=== PATIENT | male | born 1940 | race Caucasian/White ===

== ENCOUNTER 2016-10-14 11:18 | Inpatient (IN) | payer MEDICARE, OTHER ==
[~2016-10-14] VITALS: Ht 162.6 cm; Wt 68.4 kg
[~2016-10-14 11:18] MED LIST: AMLO5TAB4 PO; GLIP5TAB13 PO; HYDR-3671 PO; ISOS60TA PO; SEVE800T10 PO; SIMV40TA2 PO
[2016-10-14 12:10] LABS: BASOPHILS % 0.5 % (0.0-2.0); EOSINOPHILS # 0.5 10^3/ul (0.0-0.5); EOSINOPHILS % 8.1 % (0.0-7.0); HEMATOCRIT 37.2 % (42.0-52.0); LYMPHOCYTES # 0.3 10^3/ul (0.8-2.9); LYMPHOCYTES % 4.8 % (15.0-51.0); MEAN CORPUSCULAR HEMOGLOBIN 26.5 pg (29.0-33.0); MEAN CORPUSCULAR HGB CONC 32.2 g/dl (32.0-37.0); MEAN CORPUSCULAR VOLUME 82.3 fl (82.0-101.0); MEAN PLATELET VOLUME 9.9 fl (7.4-10.4); MONOCYTE # 0.6 10^3/ul (0.3-0.9); MONOCYTES % 10.1 % (0.0-11.0); NEUTROPHIL # 4.8 10^3/ul (1.6-7.5); NEUTROPHILS % 76.5 % (39.0-77.0); PLATELET COUNT 119 10^3/UL (140-440); RED BLOOD COUNT 4.53 10^6/ul (4.70-6.10); RED CELL DISTRIBUTION WIDTH 19.9 % (11.5-14.5); UNCORRECTED WBC 6.3 10^3/ul (4.8-10.8); WHITE BLOOD COUNT 6.3 10^3/ul (4.8-10.8)
[2016-10-14 12:16] LABS: CONDITION 1; LH ANALYZER COMMENTS 1
[2016-10-14 12:22] LABS: POTASSIUM 4.5 mmol/L (3.5-5.1)
[2016-10-14 12:23] LABS: INR 1.45; PARTIAL THROMBOPLASTIN TIME 36.7 Sec (25.0-35.0); PROTIME 17.7 Sec (12.2-14.2); PT RATIO 1.4
[2016-10-14 12:25] LABS: CREATININE 3.68 mg/dl (0.61-1.24)
[2016-10-14 12:26] LABS: CALCIUM 9.1 mg/dl (8.4-10.2)
--- NOTE | 2016-10-14 12:26 | RADRPT ---
PROCEDURE: Chest x-ray CLINICAL INDICATION: Chest pain TECHNIQUE: Chest single view COMPARISON: 05/28/2016 FINDINGS: As before there is right chest single lead pacemaker. Stable mild cardiomegaly and an sclerotic aor tic calcification seen. Pulmonary vessels normal in caliber. Lungs clear. Costophrenic angles sha rp. IMPRESSION: No acute cardiopulmonary disease. Stable cardiomegaly and an sclerotic aortic calcification Pacemaker RPTAT: HH .Ru Vila MD, MD Date Time Electronically viewed and signed by .Ru Vila MD, MD on 10/14/2016 12:25 .W/
[2016-10-14 12:36] LABS: TROPONIN-I 0.049 ng/ml (0.00-0.12)
--- NOTE | 2016-10-14 13:45 | ERA ---
ER Documentation Chief Complaint Date/Time DATE: 10/14/16 TIME: 13:43 Chief Complaint CHEST PAIN , NAUSEA , COUGH SINCE YESTERDAY HPI This is a 76-year-old male who presents to the emergency room with a chief complaint of chest pain. The patient localizes the chest pain in the center of his chest, describes as achy pain, states he has no radiation of the pain and came to the ER for evaluation. He states his chest pain is worse with deep inspiration and, is not improved with any positioning. The patient came to the ER for evaluation. He is a end-stage renal patient is on dialysis Thursday, Thursday, Thursday. This patient did complete dialysis yesterday ROS All systems reviewed and are negative except as per history of present illness. Medications Home Meds Reported Medications Sevelamer Hcl* (Renagel*) 800 Mg Tablet, 2400 MG PO WITH MEALS, TAB 05/26/16 Isosorbide Mononitrate* (Isosorbide Mononitrate*) 60 Mg Tab.er.24h, 60 MG PO DAILY, TAB 05/26/16 Glipizide* (Glipizide*) 5 Mg Tablet, 5 MG PO AC BREAKFAST, TAB 05/26/16 Simvastatin* (Zocor*) 40 Mg Tablet, 40 MG PO QHS, #30 TAB 05/26/16 Amlodipine Besylate* (Norvasc*) 5 Mg Tablet, 5 MG PO DAILY, TAB 05/26/16 Hydralazine Hcl* (Hydralazine Hcl*) 25 Mg Tab, 25 MG PO Q8, #90 TAB 05/26/16 Allergies Allergies: Coded Allergies: No Known Drug Allergy (Verified Allergy, Mild, 10/14/16) PMhx/Soc History of Surgery: Yes (2 Left foot toe amputations, AV fistula placement) Anesthesia Reaction: No Hx Neurological Disorder: No Hx Respiratory Disorders: No Hx Cardiac Disorders: Yes (Hypertension) Hx Psychiatric Problems: No Hx Miscellaneous Medical Probl: No Hx Alcohol Use: No Hx Substance Use: No Hx Tobacco Use: No Smoking Status: Never smoker Physical Exam Vitals Vital Signs Date Time Temp Pulse Resp B/P Pulse Ox O2 Delivery O2 Flow Rate FiO2 10/14/16 11:57 Nasal Cannula 2 10/14/16 11:22 97.9 88 18 217/96 98 Physical Exam INITIAL VITAL SIGNS: Reviewed by me GENERAL: The patient is well developed and appropriate for usual state of health in no apparent distress HEENT: Pupils equal, round, and reactive to light. EOMI. There is no scleral icterus. NECK: C-spine is soft and supple, there is no meningismus. There is no cervical lymphadenopathy. LUNGS: Clear to auscultation bilaterally. There are no rales, wheezes or rhonchi. HEART: Regular rate and rhythm, no murmurs, clicks, rubs or gallops. ABDOMEN: Soft, non-tender, non-distended. There are bowel sounds in all four quadrants. No rebound or guarding. EXTREMITIES: Left upper extremity AV shunt with palpable thrill, there is no peripheral cyanosis or edema. No focal swelling or erythema. NEUROLOGICAL: The patient moves all four extremities with 5/5 strength. Cranial nerves II - XII are intact. Normal gait. Alert and oriented SKIN: There is no apparent rash or petechiae. HEME/LYMPHATIC: There is no evidence of excessive bruising or lymphedema. PSYCHIATRIC: The patient does not appear anxious or depressed. Result Diagram: 10/14/16 1200 10/14/16 1200 Results 24 hrs Laboratory Tests Test 10/14/16 12:00 Activated Partial Thromboplast Time 36.7Sec Anion Gap 19 Basophils # 0.010^3/ul Basophils % 0.5% Blood Morphology Comment Blood Urea Nitrogen 23mg/dl Calcium Level 9.1mg/dl Carbon Dioxide Level 34mmol/L Chloride Level 93mmol/L Creatinine 3.68mg/dl Eosinophils # 0.510^3/ul Eosinophils % 8.1% Glucose Level 93mg/dl Hematocrit 37.2% Hemoglobin 12.0g/dl INR International Normalized Ratio 1.45 Lymphocytes # 0.310^3/ul Lymphocytes % 4.8% Mean Corpuscular Hemoglobin 26.5pg Mean Corpuscular Hemoglobin Concent 32.2g/dl Mean Corpuscular Volume 82.3fl Mean Platelet Volume 9.9fl Monocytes # 0.610^3/ul Monocytes % 10.1% Neutrophils # 4.810^3/ul Neutrophils % 76.5% Nucleated Red Blood Cells # 0.010^3/ul Nucleated Red Blood Cells % 0.0/100WBC Platelet Count 12681^3/UL Potassium Level 4.5mmol/L Prothrombin Time 17.7Sec Prothrombin Time Ratio 1.4 Red Blood Count 4.5310^6/ul Red Cell Distribution Width 19.9% Sodium Level 141mmol/L Troponin I 0.049ng/ml White Blood Count 6.310^3/ul Procedures/MDM Chest X-ray 1V Interpreted by me: Soft Tissue: No acute abnormalities Bones: No acute abnormalities Mediastinum/Cardiac Silhouette/Lungs: [No acute abnormalities] EKG: Rate/Rhythm: [Normal Sinus Rhythm] QRS, ST, T-waves: [No changes consistent w/ acute ischemia] Impression: [No evidence of ischemia or arrhythmia] This 76-year-old male presents to the ER for evaluation of chest pain. This patient does have multiple risk factors including hypertension, diabetes, and age. Given his risk factors this patient will be placed in for admission at this time on a telemetry floor with a cardiac consult. The patient will be admitted under the care of Dr. Harriet See. He is hemodynamically stable for the telemetry floor at this time. Departure Diagnosis: Primary Impression: Chest pain Additional Impressions: ESRD (end stage renal disease) Normocytic anemia Condition: MALCOLM Flaherty DO Oct 14, 2016 13:45
[2016-10-14] MEDS ORDERED: ONDANSETRON 4 MG INJ IV PRN ×2 (14:00→16:30)
[2016-10-14] MEDS ORDERED: ACETAMINOPHEN 325 MG TAB PO PRN ×2 (14:00→16:30)
[2016-10-14] MEDS ORDERED: ASPIRIN 325 MG TAB PO ONE (14:00)
[2016-10-14] MEDS ORDERED: NITROGLYCERIN (SL) 0.4 MG TAB SL ONE (14:00)
[2016-10-14] MEDS ORDERED: hydrALAzine 20 MG INJ IV ONE (16:00)
[2016-10-14] MEDS ORDERED: GUAIFENESIN/DM 5ML CUP PO PRN (16:30)
[2016-10-14] MEDS ORDERED: morphine 2 MG INJ IV PRN (16:30)
[2016-10-14] MEDS ORDERED: DOCUSATE SODIUM 100 MG CAP PO PRN (16:30)
[2016-10-14] MEDS ORDERED: NACL 0.9% 3 ML SYG IV SCH (16:30)
[2016-10-14] MEDS ORDERED: AZITHROMYCIN 500MG/NS (PMX) 250 ML IVPB ONE (16:30)
[2016-10-14] MEDS ORDERED: NITROGLYCERIN (SL) 0.4 MG TAB SL PRN (16:30)
[2016-10-14] MEDS: CEFTRIAXONE 1 GM/50 ML (PMX) 50 ML IVPB SCH (16:43)
--- NOTE | 2016-10-14 17:17 | HP ---
DATE OF ADMISSION: 10/14/2016 CHIEF COMPLAINT: Productive cough started yesterday and chest pain. HISTORY OF PRESENT ILLNESS: The patient is a 76-year-old gentleman who had developed a pro ductive cough yesterday. Patient also stated that he had chest pain with no radiation. The chest p ain gets worse with inspiration. Patient also has end-stage renal disease on hemodialysis on Thursday , Thursday and Thursday. I used a drywall installer to talk to the patient. 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 Patient denies any feve r or chills. The patient complained of nausea; however, he associated it with productive cough. In the emergency room, patient underwent a chest x-ray which showed no acute cardiopulmonary disease, stable cardiomegaly and a sclerotic aortic calcification and pacemaker. Patient rapid influenza A a nd B was found to be negative. Patient did not have any leukocytosis. The patient's blood pressure was 117/96. The patient was getting hydralazine, Zofran, Tylenol, nitroglycerin and aspirin. The patient will be admitted for further evaluation and management to telemetry floor. PAST MEDICAL HISTORY: Positive for end-stage renal disease, hypertension. Patient is legally blind and has history of diabetes mellitus type 2. PAST SURGICAL HISTORY: Status post left AV fistula creation, status post pacemaker insertion. Stat us post 2 left fourth toe amputations. FAMILY HISTORY: Noncontributory. SOCIAL HISTORY: Patient lives at home with his family. The patient denies any tobacco use, denies any alcohol use and denies any illicit drug use. ALLERGIES: NO KNOWN ALLERGIES. MEDICATIONS ON ADMISSION: 1. Renagel. 2. Imdur. 3. Glipizide. 4. Simvastatin. 5. Norvasc. 6. Hydralazine. REVIEW OF SYSTEMS: A 12-point review of systems is negative unless what mentioned in the HPI. PHYSICAL GENERAL: Well developed, well-nourished gentleman in no acute distress, awake, alert. VITAL SIGNS: Temperature 97.9, pulse is 78, blood pressure 102/93, respiratory rate 18, oxygen satu ration 98% on room air. HEENT: Head is atraumatic, normocephalic. Patient is legally blind. Oral mucosa is pink and moist . NECK: Supple, no cervical lymphadenopathy, no thyromegaly. CHEST: Lung sounds with some congestion, scattered rhonchi bilaterally. CARDIOVASCULAR: Normal S1, S2. No murmurs, gallops, clicks, rubs noted. ABDOMEN: Round, soft, nondistended, nontender. Bowel sounds present. There is no guarding, no ten derness. EXTREMITIES: No edema, clubbing, cyanosis. Pulses equal bilaterally 2+. SKIN: There is no rash, petechiae noted. NEUROLOGIC: Patient is awake, alert and oriented x3. No focal deficits noted. Motor strength 5/5 in all extremities. LABORATORY DATA: On admission, CBC: White blood cells 6.3, hemoglobin 12.0, hematocrit 37.2, plate lets 119. Chemistry: Sodium is 141, potassium 4.5, chloride 93, carbon dioxide 34, anion gap 19, B UN is 23. Creatinine 3.68, glucose 93, calcium is 9.1. Troponin 0.049. ASSESSMENT AND PLAN: 1. Possible bronchitis. We will start patient on Rocephin and Zithromax and breathing treatment p. r.n. for shortness of breath. Chest pain, rule out acute coronary syndrome. Dr. Esparza is asked to see patient in cardiology consultation. We will obtain cardiac enzymes x3 q. 8 hours and continue aspirin, nitroglycerin and morphine for pain. 2. Hypertensive urgency. Will resume patient's home antihypertensive medications. Continue hydral azine p.r.n. for systolic blood pressure above 170. 3. End-stage renal disease. Dr. Nettles will be following the patient from nephrology standpoint. 4. Diabetes mellitus type 2. Will continue to monitor patient's blood sugar. Continue NovoLog per mild algorithm sliding scale. Continue home diabetes medication. 5. Permanent pacemaker. 6. Left upper extremity AV fistula with audible bruit and palpable thrill. ASSESSMENT AND PLAN: We will continue heparin for deep venous thrombosis prophylaxis and Pepcid for peptic ulcer disease prophylaxis. Further recommendations based on clinical course. Plan of care was discussed with Dr. Nettles who is covering for Dr. Kirby. Dictated By: CONTRERAS HUERTA CLASP MACHINE OPERATOR for YUNIER KIRBY MD SR/NTS Conf#: [id number] DID#: [id number]
[2016-10-14] MEDS ORDERED: GLUCAGON 1 MG INJ IM PRN (17:30)
[2016-10-14] MEDS ORDERED: DEXTROSE 50% 50 ML SYRINGE IV PRN (17:30)
[2016-10-14] MEDS ORDERED: GLUCOSE GEL 15 GRAM TUBE PO PRN ×2 (17:30)
[2016-10-14 17:46] LABS: CK-MB 0.82 ng/ml (0.0-2.4)
[2016-10-14 17:48] LABS: TROPONIN-I 0.058 ng/ml (0.00-0.12)
[2016-10-14] MEDS: SEVELAMER 800 MG TAB PO SCH (18:00)
[2016-10-14] MEDS: INSULIN ASPART [NOVOLOG] 3 ML PEN SC SCH ×2 (18:00→21:00)
[2016-10-14 18:50] VITALS: TEMP 99.4
[2016-10-14 20:30] VITALS: BP 190/85; PULSE 102; RESP 20
[2016-10-14 20:32] VITALS: PULSE 103
[2016-10-14 20:54] VITALS: Ht 162.6 cm; Wt 68.4 kg
[2016-10-14] MEDS: METHYLPREDNISOLONE 40 MG INJ IV SCH (21:46)
[2016-10-14] MEDS: ATORVASTATIN 20 MG TAB PO SCH (21:46)
[2016-10-14 22:00] VITALS: BP 179/77; PULSE 71
[2016-10-14] MEDS: ISOSORBIDE DINITRATE 10 MG TAB PO SCH (22:04)
[2016-10-14] MEDS: HEPARIN 5,000 UNIT/0.5 ML SYG SC SCH (22:06)
[2016-10-14] MEDS: ALBUTEROL/IPRATROPIUM (NEB) 3 ML AMP HHN PRN (23:01)
[2016-10-14 23:25] LABS: TROPONIN-I 0.095 ng/ml (0.00-0.12)
[2016-10-14 23:37] LABS: CK-MB 0.64 ng/ml (0.0-2.4)
[2016-10-15] VITALS (21 sets, daily range): BP systolic 121–210; BP diastolic 58–110; PULSE 49–97; RESP 16–20
[2016-10-15] MEDS ORDERED: glipiZIDE 5 MG TAB PO SCH (07:00)
[2016-10-15 07:38] LABS: HEMATOCRIT 35.1 % (42.0-52.0); HEMOGLOBIN 11.4 g/dl (14.0-18.0); LYMPHOCYTES # 0.1 10^3/ul (0.8-2.9); LYMPHOCYTES % 1.4 % (15.0-51.0); MEAN CORPUSCULAR HEMOGLOBIN 27.1 pg (29.0-33.0); MEAN CORPUSCULAR HGB CONC 32.5 g/dl (32.0-37.0); MEAN CORPUSCULAR VOLUME 83.4 fl (82.0-101.0); MEAN PLATELET VOLUME 10.7 fl (7.4-10.4); MONOCYTE # 0.2 10^3/ul (0.3-0.9); MONOCYTES % 2.3 % (0.0-11.0); NEUTROPHIL # 9.5 10^3/ul (1.6-7.5); NEUTROPHILS % 96.3 % (39.0-77.0); PLATELET COUNT 97 10^3/UL (140-440); RED BLOOD COUNT 4.21 10^6/ul (4.70-6.10); RED CELL DISTRIBUTION WIDTH 20.5 % (11.5-14.5); UNCORRECTED WBC 9.9 10^3/ul (4.8-10.8); WHITE BLOOD COUNT 9.9 10^3/ul (4.8-10.8)
[2016-10-15 07:47] LABS: CONDITION 1; LH ANALYZER COMMENTS 1
[2016-10-15 07:49] LABS: POTASSIUM 4.8 mmol/L (3.5-5.1)
[2016-10-15 07:52] LABS: CREATININE 5.2 mg/dl (0.61-1.24)
[2016-10-15 07:53] LABS: CALCIUM 8.8 mg/dl (8.4-10.2); MAGNESIUM 2.2 mg/dl (1.7-2.5)
[2016-10-15] MEDS: INSULIN ASPART [NOVOLOG] 3 ML PEN SC SCH ×4 (07:53→21:37)
[2016-10-15] MEDS: SEVELAMER 800 MG TAB PO SCH ×3 (07:58→17:14)
[2016-10-15] MEDS: HEPARIN 5,000 UNIT/0.5 ML SYG SC SCH ×2 (08:09→21:37)
[2016-10-15] MEDS: AZITHROMYCIN 250 MG TAB PO SCH (08:10)
[2016-10-15] MEDS: ISOSORBIDE DINITRATE 10 MG TAB PO SCH ×2 (08:10→12:19)
[2016-10-15] MEDS: FAMOTIDINE 20 MG TAB PO SCH (08:10)
[2016-10-15] MEDS: ASPIRIN 81 MG TAB PO SCH (08:10)
[2016-10-15] MEDS: METHYLPREDNISOLONE 40 MG INJ IV SCH ×2 (08:10→21:32)
[2016-10-15] MEDS ORDERED: AMLODIPINE 5 MG TAB PO SCH (09:00)
[2016-10-15 09:24] LABS: ANISOCYTOSIS 2+; HYPOCHROMASIA 1+; PLATELET ESTIMATE PLT APPEAR DECREASED
--- NOTE | 2016-10-15 16:33 | CONS ---
DATE OF ADMISSION: 10/14/2016 DATE OF CONSULTATION: 10/15/2016 TYPE OF CONSULTATION: Cardiology REASON FOR CONSULTATION: Chest pain, assess for acute coronary syndrome. REQUESTING PHYSICIAN: Yunier Kirby MD and Dr. Nettles. HISTORY OF PRESENT ILLNESS: Mr. Doss is a 76-year-old male with a history of hypertension, symptomatic bradycardia status post permanent pacemaker implant May 2016, end-stage renal dise ase on hemodialysis, legally blind, diabetes mellitus, dyslipidemia who initially presented with com plaints of substernal chest pain. Upon arrival in the emergency department, temperature 97.9, blood pressure markedly elevated to 217/96, pulse 88, respiratory rate 18, saturating 98%. The patient's labs revealed white count 6.3, hemoglobin 12, platelet count 119. Sodium 141, potassium 4.5, creat inine 3.6, troponin negative. INR 1.45. The patient underwent a chest x-ray revealing stable cardi omegaly and atherosclerotic aortic arch calcification, permanent pacemaker in place, no acute cardio pulmonary disease. The patient's electrocardiogram revealed sinus rhythm, first-degree AV block, ri ght bundle branch block pattern secondary to repolarization abnormalities. Patient subsequently adm itted to the floor and since admit to the floor, he has had additional negative troponins. PAST MEDICAL HISTORY: As above in HPI. CURRENT MEDICATIONS CURRENTLY IN HOSPITAL: 1. Azithromycin. 2. Pepcid 20 mg daily. 3. Aspirin 81 mg daily. 4. Norvasc 5 mg daily. 5. Clonidine p.r.n. 6. Heparin 5000 subq b.i.d. 7. Aricept 10 mg p.o. t.i.d. 8. Solu-Medrol 40 mg IV q.12h. 9. Lipitor 20 mg at bedtime. 10. Renagel. 11. Ceftriaxone IV. 12. DuoNeb. 13. Sublingual nitroglycerin p.r.n. 14. Morphine p.r.n. 15. Colace p.r.n. 16. Robitussin. ALLERGIES: NO KNOWN DRUG ALLERGIES. SOCIAL HISTORY: No tobacco, ETOH or illicit drug use. FAMILY HISTORY: No history of sudden cardiac or early CAD. REVIEW OF SYSTEMS: As above in HPI. CONSTITUTIONAL: No fevers, chills. PULMONARY: No current signs of respiratory compromise. GASTROINTESTINAL: No vomiting. GENITOURINARY: No hematuria. MUSCULOSKELETAL: Degenerative joint disease. PSYCHIATRIC: No documented psychiatric history. NEUROLOGIC: No documented history of CVA. CARDIOVASCULAR: Chest pain. PHYSICAL EXAMINATION: VITAL SIGNS: Temperature 99.4, blood pressure most recently 193/87, pulse 80, respirations 16, satu rating 96%. GENERAL: The patient is sleeping but arousable. NECK: JVP approximately 9 cm water. CHEST: Bibasilar crackles. HEART: Regular rate and rhythm. Normal S1, S2. A 1/6 systolic murmur, nondisplaced PMI. ABDOMEN: Positive bowel sounds, soft. EXTREMITIES: No pitting edema, 1+ pulses bilaterally posterior tibial. LABORATORIES: As above in HPI with most recently from today, sodium 143, potassium 4.8, creatinine of 5.2, BUN of 39. Troponin negative x3. White blood cell count 9.9, hemoglobin 11.4, platelet cou nt 97. INR 1.45. IMAGING STUDIES: As above in HPI. No further imaging studies for my review at this time. ECG: As above in HPI. No further electrocardiograms for my review at this time. IMPRESSION: 1. Chest pain, assess for acute coronary syndrome with negative troponins x3 at this time. 2. Abnormal electrocardiogram, assess for acute coronary syndrome. 3. Right bundle branch block by EKG. 4. History of permanent pacemaker implant. 5. History of symptomatic bradycardia. 6. Diabetes mellitus. 7. Hypertensive emergency. 8. End-stage renal disease on hemodialysis. 9. Possible bronchitis. RECOMMENDATIONS: 1. At this time, would maintain patient on telemetry monitoring to follow rhythm and rate control c losely. 2. Continue the patient's aspirin for prophylaxis against cardiovascular events. 3. Continue the patient's Norvasc with increase to improve overall systolic blood pressure control and will additionally continue the patient's Isordil. We will give consideration to initiation of b eta mary lou given his chest pain. 4. Continue the patient's current steroids and bronchodilators following respiratory status closely . 5. Continue the patient's broad-spectrum antibiotics and follow up all culture data. 6. Will consider stress testing this patient to further assess the possibility of significant obstr uctive coronary artery disease or ischemia lending to her symptoms of chest pain. I will check a fa sting lipid panel for general risk stratification and initiate lipid-lowering medication as necessar y. Thank you for allowing me to take part in the care of this patient. I will continue to follow along very closely with you with further recommendations to be made as to the risk stratification and adj ust the patient's statin therapy as necessary. Thank you for allowing me to take part in the care of this patient. I will continue follow along ve ry closely with you with further recommendations to be made as the patient progresses through his in patient hospital clinical course. Dictated By: WILLA CORBETT/JERAMY Conf#: [id number] DID#: [id number] CC: YUNIER KIRBY MD; MARIANNA NETTLES MD;*EndCC*
[2016-10-15] MEDS: CEFTRIAXONE 1 GM/50 ML (PMX) 50 ML IVPB SCH (16:56)
--- NOTE | 2016-10-15 18:54 | PN ---
Date/Time of Note Date/Time of Note DATE: 10/15/16 TIME: 18:47 Assessment/Plan VTE Prophylaxis VTE Prophylaxis Intervention: SCD's Lines/Catheters IV [facility]ter [facility]from [facility] Saline Lock Urinary Cath still in place: No Assessment/Plan Chief Complaint/Hosp Course ASSESSMENT AND PLAN: 1. Possible bronchitis. Continue Rocephin and Zithromax and breathing treatment p.r.n. for shortness of breath. 2. Chest pain, rule out acute coronary syndrome. Dr. Esparza is following cardiology consultation. Cardiac enzymes are negative. Stress test tomorrow. 2. Hypertensive urgency. Continue Norvasc, Imdur and Catapres continue hydralazine p.r.n. for systolic blood pressure above 170. 3. End-stage renal disease. Dr. Nettles is following the patient from nephrology standpoint. 4. Diabetes mellitus type 2. Will continue to monitor patient's blood sugar. Continue NovoLog per mild algorithm sliding scale. Continue home diabetes medication. 5. Permanent pacemaker. Continue heparin for deep venous thrombosis prophylaxis and Pepcid for peptic ulcer disease prophylaxis. Further recommendations based on clinical course. Plan of care was discussed with Dr. Nettles who is covering for Dr. Rangel. Problems: Subjective 24 Hr Interval Summary Free Text/Dictation Patient continues to have no nonproductive cough, no fever nausea vomiting per RN, patient stated that he feels better, poor appetite. Paced rhythm on telemetry. Exam/Review of Systems Vital Signs Vitals Vital Signs Date Time Temp Pulse Resp B/P Pulse Ox O2 Delivery O2 Flow Rate FiO2 10/15/16 16:30 60 20 10/15/16 15:38 97.9 189/90 96 10/15/16 08:00 Nasal Cannula 3.0 10/14/16 23:06 21 Intake and Output 10/14/16 10/14/16 10/15/16 15:00 23:00 07:00 Intake Total 480 ml Balance 480 ml Exam GENERAL: Well developed, well-nourished gentleman in no acute distress, awake, alert. HEENT: Head is atraumatic, normocephalic. Patient is legally blind. NECK: Supple, no cervical lymphadenopathy, no thyromegaly. CHEST: Lung sounds with some congestion, scattered rhonchi bilaterally. CARDIOVASCULAR: Normal S1, S2. No murmurs, gallops, clicks, rubs noted. ABDOMEN: Round, soft, nondistended, nontender. Bowel sounds present. EXTREMITIES: No edema, clubbing, cyanosis. Left upper extremity AV fistula with audible bruit and palpable thrill. SKIN: There is no rash, petechiae noted. NEUROLOGIC: Patient is awake, alert and oriented x3. Results Result Diagram: 10/15/16 0641 10/15/16 0641 Results 24 hrs Laboratory Tests Test 10/14/16 18:59 10/14/16 21:42 10/14/16 22:05 10/15/16 06:41 Bedside Glucose 79 78 Creatine Kinase 88 Creatine Kinase Index 0.7 Creatinine Kinase MB (Mass) 0.64 Troponin I 0.095 Anion Gap 24 H Anisocytosis 2+ Basophils # 0.0 Basophils % 0.0 Blood Morphology Comment Blood Urea Nitrogen 39 #H Calcium Level 8.8 Carbon Dioxide Level 30 Chloride Level 94 L Creatinine 5.20 H Differential Comment AUTO w/SCAN Eosinophils # 0.0 Eosinophils % 0.0 Glucose Level 106 Hematocrit 35.1 L Hemoglobin 11.4 L Hypochromasia 1+ Large Platelets 1+ Lymphocytes # 0.1 L Lymphocytes % 1.4 L Magnesium Level 2.2 Mean Corpuscular Hemoglobin 27.1 L Mean Corpuscular Hemoglobin Concent 32.5 Mean Corpuscular Volume 83.4 Mean Platelet Volume 10.7 H Monocytes # 0.2 L Monocytes % 2.3 Neutrophils # 9.5 H Neutrophils % 96.3 H Nucleated Red Blood Cells # 0.0 Nucleated Red Blood Cells % 0.0 Platelet Count 97 L Platelet Estimate PLT APPEAR DECREASED Potassium Level 4.8 Red Blood Count 4.21 L Red Cell Distribution Width 20.5 H Sodium Level 143 White Blood Count 9.9 # Test 10/15/16 07:47 10/15/16 11:17 10/15/16 17:10 Bedside Glucose 101 120 146 Medications Medications Current Medications Ceftriaxone Sodium (Rocephin) 50 ml @ 100 mls/hr Q24H IVPB Last administered on 10/15/16 16:56; Admin Dose 100 MLS/HR; Start 10/14/16 at 16:30 Azithromycin (Zithromax) 250 mg DAILY PO Last administered on 10/15/16 08:10; Admin Dose 250 MG; Start 10/15/16 at 09:00 Heparin Sodium (Porcine) (Heparin (5000 Units/0.5 ml)) 5,000 unit BID SC Last administered on 10/15/16 08:09; Admin Dose 5,000 UNIT; Start 10/14/16 at 21:00 Famotidine (Pepcid) 20 mg DAILY PO Last administered on 10/15/16 08:10; Admin Dose 20 MG; Start 10/15/16 at 09:00 Ondansetron HCl (Zofran Inj) 4 mg Q6H PRN IV NAUSEA AND/OR VOMITING; Start at 16:30 Aspirin (Aspirin) 81 mg DAILY PO Last administered on 10/15/16 08:10; Admin Dose 81 MG; Start 10/15/16 at 09:00 Nitroglycerin (Nitroglycerin (Sl Tab) 0.4 Mg) 1 tab Q5M PRN SL CHEST PAIN; Start 10/14/16 at 16:30 Acetaminophen (Tylenol Tab) 650 mg Q6H PRN PO PAIN LEVEL 1-3 OR FEVER; Start at 16:30 Morphine Sulfate (morphine) 2 mg Q4H PRN IV PAIN LEVEL 7-10; Start 10/14/16 at 16:30 Docusate Sodium (Colace) 100 mg Q12H PRN PO CONSTIPATION; Start 10/14/16 at 16: 30 Methylprednisolone Sodium Succinate (Solu-Medrol) 40 mg Q12 IV Last administered on 10/15/16 08:10; Admin Dose 40 MG; Start 10/14/16 at 21:00 Guaifenesin/ Dextromethorphan (Robitussin Dm Liquid Cup) 10 ml Q4H PRN PO COUGH Last administered on 10/14/16 21:56; Admin Dose 10 ML; Start 10/14/16 at 16:30 Atorvastatin Calcium (Lipitor) 20 mg DAILY@21 PO Last administered on 21:46; Admin Dose 20 MG; Start 10/14/16 at 21:00 Miscellaneous Information 1 ea NOTE XX ; Start 10/14/16 at 17:30 Glucose (Glutose) 15 gm Q15M PRN PO DECREASED GLUCOSE; Start 10/14/16 at 17:30 Glucose (Glutose) 22.5 gm Q15M PRN PO DECREASED GLUCOSE; Start 10/14/16 at 17: 30 Dextrose (D50w Syringe) 25 ml Q15M PRN IV DECREASED GLUCOSE; Start 10/14/16 at 17:30 Dextrose (D50w Syringe) 50 ml Q15M PRN IV DECREASED GLUCOSE; Start 10/14/16 at 17:30 Glucagon (Glucagen) 1 mg Q15M PRN IM DECREASED GLUCOSE; Start 10/14/16 at 17:30 Glucose (Glutose) 15 gm Q15M PRN BUCCAL DECREASED GLUCOSE; Start 10/14/16 at 17 :30 Amlodipine Besylate (Norvasc) 5 mg BID PO ; Start 10/15/16 at 21:00 Clonidine (Catapres) 0.1 mg Q4 PRN PO ELEVATED SYSTOLIC BP; Start 10/15/16 at 17:00 Isosorbide Dinitrate (Isordil) 20 mg TID PO ; Start 10/15/16 at 21:00 CONTRERAS HUERTA Oct 15, 2016 18:54
[2016-10-15] MEDS: ISOSORBIDE DINITRATE 20 MG TAB PO SCH (21:32)
[2016-10-15] MEDS: AMLODIPINE 5 MG TAB PO SCH (21:33)
[2016-10-15] MEDS: ATORVASTATIN 20 MG TAB PO SCH (21:37)
[2016-10-16] VITALS (10 sets, daily range): BP systolic 120–188; BP diastolic 60–82; PULSE 68–73; RESP 16–20
[2016-10-16] MEDS: SEVELAMER 800 MG TAB PO SCH ×3 (07:40→17:23)
[2016-10-16] MEDS: INSULIN ASPART [NOVOLOG] 3 ML PEN SC SCH ×4 (07:41→20:54)
[2016-10-16 07:49] LABS: HEMOGLOBIN 11.9 g/dl (14.0-18.0); LYMPHOCYTES # 0.1 10^3/ul (0.8-2.9); LYMPHOCYTES % 1.7 % (15.0-51.0); MEAN CORPUSCULAR HEMOGLOBIN 26.7 pg (29.0-33.0); MEAN CORPUSCULAR VOLUME 83.4 fl (82.0-101.0); MEAN PLATELET VOLUME 11.1 fl (7.4-10.4); MONOCYTE # 0.3 10^3/ul (0.3-0.9); MONOCYTES % 3.3 % (0.0-11.0); PLATELET COUNT 116 10^3/UL (140-440); RED BLOOD COUNT 4.44 10^6/ul (4.70-6.10); UNCORRECTED WBC 8.4 10^3/ul (4.8-10.8); WHITE BLOOD COUNT 8.4 10^3/ul (4.8-10.8)
[2016-10-16 07:55] LABS: CONDITION 1; LH ANALYZER COMMENTS 1; SUSPECT 1
[2016-10-16 07:56] LABS: POTASSIUM 4.7 mmol/L (3.5-5.1)
[2016-10-16 07:58] LABS: CREATININE 4.84 mg/dl (0.61-1.24)
[2016-10-16 07:59] LABS: CALCIUM 9.1 mg/dl (8.4-10.2)
[2016-10-16 08:01] LABS: CHOL/HDL RATIO 1.8 RATIO
[2016-10-16 08:06] LABS: CK-MB 2.02 ng/ml (0.0-2.4)
[2016-10-16 08:09] LABS: TROPONIN-I 0.164 ng/ml (0.00-0.12)
[2016-10-16] MEDS: HEPARIN 5,000 UNIT/0.5 ML SYG SC SCH ×2 (08:19→20:54)
[2016-10-16] MEDS: ASPIRIN 81 MG TAB PO SCH (08:21)
[2016-10-16] MEDS: AZITHROMYCIN 250 MG TAB PO SCH (08:21)
[2016-10-16] MEDS: FAMOTIDINE 20 MG TAB PO SCH (08:21)
[2016-10-16] MEDS: METHYLPREDNISOLONE 40 MG INJ IV SCH ×2 (08:22→20:51)
[2016-10-16] MEDS: ISOSORBIDE DINITRATE 20 MG TAB PO SCH ×3 (08:22→20:52)
[2016-10-16] MEDS: AMLODIPINE 5 MG TAB PO SCH ×2 (08:22→20:52)
[2016-10-16] MEDS ORDERED: REGADENOSON 0.4 MG/5 ML SYG ONE (10:57)
--- NOTE | 2016-10-16 11:45 | CONS ---
Date/Time of Note Date/Time of Note DATE: 10/16/16 TIME: 11:39 Assessment/Plan Assessment/Plan Chief Complaint/Hosp Course IMPRESSION: 1. Chest pain, assess for acute coronary syndrome-with a 4th trop minimally positive in the setting of renal failure 2. Abnormal electrocardiogram, assess for acute coronary syndrome. 3. Right bundle branch block by EKG. 4. History of permanent pacemaker implant. 5. History of symptomatic bradycardia. 6. Diabetes mellitus. 7. Hypertensive emergency. 8. End-stage renal disease on hemodialysis. 9. Possible bronchitis. Recc: -Tele -serial ecg's -Continue norvasc/isordil -Continue abx's/bronchodilators -Lexiscan stress test today Problems: Consultation Date/Type/Reason Admit Date/Time Oct 14, 2016 at 13:43 Initial Consult Date 10/16/2016 Type of Consultation: Cardiology Reason for Consultation positive troponin/chest pain Referring Provider: YUNIER KIRBY MD Exam/Review of Systems Vital Signs Vitals Vital Signs Date Time Temp Pulse Resp B/P Pulse Ox O2 Delivery O2 Flow Rate FiO2 10/16/16 08:41 69 10/16/16 07:43 Nasal Cannula 3.0 10/16/16 07:12 97.0 19 120/60 97 10/14/16 23:06 21 Intake and Output 10/15/16 10/15/16 10/16/16 15:00 23:00 07:00 Intake Total 1030 ml 400 ml Output Total 3800 ml 50 ml Balance -2770 ml 350 ml Exam Review of Systems: CONSTITUTIONAL: No fevers, chills. PULMONARY: No sob CARDIOVASCULAR: Intermittent chest pain GASTROINTESTINAL: No nausea/vomiting. GENITOURINARY: No hematuria/dysuria. MUSCULOSKELETAL: No myagias/arthalgias. PSYCHIATRIC: The patient denies depression. NEUROLOGIC: No weakness Constitutional: alert Psych: no complaints Head: normocephalic ENMT: mucosa pink and moist Neck: jvd, supple Respiratory: diminished breath sounds (at bases/B) Cardiovascular: regular rate and rhythm Gastrointestinal: non-tender, soft Musculoskeletal: muscle tone (normal) Extremities: edema (none) Neurological: other (No focal deficits) Results Result Diagram: 10/16/16 0607 10/16/16 0607 Results 24 hrs Laboratory Tests Test 10/15/16 17:10 10/15/16 21:30 10/16/16 06:07 10/16/16 07:27 Bedside Glucose 146 196 142 Anion Gap 25 H Basophils # 0.0 Basophils % 0.0 Blood Morphology Comment Blood Urea Nitrogen 51 H Calcium Level 9.1 Carbon Dioxide Level 29 Chloride Level 92 L Cholesterol Level 89 L Cholesterol/HDL Ratio 1.8 Creatine Kinase 108 Creatine Kinase Index 1.9 Creatinine 4.84 H Creatinine Kinase MB (Mass) 2.02 Eosinophils # 0.0 Eosinophils % 0.0 Giant Platelets 1+ Glucose Level 145 HDL Cholesterol 47 Hematocrit 37.0 L Hemoglobin 11.9 L LDL Cholesterol, Calculated 30 Lymphocytes # 0.1 L Lymphocytes % 1.7 L Mean Corpuscular Hemoglobin 26.7 L Mean Corpuscular Hemoglobin Concent 32.0 Mean Corpuscular Volume 83.4 Mean Platelet Volume 11.1 H Monocytes # 0.3 Monocytes % 3.3 Neutrophils # 8.0 H Neutrophils % 95.0 H Nucleated Red Blood Cells # 0.0 Nucleated Red Blood Cells % 0.0 Platelet Count 116 L Potassium Level 4.7 Red Blood Count 4.44 L Red Cell Distribution Width 20.0 H Sodium Level 141 Triglycerides Level 60 Troponin I 0.164 *H White Blood Count 8.4 Medications Medications Current Medications Ceftriaxone Sodium (Rocephin) 50 ml @ 100 mls/hr Q24H IVPB Last administered on 10/15/16 16:56; Admin Dose 100 MLS/HR; Start 10/14/16 at 16:30 Azithromycin (Zithromax) 250 mg DAILY PO Last administered on 10/16/16 08:21; Admin Dose 250 MG; Start 10/15/16 at 09:00 Heparin Sodium (Porcine) (Heparin (5000 Units/0.5 ml)) 5,000 unit BID SC Last administered on 10/16/16 08:19; Admin Dose 5,000 UNIT; Start 10/14/16 at 21:00 Famotidine (Pepcid) 20 mg DAILY PO Last administered on 10/16/16 08:21; Admin Dose 20 MG; Start 10/15/16 at 09:00 Ondansetron HCl (Zofran Inj) 4 mg Q6H PRN IV NAUSEA AND/OR VOMITING; Start at 16:30 Aspirin (Aspirin) 81 mg DAILY PO Last administered on 10/16/16 08:21; Admin Dose 81 MG; Start 10/15/16 at 09:00 Nitroglycerin (Nitroglycerin (Sl Tab) 0.4 Mg) 1 tab Q5M PRN SL CHEST PAIN; Start 10/14/16 at 16:30 Acetaminophen (Tylenol Tab) 650 mg Q6H PRN PO PAIN LEVEL 1-3 OR FEVER; Start at 16:30 Morphine Sulfate (morphine) 2 mg Q4H PRN IV PAIN LEVEL 7-10; Start 10/14/16 at 16:30 Docusate Sodium (Colace) 100 mg Q12H PRN PO CONSTIPATION; Start 10/14/16 at 16: 30 Methylprednisolone Sodium Succinate (Solu-Medrol) 40 mg Q12 IV Last administered on 10/16/16 08:22; Admin Dose 40 MG; Start 10/14/16 at 21:00 Guaifenesin/ Dextromethorphan (Robitussin Dm Liquid Cup) 10 ml Q4H PRN PO COUGH Last administered on 10/14/16 21:56; Admin Dose 10 ML; Start 10/14/16 at 16:30 Atorvastatin Calcium (Lipitor) 20 mg DAILY@21 PO Last administered on 21:37; Admin Dose 20 MG; Start 10/14/16 at 21:00 Miscellaneous Information 1 ea NOTE XX ; Start 10/14/16 at 17:30 Glucose (Glutose) 15 gm Q15M PRN PO DECREASED GLUCOSE; Start 10/14/16 at 17:30 Glucose (Glutose) 22.5 gm Q15M PRN PO DECREASED GLUCOSE; Start 10/14/16 at 17: 30 Dextrose (D50w Syringe) 25 ml Q15M PRN IV DECREASED GLUCOSE; Start 10/14/16 at 17:30 Dextrose (D50w Syringe) 50 ml Q15M PRN IV DECREASED GLUCOSE; Start 10/14/16 at 17:30 Glucagon (Glucagen) 1 mg Q15M PRN IM DECREASED GLUCOSE; Start 10/14/16 at 17:30 Glucose (Glutose) 15 gm Q15M PRN BUCCAL DECREASED GLUCOSE; Start 10/14/16 at 17 :30 Amlodipine Besylate (Norvasc) 5 mg BID PO Last administered on 10/16/16 08:22 ; Admin Dose 5 MG; Start 10/15/16 at 21:00 Clonidine (Catapres) 0.1 mg Q4 PRN PO ELEVATED SYSTOLIC BP; Start 10/15/16 at 17:00 Isosorbide Dinitrate (Isordil) 20 mg TID PO Last administered on 10/16/16t 08: 22; Admin Dose 20 MG; Start 10/15/16 at 21:00 WILLA GARSIA Oct 16, 2016 11:45
--- NOTE | 2016-10-16 13:24 | RADRPT ---
PROCEDURE: Lexiscan myocardial perfusion study CLINICAL INDICATION: 76 -year-old patient complaining of chest pain. TECHNIQUE: Lexiscan 0.4 mg intravenously separate acquisition gated myocardial perfusion SPECT usi ng Tc 99m Myoview 30.0 mCi intravenously at stress and Tc-99m Myoview, 10.2 mCi intravenously at res t was performed using the rest/stress sequence. Poststress Myoview SPECT images were obtained in th e supine position. COMPARISON: No prior studies. FINDINGS: Perfusion images reveal no evidence of perfusion defects. Lexiscan post stress gated SPECT images demonstrate no wall motion abnormalities. IMPRESSION: 1. No evidence of perfusion defects. 2. No wall motion abnormalities. 3. The left ventricle ejection fraction at stress is 65%. A call report was made to Dr. Esparza at 01:20 p.m. on October 16, 2016. RPTAT: HH .Rebeka Tom MD, Date Time Electronically viewed and signed by .Rebeka Tom MD, MD on 10/16/2016 13:24 .L/
--- NOTE | 2016-10-16 14:00 | RADRPT ---
Vent Rate: 74 bpm RR Interval: 0 msec [place] Interval: 166 msec QRS Duration: 158 msec QT Interval: 472 msec QTC Interval: 523 msec P-R-T [place]: 63 - 86 - 10 degrees Normal sinus rhythm Right bundle branch block T wave abnormality, consider inferior ischemia Abnormal ECG Electronically Signed By: Obed Valdes [id number]
--- NOTE | 2016-10-16 14:38 | CONS ---
DATE OF ADMISSION: 10/14/2016 DATE OF CONSULTATION: 10/16/2016 LEXISCAN CARDIOLITE STRESS TEST, ELECTROCARDIOGRAM PORTION REASON FOR PROCEDURE Chest pain, assess for ischemia. Baseline vital signs and electrocardiogram pulse of 75, blood pressure 191/89. Electrocardiogram re veals normal sinus rhythm at a rate of 76 with right axis deviation, right bundle branch block, left posterior fascicular block, secondary repolarization abnormalities. PROCEDURE: The patient underwent standard Lexiscan infusion protocol over 10 seconds followed by ra diolabeled tracer. The patient's test was stopped due to completion of protocol. Maximal achieved blood pressure during the test 150/68. Maximum heart rate during the test 83. ECG FINDINGS: The patient did not develop any new Lexiscan-induced ST or T-wave changes from baseli ne abnormalities. No documented PVCs. SYMPTOMS: The patient had no complaints of chest pain or shortness of breath during stress testing. IMPRESSION: 1. No Lexiscan-induced ST or T-wave changes from baseline abnormalities diagnostic for cardiac isch emia. 2. No complaints of chest pain or shortness of breath during stress testing. 3. No documented premature ventricular contractions during stress test. 4. Report of nuclear images to follow in a separate dictation. Dictated By: WILLA CORBETT/JERAMY Conf#: [id number] DID#: [id number] CC: YUNIER KIRBY MD;*EndCC*
[2016-10-16] MEDS: CEFTRIAXONE 1 GM/50 ML (PMX) 50 ML IVPB SCH (17:23)
--- NOTE | 2016-10-16 19:00 | PN ---
Date/Time of Note Date/Time of Note DATE: 10/16/16 TIME: 19:00 Assessment/Plan Lines/Catheters IV [facility] Saline Lock Urinary Cath still in place: No Exam/Review of Systems Vital Signs Vitals Vital Signs Date Time Temp Pulse Resp B/P Pulse Ox O2 Delivery O2 Flow Rate FiO2 10/16/16 16:02 98.9 74 20 169/76 98 10/16/16 14:18 3.0 10/16/16 07:43 Nasal Cannula 10/14/16 23:06 21 Intake and Output 10/15/16 10/15/16 10/16/16 15:00 23:00 07:00 Intake Total 1030 ml 400 ml Output Total 3800 ml 50 ml Balance -2770 ml 350 ml Results Result Diagram: 10/16/16 0607 10/16/16 0607 Results 24 hrs Laboratory Tests Test 10/15/16 21:30 10/16/16 06:07 10/16/16 07:27 10/16/16 12:30 Bedside Glucose 196 142 144 Anion Gap 25 H Basophils # 0.0 Basophils % 0.0 Blood Morphology Comment Blood Urea Nitrogen 51 H Calcium Level 9.1 Carbon Dioxide Level 29 Chloride Level 92 L Cholesterol Level 89 L Cholesterol/HDL Ratio 1.8 Creatine Kinase 108 Creatine Kinase Index 1.9 Creatinine 4.84 H Creatinine Kinase MB (Mass) 2.02 Eosinophils # 0.0 Eosinophils % 0.0 Giant Platelets 1+ Glucose Level 145 HDL Cholesterol 47 Hematocrit 37.0 L Hemoglobin 11.9 L LDL Cholesterol, Calculated 30 Lymphocytes # 0.1 L Lymphocytes % 1.7 L Mean Corpuscular Hemoglobin 26.7 L Mean Corpuscular Hemoglobin Concent 32.0 Mean Corpuscular Volume 83.4 Mean Platelet Volume 11.1 H Monocytes # 0.3 Monocytes % 3.3 Neutrophils # 8.0 H Neutrophils % 95.0 H Nucleated Red Blood Cells # 0.0 Nucleated Red Blood Cells % 0.0 Platelet Count 116 L Potassium Level 4.7 Red Blood Count 4.44 L Red Cell Distribution Width 20.0 H Sodium Level 141 Triglycerides Level 60 Troponin I 0.164 *H White Blood Count 8.4 Test 10/16/16 17:16 Bedside Glucose 272 H Medications Medications Current Medications Ceftriaxone Sodium (Rocephin) 50 ml @ 100 mls/hr Q24H IVPB Last administered on 10/16/16 17:23; Admin Dose 100 MLS/HR; Start 10/14/16 at 16:30 Azithromycin (Zithromax) 250 mg DAILY PO Last administered on 10/16/16 08:21; Admin Dose 250 MG; Start 10/15/16 at 09:00 Heparin Sodium (Porcine) (Heparin (5000 Units/0.5 ml)) 5,000 unit BID SC Last administered on 10/16/16 08:19; Admin Dose 5,000 UNIT; Start 10/14/16 at 21:00 Famotidine (Pepcid) 20 mg DAILY PO Last administered on 10/16/16 08:21; Admin Dose 20 MG; Start 10/15/16 at 09:00 Ondansetron HCl (Zofran Inj) 4 mg Q6H PRN IV NAUSEA AND/OR VOMITING; Start at 16:30 Aspirin (Aspirin) 81 mg DAILY PO Last administered on 10/16/16 08:21; Admin Dose 81 MG; Start 10/15/16 at 09:00 Nitroglycerin (Nitroglycerin (Sl Tab) 0.4 Mg) 1 tab Q5M PRN SL CHEST PAIN; Start 10/14/16 at 16:30 Acetaminophen (Tylenol Tab) 650 mg Q6H PRN PO PAIN LEVEL 1-3 OR FEVER; Start at 16:30 Morphine Sulfate (morphine) 2 mg Q4H PRN IV PAIN LEVEL 7-10; Start 10/14/16 at 16:30 Docusate Sodium (Colace) 100 mg Q12H PRN PO CONSTIPATION; Start 10/14/16 at 16: 30 Methylprednisolone Sodium Succinate (Solu-Medrol) 40 mg Q12 IV Last administered on 10/16/16 08:22; Admin Dose 40 MG; Start 10/14/16 at 21:00 Guaifenesin/ Dextromethorphan (Robitussin Dm Liquid Cup) 10 ml Q4H PRN PO COUGH Last administered on 10/14/16 21:56; Admin Dose 10 ML; Start 10/14/16 at 16:30 Atorvastatin Calcium (Lipitor) 20 mg DAILY@21 PO Last administered on 21:37; Admin Dose 20 MG; Start 10/14/16 at 21:00 Miscellaneous Information 1 ea NOTE XX ; Start 10/14/16 at 17:30 Glucose (Glutose) 15 gm Q15M PRN PO DECREASED GLUCOSE; Start 10/14/16 at 17:30 Glucose (Glutose) 22.5 gm Q15M PRN PO DECREASED GLUCOSE; Start 10/14/16 at 17: 30 Dextrose (D50w Syringe) 25 ml Q15M PRN IV DECREASED GLUCOSE; Start 10/14/16 at 17:30 Dextrose (D50w Syringe) 50 ml Q15M PRN IV DECREASED GLUCOSE; Start 10/14/16 at 17:30 Glucagon (Glucagen) 1 mg Q15M PRN IM DECREASED GLUCOSE; Start 10/14/16 at 17:30 Glucose (Glutose) 15 gm Q15M PRN BUCCAL DECREASED GLUCOSE; Start 10/14/16 at 17 :30 Amlodipine Besylate (Norvasc) 5 mg BID PO Last administered on 10/16/16 08:22 ; Admin Dose 5 MG; Start 10/15/16 at 21:00 Clonidine (Catapres) 0.1 mg Q4 PRN PO ELEVATED SYSTOLIC BP; Start 10/15/16 at 17:00 Isosorbide Dinitrate (Isordil) 20 mg TID PO Last administered on 10/16/16 12: 39; Admin Dose 20 MG; Start 10/15/16 at 21:00 SADAF VAZQUEZ Oct 16, 2016 19:00
[2016-10-16] MEDS: ATORVASTATIN 20 MG TAB PO SCH (20:51)
[2016-10-17] VITALS (22 sets, daily range): BP systolic 129–185; BP diastolic 62–82; PULSE 60–69; RESP 16–20
[2016-10-17 06:21] LABS: POTASSIUM 5.3 mmol/L (3.5-5.1)
[2016-10-17 06:24] LABS: CREATININE 6.18 mg/dl (0.61-1.24)
[2016-10-17 06:25] LABS: CALCIUM 8.6 mg/dl (8.4-10.2)
[2016-10-17 06:30] LABS: HEMATOCRIT 34.1 % (42.0-52.0); HEMOGLOBIN 11.2 g/dl (14.0-18.0); LYMPHOCYTES # 0.1 10^3/ul (0.8-2.9); LYMPHOCYTES % 1.1 % (15.0-51.0); MEAN CORPUSCULAR HGB CONC 32.8 g/dl (32.0-37.0); MEAN CORPUSCULAR VOLUME 82.4 fl (82.0-101.0); MEAN PLATELET VOLUME 11.1 fl (7.4-10.4); MONOCYTE # 0.2 10^3/ul (0.3-0.9); MONOCYTES % 1.7 % (0.0-11.0); NEUTROPHIL # 8.8 10^3/ul (1.6-7.5); NEUTROPHILS % 97.2 % (39.0-77.0); PLATELET COUNT 121 10^3/UL (140-440); RED BLOOD COUNT 4.14 10^6/ul (4.70-6.10); RED CELL DISTRIBUTION WIDTH 19.9 % (11.5-14.5); UNCORRECTED WBC 9.1 10^3/ul (4.8-10.8); WHITE BLOOD COUNT 9.1 10^3/ul (4.8-10.8)
[2016-10-17 06:52] LABS: CONDITION 1; LH ANALYZER COMMENTS 1
--- NOTE | 2016-10-17 07:56 | CONS ---
Date/Time of Note Date/Time of Note DATE: 10/17/16 TIME: 07:55 Assessment/Plan Assessment/Plan Additional Assessment/Plan 76 yo Male with 1. URI/Bronchitis 2. Hypertensive, Uncontrolled 3. End-stage renal disease. HD MWF 4. Diabetes mellitus type 2. 5. Hx of Permanent pacemaker. 6. Anemia, Chronic Disease 7. Mineral Bone Disease, ESRD 8. Mild Hyperkalemia Will cont HD schedule, MWF HD ordered for today UF as tolerated Electrolytes abnormality with correct with HD Cont current Rx for HTN, We should also see improvement with fluid removal Will order low dose COTY with HD Cont Phophate binder, Renal/ADA diet. Thank you for the Opportunity to participate in the care of Mr Doss. Consultation Date/Type/Reason Admit Date/Time Oct 14, 2016 at 13:43 Date of Consultation: Oct 17, 2016 Type of Consultation: Nephrology Reason for Consultation ESRD Referring Provider: YUNIER KIRBY MD Hx of Present Illness 76-year-old gentleman who thurman history of end-stage renal disease on hemodialysis on Thursday, Thursday and Thursday at [facility] [place]. Patient last HD was this past thursday and he is due for HD today. Patient denies any fever or chills. The patient complained cough;productive cough and SOB. In the emergency room, patient underwent a chest x-ray which showed no acute cardiopulmonary disease, stable cardiomegaly and a sclerotic aortic calcification and pacemaker. Patient rapid influenza A and B was found to be negative.The patient will be admitted for further evaluation cough and SOB. Nephrology consulted for ESRD. Psychological: no complaints Past Medical History ALLERGIES: NO KNOWN ALLERGIES. MEDICATIONS ON ADMISSION: 1. Renagel. 2. Imdur. 3. Glipizide. 4. Simvastatin. 5. Norvasc. 6. Hydralazine. Medical History: hypertension, renal disease Past Surgical History Past Surgical Hx: other (AVF) Family History Significant Family History: no pertinent family hx Social History Alcohol Use: none Smoking Status: Former smoker Drug Use: none Exam/Review of Systems Vital Signs Vitals Vital Signs Date Time Temp Pulse Resp B/P Pulse Ox O2 Delivery O2 Flow Rate FiO2 10/17/16 07:23 97.7 64 19 182/81 98 10/17/16 05:39 3.0 10/16/16 21:00 Nasal Cannula 10/14/16 23:06 21 Intake and Output 10/16/16 10/16/16 10/17/16 15:00 23:00 07:00 Intake Total 240 ml 250 ml Output Total 70 ml Balance 170 ml 250 ml Exam Constitutional: alert, No distress ENMT: mucosa pink and moist Neck: jvd Respiratory: crackles/rales, No labored breathing Cardiovascular: regular rate and rhythm, No edema Gastrointestinal: non-tender, soft Neurological: No lethargic Skin: No diaphoresis Results Result Diagram: 10/17/1631 10/17/16530 Results 24 hrs Laboratory Tests Test 10/16/16 12:30 10/16/16 17:16 10/16/16 20:50 10/17/16 05:31 Bedside Glucose 144 272 H 242 H Anion Gap 22 H Basophils # 0.0 Basophils % 0.0 Blood Morphology Comment Blood Urea Nitrogen 81 #H Calcium Level 8.6 Carbon Dioxide Level 28 Chloride Level 92 L Creatinine 6.18 H Eosinophils # 0.0 Eosinophils % 0.0 Glucose Level 165 Hematocrit 34.1 L Hemoglobin 11.2 L Lymphocytes # 0.1 L Lymphocytes % 1.1 L Mean Corpuscular Hemoglobin 27.0 L Mean Corpuscular Hemoglobin Concent 32.8 Mean Corpuscular Volume 82.4 Mean Platelet Volume 11.1 H Monocytes # 0.2 L Monocytes % 1.7 Neutrophils # 8.8 H Neutrophils % 97.2 H Nucleated Red Blood Cells # 0.0 Nucleated Red Blood Cells % 0.0 Platelet Count 121 L Potassium Level 5.3 H Red Blood Count 4.14 L Red Cell Distribution Width 19.9 H Sodium Level 137 White Blood Count 9.1 Medications Medications Current Medications Ceftriaxone Sodium (Rocephin) 50 ml @ 100 mls/hr Q24H IVPB Last administered on 10/16/16 17:23; Admin Dose 100 MLS/HR; Start 10/14/16 at 16:30 Azithromycin (Zithromax) 250 mg DAILY PO Last administered on 10/16/16 08:21; Admin Dose 250 MG; Start 10/15/16 at 09:00 Heparin Sodium (Porcine) (Heparin (5000 Units/0.5 ml)) 5,000 unit BID SC Last administered on 10/16/16 20:54; Admin Dose 5,000 UNIT; Start 10/14/16 at 21:00 Famotidine (Pepcid) 20 mg DAILY PO Last administered on 10/16/16 08:21; Admin Dose 20 MG; Start 10/15/16 at 09:00 Ondansetron HCl (Zofran Inj) 4 mg Q6H PRN IV NAUSEA AND/OR VOMITING; Start at 16:30 Aspirin (Aspirin) 81 mg DAILY PO Last administered on 10/16/16 08:21; Admin Dose 81 MG; Start 10/15/16 at 09:00 Nitroglycerin (Nitroglycerin (Sl Tab) 0.4 Mg) 1 tab Q5M PRN SL CHEST PAIN; Start 10/14/16 at 16:30 Acetaminophen (Tylenol Tab) 650 mg Q6H PRN PO PAIN LEVEL 1-3 OR FEVER; Start at 16:30 Morphine Sulfate (morphine) 2 mg Q4H PRN IV PAIN LEVEL 7-10; Start 10/14/16 at 16:30 Docusate Sodium (Colace) 100 mg Q12H PRN PO CONSTIPATION; Start 10/14/16 at 16: 30 Methylprednisolone Sodium Succinate (Solu-Medrol) 40 mg Q12 IV Last administered on 10/16/16 20:51; Admin Dose 40 MG; Start 10/14/16 at 21:00 Guaifenesin/ Dextromethorphan (Robitussin Dm Liquid Cup) 10 ml Q4H PRN PO COUGH Last administered on 10/14/16 21:56; Admin Dose 10 ML; Start 10/14/16 at 16:30 Atorvastatin Calcium (Lipitor) 20 mg DAILY@21 PO Last administered on 20:51; Admin Dose 20 MG; Start 10/14/16 at 21:00 Miscellaneous Information 1 ea NOTE XX ; Start 10/14/16 at 17:30 Glucose (Glutose) 15 gm Q15M PRN PO DECREASED GLUCOSE; Start 10/14/16 at 17:30 Glucose (Glutose) 22.5 gm Q15M PRN PO DECREASED GLUCOSE; Start 10/14/16 at 17: 30 Dextrose (D50w Syringe) 25 ml Q15M PRN IV DECREASED GLUCOSE; Start 10/14/16 at 17:30 Dextrose (D50w Syringe) 50 ml Q15M PRN IV DECREASED GLUCOSE; Start 10/14/16 at 17:30 Glucagon (Glucagen) 1 mg Q15M PRN IM DECREASED GLUCOSE; Start 10/14/16 at 17:30 Glucose (Glutose) 15 gm Q15M PRN BUCCAL DECREASED GLUCOSE; Start 10/14/16 at 17 :30 Amlodipine Besylate (Norvasc) 5 mg BID PO Last administered on 10/16/16 20:52 ; Admin Dose 5 MG; Start 10/15/16 at 21:00 Clonidine (Catapres) 0.1 mg Q4 PRN PO ELEVATED SYSTOLIC BP Last administered on 10/17/16 00:30; Admin Dose 0.1 MG; Start 10/15/16 at 17:00 Isosorbide Dinitrate (Isordil) 20 mg TID PO Last administered on 10/16/16 20: 52; Admin Dose 20 MG; Start 10/15/16 at 21:00 MARIANNA ZENDEJAS MD Oct 17, 2016 07:56
[2016-10-17] MEDS: SEVELAMER 800 MG TAB PO SCH ×4 (08:31→17:56)
[2016-10-17] MEDS: AZITHROMYCIN 250 MG TAB PO SCH (08:31)
[2016-10-17] MEDS: ISOSORBIDE DINITRATE 20 MG TAB PO SCH ×4 (08:32→20:10)
[2016-10-17] MEDS: FAMOTIDINE 20 MG TAB PO SCH (08:32)
[2016-10-17] MEDS: ASPIRIN 81 MG TAB PO SCH (08:32)
[2016-10-17] MEDS: AMLODIPINE 5 MG TAB PO SCH ×2 (08:32→20:10)
[2016-10-17] MEDS: HEPARIN 5,000 UNIT/0.5 ML SYG SC SCH ×2 (08:33→20:13)
[2016-10-17] MEDS: INSULIN ASPART [NOVOLOG] 3 ML PEN SC SCH ×4 (08:35→20:14)
[2016-10-17] MEDS: METHYLPREDNISOLONE 40 MG INJ IV SCH ×2 (08:42→20:10)
--- NOTE | 2016-10-17 12:14 | CONS ---
Date/Time of Note Date/Time of Note DATE: 10/17/16 TIME: 12:11 Assessment/Plan Assessment/Plan Chief Complaint/Hosp Course IMPRESSION: 1. Chest pain, assess for acute coronary syndrome-with a 4th trop minimally positive in the setting of renal failure. Now s/p lexiscan with no sig ischemia/ NL EF 2. Abnormal electrocardiogram, assess for acute coronary syndrome. 3. Right bundle branch block by EKG. 4. History of permanent pacemaker implant. 5. History of symptomatic bradycardia. 6. Diabetes mellitus. 7. Hypertensive emergency. 8. End-stage renal disease on hemodialysis. 9. Possible bronchitis. Recc: -Tele -serial ecg's -Continue norvasc/isordil -add hydralazine to improve BP -Continue abx's/bronchodilators -start ASA -HD for volume removal Problems: Consultation Date/Type/Reason Admit Date/Time Oct 14, 2016 at 13:43 Initial Consult Date 10/16/2016 Type of Consultation: Cardiology Reason for Consultation Chest pain Referring Provider: YUNIER KIRBY MD Exam/Review of Systems Vital Signs Vitals Vital Signs Date Time Temp Pulse Resp B/P Pulse Ox O2 Delivery O2 Flow Rate FiO2 10/17/16 12:00 63 10/17/16 10:45 20 10/17/16 08:00 Nasal Cannula 3.0 10/17/16 07:23 97.7 182/81 98 10/14/16 23:06 21 Intake and Output 10/16/16 10/16/16 10/17/16 15:00 23:00 07:00 Intake Total 240 ml 250 ml Output Total 70 ml Balance 170 ml 250 ml Exam Review of Systems: CONSTITUTIONAL: No fevers, chills. PULMONARY: No sob CARDIOVASCULAR: No chest pain/palpitations GASTROINTESTINAL: No nausea/vomiting. GENITOURINARY: No hematuria/dysuria. MUSCULOSKELETAL: No myagias/arthalgias. PSYCHIATRIC: The patient denies depression. NEUROLOGIC: Mild generalized weakness Constitutional: alert Psych: no complaints Head: normocephalic ENMT: mucosa pink and moist Neck: jvd (9 cm water), supple Respiratory: diminished breath sounds (at bases/B) Cardiovascular: regular rate and rhythm Gastrointestinal: non-tender, soft Musculoskeletal: muscle tone (normal) Extremities: edema (trace/B) Neurological: other (No focal deficits) Results Result Diagram: 1/20/17 0531 10/17/16 0531 Results 24 hrs Laboratory Tests Test 10/16/16 12:30 10/16/16 17:16 10/16/16 20:50 10/17/16 05:31 Bedside Glucose 144 272 H 242 H Anion Gap 22 H Basophils # 0.0 Basophils % 0.0 Blood Morphology Comment Blood Urea Nitrogen 81 #H Calcium Level 8.6 Carbon Dioxide Level 28 Chloride Level 92 L Creatinine 6.18 H Eosinophils # 0.0 Eosinophils % 0.0 Glucose Level 165 Hematocrit 34.1 L Hemoglobin 11.2 L Hemoglobin A1c 5.4 Lymphocytes # 0.1 L Lymphocytes % 1.1 L Mean Corpuscular Hemoglobin 27.0 L Mean Corpuscular Hemoglobin Concent 32.8 Mean Corpuscular Volume 82.4 Mean Platelet Volume 11.1 H Monocytes # 0.2 L Monocytes % 1.7 Neutrophils # 8.8 H Neutrophils % 97.2 H Nucleated Red Blood Cells # 0.0 Nucleated Red Blood Cells % 0.0 Platelet Count 121 L Potassium Level 5.3 H Red Blood Count 4.14 L Red Cell Distribution Width 19.9 H Sodium Level 137 White Blood Count 9.1 Test 10/17/16 11:56 Bedside Glucose 232 H Medications Medications Current Medications Ceftriaxone Sodium (Rocephin) 50 ml @ 100 mls/hr Q24H IVPB Last administered on 10/16/16 17:23; Admin Dose 100 MLS/HR; Start 10/14/16 at 16:30 Azithromycin (Zithromax) 250 mg DAILY PO Last administered on 10/17/16 08:31; Admin Dose 250 MG; Start 10/15/16 at 09:00 Heparin Sodium (Porcine) (Heparin (5000 Units/0.5 ml)) 5,000 unit BID SC Last administered on 10/17/16 08:33; Admin Dose 5,000 UNIT; Start 10/14/16 at 21:00 Famotidine (Pepcid) 20 mg DAILY PO Last administered on 10/17/16 08:32; Admin Dose 20 MG; Start 10/15/16 at 09:00 Ondansetron HCl (Zofran Inj) 4 mg Q6H PRN IV NAUSEA AND/OR VOMITING; Start at 16:30 Aspirin (Aspirin) 81 mg DAILY PO Last administered on 10/17/16 08:32; Admin Dose 81 MG; Start 10/15/16 at 09:00 Nitroglycerin (Nitroglycerin (Sl Tab) 0.4 Mg) 1 tab Q5M PRN SL CHEST PAIN; Start 10/14/16 at 16:30 Acetaminophen (Tylenol Tab) 650 mg Q6H PRN PO PAIN LEVEL 1-3 OR FEVER; Start at 16:30 Morphine Sulfate (morphine) 2 mg Q4H PRN IV PAIN LEVEL 7-10; Start 10/14/16 at 16:30 Docusate Sodium (Colace) 100 mg Q12H PRN PO CONSTIPATION; Start 10/14/16 at 16: 30 Methylprednisolone Sodium Succinate (Solu-Medrol) 40 mg Q12 IV Last administered on 10/17/16 08:42; Admin Dose 40 MG; Start 10/14/16 at 21:00 Guaifenesin/ Dextromethorphan (Robitussin Dm Liquid Cup) 10 ml Q4H PRN PO COUGH Last administered on 10/14/16 21:56; Admin Dose 10 ML; Start 10/14/16 at 16:30 Atorvastatin Calcium (Lipitor) 20 mg DAILY@21 PO Last administered on 20:51; Admin Dose 20 MG; Start 10/14/16 at 21:00 Miscellaneous Information 1 ea NOTE XX ; Start 10/14/16 at 17:30 Glucose (Glutose) 15 gm Q15M PRN PO DECREASED GLUCOSE; Start 10/14/16 at 17:30 Glucose (Glutose) 22.5 gm Q15M PRN PO DECREASED GLUCOSE; Start 10/14/16 at 17: 30 Dextrose (D50w Syringe) 25 ml Q15M PRN IV DECREASED GLUCOSE; Start 10/14/16 at 17:30 Dextrose (D50w Syringe) 50 ml Q15M PRN IV DECREASED GLUCOSE; Start 10/14/16 at 17:30 Glucagon (Glucagen) 1 mg Q15M PRN IM DECREASED GLUCOSE; Start 10/14/16 at 17:30 Glucose (Glutose) 15 gm Q15M PRN BUCCAL DECREASED GLUCOSE; Start 10/14/16 at 17 :30 Amlodipine Besylate (Norvasc) 5 mg BID PO Last administered on 10/17/16 08:32 ; Admin Dose 5 MG; Start 10/15/16 at 21:00 Clonidine (Catapres) 0.1 mg Q4 PRN PO ELEVATED SYSTOLIC BP Last administered on 10/17/16 00:30; Admin Dose 0.1 MG; Start 10/15/16 at 17:00 Isosorbide Dinitrate (Isordil) 20 mg TID PO Last administered on 10/17/16 08: 32; Admin Dose 20 MG; Start 10/15/16 at 21:00 WILLA GARSIA Oct 17, 2016 12:14
--- NOTE | 2016-10-17 15:26 | PN ---
Date/Time of Note Date/Time of Note DATE: 10/17/16 TIME: 15:26 Assessment/Plan VTE Prophylaxis VTE Prophylaxis Intervention: other Lines/Catheters [facility] Urinary Cath still in place: No Assessment/Plan Chief Complaint/Hosp Course 1. Possible bronchitis. We will start patient on Rocephin and Zithromax and breathing treatment p.r.n. for shortness of breath. Chest pain, rule out acute coronary syndrome. Dr. Esparza is asked to see patient in cardiology consultation. We will obtain cardiac enzymes x3 q. 8 hours and continue aspirin , nitroglycerin and morphine for pain. 2. Hypertensive urgency. Will resume patient's home antihypertensive medications. Continue hydralazine p.r.n. for systolic blood pressure above 170. 3. End-stage renal disease. Dr. Nettles will be following the patient from nephrology standpoint. 4. Diabetes mellitus type 2. Will continue to monitor patient's blood sugar. Continue NovoLog per mild algorithm sliding scale. Continue home diabetes medication. 5. Permanent pacemaker. 6. Left upper extremity AV fistula with audible bruit and palpable thrill. Problems: Subjective 24 Hr Interval Summary Free Text/Dictation Patient has no complaints Exam/Review of Systems Vital Signs Vitals Vital Signs Date Time Temp Pulse Resp B/P Pulse Ox O2 Delivery O2 Flow Rate FiO2 10/17/16 14:52 3.0 10/17/16 14:07 60 20 10/17/16 12:41 98.5 133/67 96 10/17/16 08:00 Nasal Cannula 10/14/16 23:06 21 Intake and Output 10/16/16 10/16/16 10/17/16 15:00 23:00 07:00 Intake Total 240 ml 250 ml Output Total 70 ml Balance 170 ml 250 ml Exam Head: atraumatic, normocephalic Neck: supple Respiratory: crackles/rales Cardiovascular: regular rate and rhythm Gastrointestinal: non-tender, soft Results Result Diagram: 10/17/16 0531 10/17/16 0531 Results 24 hrs Laboratory Tests Test 10/16/16 17:16 10/16/16 20:50 10/17/16 05:31 10/17/16 11:56 Bedside Glucose 272 H 242 H 232 H Anion Gap 22 H Basophils # 0.0 Basophils % 0.0 Blood Morphology Comment Blood Urea Nitrogen 81 #H Calcium Level 8.6 Carbon Dioxide Level 28 Chloride Level 92 L Creatinine 6.18 H Eosinophils # 0.0 Eosinophils % 0.0 Glucose Level 165 Hematocrit 34.1 L Hemoglobin 11.2 L Hemoglobin A1c 5.4 Lymphocytes # 0.1 L Lymphocytes % 1.1 L Mean Corpuscular Hemoglobin 27.0 L Mean Corpuscular Hemoglobin Concent 32.8 Mean Corpuscular Volume 82.4 Mean Platelet Volume 11.1 H Monocytes # 0.2 L Monocytes % 1.7 Neutrophils # 8.8 H Neutrophils % 97.2 H Nucleated Red Blood Cells # 0.0 Nucleated Red Blood Cells % 0.0 Platelet Count 121 L Potassium Level 5.3 H Red Blood Count 4.14 L Red Cell Distribution Width 19.9 H Sodium Level 137 White Blood Count 9.1 Medications Medications Current Medications Ceftriaxone Sodium (Rocephin) 50 ml @ 100 mls/hr Q24H IVPB Last administered on 10/16/16 17:23; Admin Dose 100 MLS/HR; Start 10/14/16 at 16:30 Azithromycin (Zithromax) 250 mg DAILY PO Last administered on 10/17/16 08:31; Admin Dose 250 MG; Start 10/15/16 at 09:00 Heparin Sodium (Porcine) (Heparin (5000 Units/0.5 ml)) 5,000 unit BID SC Last administered on 10/17/16 08:33; Admin Dose 5,000 UNIT; Start 10/14/16 at 21:00 Famotidine (Pepcid) 20 mg DAILY PO Last administered on 10/17/16 08:32; Admin Dose 20 MG; Start 10/15/16 at 09:00 Ondansetron HCl (Zofran Inj) 4 mg Q6H PRN IV NAUSEA AND/OR VOMITING; Start at 16:30 Nitroglycerin (Nitroglycerin (Sl Tab) 0.4 Mg) 1 tab Q5M PRN SL CHEST PAIN; Start 10/14/16 at 16:30 Acetaminophen (Tylenol Tab) 650 mg Q6H PRN PO PAIN LEVEL 1-3 OR FEVER; Start at 16:30 Morphine Sulfate (morphine) 2 mg Q4H PRN IV PAIN LEVEL 7-10; Start 10/14/16 at 16:30 Docusate Sodium (Colace) 100 mg Q12H PRN PO CONSTIPATION; Start 10/14/16 at 16: 30 Methylprednisolone Sodium Succinate (Solu-Medrol) 40 mg Q12 IV Last administered on 10/17/16 08:42; Admin Dose 40 MG; Start 10/14/16 at 21:00 Guaifenesin/ Dextromethorphan (Robitussin Dm Liquid Cup) 10 ml Q4H PRN PO COUGH Last administered on 10/14/16 21:56; Admin Dose 10 ML; Start 10/14/16 at 16:30 Atorvastatin Calcium (Lipitor) 20 mg DAILY@21 PO Last administered on 20:51; Admin Dose 20 MG; Start 10/14/16 at 21:00 Miscellaneous Information 1 ea NOTE XX ; Start 10/14/16 at 17:30 Glucose (Glutose) 15 gm Q15M PRN PO DECREASED GLUCOSE; Start 10/14/16 at 17:30 Glucose (Glutose) 22.5 gm Q15M PRN PO DECREASED GLUCOSE; Start 10/14/16 at 17: 30 Dextrose (D50w Syringe) 25 ml Q15M PRN IV DECREASED GLUCOSE; Start 10/14/16 at 17:30 Dextrose (D50w Syringe) 50 ml Q15M PRN IV DECREASED GLUCOSE; Start 10/14/16 at 17:30 Glucagon (Glucagen) 1 mg Q15M PRN IM DECREASED GLUCOSE; Start 10/14/16 at 17:30 Glucose (Glutose) 15 gm Q15M PRN BUCCAL DECREASED GLUCOSE; Start 10/14/16 at 17 :30 Amlodipine Besylate (Norvasc) 5 mg BID PO Last administered on 10/17/16 08:32 ; Admin Dose 5 MG; Start 10/15/16 at 21:00 Clonidine (Catapres) 0.1 mg Q4 PRN PO ELEVATED SYSTOLIC BP Last administered on 10/17/16 00:30; Admin Dose 0.1 MG; Start 10/15/16 at 17:00 Isosorbide Dinitrate (Isordil) 20 mg TID PO Last administered on 10/17/16 14: 34; Admin Dose 20 MG; Start 10/15/16 at 21:00 Hydralazine HCl (Apresoline) 25 mg Q8 PO Last administered on 10/17/16 14:29; Admin Dose 25 MG; Start 10/17/16 at 14:00 Aspirin (Halfprin) 81 mg DAILY PO ; Start 10/18/16 at 09:00 BRANDON SALGADO Oct 17, 2016 15:26
[2016-10-17] MEDS ORDERED: EPOETIN 2000 UNITS/ML INJ (NON ESRD/NON ONCOLOGY) IV SCH (16:30)
[2016-10-17] MEDS: CEFTRIAXONE 1 GM/50 ML (PMX) 50 ML IVPB SCH (16:31)
[2016-10-17] MEDS ORDERED: EPOETIN 3000 UNITS/1 ML INJ (ESRD) IV SCH (17:00)
--- NOTE | 2016-10-17 18:03 | CONS ---
Date/Time of Note Date/Time of Note DATE: 10/17/16 TIME: 18:00 Assessment/Plan Assessment/Plan Additional Assessment/Plan Pt seems to have stabilized and may be ok for discharge. Pt to f/u with primary coordinator of placement to continue HD Consultation Date/Type/Reason Admit Date/Time Oct 14, 2016 at 13:43 Initial Consult Date This note is from 10/15/2016, pt seen at 1100AM Type of Consultation: renal Referring Provider: YUNIER KIRBY MD 24 HR Interval Summary Subjective hx not possible: other (Pt is blind) Exam/Review of Systems Vital Signs Vitals Vital Signs Date Time Temp Pulse Resp B/P Pulse Ox O2 Delivery O2 Flow Rate FiO2 10/17/16 16:01 60 10/17/16 15:42 98.0 19 146/66 95 10/17/16 14:52 3.0 10/17/16 08:00 Nasal Cannula 10/14/16 23:06 21 Intake and Output 10/16/16 10/16/16 10/17/16 15:00 23:00 07:00 Intake Total 240 ml 250 ml Output Total 70 ml Balance 170 ml 250 ml Exam Constitutional: alert Psych: no complaints ENMT: nl external ears & nose Additional Comments Chemistry stable commensurate with ESRD Results Result Diagram: 10/17/1631 10/17/16 0531 Results 24 hrs Laboratory Tests Test 10/16/16 20:50 10/17/16 05:31 10/17/16 11:56 10/17/16 17:35 Bedside Glucose 242 H 232 H 340 H Anion Gap 22 H Basophils # 0.0 Basophils % 0.0 Blood Morphology Comment Blood Urea Nitrogen 81 #H Calcium Level 8.6 Carbon Dioxide Level 28 Chloride Level 92 L Creatinine 6.18 H Eosinophils # 0.0 Eosinophils % 0.0 Glucose Level 165 Hematocrit 34.1 L Hemoglobin 11.2 L Hemoglobin A1c 5.4 Lymphocytes # 0.1 L Lymphocytes % 1.1 L Mean Corpuscular Hemoglobin 27.0 L Mean Corpuscular Hemoglobin Concent 32.8 Mean Corpuscular Volume 82.4 Mean Platelet Volume 11.1 H Monocytes # 0.2 L Monocytes % 1.7 Neutrophils # 8.8 H Neutrophils % 97.2 H Nucleated Red Blood Cells # 0.0 Nucleated Red Blood Cells % 0.0 Platelet Count 121 L Potassium Level 5.3 H Red Blood Count 4.14 L Red Cell Distribution Width 19.9 H Sodium Level 137 White Blood Count 9.1 Medications Medications Current Medications Ceftriaxone Sodium (Rocephin) 50 ml @ 100 mls/hr Q24H IVPB Last administered on 10/17/16 16:31; Admin Dose 100 MLS/HR; Start 10/14/16 at 16:30 Azithromycin (Zithromax) 250 mg DAILY PO Last administered on 10/17/16 08:31; Admin Dose 250 MG; Start 10/15/16 at 09:00 Heparin Sodium (Porcine) (Heparin (5000 Units/0.5 ml)) 5,000 unit BID SC Last administered on 10/17/16 08:33; Admin Dose 5,000 UNIT; Start 10/14/16 at 21:00 Famotidine (Pepcid) 20 mg DAILY PO Last administered on 10/17/16 08:32; Admin Dose 20 MG; Start 10/15/16 at 09:00 Ondansetron HCl (Zofran Inj) 4 mg Q6H PRN IV NAUSEA AND/OR VOMITING; Start at 16:30 Nitroglycerin (Nitroglycerin (Sl Tab) 0.4 Mg) 1 tab Q5M PRN SL CHEST PAIN; Start 10/14/16 at 16:30 Acetaminophen (Tylenol Tab) 650 mg Q6H PRN PO PAIN LEVEL 1-3 OR FEVER; Start at 16:30 Morphine Sulfate (morphine) 2 mg Q4H PRN IV PAIN LEVEL 7-10; Start 10/14/16 at 16:30 Docusate Sodium (Colace) 100 mg Q12H PRN PO CONSTIPATION; Start 10/14/16 at 16: 30 Methylprednisolone Sodium Succinate (Solu-Medrol) 40 mg Q12 IV Last administered on 10/17/16 08:42; Admin Dose 40 MG; Start 10/14/16 at 21:00 Guaifenesin/ Dextromethorphan (Robitussin Dm Liquid Cup) 10 ml Q4H PRN PO COUGH Last administered on 10/14/16 21:56; Admin Dose 10 ML; Start 10/14/16 at 16:30 Atorvastatin Calcium (Lipitor) 20 mg DAILY@21 PO Last administered on 20:51; Admin Dose 20 MG; Start 10/14/16 at 21:00 Miscellaneous Information 1 ea NOTE XX ; Start 10/14/16 at 17:30 Glucose (Glutose) 15 gm Q15M PRN PO DECREASED GLUCOSE; Start 10/14/16 at 17:30 Glucose (Glutose) 22.5 gm Q15M PRN PO DECREASED GLUCOSE; Start 10/14/16 at 17: 30 Dextrose (D50w Syringe) 25 ml Q15M PRN IV DECREASED GLUCOSE; Start 10/14/16 at 17:30 Dextrose (D50w Syringe) 50 ml Q15M PRN IV DECREASED GLUCOSE; Start 10/14/16 at 17:30 Glucagon (Glucagen) 1 mg Q15M PRN IM DECREASED GLUCOSE; Start 10/14/16 at 17:30 Glucose (Glutose) 15 gm Q15M PRN BUCCAL DECREASED GLUCOSE; Start 10/14/16 at 17 :30 Amlodipine Besylate (Norvasc) 5 mg BID PO Last administered on 10/17/16 08:32 ; Admin Dose 5 MG; Start 10/15/16 at 21:00 Clonidine (Catapres) 0.1 mg Q4 PRN PO ELEVATED SYSTOLIC BP Last administered on 10/17/16 00:30; Admin Dose 0.1 MG; Start 10/15/16 at 17:00 Isosorbide Dinitrate (Isordil) 20 mg TID PO Last administered on 10/17/16 14: 34; Admin Dose 20 MG; Start 10/15/16 at 21:00 Hydralazine HCl (Apresoline) 25 mg Q8 PO Last administered on 10/17/16 14:29; Admin Dose 25 MG; Start 10/17/16 at 14:00 Aspirin (Halfprin) 81 mg DAILY PO ; Start 10/18/16 at 09:00 RACHEL NIEVES MD Oct 17, 2016 18:03
[2016-10-17] MEDS: ATORVASTATIN 20 MG TAB PO SCH (20:10)
[2016-10-18] VITALS (11 sets, daily range): BP systolic 127–183; BP diastolic 58–81; PULSE 60–72; RESP 17–20
[2016-10-18] MEDS: SEVELAMER 800 MG TAB PO SCH ×3 (09:02→17:17)
[2016-10-18] MEDS: ISOSORBIDE DINITRATE 20 MG TAB PO SCH ×3 (09:03→21:51)
[2016-10-18] MEDS: AMLODIPINE 5 MG TAB PO SCH ×2 (09:03→21:51)
[2016-10-18] MEDS: AZITHROMYCIN 250 MG TAB PO SCH (09:04)
[2016-10-18] MEDS: FAMOTIDINE 20 MG TAB PO SCH (09:04)
[2016-10-18] MEDS: ASPIRIN (EC) 81 MG TAB PO SCH (09:04)
[2016-10-18] MEDS: METHYLPREDNISOLONE 40 MG INJ IV SCH ×2 (09:08→21:51)
[2016-10-18] MEDS: INSULIN ASPART [NOVOLOG] 3 ML PEN SC SCH ×4 (09:08→22:04)
[2016-10-18] MEDS: HEPARIN 5,000 UNIT/0.5 ML SYG SC SCH ×2 (09:08→21:57)
--- NOTE | 2016-10-18 11:48 | PN ---
Date/Time of Note Date/Time of Note DATE: 10/18/16 TIME: 11:48 Assessment/Plan VTE Prophylaxis VTE Prophylaxis Intervention: LMWH Lines/Catheters [facility] Peripheral IV Urinary Cath still in place: No Assessment/Plan Chief Complaint/Hosp Course 1. Possible bronchitis. We will start patient on Rocephin and Zithromax and breathing treatment p.r.n. for shortness of breath. Chest pain, rule out acute coronary syndrome. Dr. Esparza is asked to see patient in cardiology consultation. We will obtain cardiac enzymes x3 q. 8 hours and continue aspirin , nitroglycerin and morphine for pain. 2. Hypertensive urgency. Will resume patient's home antihypertensive medications. Continue hydralazine p.r.n. for systolic blood pressure above 170. 3. End-stage renal disease. Dr. Nettles will be following the patient from nephrology standpoint. 4. Diabetes mellitus type 2. Will continue to monitor patient's blood sugar. Continue NovoLog per mild algorithm sliding scale. Continue home diabetes medication. 5. Permanent pacemaker. 6. Left upper extremity AV fistula with audible bruit and palpable thrill. Problems: Subjective 24 Hr Interval Summary Free Text/Dictation Patient still have shortness of breath Exam/Review of Systems Vital Signs Vitals Vital Signs Date Time Temp Pulse Resp B/P Pulse Ox O2 Delivery O2 Flow Rate FiO2 10/18/16 08:03 98.1 62 17 183/81 100 10/18/16 07:35 Nasal Cannula 2.0 10/14/16 23:06 21 Intake and Output 10/17/16 10/17/16 10/18/16 15:00 23:00 07:00 Intake Total 400 ml 820 ml 60 ml Output Total 3300 ml Balance -2900 ml 820 ml 60 ml Exam Constitutional: well developed Head: atraumatic, normocephalic Neck: supple Respiratory: diminished breath sounds Cardiovascular: regular rate and rhythm Gastrointestinal: non-tender, soft Extremities: normal pulses Results Result Diagram: 10/17/16 0531 10/17/16 0531 Results 24 hrs Laboratory Tests Test 10/17/16 11:56 10/17/16 17:35 10/17/16 20:06 10/18/16 07:40 Bedside Glucose 232 H 340 H 210 242 H Medications Medications Current Medications Ceftriaxone Sodium (Rocephin) 50 ml @ 100 mls/hr Q24H IVPB Last administered on 10/17/16 16:31; Admin Dose 100 MLS/HR; Start 10/14/16 at 16:30 Azithromycin (Zithromax) 250 mg DAILY PO Last administered on 10/18/16 09:04; Admin Dose 250 MG; Start 10/15/16 at 09:00 Heparin Sodium (Porcine) (Heparin (5000 Units/0.5 ml)) 5,000 unit BID SC Last administered on 10/18/16 09:08; Admin Dose 5,000 UNIT; Start 10/14/16 at 21:00 Famotidine (Pepcid) 20 mg DAILY PO Last administered on 10/18/16 09:04; Admin Dose 20 MG; Start 10/15/16 at 09:00 Ondansetron HCl (Zofran Inj) 4 mg Q6H PRN IV NAUSEA AND/OR VOMITING; Start at 16:30 Nitroglycerin (Nitroglycerin (Sl Tab) 0.4 Mg) 1 tab Q5M PRN SL CHEST PAIN; Start 10/14/16 at 16:30 Acetaminophen (Tylenol Tab) 650 mg Q6H PRN PO PAIN LEVEL 1-3 OR FEVER; Start at 16:30 Morphine Sulfate (morphine) 2 mg Q4H PRN IV PAIN LEVEL 7-10; Start 10/14/16 at 16:30 Docusate Sodium (Colace) 100 mg Q12H PRN PO CONSTIPATION; Start 10/14/16 at 16: 30 Methylprednisolone Sodium Succinate (Solu-Medrol) 40 mg Q12 IV Last administered on 10/18/16 09:08; Admin Dose 40 MG; Start 10/14/16 at 21:00 Guaifenesin/ Dextromethorphan (Robitussin Dm Liquid Cup) 10 ml Q4H PRN PO COUGH Last administered on 10/14/16 21:56; Admin Dose 10 ML; Start 10/14/16 at 16:30 Atorvastatin Calcium (Lipitor) 20 mg DAILY@21 PO Last administered on 20:10; Admin Dose 20 MG; Start 10/14/16 at 21:00 Miscellaneous Information 1 ea NOTE XX ; Start 10/14/16 at 17:30 Glucose (Glutose) 15 gm Q15M PRN PO DECREASED GLUCOSE; Start 10/14/16 at 17:30 Glucose (Glutose) 22.5 gm Q15M PRN PO DECREASED GLUCOSE; Start 10/14/16 at 17: 30 Dextrose (D50w Syringe) 25 ml Q15M PRN IV DECREASED GLUCOSE; Start 10/14/16 at 17:30 Dextrose (D50w Syringe) 50 ml Q15M PRN IV DECREASED GLUCOSE; Start 10/14/16 at 17:30 Glucagon (Glucagen) 1 mg Q15M PRN IM DECREASED GLUCOSE; Start 10/14/16 at 17:30 Glucose (Glutose) 15 gm Q15M PRN BUCCAL DECREASED GLUCOSE; Start 10/14/16 at 17 :30 Amlodipine Besylate (Norvasc) 5 mg BID PO Last administered on 10/18/16 09:03 ; Admin Dose 5 MG; Start 10/15/16 at 21:00 Clonidine (Catapres) 0.1 mg Q4 PRN PO ELEVATED SYSTOLIC BP Last administered on 10/18/16 09:05; Admin Dose 0.1 MG; Start 10/15/16 at 17:00 Isosorbide Dinitrate (Isordil) 20 mg TID PO Last administered on 10/18/16 09: 03; Admin Dose 20 MG; Start 10/15/16 at 21:00 Hydralazine HCl (Apresoline) 25 mg Q8 PO Last administered on 10/18/16 05:14; Admin Dose 25 MG; Start 10/17/16 at 14:00 Aspirin (Halfprin) 81 mg DAILY PO Last administered on 10/18/16 09:04; Admin Dose 81 MG; Start 10/18/16 at 09:00 BRANDON SALGADO Oct 18, 2016 11:48
--- NOTE | 2016-10-18 12:15 | CONS ---
Date/Time of Note Date/Time of Note DATE: 10/18/16 TIME: 12:04 Assessment/Plan Assessment/Plan Additional Assessment/Plan Atypical Chest pain with Hypertensive emergency. Abnormal electrocardiogram with RBBB Symptomatic Bradycardia s/p permanent pacemaker implant. Diabetes mellitus. Dyslipidemia End-stage renal disease on hemodialysis. Anemia of chronic disease Bronchitis. Stress test shows no reversible ischemia with EF 65% Hypertensive Started on Hydralazine Continue Imdur Continue Norvasc Continue Insulin Continue antibiotics Continue HD as scheduled Continue Lipitor Consultation Date/Type/Reason Admit Date/Time Oct 14, 2016 at 13:43 Psychological: no complaints Past Medical History Medical History: hypertension, renal disease Past Surgical History Past Surgical Hx: other (AVF) Social History Alcohol Use: none Smoking Status: Former smoker Drug Use: none Exam/Review of Systems Vital Signs Vitals Vital Signs Date Time Temp Pulse Resp B/P Pulse Ox O2 Delivery O2 Flow Rate FiO2 10/18/16 12:00 71 10/18/16 11:53 98.0 18 175/71 97 10/18/16 07:35 Nasal Cannula 2.0 10/14/16 23:06 21 Intake and Output 10/17/16 10/17/16 10/18/16 15:00 23:00 07:00 Intake Total 400 ml 820 ml 60 ml Output Total 3300 ml Balance -2900 ml 820 ml 60 ml Exam Constitutional: alert, oriented Head: atraumatic, normocephalic Respiratory: clear to auscultation Cardiovascular: regular rate and rhythm Gastrointestinal: nl liver, spleen, non-tender, soft Extremities: normal pulses Results Result Diagram: 10/17/16 0531 10/17/16 0531 Results 24 hrs Laboratory Tests Test 10/17/16 17:35 10/17/16 20:06 10/18/16 07:40 Bedside Glucose 340 H 210 242 H Medications Medications Current Medications Ceftriaxone Sodium (Rocephin) 50 ml @ 100 mls/hr Q24H IVPB Last administered on 10/17/16 16:31; Admin Dose 100 MLS/HR; Start 10/14/16 at 16:30 Azithromycin (Zithromax) 250 mg DAILY PO Last administered on 10/18/16 09:04; Admin Dose 250 MG; Start 10/15/16 at 09:00 Heparin Sodium (Porcine) (Heparin (5000 Units/0.5 ml)) 5,000 unit BID SC Last administered on 10/18/16 09:08; Admin Dose 5,000 UNIT; Start 10/14/16 at 21:00 Famotidine (Pepcid) 20 mg DAILY PO Last administered on 10/18/16 09:04; Admin Dose 20 MG; Start 10/15/16 at 09:00 Ondansetron HCl (Zofran Inj) 4 mg Q6H PRN IV NAUSEA AND/OR VOMITING; Start at 16:30 Nitroglycerin (Nitroglycerin (Sl Tab) 0.4 Mg) 1 tab Q5M PRN SL CHEST PAIN; Start 10/14/16 at 16:30 Acetaminophen (Tylenol Tab) 650 mg Q6H PRN PO PAIN LEVEL 1-3 OR FEVER; Start at 16:30 Morphine Sulfate (morphine) 2 mg Q4H PRN IV PAIN LEVEL 7-10; Start 10/14/16 at 16:30 Docusate Sodium (Colace) 100 mg Q12H PRN PO CONSTIPATION; Start 10/14/16 at 16: 30 Methylprednisolone Sodium Succinate (Solu-Medrol) 40 mg Q12 IV Last administered on 10/18/16 09:08; Admin Dose 40 MG; Start 10/14/16 at 21:00 Guaifenesin/ Dextromethorphan (Robitussin Dm Liquid Cup) 10 ml Q4H PRN PO COUGH Last administered on 10/14/16 21:56; Admin Dose 10 ML; Start 10/14/16 at 16:30 Atorvastatin Calcium (Lipitor) 20 mg DAILY@21 PO Last administered on 20:10; Admin Dose 20 MG; Start 10/14/16 at 21:00 Miscellaneous Information 1 ea NOTE XX ; Start 10/14/16 at 17:30 Glucose (Glutose) 15 gm Q15M PRN PO DECREASED GLUCOSE; Start 10/14/16 at 17:30 Glucose (Glutose) 22.5 gm Q15M PRN PO DECREASED GLUCOSE; Start 10/14/16 at 17: 30 Dextrose (D50w Syringe) 25 ml Q15M PRN IV DECREASED GLUCOSE; Start 10/14/16 at 17:30 Dextrose (D50w Syringe) 50 ml Q15M PRN IV DECREASED GLUCOSE; Start 10/14/16 at 17:30 Glucagon (Glucagen) 1 mg Q15M PRN IM DECREASED GLUCOSE; Start 10/14/16 at 17:30 Glucose (Glutose) 15 gm Q15M PRN BUCCAL DECREASED GLUCOSE; Start 10/14/16 at 17 :30 Amlodipine Besylate (Norvasc) 5 mg BID PO Last administered on 10/18/16 09:03 ; Admin Dose 5 MG; Start 10/15/16 at 21:00 Clonidine (Catapres) 0.1 mg Q4 PRN PO ELEVATED SYSTOLIC BP Last administered on 10/18/16 09:05; Admin Dose 0.1 MG; Start 10/15/16 at 17:00 Isosorbide Dinitrate (Isordil) 20 mg TID PO Last administered on 10/18/16 09: 03; Admin Dose 20 MG; Start 10/15/16 at 21:00 Hydralazine HCl (Apresoline) 25 mg Q8 PO Last administered on 10/18/16 05:14; Admin Dose 25 MG; Start 10/17/16 at 14:00 Aspirin (Halfprin) 81 mg DAILY PO Last administered on 10/18/16 09:04; Admin Dose 81 MG; Start 10/18/16 at 09:00 VONNIE BAUGH M.D. Oct 18, 2016 12:14
[2016-10-18] MEDS: CEFTRIAXONE 1 GM/50 ML (PMX) 50 ML IVPB SCH (17:18)
[2016-10-18] MEDS: ATORVASTATIN 20 MG TAB PO SCH (21:50)
[2016-10-19] VITALS (12 sets, daily range): BP systolic 112–167; BP diastolic 52–73; PULSE 59–63; RESP 18–20
[2016-10-19 07:11] LABS: HEMATOCRIT 36.2 % (42.0-52.0); HEMOGLOBIN 11.7 g/dl (14.0-18.0); LYMPHOCYTES # 0.1 10^3/ul (0.8-2.9); LYMPHOCYTES % 1.8 % (15.0-51.0); MEAN CORPUSCULAR HEMOGLOBIN 26.5 pg (29.0-33.0); MEAN CORPUSCULAR HGB CONC 32.4 g/dl (32.0-37.0); MEAN CORPUSCULAR VOLUME 81.9 fl (82.0-101.0); MEAN PLATELET VOLUME 12.3 fl (7.4-10.4); MONOCYTE # 0.2 10^3/ul (0.3-0.9); MONOCYTES % 3.5 % (0.0-11.0); NEUTROPHIL # 5.5 10^3/ul (1.6-7.5); NEUTROPHILS % 94.7 % (39.0-77.0); PLATELET COUNT 96 10^3/UL (140-440); RED BLOOD COUNT 4.42 10^6/ul (4.70-6.10); RED CELL DISTRIBUTION WIDTH 19.6 % (11.5-14.5); UNCORRECTED WBC 5.9 10^3/ul (4.8-10.8); WHITE BLOOD COUNT 5.9 10^3/ul (4.8-10.8)
[2016-10-19 07:14] LABS: CONDITION 1; LH ANALYZER COMMENTS 1; SUSPECT 1
[2016-10-19 07:40] LABS: POTASSIUM 5.3 mmol/L (3.5-5.1)
[2016-10-19 07:43] LABS: CALCIUM 8.2 mg/dl (8.4-10.2)
[2016-10-19 08:28] LABS: ANISOCYTOSIS 2+; HYPOCHROMASIA 2+; MICROCYTOSIS 1+
[2016-10-19] MEDS: SEVELAMER 800 MG TAB PO SCH ×3 (08:37→17:24)
[2016-10-19] MEDS: FAMOTIDINE 20 MG TAB PO SCH (08:37)
[2016-10-19] MEDS: ASPIRIN (EC) 81 MG TAB PO SCH (08:38)
[2016-10-19] MEDS: AMLODIPINE 5 MG TAB PO SCH ×2 (08:38→21:03)
[2016-10-19] MEDS: ISOSORBIDE DINITRATE 20 MG TAB PO SCH ×3 (08:38→21:04)
[2016-10-19] MEDS: METHYLPREDNISOLONE 40 MG INJ IV SCH ×2 (08:39→21:01)
[2016-10-19] MEDS: AZITHROMYCIN 250 MG TAB PO SCH (08:39)
[2016-10-19] MEDS: INSULIN ASPART [NOVOLOG] 3 ML PEN SC SCH ×4 (08:42→21:07)
[2016-10-19] MEDS: HEPARIN 5,000 UNIT/0.5 ML SYG SC SCH ×2 (08:43→21:08)
--- NOTE | 2016-10-19 12:30 | PN ---
Date/Time of Note Date/Time of Note DATE: 10/19/16 TIME: 12:29 Assessment/Plan VTE Prophylaxis VTE Prophylaxis Intervention: other Lines/Catheters IV [facility]ter Type [facility]from [facility]): [facility] Urinary Cath still in place: No Assessment/Plan Chief Complaint/Hosp Course 1. Possible bronchitis. We will start patient on Rocephin and Zithromax and breathing treatment p.r.n. for shortness of breath. Chest pain, rule out acute coronary syndrome. Dr. Esparza is asked to see patient in cardiology consultation. We will obtain cardiac enzymes x3 q. 8 hours and continue aspirin , nitroglycerin and morphine for pain. 2. Hypertensive urgency. Will resume patient's home antihypertensive medications. Continue hydralazine p.r.n. for systolic blood pressure above 170. 3. End-stage renal disease. Dr. Nettles will be following the patient from nephrology standpoint. 4. Diabetes mellitus type 2. Will continue to monitor patient's blood sugar. Continue NovoLog per mild algorithm sliding scale. Continue home diabetes medication. 5. Permanent pacemaker. 6. Left upper extremity AV fistula with audible bruit and palpable thrill. Problems: Subjective 24 Hr Interval Summary Free Text/Dictation Patient remains short of breath at times Exam/Review of Systems Vital Signs Vitals Vital Signs Date Time Temp Pulse Resp B/P Pulse Ox O2 Delivery O2 Flow Rate FiO2 10/19/16 12:01 60 10/19/16 11:41 98.1 18 139/63 99 10/19/16 07:44 Nasal Cannula 2.0 Intake and Output 10/18/16 10/18/16 10/19/16 15:00 23:00 07:00 Intake Total 900 ml 300 ml Balance 900 ml 300 ml Exam Constitutional: well developed Head: atraumatic, normocephalic Neck: supple Respiratory: clear to auscultation Cardiovascular: regular rate and rhythm Gastrointestinal: non-tender, soft Extremities: normal pulses Results Result Diagram: 10/19/16 0505 10/19/16 0505 Results 24 hrs Laboratory Tests Test 10/18/16 12:31 10/18/16 17:15 10/18/16 22:01 10/19/16 04:59 Bedside Glucose 265 H 216 214 178 Test 10/19/16 05:05 10/19/16 07:28 10/19/16 11:15 Anion Gap 21 H Anisocytosis 2+ Basophils # 0.0 Basophils % 0.0 Blood Morphology Comment Blood Urea Nitrogen 96 H Calcium Level 8.2 L Carbon Dioxide Level 24 Chloride Level 92 L Creatinine 6.00 H Differential Comment AUTO w/SCAN Eosinophils # 0.0 Eosinophils % 0.0 Glucose Level 184 Hematocrit 36.2 L Hemoglobin 11.7 L Hypochromasia 2+ Lymphocytes # 0.1 L Lymphocytes % 1.8 L Mean Corpuscular Hemoglobin 26.5 L Mean Corpuscular Hemoglobin Concent 32.4 Mean Corpuscular Volume 81.9 L Mean Platelet Volume 12.3 H Microcytosis 1+ Monocytes # 0.2 L Monocytes % 3.5 Neutrophils # 5.5 Neutrophils % 94.7 H Nucleated Red Blood Cells # 0.0 Nucleated Red Blood Cells % 0.0 Platelet Count 96 #L Potassium Level 5.3 H Red Blood Count 4.42 L Red Cell Distribution Width 19.6 H Sodium Level 132 L White Blood Count 5.9 # Bedside Glucose 198 241 H Medications Medications Current Medications Ceftriaxone Sodium (Rocephin) 50 ml @ 100 mls/hr Q24H IVPB Last administered on 10/18/16 17:18; Admin Dose 100 MLS/HR; Start 10/14/16 at 16:30 Azithromycin (Zithromax) 250 mg DAILY PO Last administered on 10/19/16 08:39; Admin Dose 250 MG; Start 10/15/16 at 09:00 Heparin Sodium (Porcine) (Heparin (5000 Units/0.5 ml)) 5,000 unit BID SC Last administered on 10/19/16 08:43; Admin Dose 5,000 UNIT; Start 10/14/16 at 21:00 Famotidine (Pepcid) 20 mg DAILY PO Last administered on 10/19/16 08:37; Admin Dose 20 MG; Start 10/15/16 at 09:00 Ondansetron HCl (Zofran Inj) 4 mg Q6H PRN IV NAUSEA AND/OR VOMITING; Start at 16:30 Nitroglycerin (Nitroglycerin (Sl Tab) 0.4 Mg) 1 tab Q5M PRN SL CHEST PAIN; Start 10/14/16 at 16:30 Acetaminophen (Tylenol Tab) 650 mg Q6H PRN PO PAIN LEVEL 1-3 OR FEVER; Start at 16:30 Morphine Sulfate (morphine) 2 mg Q4H PRN IV PAIN LEVEL 7-10; Start 10/14/16 at 16:30 Docusate Sodium (Colace) 100 mg Q12H PRN PO CONSTIPATION; Start 10/14/16 at 16: 30 Methylprednisolone Sodium Succinate (Solu-Medrol) 40 mg Q12 IV Last administered on 10/19/16 08:39; Admin Dose 40 MG; Start 10/14/16 at 21:00 Guaifenesin/ Dextromethorphan (Robitussin Dm Liquid Cup) 10 ml Q4H PRN PO COUGH Last administered on 10/14/16 21:56; Admin Dose 10 ML; Start 10/14/16 at 16:30 Atorvastatin Calcium (Lipitor) 20 mg DAILY@21 PO Last administered on 21:50; Admin Dose 20 MG; Start 10/14/16 at 21:00 Miscellaneous Information 1 ea NOTE XX ; Start 10/14/16 at 17:30 Glucose (Glutose) 15 gm Q15M PRN PO DECREASED GLUCOSE; Start 10/14/16 at 17:30 Glucose (Glutose) 22.5 gm Q15M PRN PO DECREASED GLUCOSE; Start 10/14/16 at 17: 30 Dextrose (D50w Syringe) 25 ml Q15M PRN IV DECREASED GLUCOSE; Start 10/14/16 at 17:30 Dextrose (D50w Syringe) 50 ml Q15M PRN IV DECREASED GLUCOSE; Start 10/14/16 at 17:30 Glucagon (Glucagen) 1 mg Q15M PRN IM DECREASED GLUCOSE; Start 10/14/16 at 17:30 Glucose (Glutose) 15 gm Q15M PRN BUCCAL DECREASED GLUCOSE; Start 10/14/16 at 17 :30 Amlodipine Besylate (Norvasc) 5 mg BID PO Last administered on 10/19/16 08:38 ; Admin Dose 5 MG; Start 10/15/16 at 21:00 Clonidine (Catapres) 0.1 mg Q4 PRN PO ELEVATED SYSTOLIC BP Last administered on 10/18/16 09:05; Admin Dose 0.1 MG; Start 10/15/16 at 17:00 Isosorbide Dinitrate (Isordil) 20 mg TID PO Last administered on 10/19/16 08: 38; Admin Dose 20 MG; Start 10/15/16 at 21:00 Hydralazine HCl (Apresoline) 25 mg Q8 PO Last administered on 10/19/16 06:16; Admin Dose 25 MG; Start 10/17/16 at 14:00 Aspirin (Halfprin) 81 mg DAILY PO Last administered on 10/19/16 08:38; Admin Dose 81 MG; Start 10/18/16 at 09:00 Hydralazine HCl (Apresoline) 75 mg Q8H PO Last administered on 10/19/16 04:58 ; Admin Dose 75 MG; Start 10/18/16 at 12:30 BRANDON SALGADO Oct 19, 2016 12:30
--- NOTE | 2016-10-19 13:43 | CONS ---
Date/Time of Note Date/Time of Note DATE: 10/19/16 TIME: 13:41 Assessment/Plan Assessment/Plan Additional Assessment/Plan Atypical Chest pain with Hypertensive emergency. Abnormal electrocardiogram with RBBB Symptomatic Bradycardia s/p permanent pacemaker implant. Diabetes mellitus. Dyslipidemia End-stage renal disease on hemodialysis. Anemia of chronic disease Bronchitis. Stress test shows no reversible ischemia with EF 65% Hemodynamically stable Continue Hydralazine Continue Imdur Continue Norvasc Continue Insulin Continue antibiotics Continue HD as scheduled Continue Lipitor Consultation Date/Type/Reason Admit Date/Time Oct 14, 2016 at 13:43 Initial Consult Date 10/17/16 Type of Consultation: renal Referring Provider: YUNIER KIRBY MD Exam/Review of Systems Vital Signs Vitals Vital Signs Date Time Temp Pulse Resp B/P Pulse Ox O2 Delivery O2 Flow Rate FiO2 10/19/16 12:01 60 10/19/16 11:41 98.1 18 139/63 99 10/19/16 07:44 Nasal Cannula 2.0 Intake and Output 10/18/16 10/18/16 10/19/16 15:00 23:00 07:00 Intake Total 900 ml 300 ml Balance 900 ml 300 ml Exam Constitutional: alert, oriented Head: atraumatic, normocephalic Respiratory: clear to auscultation Cardiovascular: regular rate and rhythm Gastrointestinal: nl liver, spleen, non-tender, soft Extremities: normal pulses Results Result Diagram: 10/19/16 0505 10/19/16 0505 Results 24 hrs Laboratory Tests Test 10/18/16 17:15 10/18/16 22:01 10/19/16 04:59 10/19/16 05:05 Bedside Glucose 216 214 178 Anion Gap 21 H Anisocytosis 2+ Basophils # 0.0 Basophils % 0.0 Blood Morphology Comment Blood Urea Nitrogen 96 H Calcium Level 8.2 L Carbon Dioxide Level 24 Chloride Level 92 L Creatinine 6.00 H Differential Comment AUTO w/SCAN Eosinophils # 0.0 Eosinophils % 0.0 Glucose Level 184 Hematocrit 36.2 L Hemoglobin 11.7 L Hypochromasia 2+ Lymphocytes # 0.1 L Lymphocytes % 1.8 L Mean Corpuscular Hemoglobin 26.5 L Mean Corpuscular Hemoglobin Concent 32.4 Mean Corpuscular Volume 81.9 L Mean Platelet Volume 12.3 H Microcytosis 1+ Monocytes # 0.2 L Monocytes % 3.5 Neutrophils # 5.5 Neutrophils % 94.7 H Nucleated Red Blood Cells # 0.0 Nucleated Red Blood Cells % 0.0 Platelet Count 96 #L Potassium Level 5.3 H Red Blood Count 4.42 L Red Cell Distribution Width 19.6 H Sodium Level 132 L White Blood Count 5.9 # Test 10/19/16 07:28 10/19/16 11:15 Bedside Glucose 198 241 H Medications Medications Current Medications Ceftriaxone Sodium (Rocephin) 50 ml @ 100 mls/hr Q24H IVPB Last administered on 10/18/16 17:18; Admin Dose 100 MLS/HR; Start 10/14/16 at 16:30 Azithromycin (Zithromax) 250 mg DAILY PO Last administered on 10/19/16 08:39; Admin Dose 250 MG; Start 10/15/16 at 09:00 Heparin Sodium (Porcine) (Heparin (5000 Units/0.5 ml)) 5,000 unit BID SC Last administered on 10/19/16 08:43; Admin Dose 5,000 UNIT; Start 10/14/16 at 21:00 Famotidine (Pepcid) 20 mg DAILY PO Last administered on 10/19/16 08:37; Admin Dose 20 MG; Start 10/15/16 at 09:00 Ondansetron HCl (Zofran Inj) 4 mg Q6H PRN IV NAUSEA AND/OR VOMITING; Start at 16:30 Nitroglycerin (Nitroglycerin (Sl Tab) 0.4 Mg) 1 tab Q5M PRN SL CHEST PAIN; Start 10/14/16 at 16:30 Acetaminophen (Tylenol Tab) 650 mg Q6H PRN PO PAIN LEVEL 1-3 OR FEVER; Start at 16:30 Morphine Sulfate (morphine) 2 mg Q4H PRN IV PAIN LEVEL 7-10; Start 10/14/16 at 16:30 Docusate Sodium (Colace) 100 mg Q12H PRN PO CONSTIPATION; Start 10/14/16 at 16: 30 Methylprednisolone Sodium Succinate (Solu-Medrol) 40 mg Q12 IV Last administered on 10/19/16 08:39; Admin Dose 40 MG; Start 10/14/16 at 21:00 Guaifenesin/ Dextromethorphan (Robitussin Dm Liquid Cup) 10 ml Q4H PRN PO COUGH Last administered on 10/14/16 21:56; Admin Dose 10 ML; Start 10/14/16 at 16:30 Atorvastatin Calcium (Lipitor) 20 mg DAILY@21 PO Last administered on 21:50; Admin Dose 20 MG; Start 10/14/16 at 21:00 Miscellaneous Information 1 ea NOTE XX ; Start 10/14/16 at 17:30 Glucose (Glutose) 15 gm Q15M PRN PO DECREASED GLUCOSE; Start 10/14/16 at 17:30 Glucose (Glutose) 22.5 gm Q15M PRN PO DECREASED GLUCOSE; Start 10/14/16 at 17: 30 Dextrose (D50w Syringe) 25 ml Q15M PRN IV DECREASED GLUCOSE; Start 10/14/16 at 17:30 Dextrose (D50w Syringe) 50 ml Q15M PRN IV DECREASED GLUCOSE; Start 10/14/16 at 17:30 Glucagon (Glucagen) 1 mg Q15M PRN IM DECREASED GLUCOSE; Start 10/14/16 at 17:30 Glucose (Glutose) 15 gm Q15M PRN BUCCAL DECREASED GLUCOSE; Start 10/14/16 at 17 :30 Amlodipine Besylate (Norvasc) 5 mg BID PO Last administered on 10/19/16 08:38 ; Admin Dose 5 MG; Start 10/15/16 at 21:00 Clonidine (Catapres) 0.1 mg Q4 PRN PO ELEVATED SYSTOLIC BP Last administered on 10/18/16 09:05; Admin Dose 0.1 MG; Start 10/15/16 at 17:00 Isosorbide Dinitrate (Isordil) 20 mg TID PO Last administered on 10/19/16 12: 24; Admin Dose 20 MG; Start 10/15/16 at 21:00 Hydralazine HCl (Apresoline) 25 mg Q8 PO Last administered on 10/19/16 06:16; Admin Dose 25 MG; Start 10/17/16 at 14:00 Aspirin (Halfprin) 81 mg DAILY PO Last administered on 10/19/16 08:38; Admin Dose 81 MG; Start 10/18/16 at 09:00 Hydralazine HCl (Apresoline) 75 mg Q8H PO Last administered on 10/19/16 12:23 ; Admin Dose 75 MG; Start 10/18/16 at 12:30 VONNIE BAUGH M.D. Oct 19, 2016 13:43
[2016-10-19] MEDS: CEFTRIAXONE 1 GM/50 ML (PMX) 50 ML IVPB SCH (16:40)
[2016-10-19] MEDS: ATORVASTATIN 20 MG TAB PO SCH (21:01)
--- NOTE | 2016-10-19 22:26 | CONS ---
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 Constitutional: no complaints Exam/Review of Systems Vital Signs Vitals Vital Signs Date Time Temp Pulse Resp B/P Pulse Ox O2 Delivery O2 Flow Rate FiO2 10/19/16 20:07 59 10/19/16 20:01 Nasal Cannula 2.0 10/19/16 15:57 98.3 18 120/58 99 Intake and Output 10/18/16 10/18/16 10/19/16 15:00 23:00 07:00 Intake Total 900 ml 300 ml Balance 900 ml 300 ml Exam Constitutional: alert, oriented Head: normocephalic Eyes: PERRL, nl conjunctiva ENMT: nl external ears & nose Neck: supple Respiratory: clear to auscultation Cardiovascular: regular rate and rhythm Gastrointestinal: soft Musculoskeletal: nl extremities to inspection Neurological: [employer] II-XII intact Additional Comments STABLE CHEMISTRY FOR ESRD Results Result Diagram: 10/19/16 0505 10/19/16 0505 Results 24 hrs Laboratory Tests Test 10/19/16 04:59 10/19/16 05:05 10/19/16 07:28 10/19/16 11:15 Bedside Glucose 178 198 241 H Anion Gap 21 H Anisocytosis 2+ Basophils # 0.0 Basophils % 0.0 Blood Morphology Comment Blood Urea Nitrogen 96 H Calcium Level 8.2 L Carbon Dioxide Level 24 Chloride Level 92 L Creatinine 6.00 H Differential Comment AUTO w/SCAN Eosinophils # 0.0 Eosinophils % 0.0 Glucose Level 184 Hematocrit 36.2 L Hemoglobin 11.7 L Hypochromasia 2+ Lymphocytes # 0.1 L Lymphocytes % 1.8 L Mean Corpuscular Hemoglobin 26.5 L Mean Corpuscular Hemoglobin Concent 32.4 Mean Corpuscular Volume 81.9 L Mean Platelet Volume 12.3 H Microcytosis 1+ Monocytes # 0.2 L Monocytes % 3.5 Neutrophils # 5.5 Neutrophils % 94.7 H Nucleated Red Blood Cells # 0.0 Nucleated Red Blood Cells % 0.0 Platelet Count 96 #L Potassium Level 5.3 H Red Blood Count 4.42 L Red Cell Distribution Width 19.6 H Sodium Level 132 L White Blood Count 5.9 # Test 10/19/16 17:06 10/19/16 21:05 Bedside Glucose 292 H 285 H Medications Medications Current Medications Ceftriaxone Sodium (Rocephin) 50 ml @ 100 mls/hr Q24H IVPB Last administered on 10/19/16 16:40; Admin Dose 100 MLS/HR; Start 10/14/16 at 16:30 Azithromycin (Zithromax) 250 mg DAILY PO Last administered on 10/19/16 08:39; Admin Dose 250 MG; Start 10/15/16 at 09:00 Heparin Sodium (Porcine) (Heparin (5000 Units/0.5 ml)) 5,000 unit BID SC Last administered on 10/19/16 21:08; Admin Dose 5,000 UNIT; Start 10/14/16 at 21:00 Famotidine (Pepcid) 20 mg DAILY PO Last administered on 10/19/16 08:37; Admin Dose 20 MG; Start 10/15/16 at 09:00 Ondansetron HCl (Zofran Inj) 4 mg Q6H PRN IV NAUSEA AND/OR VOMITING; Start at 16:30 Nitroglycerin (Nitroglycerin (Sl Tab) 0.4 Mg) 1 tab Q5M PRN SL CHEST PAIN; Start 10/14/16 at 16:30 Acetaminophen (Tylenol Tab) 650 mg Q6H PRN PO PAIN LEVEL 1-3 OR FEVER; Start at 16:30 Morphine Sulfate (morphine) 2 mg Q4H PRN IV PAIN LEVEL 7-10; Start 10/14/16 at 16:30 Docusate Sodium (Colace) 100 mg Q12H PRN PO CONSTIPATION; Start 10/14/16 at 16: 30 Methylprednisolone Sodium Succinate (Solu-Medrol) 40 mg Q12 IV Last administered on 10/19/16 21:01; Admin Dose 40 MG; Start 10/14/16 at 21:00 Guaifenesin/ Dextromethorphan (Robitussin Dm Liquid Cup) 10 ml Q4H PRN PO COUGH Last administered on 10/14/16 21:56; Admin Dose 10 ML; Start 10/14/16 at 16:30 Atorvastatin Calcium (Lipitor) 20 mg DAILY@21 PO Last administered on 21:01; Admin Dose 20 MG; Start 10/14/16 at 21:00 Miscellaneous Information 1 ea NOTE XX ; Start 10/14/16 at 17:30 Glucose (Glutose) 15 gm Q15M PRN PO DECREASED GLUCOSE; Start 10/14/16 at 17:30 Glucose (Glutose) 22.5 gm Q15M PRN PO DECREASED GLUCOSE; Start 10/14/16 at 17: 30 Dextrose (D50w Syringe) 25 ml Q15M PRN IV DECREASED GLUCOSE; Start 10/14/16 at 17:30 Dextrose (D50w Syringe) 50 ml Q15M PRN IV DECREASED GLUCOSE; Start 10/14/16 at 17:30 Glucagon (Glucagen) 1 mg Q15M PRN IM DECREASED GLUCOSE; Start 10/14/16 at 17:30 Glucose (Glutose) 15 gm Q15M PRN BUCCAL DECREASED GLUCOSE; Start 10/14/16 at 17 :30 Amlodipine Besylate (Norvasc) 5 mg BID PO Last administered on 10/19/16 21:03 ; Admin Dose 5 MG; Start 10/15/16 at 21:00 Clonidine (Catapres) 0.1 mg Q4 PRN PO ELEVATED SYSTOLIC BP Last administered on 10/18/16 09:05; Admin Dose 0.1 MG; Start 10/15/16 at 17:00 Isosorbide Dinitrate (Isordil) 20 mg TID PO Last administered on 10/19/16 21: 04; Admin Dose 20 MG; Start 10/15/16 at 21:00 Aspirin (Halfprin) 81 mg DAILY PO Last administered on 10/19/16 08:38; Admin Dose 81 MG; Start 10/18/16 at 09:00 Hydralazine HCl (Apresoline) 75 mg Q8H PO Last administered on 10/19/16 21:03 ; Admin Dose 75 MG; Start 10/18/16 at 12:30 RACHEL NIEVES MD Oct 19, 2016 22:26
[2016-10-20] VITALS (21 sets, daily range): BP systolic 106–176; BP diastolic 49–71; PULSE 59–64; RESP 18–20
[2016-10-20] MEDS: METHYLPREDNISOLONE 40 MG INJ IV SCH (08:22)
[2016-10-20] MEDS: FAMOTIDINE 20 MG TAB PO SCH (08:22)
[2016-10-20] MEDS: SEVELAMER 800 MG TAB PO SCH ×3 (08:22→17:24)
[2016-10-20] MEDS: AZITHROMYCIN 250 MG TAB PO SCH (08:22)
[2016-10-20] MEDS: ASPIRIN (EC) 81 MG TAB PO SCH (08:23)
[2016-10-20] MEDS: HEPARIN 5,000 UNIT/0.5 ML SYG SC SCH ×2 (08:24→20:29)
[2016-10-20] MEDS: INSULIN ASPART [NOVOLOG] 3 ML PEN SC SCH ×4 (08:25→20:49)
--- NOTE | 2016-10-20 12:54 | CONS ---
Date/Time of Note Date/Time of Note DATE: 10/20/16 TIME: 12:52 Assessment/Plan Assessment/Plan Chief Complaint/Hosp Course IMPRESSION: 1. Chest pain, assess for acute coronary syndrome-with a 4th trop minimally positive in the setting of renal failure. Now s/p lexiscan with no sig ischemia/ NL EF 2. Abnormal electrocardiogram, assess for acute coronary syndrome. 3. Right bundle branch block by EKG. 4. History of permanent pacemaker implant. 5. History of symptomatic bradycardia. 6. Diabetes mellitus. 7. Hypertensive emergency-improved on oral anti-hypertensives 8. End-stage renal disease on hemodialysis. 9. Possible bronchitis. Recc: -Tele -serial ecg's -Continue norvasc/isordil/hydralazine at current doses and follow BP closely -Continue abx's/bronchodilators -start ASA -HD for volume removal Problems: Consultation Date/Type/Reason Admit Date/Time Oct 14, 2016 at 13:43 Initial Consult Date 10/16/2016 Type of Consultation: Cardiology Reason for Consultation chest pain Referring Provider: YUNIER KIRBY MD Exam/Review of Systems Vital Signs Vitals Vital Signs Date Time Temp Pulse Resp B/P Pulse Ox O2 Delivery O2 Flow Rate FiO2 10/20/16 12:30 61 10/20/16 11:31 97.6 20 134/60 100 10/20/16 07:04 Nasal Cannula 2.0 Intake and Output 10/19/16 10/19/16 10/20/16 15:00 23:00 07:00 Intake Total 900 ml 200 ml Output Total 30 ml Balance 870 ml 200 ml Exam Review of Systems: CONSTITUTIONAL: No fevers, chills. PULMONARY: No sob CARDIOVASCULAR: No chest pain/palpitations GASTROINTESTINAL: No nausea/vomiting. GENITOURINARY: No hematuria/dysuria. MUSCULOSKELETAL: No myagias/arthalgias. PSYCHIATRIC: The patient denies depression. NEUROLOGIC: lethargic Constitutional: alert Psych: no complaints Head: normocephalic ENMT: mucosa pink and moist Neck: jvd (9 cm water), supple Respiratory: diminished breath sounds (at bases/B) Cardiovascular: regular rate and rhythm Gastrointestinal: non-tender, soft Musculoskeletal: muscle tone (normal) Extremities: edema (none) Neurological: lethargic Results Result Diagram: 10/19/16 0505 10/19/16 0505 Results 24 hrs Laboratory Tests Test 10/19/16 17:06 10/19/16 21:05 10/20/16 04:00 10/20/16 07:50 Bedside Glucose 292 H 285 H 272 H 248 H Test 10/20/16 11:06 Bedside Glucose 210 Medications Medications Current Medications Ceftriaxone Sodium (Rocephin) 50 ml @ 100 mls/hr Q24H IVPB Last administered on 10/19/16 16:40; Admin Dose 100 MLS/HR; Start 10/14/16 at 16:30 Azithromycin (Zithromax) 250 mg DAILY PO Last administered on 10/20/16 08:22; Admin Dose 250 MG; Start 10/15/16 at 09:00 Heparin Sodium (Porcine) (Heparin (5000 Units/0.5 ml)) 5,000 unit BID SC Last administered on 10/20/16 08:24; Admin Dose 5,000 UNIT; Start 10/14/16 at 21:00 Famotidine (Pepcid) 20 mg DAILY PO Last administered on 10/20/16 08:22; Admin Dose 20 MG; Start 10/15/16 at 09:00 Ondansetron HCl (Zofran Inj) 4 mg Q6H PRN IV NAUSEA AND/OR VOMITING; Start at 16:30 Nitroglycerin (Nitroglycerin (Sl Tab) 0.4 Mg) 1 tab Q5M PRN SL CHEST PAIN; Start 10/14/16 at 16:30 Acetaminophen (Tylenol Tab) 650 mg Q6H PRN PO PAIN LEVEL 1-3 OR FEVER; Start at 16:30 Morphine Sulfate (morphine) 2 mg Q4H PRN IV PAIN LEVEL 7-10; Start 10/14/16 at 16:30 Docusate Sodium (Colace) 100 mg Q12H PRN PO CONSTIPATION; Start 10/14/16 at 16: 30 Methylprednisolone Sodium Succinate (Solu-Medrol) 40 mg Q12 IV Last administered on 10/20/16 08:22; Admin Dose 40 MG; Start 10/14/16 at 21:00 Guaifenesin/ Dextromethorphan (Robitussin Dm Liquid Cup) 10 ml Q4H PRN PO COUGH Last administered on 10/14/16 21:56; Admin Dose 10 ML; Start 10/14/16 at 16:30 Atorvastatin Calcium (Lipitor) 20 mg DAILY@21 PO Last administered on 21:01; Admin Dose 20 MG; Start 10/14/16 at 21:00 Miscellaneous Information 1 ea NOTE XX ; Start 10/14/16 at 17:30 Glucose (Glutose) 15 gm Q15M PRN PO DECREASED GLUCOSE; Start 10/14/16 at 17:30 Glucose (Glutose) 22.5 gm Q15M PRN PO DECREASED GLUCOSE; Start 10/14/16 at 17: 30 Dextrose (D50w Syringe) 25 ml Q15M PRN IV DECREASED GLUCOSE; Start 10/14/16 at 17:30 Dextrose (D50w Syringe) 50 ml Q15M PRN IV DECREASED GLUCOSE; Start 10/14/16 at 17:30 Glucagon (Glucagen) 1 mg Q15M PRN IM DECREASED GLUCOSE; Start 10/14/16 at 17:30 Glucose (Glutose) 15 gm Q15M PRN BUCCAL DECREASED GLUCOSE; Start 10/14/16 at 17 :30 Amlodipine Besylate (Norvasc) 5 mg BID PO Last administered on 10/19/16 21:03 ; Admin Dose 5 MG; Start 10/15/16 at 21:00 Clonidine (Catapres) 0.1 mg Q4 PRN PO ELEVATED SYSTOLIC BP Last administered on 10/18/16 09:05; Admin Dose 0.1 MG; Start 10/15/16 at 17:00 Isosorbide Dinitrate (Isordil) 20 mg TID PO Last administered on 10/19/16 21: 04; Admin Dose 20 MG; Start 10/15/16 at 21:00 Aspirin (Halfprin) 81 mg DAILY PO Last administered on 10/20/16 08:23; Admin Dose 81 MG; Start 10/18/16 at 09:00 Hydralazine HCl (Apresoline) 75 mg Q8H PO Last administered on 10/20/16 04:06 ; Admin Dose 75 MG; Start 10/18/16 at 12:30 WILLA GARSIA Oct 20, 2016 12:54
[2016-10-20] MEDS: ISOSORBIDE DINITRATE 20 MG TAB PO SCH ×3 (13:59→20:27)
[2016-10-20] MEDS: AMLODIPINE 5 MG TAB PO SCH ×2 (14:00→20:27)
--- NOTE | 2016-10-20 14:55 | CONS ---
Date/Time of Note Date/Time of Note DATE: 10/20/16 TIME: 14:54 Assessment/Plan Assessment/Plan Additional Assessment/Plan 76 yo Male with 1. URI/Bronchitis 2. Hypertensive, Uncontrolled 3. End-stage renal disease. HD MWF 4. Diabetes mellitus type 2. 5. Hx of Permanent pacemaker. 6. Anemia, Chronic Disease 7. Mineral Bone Disease, ESRD 8. Mild Hyperkalemia Will cont HD schedule, MWF S/p HD today. Electrolytes abnormality with correct with HD Cont current Rx for HTN, low dose COTY with HD Cont Phophate binder, Renal/ADA diet. Consultation Date/Type/Reason Admit Date/Time Oct 14, 2016 at 13:43 Initial Consult Date 10/17/16 Type of Consultation: Nephrology Referring Provider: YUNIER KIRBY MD 24 HR Interval Summary Free Text/Dictation S/p HD Exam/Review of Systems Vital Signs Vitals Vital Signs Date Time Temp Pulse Resp B/P Pulse Ox O2 Delivery O2 Flow Rate FiO2 10/20/16 12:57 62 17 10/20/16 11:31 97.6 134/60 100 10/20/16 07:04 Nasal Cannula 2.0 Intake and Output 10/19/16 10/19/16 10/20/16 15:00 23:00 07:00 Intake Total 900 ml 200 ml Output Total 30 ml Balance 870 ml 200 ml Exam Constitutional: No distress ENMT: mucosa pink and moist Respiratory: No labored breathing Cardiovascular: No edema Results Result Diagram: 10/19/16 0505 10/19/16 0505 Results 24 hrs Laboratory Tests Test 10/19/16 17:06 10/19/16 21:05 10/20/16 04:00 10/20/16 07:50 Bedside Glucose 292 H 285 H 272 H 248 H Test 10/20/16 11:06 Bedside Glucose 210 Medications Medications Current Medications Ceftriaxone Sodium (Rocephin) 50 ml @ 100 mls/hr Q24H IVPB Last administered on 10/19/16 16:40; Admin Dose 100 MLS/HR; Start 10/14/16 at 16:30 Azithromycin (Zithromax) 250 mg DAILY PO Last administered on 10/20/16 08:22; Admin Dose 250 MG; Start 10/15/16 at 09:00 Heparin Sodium (Porcine) (Heparin (5000 Units/0.5 ml)) 5,000 unit BID SC Last administered on 10/20/16 08:24; Admin Dose 5,000 UNIT; Start 10/14/16 at 21:00 Famotidine (Pepcid) 20 mg DAILY PO Last administered on 10/20/16 08:22; Admin Dose 20 MG; Start 10/15/16 at 09:00 Ondansetron HCl (Zofran Inj) 4 mg Q6H PRN IV NAUSEA AND/OR VOMITING; Start at 16:30 Nitroglycerin (Nitroglycerin (Sl Tab) 0.4 Mg) 1 tab Q5M PRN SL CHEST PAIN; Start 10/14/16 at 16:30 Acetaminophen (Tylenol Tab) 650 mg Q6H PRN PO PAIN LEVEL 1-3 OR FEVER; Start at 16:30 Morphine Sulfate (morphine) 2 mg Q4H PRN IV PAIN LEVEL 7-10; Start 10/14/16 at 16:30 Docusate Sodium (Colace) 100 mg Q12H PRN PO CONSTIPATION; Start 10/14/16 at 16: 30 Methylprednisolone Sodium Succinate (Solu-Medrol) 40 mg Q12 IV Last administered on 10/20/16 08:22; Admin Dose 40 MG; Start 10/14/16 at 21:00 Guaifenesin/ Dextromethorphan (Robitussin Dm Liquid Cup) 10 ml Q4H PRN PO COUGH Last administered on 10/14/16 21:56; Admin Dose 10 ML; Start 10/14/16 at 16:30 Atorvastatin Calcium (Lipitor) 20 mg DAILY@21 PO Last administered on 21:01; Admin Dose 20 MG; Start 10/14/16 at 21:00 Miscellaneous Information 1 ea NOTE XX ; Start 10/14/16 at 17:30 Glucose (Glutose) 15 gm Q15M PRN PO DECREASED GLUCOSE; Start 10/14/16 at 17:30 Glucose (Glutose) 22.5 gm Q15M PRN PO DECREASED GLUCOSE; Start 10/14/16 at 17: 30 Dextrose (D50w Syringe) 25 ml Q15M PRN IV DECREASED GLUCOSE; Start 10/14/16 at 17:30 Dextrose (D50w Syringe) 50 ml Q15M PRN IV DECREASED GLUCOSE; Start 10/14/16 at 17:30 Glucagon (Glucagen) 1 mg Q15M PRN IM DECREASED GLUCOSE; Start 10/14/16 at 17:30 Glucose (Glutose) 15 gm Q15M PRN BUCCAL DECREASED GLUCOSE; Start 10/14/16 at 17 :30 Amlodipine Besylate (Norvasc) 5 mg BID PO Last administered on 10/20/16 14:00 ; Admin Dose 5 MG; Start 10/15/16 at 21:00 Clonidine (Catapres) 0.1 mg Q4 PRN PO ELEVATED SYSTOLIC BP Last administered on 10/18/16 09:05; Admin Dose 0.1 MG; Start 10/15/16 at 17:00 Isosorbide Dinitrate (Isordil) 20 mg TID PO Last administered on 10/20/16 13: 59; Admin Dose 20 MG; Start 10/15/16 at 21:00 Aspirin (Halfprin) 81 mg DAILY PO Last administered on 10/20/16 08:23; Admin Dose 81 MG; Start 10/18/16 at 09:00 Hydralazine HCl (Apresoline) 75 mg Q8H PO Last administered on 10/20/16 04:06 ; Admin Dose 75 MG; Start 10/18/16 at 12:30 MARIANNA ZENDEJAS MD Oct 20, 2016 14:55
[2016-10-20] MEDS: CEFTRIAXONE 1 GM/50 ML (PMX) 50 ML IVPB SCH (16:23)
[2016-10-20] MEDS: ATORVASTATIN 20 MG TAB PO SCH (20:26)
--- NOTE | 2016-10-20 22:19 | PN ---
DATE: 10/20/2016 SUBJECTIVE: Follow up on positive troponin; hypertension; end-stage renal disease; diabetes; sympto matic bradycardia, status post permanent pacemaker placement; and bronchitis. The patient's cough h as improved. The patient does not have any wheezing. Denies any chest pain. No reported fever or chills. The patient did not have any fever or chills. No reported bleeding from any site. PHYSICAL EXAMINATION: GENERAL: The patient is conscious, awake, alert. VITAL SIGNS: Temperature 97.6, pulse 64, respirations 20, blood pressure 156/67, O2 saturation 98% on 2 L nasal cannula. HEENT: Atraumatic, normocephalic head. Right cornea is totally opaque. Left cornea also has opaci ty. The patient is legally blind. NECK: Supple. No mass, no thyromegaly. CHEST: Diminished air entry at bases. No use of accessory muscles. CARDIOVASCULAR: S1, S2 normal. Regular rate and rhythm. No murmur, gallop or rub. ABDOMEN: Soft, nondistended, nontender. No palpable mass. EXTREMITIES: No leg edema, clubbing or cyanosis. NEUROLOGIC: The patient is awake, alert, follows simple commands. LABORATORY DATA: WBC 5.9, hemoglobin 9.7, platelets 96. Chemistry: Sodium 132, potassium 5.3, BUN 96, creatinine 6, blood glucose 212. IMPRESSION: 1. Acute bronchitis. Pulmonary symptoms have improved. Will decrease Solu-Medrol to 40 once a day , which will also help improvement in his blood sugar. 2. Status post chest pain with negative nuclear stress test. Continue nitrates. 3. Hypertension and status post hypertensive emergency. Blood pressure better controlled. Continu e Norvasc, hydralazine, Isordil. 4. End-stage renal disease. Continue hemodialysis as per Dr. Nettles. The patient also remains on Renagel. 5. Meanwhile, the patient will be continued on IV Rocephin and Zithromax for acute bronchitis. Zari st x-ray did not reveal any infiltrate. 6. Thrombocytopenia. Will continue to monitor. Probably due to bronchitis, although patient did h ave history of mild thrombocytopenia on and off. 7. Symptomatic bradycardia, status post permanent pacemaker placement. The patient is being follow ed by Dr. Esparza from cardiac standpoint, Dr. Nettles from nephrology standpoint. Further recommendations will depend on patient's hospital course. Plan of care discussed with patie nt's family. Dictated By: YUNIER CHANG/JERAMY Conf#: [id number] DID#: [id number]
[2016-10-21] VITALS (12 sets, daily range): BP systolic 139–168; BP diastolic 69–83; PULSE 60–78; RESP 20
[2016-10-21 06:41] LABS: HEMATOCRIT 39.7 % (42.0-52.0); HEMOGLOBIN 12.9 g/dl (14.0-18.0); LYMPHOCYTES # 0.3 10^3/ul (0.8-2.9); LYMPHOCYTES % 4.1 % (15.0-51.0); MEAN CORPUSCULAR HEMOGLOBIN 26.7 pg (29.0-33.0); MEAN CORPUSCULAR HGB CONC 32.5 g/dl (32.0-37.0); MEAN CORPUSCULAR VOLUME 82.2 fl (82.0-101.0); MEAN PLATELET VOLUME 12.9 fl (7.4-10.4); MONOCYTE # 0.8 10^3/ul (0.3-0.9); MONOCYTES % 10.2 % (0.0-11.0); NEUTROPHIL # 7.1 10^3/ul (1.6-7.5); NEUTROPHILS % 85.7 % (39.0-77.0); PLATELET COUNT 100 10^3/UL (140-440); RED BLOOD COUNT 4.83 10^6/ul (4.70-6.10); RED CELL DISTRIBUTION WIDTH 19.5 % (11.5-14.5); UNCORRECTED WBC 8.3 10^3/ul (4.8-10.8); WHITE BLOOD COUNT 8.3 10^3/ul (4.8-10.8)
[2016-10-21 07:08] LABS: CONDITION 1; LH ANALYZER COMMENTS 1
[2016-10-21] MEDS: METHYLPREDNISOLONE 40 MG INJ IV SCH (08:29)
[2016-10-21] MEDS: SEVELAMER 800 MG TAB PO SCH ×3 (08:29→17:01)
[2016-10-21] MEDS: AMLODIPINE 5 MG TAB PO SCH ×2 (08:30→20:58)
[2016-10-21] MEDS: FAMOTIDINE 20 MG TAB PO SCH (08:30)
[2016-10-21] MEDS: ASPIRIN (EC) 81 MG TAB PO SCH (08:30)
[2016-10-21] MEDS: AZITHROMYCIN 250 MG TAB PO SCH (08:30)
[2016-10-21] MEDS: ISOSORBIDE DINITRATE 20 MG TAB PO SCH ×3 (08:30→20:58)
[2016-10-21] MEDS: HEPARIN 5,000 UNIT/0.5 ML SYG SC SCH ×2 (08:31→20:59)
[2016-10-21] MEDS: INSULIN ASPART [NOVOLOG] 3 ML PEN SC SCH ×4 (08:32→21:01)
--- NOTE | 2016-10-21 12:07 | CONS ---
Date/Time of Note Date/Time of Note DATE: 10/21/16 TIME: 12:06 Assessment/Plan Assessment/Plan Additional Assessment/Plan 76 yo Male with 1. URI/Bronchitis 2. Hypertensive, Uncontrolled 3. End-stage renal disease. HD MWF 4. Diabetes mellitus type 2. 5. Hx of Permanent pacemaker. 6. Anemia, Chronic Disease 7. Mineral Bone Disease, ESRD 8. Mild Hyperkalemia S/p HD yesterday Next HD MWF Electrolytes abnormality with correct with HD Cont current Rx for HTN, low dose COTY with HD Cont Phophate binder, Renal/ADA diet. Consultation Date/Type/Reason Admit Date/Time Oct 14, 2016 at 13:43 Initial Consult Date 10/17/16 Type of Consultation: Nephrology Referring Provider: YUNIER KIRBY MD Exam/Review of Systems Vital Signs Vitals Vital Signs Date Time Temp Pulse Resp B/P Pulse Ox O2 Delivery O2 Flow Rate FiO2 10/21/16 11:49 98.0 61 20 139/83 100 10/21/16 08:00 Nasal Cannula 2.0 Intake and Output 10/20/16 10/20/16 10/21/16 14:59 22:59 06:59 Intake Total 500 ml 950 ml 300 ml Output Total 2500 ml Balance -2000 ml 950 ml 300 ml Exam Constitutional: No distress ENMT: mucosa pink and moist Neck: No jvd Respiratory: No diminished breath sounds, No labored breathing Cardiovascular: regular rate and rhythm, No edema Gastrointestinal: non-tender, soft Results Result Diagram: 10/21/16 0525 10/19/16 0505 Results 24 hrs Laboratory Tests Test 10/20/16 17:15 10/20/16 20:45 10/21/16 05:25 10/21/16 07:56 Bedside Glucose 212 257 H 195 Basophils # 0.0 Basophils % 0.0 Blood Morphology Comment Eosinophils # 0.0 Eosinophils % 0.0 Hematocrit 39.7 L Hemoglobin 12.9 L Lymphocytes # 0.3 L Lymphocytes % 4.1 L Mean Corpuscular Hemoglobin 26.7 L Mean Corpuscular Hemoglobin Concent 32.5 Mean Corpuscular Volume 82.2 Mean Platelet Volume 12.9 H Monocytes # 0.8 Monocytes % 10.2 Neutrophils # 7.1 Neutrophils % 85.7 H Nucleated Red Blood Cells # 0.0 Nucleated Red Blood Cells % 0.0 Platelet Count 100 L Red Blood Count 4.83 Red Cell Distribution Width 19.5 H White Blood Count 8.3 # Test 10/21/16 11:16 Bedside Glucose 215 Medications Medications Current Medications Ceftriaxone Sodium (Rocephin) 50 ml @ 100 mls/hr Q24H IVPB Last administered on 10/20/16 16:23; Admin Dose 100 MLS/HR; Start 10/14/16 at 16:30 Azithromycin (Zithromax) 250 mg DAILY PO Last administered on 10/21/16 08:30; Admin Dose 250 MG; Start 10/15/16 at 09:00 Heparin Sodium (Porcine) (Heparin (5000 Units/0.5 ml)) 5,000 unit BID SC Last administered on 10/21/16 08:31; Admin Dose 5,000 UNIT; Start 10/14/16 at 21:00 Famotidine (Pepcid) 20 mg DAILY PO Last administered on 10/21/16 08:30; Admin Dose 20 MG; Start 10/15/16 at 09:00 Ondansetron HCl (Zofran Inj) 4 mg Q6H PRN IV NAUSEA AND/OR VOMITING; Start at 16:30 Nitroglycerin (Nitroglycerin (Sl Tab) 0.4 Mg) 1 tab Q5M PRN SL CHEST PAIN; Start 10/14/16 at 16:30 Acetaminophen (Tylenol Tab) 650 mg Q6H PRN PO PAIN LEVEL 1-3 OR FEVER; Start at 16:30 Morphine Sulfate (morphine) 2 mg Q4H PRN IV PAIN LEVEL 7-10; Start 10/14/16 at 16:30 Docusate Sodium (Colace) 100 mg Q12H PRN PO CONSTIPATION; Start 10/14/16 at 16: 30 Guaifenesin/ Dextromethorphan (Robitussin Dm Liquid Cup) 10 ml Q4H PRN PO COUGH Last administered on 10/14/16 21:56; Admin Dose 10 ML; Start 10/14/16 at 16:30 Atorvastatin Calcium (Lipitor) 20 mg DAILY@21 PO Last administered on 20:26; Admin Dose 20 MG; Start 10/14/16 at 21:00 Miscellaneous Information 1 ea NOTE XX ; Start 10/14/16 at 17:30 Glucose (Glutose) 15 gm Q15M PRN PO DECREASED GLUCOSE; Start 10/14/16 at 17:30 Glucose (Glutose) 22.5 gm Q15M PRN PO DECREASED GLUCOSE; Start 10/14/16 at 17: 30 Dextrose (D50w Syringe) 25 ml Q15M PRN IV DECREASED GLUCOSE; Start 10/14/16 at 17:30 Dextrose (D50w Syringe) 50 ml Q15M PRN IV DECREASED GLUCOSE; Start 10/14/16 at 17:30 Glucagon (Glucagen) 1 mg Q15M PRN IM DECREASED GLUCOSE; Start 10/14/16 at 17:30 Glucose (Glutose) 15 gm Q15M PRN BUCCAL DECREASED GLUCOSE; Start 10/14/16 at 17 :30 Amlodipine Besylate (Norvasc) 5 mg BID PO Last administered on 10/21/16 08:30 ; Admin Dose 5 MG; Start 10/15/16 at 21:00 Clonidine (Catapres) 0.1 mg Q4 PRN PO ELEVATED SYSTOLIC BP Last administered on 10/18/16 09:05; Admin Dose 0.1 MG; Start 10/15/16 at 17:00 Isosorbide Dinitrate (Isordil) 20 mg TID PO Last administered on 10/21/16 08: 30; Admin Dose 20 MG; Start 10/15/16 at 21:00 Aspirin (Halfprin) 81 mg DAILY PO Last administered on 10/21/16 08:30; Admin Dose 81 MG; Start 10/18/16 at 09:00 Hydralazine HCl (Apresoline) 75 mg Q8H PO Last administered on 10/21/16 04:30 ; Admin Dose 75 MG; Start 10/18/16 at 12:30 Methylprednisolone Sodium Succinate (Solu-Medrol) 40 mg QAM IV Last administered on 10/21/16 08:29; Admin Dose 40 MG; Start 10/21/16 at 09:00 MARIANNA ZENDEJAS MD Oct 21, 2016 12:07
--- NOTE | 2016-10-21 15:16 | PN ---
Date/Time of Note Date/Time of Note DATE: 10/21/16 TIME: 15:12 Assessment/Plan VTE Prophylaxis VTE Prophylaxis Intervention: SCD's Lines/Catheters IV [facility] Urinary Cath still in place: No Assessment/Plan Chief Complaint/Hosp Course Assessment and plan: 1. Acute bronchitis. Pulmonary symptoms have improved. Continue continue Rocephin and Solu-Medrol to 40 once a day. 2. Status post chest pain with negative nuclear stress test. Continue nitrates. 3. Hypertension and status post hypertensive emergency. Blood pressure better controlled. Continue Norvasc, hydralazine, Isordil. 4. End-stage renal disease. Continue hemodialysis as per Dr. Nettles. The patient also remains on Renagel. 5. Meanwhile, the patient will be continued on IV Rocephin and Zithromax for acute bronchitis. Chest x-ray did not reveal any infiltrate. 6. Thrombocytopenia. Will continue to monitor. Probably due to bronchitis, although patient did have history of mild thrombocytopenia on and off. 7. Symptomatic bradycardia, status post permanent pacemaker placement. The patient is being followed by Dr. Esparza from cardiac standpoint, Dr. Nettles from nephrology standpoint. Further recommendations will depend on patient's hospital course. Further recommendations based on clinical course. Plan of care was discussed with Dr. Nettles who is covering for Dr. Rangel. Problems: Subjective 24 Hr Interval Summary Free Text/Dictation Patient's still has occasional cough which is improved , better sugar control today. Sinus rhythm is 80-90 on telemetry. Exam/Review of Systems Vital Signs Vitals Vital Signs Date Time Temp Pulse Resp B/P Pulse Ox O2 Delivery O2 Flow Rate FiO2 10/21/16 12:28 63 10/21/16 11:49 98.0 20 139/83 100 10/21/16 08:00 Nasal Cannula 2.0 Intake and Output 10/20/16 10/20/16 10/21/16 15:00 23:00 07:00 Intake Total 500 ml 950 ml 300 ml Output Total 2500 ml Balance -2000 ml 950 ml 300 ml Exam GENERAL: Well developed, well-nourished gentleman in no acute distress, awake, alert. HEENT: Head is atraumatic, normocephalic. Patient is legally blind. NECK: Supple, no cervical lymphadenopathy, no thyromegaly. CHEST: Lung sounds clear. CARDIOVASCULAR: Normal S1, S2. No murmurs, gallops, clicks, rubs noted. ABDOMEN: Round, soft, nondistended, nontender. Bowel sounds present. EXTREMITIES: No edema, clubbing, cyanosis. Left upper extremity AV fistula with audible bruit and palpable thrill. SKIN: There is no rash, petechiae noted. NEUROLOGIC: Patient is awake, alert and oriented x3. Results Result Diagram: 10/21/16 0525 10/19/16 0505 Results 24 hrs Laboratory Tests Test 10/20/16 17:15 10/20/16 20:45 10/21/16 05:25 10/21/16 07:56 Bedside Glucose 212 257 H 195 Basophils # 0.0 Basophils % 0.0 Blood Morphology Comment Eosinophils # 0.0 Eosinophils % 0.0 Hematocrit 39.7 L Hemoglobin 12.9 L Lymphocytes # 0.3 L Lymphocytes % 4.1 L Mean Corpuscular Hemoglobin 26.7 L Mean Corpuscular Hemoglobin Concent 32.5 Mean Corpuscular Volume 82.2 Mean Platelet Volume 12.9 H Monocytes # 0.8 Monocytes % 10.2 Neutrophils # 7.1 Neutrophils % 85.7 H Nucleated Red Blood Cells # 0.0 Nucleated Red Blood Cells % 0.0 Platelet Count 100 L Red Blood Count 4.83 Red Cell Distribution Width 19.5 H White Blood Count 8.3 # Test 10/21/16 11:16 Bedside Glucose 215 Medications Medications Current Medications Ceftriaxone Sodium (Rocephin) 50 ml @ 100 mls/hr Q24H IVPB Last administered on 10/20/16 16:23; Admin Dose 100 MLS/HR; Start 10/14/16 at 16:30 Azithromycin (Zithromax) 250 mg DAILY PO Last administered on 10/21/16 08:30; Admin Dose 250 MG; Start 10/15/16 at 09:00 Heparin Sodium (Porcine) (Heparin (5000 Units/0.5 ml)) 5,000 unit BID SC Last administered on 10/21/16 08:31; Admin Dose 5,000 UNIT; Start 10/14/16 at 21:00 Famotidine (Pepcid) 20 mg DAILY PO Last administered on 10/21/16 08:30; Admin Dose 20 MG; Start 10/15/16 at 09:00 Ondansetron HCl (Zofran Inj) 4 mg Q6H PRN IV NAUSEA AND/OR VOMITING; Start at 16:30 Nitroglycerin (Nitroglycerin (Sl Tab) 0.4 Mg) 1 tab Q5M PRN SL CHEST PAIN; Start 10/14/16 at 16:30 Acetaminophen (Tylenol Tab) 650 mg Q6H PRN PO PAIN LEVEL 1-3 OR FEVER; Start at 16:30 Morphine Sulfate (morphine) 2 mg Q4H PRN IV PAIN LEVEL 7-10; Start 10/14/16 at 16:30 Docusate Sodium (Colace) 100 mg Q12H PRN PO CONSTIPATION; Start 10/14/16 at 16: 30 Guaifenesin/ Dextromethorphan (Robitussin Dm Liquid Cup) 10 ml Q4H PRN PO COUGH Last administered on 10/14/16 21:56; Admin Dose 10 ML; Start 10/14/16 at 16:30 Atorvastatin Calcium (Lipitor) 20 mg DAILY@21 PO Last administered on 20:26; Admin Dose 20 MG; Start 10/14/16 at 21:00 Miscellaneous Information 1 ea NOTE XX ; Start 10/14/16 at 17:30 Glucose (Glutose) 15 gm Q15M PRN PO DECREASED GLUCOSE; Start 10/14/16 at 17:30 Glucose (Glutose) 22.5 gm Q15M PRN PO DECREASED GLUCOSE; Start 10/14/16 at 17: 30 Dextrose (D50w Syringe) 25 ml Q15M PRN IV DECREASED GLUCOSE; Start 10/14/16 at 17:30 Dextrose (D50w Syringe) 50 ml Q15M PRN IV DECREASED GLUCOSE; Start 10/14/16 at 17:30 Glucagon (Glucagen) 1 mg Q15M PRN IM DECREASED GLUCOSE; Start 10/14/16 at 17:30 Glucose (Glutose) 15 gm Q15M PRN BUCCAL DECREASED GLUCOSE; Start 10/14/16 at 17 :30 Amlodipine Besylate (Norvasc) 5 mg BID PO Last administered on 10/21/16 08:30 ; Admin Dose 5 MG; Start 10/15/16 at 21:00 Clonidine (Catapres) 0.1 mg Q4 PRN PO ELEVATED SYSTOLIC BP Last administered on 10/18/16 09:05; Admin Dose 0.1 MG; Start 10/15/16 at 17:00 Isosorbide Dinitrate (Isordil) 20 mg TID PO Last administered on 10/21/16 12: 51; Admin Dose 20 MG; Start 10/15/16 at 21:00 Aspirin (Halfprin) 81 mg DAILY PO Last administered on 10/21/16 08:30; Admin Dose 81 MG; Start 10/18/16 at 09:00 Hydralazine HCl (Apresoline) 75 mg Q8H PO Last administered on 10/21/16 12:51 ; Admin Dose 75 MG; Start 10/18/16 at 12:30 Methylprednisolone Sodium Succinate (Solu-Medrol) 40 mg QAM IV Last administered on 10/21/16 08:29; Admin Dose 40 MG; Start 10/21/16 at 09:00 CONTRERAS HUERTA Oct 21, 2016 15:16
[2016-10-21] MEDS: CEFTRIAXONE 1 GM/50 ML (PMX) 50 ML IVPB SCH (16:46)
--- NOTE | 2016-10-21 18:31 | CONS ---
Date/Time of Note Date/Time of Note DATE: 10/21/16 TIME: 18:29 Assessment/Plan Assessment/Plan Chief Complaint/Hosp Course IMPRESSION: 1. Chest pain, assess for acute coronary syndrome-with a 4th trop minimally positive in the setting of renal failure. Now s/p lexiscan with no sig ischemia/ NL EF and no recurrent chest pain at thie time 2. Abnormal electrocardiogram, assess for acute coronary syndrome. 3. Right bundle branch block by EKG. 4. History of permanent pacemaker implant. 5. History of symptomatic bradycardia. 6. Diabetes mellitus. 7. Hypertensive emergency-improved on oral anti-hypertensives 8. End-stage renal disease on hemodialysis. 9. Possible bronchitis. Recc: -Tele -serial ecg's -Continue norvasc/isordil and will make slight increase to hydralazine and follow-up BP closely -Continue abx's/bronchodilators -Continue asa -HD for volume removal Problems: Consultation Date/Type/Reason Admit Date/Time Oct 14, 2016 at 13:43 Initial Consult Date 10/16/2016 Type of Consultation: cardiology Reason for Consultation Chest pain Referring Provider: YUNIER KIRBY MD Exam/Review of Systems Vital Signs Vitals Vital Signs Date Time Temp Pulse Resp B/P Pulse Ox O2 Delivery O2 Flow Rate FiO2 10/21/16 16:41 78 10/21/16 16:13 98.5 20 152/69 99 10/21/16 08:00 Nasal Cannula 2.0 Intake and Output 10/20/16 10/20/16 10/21/16 15:00 23:00 07:00 Intake Total 500 ml 950 ml 300 ml Output Total 2500 ml Balance -2000 ml 950 ml 300 ml Exam Review of Systems: CONSTITUTIONAL: No fevers, chills. PULMONARY: No sob CARDIOVASCULAR: No chest pain/palpitations GASTROINTESTINAL: No nausea/vomiting. GENITOURINARY: No hematuria/dysuria. MUSCULOSKELETAL: No myagias/arthalgias. PSYCHIATRIC: The patient denies depression. NEUROLOGIC: No weakness Constitutional: alert Psych: no complaints Head: normocephalic ENMT: mucosa pink and moist Neck: jvd (9 cm water), supple Respiratory: diminished breath sounds (at bases/B) Cardiovascular: regular rate and rhythm Gastrointestinal: non-tender, soft Musculoskeletal: muscle tone (normal) Extremities: edema (none) Neurological: other (No focal deficits) Results Result Diagram: 10/21/16 0525 10/19/16 0505 Results 24 hrs Laboratory Tests Test 10/20/16 20:45 10/21/16 05:25 10/21/16 07:56 10/21/16 11:16 Bedside Glucose 257 H 195 215 Basophils # 0.0 Basophils % 0.0 Blood Morphology Comment Eosinophils # 0.0 Eosinophils % 0.0 Hematocrit 39.7 L Hemoglobin 12.9 L Lymphocytes # 0.3 L Lymphocytes % 4.1 L Mean Corpuscular Hemoglobin 26.7 L Mean Corpuscular Hemoglobin Concent 32.5 Mean Corpuscular Volume 82.2 Mean Platelet Volume 12.9 H Monocytes # 0.8 Monocytes % 10.2 Neutrophils # 7.1 Neutrophils % 85.7 H Nucleated Red Blood Cells # 0.0 Nucleated Red Blood Cells % 0.0 Platelet Count 100 L Red Blood Count 4.83 Red Cell Distribution Width 19.5 H White Blood Count 8.3 # Test 10/21/16 16:56 Bedside Glucose 284 H Medications Medications Current Medications Ceftriaxone Sodium (Rocephin) 50 ml @ 100 mls/hr Q24H IVPB Last administered on 10/21/16 16:46; Admin Dose 100 MLS/HR; Start 10/14/16 at 16:30 Azithromycin (Zithromax) 250 mg DAILY PO Last administered on 10/21/16 08:30; Admin Dose 250 MG; Start 10/15/16 at 09:00 Heparin Sodium (Porcine) (Heparin (5000 Units/0.5 ml)) 5,000 unit BID SC Last administered on 10/21/16 08:31; Admin Dose 5,000 UNIT; Start 10/14/16 at 21:00 Famotidine (Pepcid) 20 mg DAILY PO Last administered on 10/21/16 08:30; Admin Dose 20 MG; Start 10/15/16 at 09:00 Ondansetron HCl (Zofran Inj) 4 mg Q6H PRN IV NAUSEA AND/OR VOMITING; Start at 16:30 Nitroglycerin (Nitroglycerin (Sl Tab) 0.4 Mg) 1 tab Q5M PRN SL CHEST PAIN; Start 10/14/16 at 16:30 Acetaminophen (Tylenol Tab) 650 mg Q6H PRN PO PAIN LEVEL 1-3 OR FEVER; Start at 16:30 Morphine Sulfate (morphine) 2 mg Q4H PRN IV PAIN LEVEL 7-10; Start 10/14/16 at 16:30 Docusate Sodium (Colace) 100 mg Q12H PRN PO CONSTIPATION; Start 10/14/16 at 16: 30 Guaifenesin/ Dextromethorphan (Robitussin Dm Liquid Cup) 10 ml Q4H PRN PO COUGH Last administered on 10/14/16 21:56; Admin Dose 10 ML; Start 10/14/16 at 16:30 Atorvastatin Calcium (Lipitor) 20 mg DAILY@21 PO Last administered on 20:26; Admin Dose 20 MG; Start 10/14/16 at 21:00 Miscellaneous Information 1 ea NOTE XX ; Start 10/14/16 at 17:30 Glucose (Glutose) 15 gm Q15M PRN PO DECREASED GLUCOSE; Start 10/14/16 at 17:30 Glucose (Glutose) 22.5 gm Q15M PRN PO DECREASED GLUCOSE; Start 10/14/16 at 17: 30 Dextrose (D50w Syringe) 25 ml Q15M PRN IV DECREASED GLUCOSE; Start 10/14/16 at 17:30 Dextrose (D50w Syringe) 50 ml Q15M PRN IV DECREASED GLUCOSE; Start 10/14/16 at 17:30 Glucagon (Glucagen) 1 mg Q15M PRN IM DECREASED GLUCOSE; Start 10/14/16 at 17:30 Glucose (Glutose) 15 gm Q15M PRN BUCCAL DECREASED GLUCOSE; Start 10/14/16 at 17 :30 Amlodipine Besylate (Norvasc) 5 mg BID PO Last administered on 10/21/16 08:30 ; Admin Dose 5 MG; Start 10/15/16 at 21:00 Clonidine (Catapres) 0.1 mg Q4 PRN PO ELEVATED SYSTOLIC BP Last administered on 10/18/16 09:05; Admin Dose 0.1 MG; Start 10/15/16 at 17:00 Isosorbide Dinitrate (Isordil) 20 mg TID PO Last administered on 10/21/16 12: 51; Admin Dose 20 MG; Start 10/15/16 at 21:00 Aspirin (Halfprin) 81 mg DAILY PO Last administered on 10/21/16 08:30; Admin Dose 81 MG; Start 10/18/16 at 09:00 Hydralazine HCl (Apresoline) 75 mg Q8H PO Last administered on 10/21/16 12:51 ; Admin Dose 75 MG; Start 10/18/16 at 12:30 Methylprednisolone Sodium Succinate (Solu-Medrol) 40 mg QAM IV Last administered on 10/21/16 08:29; Admin Dose 40 MG; Start 10/21/16 at 09:00 WILLA GARSIA Oct 21, 2016 18:31
[2016-10-21] MEDS: ATORVASTATIN 20 MG TAB PO SCH (20:58)
[2016-10-22] VITALS (23 sets, daily range): BP systolic 120–193; BP diastolic 68–86; PULSE 64–85; RESP 20
[2016-10-22 06:09] LABS: EOSINOPHILS % 0.1 % (0.0-7.0); HEMOGLOBIN 13.8 g/dl (14.0-18.0); LYMPHOCYTES # 0.4 10^3/ul (0.8-2.9); LYMPHOCYTES % 5.4 % (15.0-51.0); MEAN CORPUSCULAR HEMOGLOBIN 26.9 pg (29.0-33.0); MEAN CORPUSCULAR VOLUME 81.4 fl (82.0-101.0); MEAN PLATELET VOLUME 12.4 fl (7.4-10.4); MONOCYTE # 0.4 10^3/ul (0.3-0.9); MONOCYTES % 5.5 % (0.0-11.0); NEUTROPHIL # 6.7 10^3/ul (1.6-7.5); PLATELET COUNT 113 10^3/UL (140-440); RED BLOOD COUNT 5.15 10^6/ul (4.70-6.10); RED CELL DISTRIBUTION WIDTH 19.3 % (11.5-14.5); UNCORRECTED WBC 7.5 10^3/ul (4.8-10.8); WHITE BLOOD COUNT 7.5 10^3/ul (4.8-10.8)
[2016-10-22 06:24] LABS: CONDITION 1; LH ANALYZER COMMENTS 1
[2016-10-22 06:25] LABS: POTASSIUM 4.8 mmol/L (3.5-5.1)
[2016-10-22 06:27] LABS: CREATININE 6.4 mg/dl (0.61-1.24)
[2016-10-22 06:28] LABS: CALCIUM 8.2 mg/dl (8.4-10.2)
[2016-10-22] MEDS: INSULIN ASPART [NOVOLOG] 3 ML PEN SC SCH ×5 (08:32→21:46)
[2016-10-22] MEDS: METHYLPREDNISOLONE 40 MG INJ IV SCH (08:33)
[2016-10-22] MEDS: HEPARIN 5,000 UNIT/0.5 ML SYG SC SCH ×2 (08:33→21:45)
[2016-10-22] MEDS: FAMOTIDINE 20 MG TAB PO SCH (08:33)
[2016-10-22] MEDS: SEVELAMER 800 MG TAB PO SCH ×3 (08:34→17:17)
[2016-10-22] MEDS: ASPIRIN (EC) 81 MG TAB PO SCH (08:46)
[2016-10-22] MEDS: AMLODIPINE 5 MG TAB PO SCH ×3 (09:00→21:51)
[2016-10-22] MEDS: ISOSORBIDE DINITRATE 20 MG TAB PO SCH ×4 (09:00→21:44)
[2016-10-22] MEDS: AZITHROMYCIN 250 MG TAB PO SCH (09:45)
--- NOTE | 2016-10-22 13:57 | CONS ---
Date/Time of Note Date/Time of Note DATE: 10/22/16 TIME: 13:56 Assessment/Plan Assessment/Plan Additional Assessment/Plan 1. Chest pain, assess for acute coronary syndrome-with a 4th trop minimally positive in the setting of renal failure. Now s/p lexiscan with no sig ischemia/ NL EF and no recurrent chest pain at thie time 2. Abnormal electrocardiogram, assess for acute coronary syndrome- R/o AL - doubt ischemia. 3. Right bundle branch block by EKG. 4. History of permanent pacemaker implant- good function now. 5. History of symptomatic bradycardia. 6. Diabetes mellitus. 7. Hypertensive emergency-improved on oral anti-hypertensives- con'tt o follw - HD now. 8. End-stage renal disease on hemodialysis. 9. Possible bronchitis. Consultation Date/Type/Reason Admit Date/Time Oct 14, 2016 at 13:43 Initial Consult Date 10/17/16 Type of Consultation: cardiology Referring Provider: YUNIER KIRBY MD 24 HR Interval Summary Free Text/Dictation NO acute events - HD now. Medications reviewed. ROS: No fever, no chills, no nausea, no vomiting, no diarrhea/constipation No recent weight changes No chest pain, no PND, no orthopnea No dizziness, blurred vision No thirst, no heat or cold intolerance Exam/Review of Systems Vital Signs Vitals Vital Signs Date Time Temp Pulse Resp B/P Pulse Ox O2 Delivery O2 Flow Rate FiO2 10/22/16 13:25 73 10/22/16 11:56 97.5 20 185/83 96 10/22/16 08:15 Nasal Cannula 2.0 Intake and Output 10/21/16 10/21/16 10/22/16 15:00 23:00 07:00 Intake Total 800 ml 300 ml Balance 800 ml 300 ml Exam General: WN/WD/NAD, AOx 1-2 HEENT: Unicetric/atraumatic/EOMI (follow commands) NECK: JVD elevated, no thyromegaly Lymph: no lymphadenopathy HEART: regular with no S3, II/ systolic murmur at apex LUNGS: Coarse sounds ABD: soft, NT, ND, +BS : Intact Neuro: non focal SKIN: chronic changes EXT: trace edema Results Result Diagram: 10/22/16 0530 10/22/16 0530 Results 24 hrs Laboratory Tests Test 10/21/16 16:56 10/21/16 20:57 10/22/16 05:30 10/22/16 08:19 Bedside Glucose 284 H 305 H 211 Anion Gap 25 H Basophils # 0.0 Basophils % 0.0 Blood Morphology Comment Blood Urea Nitrogen 106 H Calcium Level 8.2 L Carbon Dioxide Level 21 Chloride Level 88 L Creatinine 6.40 H Eosinophils # 0.0 Eosinophils % 0.1 Glucose Level 209 Hematocrit 42.0 Hemoglobin 13.8 L Lymphocytes # 0.4 L Lymphocytes % 5.4 L Mean Corpuscular Hemoglobin 26.9 L Mean Corpuscular Hemoglobin Concent 33.0 Mean Corpuscular Volume 81.4 L Mean Platelet Volume 12.4 H Monocytes # 0.4 Monocytes % 5.5 Neutrophils # 6.7 Neutrophils % 89.0 H Nucleated Red Blood Cells # 0.0 Nucleated Red Blood Cells % 0.0 Platelet Count 113 L Potassium Level 4.8 Red Blood Count 5.15 Red Cell Distribution Width 19.3 H Sodium Level 129 L White Blood Count 7.5 Test 10/22/16 11:49 Bedside Glucose 234 H Medications Medications Current Medications Ceftriaxone Sodium (Rocephin) 50 ml @ 100 mls/hr Q24H IVPB Last administered on 10/21/16 16:46; Admin Dose 100 MLS/HR; Start 10/14/16 at 16:30 Azithromycin (Zithromax) 250 mg DAILY PO Last administered on 10/22/16 09:45; Admin Dose 250 MG; Start 10/15/16 at 09:00 Heparin Sodium (Porcine) (Heparin (5000 Units/0.5 ml)) 5,000 unit BID SC Last administered on 10/22/16 08:33; Admin Dose 5,000 UNIT; Start 10/14/16 at 21:00 Famotidine (Pepcid) 20 mg DAILY PO Last administered on 10/22/16 08:33; Admin Dose 20 MG; Start 10/15/16 at 09:00 Ondansetron HCl (Zofran Inj) 4 mg Q6H PRN IV NAUSEA AND/OR VOMITING; Start at 16:30 Nitroglycerin (Nitroglycerin (Sl Tab) 0.4 Mg) 1 tab Q5M PRN SL CHEST PAIN; Start 10/14/16 at 16:30 Acetaminophen (Tylenol Tab) 650 mg Q6H PRN PO PAIN LEVEL 1-3 OR FEVER; Start at 16:30 Morphine Sulfate (morphine) 2 mg Q4H PRN IV PAIN LEVEL 7-10; Start 10/14/16 at 16:30 Docusate Sodium (Colace) 100 mg Q12H PRN PO CONSTIPATION; Start 10/14/16 at 16: 30 Guaifenesin/ Dextromethorphan (Robitussin Dm Liquid Cup) 10 ml Q4H PRN PO COUGH Last administered on 10/14/16 21:56; Admin Dose 10 ML; Start 10/14/16 at 16:30 Atorvastatin Calcium (Lipitor) 20 mg DAILY@21 PO Last administered on 20:58; Admin Dose 20 MG; Start 10/14/16 at 21:00 Miscellaneous Information 1 ea NOTE XX ; Start 10/14/16 at 17:30 Glucose (Glutose) 15 gm Q15M PRN PO DECREASED GLUCOSE; Start 10/14/16 at 17:30 Glucose (Glutose) 22.5 gm Q15M PRN PO DECREASED GLUCOSE; Start 10/14/16 at 17: 30 Dextrose (D50w Syringe) 25 ml Q15M PRN IV DECREASED GLUCOSE; Start 10/14/16 at 17:30 Dextrose (D50w Syringe) 50 ml Q15M PRN IV DECREASED GLUCOSE; Start 10/14/16 at 17:30 Glucagon (Glucagen) 1 mg Q15M PRN IM DECREASED GLUCOSE; Start 10/14/16 at 17:30 Glucose (Glutose) 15 gm Q15M PRN BUCCAL DECREASED GLUCOSE; Start 10/14/16 at 17 :30 Amlodipine Besylate (Norvasc) 5 mg BID PO Last administered on 10/21/16 20:58 ; Admin Dose 5 MG; Start 10/15/16 at 21:00 Clonidine (Catapres) 0.1 mg Q4 PRN PO ELEVATED SYSTOLIC BP Last administered on 10/18/16 09:05; Admin Dose 0.1 MG; Start 10/15/16 at 17:00 Isosorbide Dinitrate (Isordil) 20 mg TID PO Last administered on 10/21/16 20: 58; Admin Dose 20 MG; Start 10/15/16 at 21:00 Aspirin (Halfprin) 81 mg DAILY PO Last administered on 10/22/16 08:46; Admin Dose 81 MG; Start 10/18/16 at 09:00 Methylprednisolone Sodium Succinate (Solu-Medrol) 40 mg QAM IV Last administered on 10/22/16 08:33; Admin Dose 40 MG; Start 10/21/16 at 09:00 Hydralazine HCl (Apresoline) 100 mg Q8H PO Last administered on 10/21/16 20:59 ; Admin Dose 100 MG; Start 10/21/16 at 20:30 PEE MONTEMAYOR MD Oct 22, 2016 13:57
[2016-10-22] MEDS: CEFTRIAXONE 1 GM/50 ML (PMX) 50 ML IVPB SCH (15:55)
--- NOTE | 2016-10-22 16:06 | PN ---
Date/Time of Note Date/Time of Note DATE: 10/22/16 TIME: 16:03 Assessment/Plan VTE Prophylaxis VTE Prophylaxis Intervention: SCD's Lines/Catheters IV [facility]from [facility] Urinary Cath still in place: No Assessment/Plan Chief Complaint/Hosp Course Assessment and plan: 1. Acute bronchitis. Pulmonary symptoms have improved. Continue continue Rocephin and Solu-Medrol. 2. Status post chest pain with negative nuclear stress test. Continue nitrates. 3. Hypertension and status post hypertensive emergency. Blood pressure better controlled. Continue Norvasc, hydralazine, Isordil. 4. End-stage renal disease. Continue hemodialysis as per Dr. Nettles. The patient also remains on Renagel. 5. Meanwhile, the patient will be continued on IV Rocephin and Zithromax for acute bronchitis. Chest x-ray did not reveal any infiltrate. 6. Thrombocytopenia. Will continue to monitor. Probably due to bronchitis, although patient did have history of mild thrombocytopenia on and off. 7. Symptomatic bradycardia, status post permanent pacemaker placement. The patient is being followed by Dr. Esparza from cardiac standpoint, Dr. Nettles from nephrology standpoint. 8. Hyperglycemia, Hgb A1C is 5.4. Further recommendations will depend on patient's hospital course. Further recommendations based on clinical course. Plan of care was discussed with Dr. Nettles who is covering for Dr. Rangel. Problems: Subjective 24 Hr Interval Summary Free Text/Dictation Patient is undergoing HD, elevated BP, denies chest pain, elevated blood sugar most likely due to steroid, will taper , Hgb A1C is 5.4. Exam/Review of Systems Vital Signs Vitals Vital Signs Date Time Temp Pulse Resp B/P Pulse Ox O2 Delivery O2 Flow Rate FiO2 10/22/16 13:25 73 10/22/16 11:56 97.5 20 185/83 96 10/22/16 08:15 Nasal Cannula 2.0 Intake and Output 10/21/16 10/21/16 10/22/16 14:59 22:59 06:59 Intake Total 800 ml 300 ml Balance 800 ml 300 ml Results Result Diagram: 10/22/16 0530 10/22/16 0530 Results 24 hrs Laboratory Tests Test 10/21/16 16:56 10/21/16 20:57 10/22/16 05:30 10/22/16 08:19 Bedside Glucose 284 H 305 H 211 Anion Gap 25 H Basophils # 0.0 Basophils % 0.0 Blood Morphology Comment Blood Urea Nitrogen 106 H Calcium Level 8.2 L Carbon Dioxide Level 21 Chloride Level 88 L Creatinine 6.40 H Eosinophils # 0.0 Eosinophils % 0.1 Glucose Level 209 Hematocrit 42.0 Hemoglobin 13.8 L Lymphocytes # 0.4 L Lymphocytes % 5.4 L Mean Corpuscular Hemoglobin 26.9 L Mean Corpuscular Hemoglobin Concent 33.0 Mean Corpuscular Volume 81.4 L Mean Platelet Volume 12.4 H Monocytes # 0.4 Monocytes % 5.5 Neutrophils # 6.7 Neutrophils % 89.0 H Nucleated Red Blood Cells # 0.0 Nucleated Red Blood Cells % 0.0 Platelet Count 113 L Potassium Level 4.8 Red Blood Count 5.15 Red Cell Distribution Width 19.3 H Sodium Level 129 L White Blood Count 7.5 Test 10/22/16 11:49 Bedside Glucose 234 H Medications Medications Current Medications Ceftriaxone Sodium (Rocephin) 50 ml @ 100 mls/hr Q24H IVPB Last administered on 10/22/16 15:55; Admin Dose 100 MLS/HR; Start 10/14/16 at 16:30 Azithromycin (Zithromax) 250 mg DAILY PO Last administered on 10/22/16 09:45; Admin Dose 250 MG; Start 10/15/16 at 09:00 Heparin Sodium (Porcine) (Heparin (5000 Units/0.5 ml)) 5,000 unit BID SC Last administered on 10/22/16 08:33; Admin Dose 5,000 UNIT; Start 10/14/16 at 21:00 Famotidine (Pepcid) 20 mg DAILY PO Last administered on 10/22/16 08:33; Admin Dose 20 MG; Start 10/15/16 at 09:00 Ondansetron HCl (Zofran Inj) 4 mg Q6H PRN IV NAUSEA AND/OR VOMITING; Start at 16:30 Nitroglycerin (Nitroglycerin (Sl Tab) 0.4 Mg) 1 tab Q5M PRN SL CHEST PAIN; Start 10/14/16 at 16:30 Acetaminophen (Tylenol Tab) 650 mg Q6H PRN PO PAIN LEVEL 1-3 OR FEVER; Start at 16:30 Morphine Sulfate (morphine) 2 mg Q4H PRN IV PAIN LEVEL 7-10; Start 10/14/16 at 16:30 Docusate Sodium (Colace) 100 mg Q12H PRN PO CONSTIPATION; Start 10/14/16 at 16: 30 Guaifenesin/ Dextromethorphan (Robitussin Dm Liquid Cup) 10 ml Q4H PRN PO COUGH Last administered on 10/14/16 21:56; Admin Dose 10 ML; Start 10/14/16 at 16:30 Atorvastatin Calcium (Lipitor) 20 mg DAILY@21 PO Last administered on 20:58; Admin Dose 20 MG; Start 10/14/16 at 21:00 Miscellaneous Information 1 ea NOTE XX ; Start 10/14/16 at 17:30 Glucose (Glutose) 15 gm Q15M PRN PO DECREASED GLUCOSE; Start 10/14/16 at 17:30 Glucose (Glutose) 22.5 gm Q15M PRN PO DECREASED GLUCOSE; Start 10/14/16 at 17: 30 Dextrose (D50w Syringe) 25 ml Q15M PRN IV DECREASED GLUCOSE; Start 10/14/16 at 17:30 Dextrose (D50w Syringe) 50 ml Q15M PRN IV DECREASED GLUCOSE; Start 10/14/16 at 17:30 Glucagon (Glucagen) 1 mg Q15M PRN IM DECREASED GLUCOSE; Start 10/14/16 at 17:30 Glucose (Glutose) 15 gm Q15M PRN BUCCAL DECREASED GLUCOSE; Start 10/14/16 at 17 :30 Amlodipine Besylate (Norvasc) 5 mg BID PO Last administered on 10/22/16 15:56 ; Admin Dose 5 MG; Start 10/15/16 at 21:00 Clonidine (Catapres) 0.1 mg Q4 PRN PO ELEVATED SYSTOLIC BP Last administered on 10/18/16 09:05; Admin Dose 0.1 MG; Start 10/15/16 at 17:00 Isosorbide Dinitrate (Isordil) 20 mg TID PO Last administered on 10/22/16 15: 56; Admin Dose 20 MG; Start 10/15/16 at 21:00 Aspirin (Halfprin) 81 mg DAILY PO Last administered on 10/22/16 08:46; Admin Dose 81 MG; Start 10/18/16 at 09:00 Methylprednisolone Sodium Succinate (Solu-Medrol) 40 mg QAM IV Last administered on 10/22/16 08:33; Admin Dose 40 MG; Start 10/21/16 at 09:00 Hydralazine HCl (Apresoline) 100 mg Q8H PO Last administered on 10/22/16 15:55 ; Admin Dose 100 MG; Start 10/21/16 at 20:30 CONTRERAS HUERTA Oct 22, 2016 16:06
[2016-10-22] MEDS ORDERED: NIFEdipine 10 MG CAP PO ONE (16:30)
--- NOTE | 2016-10-22 17:24 | CONS ---
Date/Time of Note Date/Time of Note DATE: 10/22/16 TIME: 17:15 Assessment/Plan Assessment/Plan Additional Assessment/Plan 76 yo Male with 1. URI/Bronchitis 2. Hypertensive, Uncontrolled 3. End-stage renal disease. HD MWF 4. Diabetes mellitus type 2. 5. Hx of Permanent pacemaker. 6. Anemia, Chronic Disease 7. Mineral Bone Disease, ESRD 8. Mild Hyperkalemia S/p HD today Cont HD MWF Electrolytes abnormality with correct with HD Cont current Rx for HTN, low dose COTY with HD Cont Phophate binder, Renal/ADA diet. Consultation Date/Type/Reason Admit Date/Time Oct 14, 2016 at 13:43 Initial Consult Date 10/17/16 Type of Consultation: Nephrology Reason for Consultation ESRD Referring Provider: YUNIER KIRBY MD 24 HR Interval Summary Free Text/Dictation S/p HD No complication. Exam/Review of Systems Vital Signs Vitals Vital Signs Date Time Temp Pulse Resp B/P Pulse Ox O2 Delivery O2 Flow Rate FiO2 10/22/16 17:14 2.0 10/22/16 16:57 82 20 161/84 95 Nasal Cannula 10/22/16 16:05 97.8 Intake and Output 10/21/16 10/21/16 10/22/16 15:00 23:00 07:00 Intake Total 800 ml 300 ml Balance 800 ml 300 ml Exam Constitutional: alert, No distress ENMT: mucosa pink and moist Respiratory: No labored breathing Cardiovascular: No edema Gastrointestinal: non-tender, soft Neurological: confused Results Result Diagram: 10/22/16 0530 10/22/16 0530 Results 24 hrs Laboratory Tests Test 10/21/16 20:57 10/22/16 05:30 10/22/16 08:19 10/22/16 11:49 Bedside Glucose 305 H 211 234 H Anion Gap 25 H Basophils # 0.0 Basophils % 0.0 Blood Morphology Comment Blood Urea Nitrogen 106 H Calcium Level 8.2 L Carbon Dioxide Level 21 Chloride Level 88 L Creatinine 6.40 H Eosinophils # 0.0 Eosinophils % 0.1 Glucose Level 209 Hematocrit 42.0 Hemoglobin 13.8 L Lymphocytes # 0.4 L Lymphocytes % 5.4 L Mean Corpuscular Hemoglobin 26.9 L Mean Corpuscular Hemoglobin Concent 33.0 Mean Corpuscular Volume 81.4 L Mean Platelet Volume 12.4 H Monocytes # 0.4 Monocytes % 5.5 Neutrophils # 6.7 Neutrophils % 89.0 H Nucleated Red Blood Cells # 0.0 Nucleated Red Blood Cells % 0.0 Platelet Count 113 L Potassium Level 4.8 Red Blood Count 5.15 Red Cell Distribution Width 19.3 H Sodium Level 129 L White Blood Count 7.5 Test 10/22/16 16:51 Bedside Glucose 284 H Medications Medications Current Medications Ceftriaxone Sodium (Rocephin) 50 ml @ 100 mls/hr Q24H IVPB Last administered on 10/22/16 15:55; Admin Dose 100 MLS/HR; Start 10/14/16 at 16:30 Azithromycin (Zithromax) 250 mg DAILY PO Last administered on 10/22/16 09:45; Admin Dose 250 MG; Start 10/15/16 at 09:00 Heparin Sodium (Porcine) (Heparin (5000 Units/0.5 ml)) 5,000 unit BID SC Last administered on 10/22/16 08:33; Admin Dose 5,000 UNIT; Start 10/14/16 at 21:00 Famotidine (Pepcid) 20 mg DAILY PO Last administered on 10/22/16 08:33; Admin Dose 20 MG; Start 10/15/16 at 09:00 Ondansetron HCl (Zofran Inj) 4 mg Q6H PRN IV NAUSEA AND/OR VOMITING; Start at 16:30 Nitroglycerin (Nitroglycerin (Sl Tab) 0.4 Mg) 1 tab Q5M PRN SL CHEST PAIN; Start 10/14/16 at 16:30 Acetaminophen (Tylenol Tab) 650 mg Q6H PRN PO PAIN LEVEL 1-3 OR FEVER; Start at 16:30 Morphine Sulfate (morphine) 2 mg Q4H PRN IV PAIN LEVEL 7-10; Start 10/14/16 at 16:30 Docusate Sodium (Colace) 100 mg Q12H PRN PO CONSTIPATION; Start 10/14/16 at 16: 30 Guaifenesin/ Dextromethorphan (Robitussin Dm Liquid Cup) 10 ml Q4H PRN PO COUGH Last administered on 10/14/16 21:56; Admin Dose 10 ML; Start 10/14/16 at 16:30 Atorvastatin Calcium (Lipitor) 20 mg DAILY@21 PO Last administered on 20:58; Admin Dose 20 MG; Start 10/14/16 at 21:00 Miscellaneous Information 1 ea NOTE XX ; Start 10/14/16 at 17:30 Glucose (Glutose) 15 gm Q15M PRN PO DECREASED GLUCOSE; Start 10/14/16 at 17:30 Glucose (Glutose) 22.5 gm Q15M PRN PO DECREASED GLUCOSE; Start 10/14/16 at 17: 30 Dextrose (D50w Syringe) 25 ml Q15M PRN IV DECREASED GLUCOSE; Start 10/14/16 at 17:30 Dextrose (D50w Syringe) 50 ml Q15M PRN IV DECREASED GLUCOSE; Start 10/14/16 at 17:30 Glucagon (Glucagen) 1 mg Q15M PRN IM DECREASED GLUCOSE; Start 10/14/16 at 17:30 Glucose (Glutose) 15 gm Q15M PRN BUCCAL DECREASED GLUCOSE; Start 10/14/16 at 17 :30 Amlodipine Besylate (Norvasc) 5 mg BID PO Last administered on 10/22/16 15:56 ; Admin Dose 5 MG; Start 10/15/16 at 21:00 Clonidine (Catapres) 0.1 mg Q4 PRN PO ELEVATED SYSTOLIC BP Last administered on 10/18/16 09:05; Admin Dose 0.1 MG; Start 10/15/16 at 17:00 Isosorbide Dinitrate (Isordil) 20 mg TID PO Last administered on 10/22/16 15: 56; Admin Dose 20 MG; Start 10/15/16 at 21:00 Aspirin (Halfprin) 81 mg DAILY PO Last administered on 10/22/16 08:46; Admin Dose 81 MG; Start 10/18/16 at 09:00 Methylprednisolone Sodium Succinate (Solu-Medrol) 40 mg QAM IV Last administered on 10/22/16 08:33; Admin Dose 40 MG; Start 10/21/16 at 09:00 Hydralazine HCl (Apresoline) 100 mg Q8H PO Last administered on 10/22/16 15:55 ; Admin Dose 100 MG; Start 10/21/16 at 20:30 MARIANNA ZENDEJAS MD Oct 22, 2016 17:24
[2016-10-22] MEDS ORDERED: INSULIN ASPART [NOVOLOG] 3 ML PEN SC SCH (18:05)
[2016-10-22] MEDS ORDERED: INSULIN GLARGINE [LANtus] 3 ML PEN SC SCH (21:00)
[2016-10-22] MEDS: ATORVASTATIN 20 MG TAB PO SCH (21:44)
[2016-10-23] VITALS (12 sets, daily range): BP systolic 153–183; BP diastolic 67–74; PULSE 79–90; RESP 18–20
[2016-10-23] MEDS: ACCUCHECK XX SCH (02:00)
--- NOTE | 2016-10-23 07:11 | RADRPT ---
PROCEDURE: XR Chest. CLINICAL INDICATION: Cough TECHNIQUE: A single AP view of the chest was obtained. COMPARISON: None. FINDINGS: There is a single lead right subclavian pacemaker. No focal airspace opacification, pleural effusion or pneumothorax is seen. The cardiomediastinal si lhouette is mildly enlarged. Calcifications are seen within the aortic arch. The osseous structure s demonstrate senescent changes. IMPRESSION: 1. No radiographic evidence of acute cardiopulmonary disease. No significant interval change. 2. Mild cardiomegaly and aortic atherosclerosis. 3. Single lead right subclavian pacemaker. RPTAT: HH .Paulina Carter MD, MD Date Time Electronically viewed and signed by .Paulina Carter MD, on 10/23/2016 07:10 .G/
[2016-10-23 07:22] LABS: HEMATOCRIT 40.2 % (42.0-52.0); HEMOGLOBIN 13.3 g/dl (14.0-18.0); LYMPHOCYTES # 0.2 10^3/ul (0.8-2.9); LYMPHOCYTES % 2.3 % (15.0-51.0); MEAN CORPUSCULAR HGB CONC 33.1 g/dl (32.0-37.0); MEAN CORPUSCULAR VOLUME 81.6 fl (82.0-101.0); MEAN PLATELET VOLUME 11.3 fl (7.4-10.4); MONOCYTE # 1.5 10^3/ul (0.3-0.9); MONOCYTES % 14.5 % (0.0-11.0); NEUTROPHIL # 8.8 10^3/ul (1.6-7.5); NEUTROPHILS % 83.2 % (39.0-77.0); PLATELET COUNT 128 10^3/UL (140-440); RED BLOOD COUNT 4.93 10^6/ul (4.70-6.10); RED CELL DISTRIBUTION WIDTH 19.3 % (11.5-14.5); UNCORRECTED WBC 10.6 10^3/ul (4.8-10.8); WHITE BLOOD COUNT 10.6 10^3/ul (4.8-10.8)
[2016-10-23 07:32] LABS: CONDITION 1; LH ANALYZER COMMENTS 1
[2016-10-23 07:55] LABS: ALBUMIN 3.8 g/dl (3.3-4.9)
[2016-10-23 07:56] LABS: POTASSIUM 4.9 mmol/L (3.5-5.1)
[2016-10-23 07:58] LABS: ALBUMIN/GLOBULIN RATIO 0.97; TOTAL PROTEIN 7.7 g/dl (6.1-8.1)
[2016-10-23 07:59] LABS: CALCIUM 8.5 mg/dl (8.4-10.2)
[2016-10-23] MEDS: INSULIN ASPART [NOVOLOG] 3 ML PEN SC SCH ×7 (08:00→20:13)
[2016-10-23] MEDS: SEVELAMER 800 MG TAB PO SCH ×3 (08:46→17:22)
[2016-10-23] MEDS: FAMOTIDINE 20 MG TAB PO SCH (08:46)
[2016-10-23] MEDS: ASPIRIN (EC) 81 MG TAB PO SCH (08:46)
--- NOTE | 2016-10-23 08:46 | CONS ---
Date/Time of Note Date/Time of Note DATE: 10/23/16 TIME: 08:45 Assessment/Plan Assessment/Plan Additional Assessment/Plan 76 yo Male with 1. URI/Bronchitis 2. Hypertensive, Uncontrolled 3. End-stage renal disease. HD MWF 4. Diabetes mellitus type 2. 5. Hx of Permanent pacemaker. 6. Anemia, Chronic Disease 7. Mineral Bone Disease, ESRD 8. Mild Hyperkalemia- Resolved Cont HD MWF Electrolytes abnormality with correct with HD Cont current Rx for HTN, low dose COTY with HD Cont Phophate binder, Renal/ADA diet. Consultation Date/Type/Reason Admit Date/Time Oct 14, 2016 at 13:43 Initial Consult Date 10/17/16 Type of Consultation: Nephrology Reason for Consultation ESRD Referring Provider: YUNIER KIRBY MD 24 HR Interval Summary Constitutional: requiring O2 Exam/Review of Systems Vital Signs Vitals Vital Signs Date Time Temp Pulse Resp B/P Pulse Ox O2 Delivery O2 Flow Rate FiO2 10/23/16 08:27 79 10/23/16 08:15 Nasal Cannula 2.0 10/23/16 04:02 97.6 20 153/72 95 Intake and Output 10/22/16 10/22/16 10/23/16 15:00 23:00 07:00 Intake Total 500 ml 950 ml 400 ml Output Total 3500 ml Balance -3000 ml 950 ml 400 ml Exam Constitutional: No distress Psych: confusion Eyes: EOMI Neck: No jvd Respiratory: No diminished breath sounds, No labored breathing Cardiovascular: regular rate and rhythm, No edema Gastrointestinal: non-tender, soft Neurological: confused Results Result Diagram: 10/23/16 0625 10/23/16 0625 Results 24 hrs Laboratory Tests Test 10/22/16 11:49 10/22/16 16:51 10/22/16 18:43 10/22/16 19:54 Bedside Glucose 234 H 284 H 239 H Ammonia < 9 L Test 10/23/16 06:25 10/23/16 07:50 Alanine Aminotransferase (ALT/SGPT) 23 Albumin 3.8 Albumin/Globulin Ratio 0.97 Alkaline Phosphatase 113 Anion Gap 23 H Aspartate Amino Transf (AST/SGOT) 20 Basophils # 0.0 Basophils % 0.0 Blood Morphology Comment Blood Urea Nitrogen 74 #H Calcium Level 8.5 Carbon Dioxide Level 24 Chloride Level 93 L Creatinine 5.00 H Direct Bilirubin 0.00 Eosinophils # 0.0 Eosinophils % 0.0 Globulin 3.90 H Glucose Level 90 # Hematocrit 40.2 L Hemoglobin 13.3 L Indirect Bilirubin 0.0 Lymphocytes # 0.2 L Lymphocytes % 2.3 L Mean Corpuscular Hemoglobin 27.0 L Mean Corpuscular Hemoglobin Concent 33.1 Mean Corpuscular Volume 81.6 L Mean Platelet Volume 11.3 H Monocytes # 1.5 H Monocytes % 14.5 H Neutrophils # 8.8 H Neutrophils % 83.2 H Nucleated Red Blood Cells # 0.0 Nucleated Red Blood Cells % 0.0 Platelet Count 128 L Potassium Level 4.9 Red Blood Count 4.93 Red Cell Distribution Width 19.3 H Sodium Level 135 Total Bilirubin 0.0 L Total Protein 7.7 White Blood Count 10.6 # Bedside Glucose 90 Medications Medications Current Medications Heparin Sodium (Porcine) (Heparin (5000 Units/0.5 ml)) 5,000 unit BID SC Last administered on 10/22/16 21:45; Admin Dose 5,000 UNIT; Start 10/14/16 at 21:00 Famotidine (Pepcid) 20 mg DAILY PO Last administered on 10/22/16 08:33; Admin Dose 20 MG; Start 10/15/16 at 09:00 Ondansetron HCl (Zofran Inj) 4 mg Q6H PRN IV NAUSEA AND/OR VOMITING; Start at 16:30 Nitroglycerin (Nitroglycerin (Sl Tab) 0.4 Mg) 1 tab Q5M PRN SL CHEST PAIN; Start 10/14/16 at 16:30 Acetaminophen (Tylenol Tab) 650 mg Q6H PRN PO PAIN LEVEL 1-3 OR FEVER; Start at 16:30 Morphine Sulfate (morphine) 2 mg Q4H PRN IV PAIN LEVEL 7-10; Start 10/14/16 at 16:30 Docusate Sodium (Colace) 100 mg Q12H PRN PO CONSTIPATION; Start 10/14/16 at 16: 30 Guaifenesin/ Dextromethorphan (Robitussin Dm Liquid Cup) 10 ml Q4H PRN PO COUGH Last administered on 10/14/16 21:56; Admin Dose 10 ML; Start 10/14/16 at 16:30 Atorvastatin Calcium (Lipitor) 20 mg DAILY@21 PO Last administered on 21:44; Admin Dose 20 MG; Start 10/14/16 at 21:00 Miscellaneous Information 1 ea NOTE XX ; Start 10/14/16 at 17:30 Glucose (Glutose) 15 gm Q15M PRN PO DECREASED GLUCOSE; Start 10/14/16 at 17:30 Glucose (Glutose) 22.5 gm Q15M PRN PO DECREASED GLUCOSE; Start 10/14/16 at 17: 30 Dextrose (D50w Syringe) 25 ml Q15M PRN IV DECREASED GLUCOSE; Start 10/14/16 at 17:30 Dextrose (D50w Syringe) 50 ml Q15M PRN IV DECREASED GLUCOSE; Start 10/14/16 at 17:30 Glucagon (Glucagen) 1 mg Q15M PRN IM DECREASED GLUCOSE; Start 10/14/16 at 17:30 Glucose (Glutose) 15 gm Q15M PRN BUCCAL DECREASED GLUCOSE; Start 10/14/16 at 17 :30 Amlodipine Besylate (Norvasc) 5 mg BID PO Last administered on 10/22/16 21:51 ; Admin Dose 5 MG; Start 10/15/16 at 21:00 Clonidine (Catapres) 0.1 mg Q4 PRN PO ELEVATED SYSTOLIC BP Last administered on 10/18/16 09:05; Admin Dose 0.1 MG; Start 10/15/16 at 17:00 Isosorbide Dinitrate (Isordil) 20 mg TID PO Last administered on 10/22/16 21: 44; Admin Dose 20 MG; Start 10/15/16 at 21:00 Aspirin (Halfprin) 81 mg DAILY PO Last administered on 10/22/16 08:46; Admin Dose 81 MG; Start 10/18/16 at 09:00 Hydralazine HCl (Apresoline) 100 mg Q8H PO Last administered on 10/22/16 21:44 ; Admin Dose 100 MG; Start 10/21/16 at 20:30 Insulin Glargine (Lantus) 10 unit HS SC Last administered on 10/22/16 21:45; Admin Dose 10 UNIT; Start 10/22/16 at 21:00 Diagnostic Test (Pha) (Accucheck) 1 ea 02 XX ; Start 10/23/16 at 02:00 Methylprednisolone Sodium Succinate (Solu-Medrol) 20 mg QAM IV ; Start 10/23/16 at 09:00 Lorazepam (Ativan) 0.5 mg Q6H PRN IV AGITATION/ANXIETY; Start 10/23/16 at 02:30 MARIANNA ZENDEJAS MD Oct 23, 2016 08:46
[2016-10-23] MEDS: AMLODIPINE 5 MG TAB PO SCH ×2 (08:47→20:00)
[2016-10-23] MEDS: ISOSORBIDE DINITRATE 20 MG TAB PO SCH ×3 (08:47→20:04)
[2016-10-23] MEDS: METHYLPREDNISOLONE 40 MG INJ IV SCH (08:48)
[2016-10-23] MEDS: HEPARIN 5,000 UNIT/0.5 ML SYG SC SCH ×2 (08:49→20:12)
--- NOTE | 2016-10-23 10:29 | CONS ---
Date/Time of Note Date/Time of Note DATE: 10/23/16 TIME: 10:27 Assessment/Plan Assessment/Plan Additional Assessment/Plan 1. Chest pain, assess for acute coronary syndrome-with a 4th trop minimally positive in the setting of renal failure. Now s/p lexiscan with no sig ischemia/ NL EF and no recurrent chest pain - BETTER now 2. Abnormal electrocardiogram, assess for acute coronary syndrome- R/o NE - doubt ischemia. 3. 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 History of permanent pacemaker implant- good function now. 5. History of symptomatic bradycardia. 6. Diabetes mellitus- con't to keep euglycemic 7. Hypertensive emergency-improved on oral anti-hypertensives- con't to fololw - HD now. 8. End-stage renal disease on hemodialysis- Rx as needed 9. Possible bronchitis. Consultation Date/Type/Reason Admit Date/Time Oct 14, 2016 at 13:43 Initial Consult Date 10/17/16 Type of Consultation: Nephrology Referring Provider: YUNIER KIRBY MD 24 HR Interval Summary Free Text/Dictation No acute change - BP stable - doubt ischemia. Medications reviewed. ROS: No fever, no chills, no nausea, no vomiting, no diarrhea/constipation No recent weight changes No chest pain, no PND, no orthopnea No dizziness, blurred vision No thirst, no heat or cold intolerance Exam/Review of Systems Vital Signs Vitals Vital Signs Date Time Temp Pulse Resp B/P Pulse Ox O2 Delivery O2 Flow Rate FiO2 10/23/16 08:27 79 10/23/16 08:15 Nasal Cannula 2.0 10/23/16 04:02 97.6 20 153/72 95 Intake and Output 10/22/16 10/22/16 10/23/16 14:59 22:59 06:59 Intake Total 500 ml 950 ml 400 ml Output Total 3500 ml Balance -3000 ml 950 ml 400 ml Exam General: WN/WD/NAD, AOx 1-2 HEENT: Unicetric/atraumatic/EOMI (follow commands) NECK: JVD elevated, no thyromegaly Lymph: no lymphadenopathy HEART: regular with no S3, II/ systolic murmur at apex LUNGS: Coarse sounds ABD: soft, NT, ND, +BS : Intact Neuro: non focal SKIN: chronic changes EXT: trace edema Results Result Diagram: 10/23/1625 10/23/1625 Results 24 hrs Laboratory Tests Test 10/22/16 11:49 10/22/16 16:51 10/22/16 18:43 10/22/16 19:54 Bedside Glucose 234 H 284 H 239 H Ammonia < 9 L Test 10/23/16 06:25 10/23/16 07:50 Alanine Aminotransferase (ALT/SGPT) 23 Albumin 3.8 Albumin/Globulin Ratio 0.97 Alkaline Phosphatase 113 Anion Gap 23 H Aspartate Amino Transf (AST/SGOT) 20 Basophils # 0.0 Basophils % 0.0 Blood Morphology Comment Blood Urea Nitrogen 74 #H Calcium Level 8.5 Carbon Dioxide Level 24 Chloride Level 93 L Creatinine 5.00 H Direct Bilirubin 0.00 Eosinophils # 0.0 Eosinophils % 0.0 Globulin 3.90 H Glucose Level 90 # Hematocrit 40.2 L Hemoglobin 13.3 L Indirect Bilirubin 0.0 Lymphocytes # 0.2 L Lymphocytes % 2.3 L Mean Corpuscular Hemoglobin 27.0 L Mean Corpuscular Hemoglobin Concent 33.1 Mean Corpuscular Volume 81.6 L Mean Platelet Volume 11.3 H Monocytes # 1.5 H Monocytes % 14.5 H Neutrophils # 8.8 H Neutrophils % 83.2 H Nucleated Red Blood Cells # 0.0 Nucleated Red Blood Cells % 0.0 Platelet Count 128 L Potassium Level 4.9 Red Blood Count 4.93 Red Cell Distribution Width 19.3 H Sodium Level 135 Total Bilirubin 0.0 L Total Protein 7.7 White Blood Count 10.6 # Bedside Glucose 90 Medications Medications Current Medications Heparin Sodium (Porcine) (Heparin (5000 Units/0.5 ml)) 5,000 unit BID SC Last administered on 10/23/16 08:49; Admin Dose 5,000 UNIT; Start 10/14/16 at 21:00 Famotidine (Pepcid) 20 mg DAILY PO Last administered on 10/23/16 08:46; Admin Dose 20 MG; Start 10/15/16 at 09:00 Ondansetron HCl (Zofran Inj) 4 mg Q6H PRN IV NAUSEA AND/OR VOMITING; Start at 16:30 Nitroglycerin (Nitroglycerin (Sl Tab) 0.4 Mg) 1 tab Q5M PRN SL CHEST PAIN; Start 10/14/16 at 16:30 Acetaminophen (Tylenol Tab) 650 mg Q6H PRN PO PAIN LEVEL 1-3 OR FEVER; Start at 16:30 Morphine Sulfate (morphine) 2 mg Q4H PRN IV PAIN LEVEL 7-10; Start 10/14/16 at 16:30 Docusate Sodium (Colace) 100 mg Q12H PRN PO CONSTIPATION; Start 10/14/16 at 16: 30 Guaifenesin/ Dextromethorphan (Robitussin Dm Liquid Cup) 10 ml Q4H PRN PO COUGH Last administered on 10/14/16 21:56; Admin Dose 10 ML; Start 10/14/16 at 16:30 Atorvastatin Calcium (Lipitor) 20 mg DAILY@21 PO Last administered on 21:44; Admin Dose 20 MG; Start 10/14/16 at 21:00 Miscellaneous Information 1 ea NOTE XX ; Start 10/14/16 at 17:30 Glucose (Glutose) 15 gm Q15M PRN PO DECREASED GLUCOSE; Start 10/14/16 at 17:30 Glucose (Glutose) 22.5 gm Q15M PRN PO DECREASED GLUCOSE; Start 10/14/16 at 17: 30 Dextrose (D50w Syringe) 25 ml Q15M PRN IV DECREASED GLUCOSE; Start 10/14/16 at 17:30 Dextrose (D50w Syringe) 50 ml Q15M PRN IV DECREASED GLUCOSE; Start 10/14/16 at 17:30 Glucagon (Glucagen) 1 mg Q15M PRN IM DECREASED GLUCOSE; Start 10/14/16 at 17:30 Glucose (Glutose) 15 gm Q15M PRN BUCCAL DECREASED GLUCOSE; Start 10/14/16 at 17 :30 Amlodipine Besylate (Norvasc) 5 mg BID PO Last administered on 10/23/16 08:47 ; Admin Dose 5 MG; Start 10/15/16 at 21:00 Clonidine (Catapres) 0.1 mg Q4 PRN PO ELEVATED SYSTOLIC BP Last administered on 10/18/16 09:05; Admin Dose 0.1 MG; Start 10/15/16 at 17:00 Isosorbide Dinitrate (Isordil) 20 mg TID PO Last administered on 10/23/16 08: 47; Admin Dose 20 MG; Start 10/15/16 at 21:00 Aspirin (Halfprin) 81 mg DAILY PO Last administered on 10/23/16 08:46; Admin Dose 81 MG; Start 10/18/16 at 09:00 Hydralazine HCl (Apresoline) 100 mg Q8H PO Last administered on 10/22/16 21:44 ; Admin Dose 100 MG; Start 10/21/16 at 20:30 Insulin Glargine (Lantus) 10 unit HS SC Last administered on 10/22/16 21:45; Admin Dose 10 UNIT; Start 10/22/16 at 21:00 Diagnostic Test (Pha) (Accucheck) 1 ea 02 XX ; Start 10/23/16 at 02:00 Methylprednisolone Sodium Succinate (Solu-Medrol) 20 mg QAM IV Last administered on 10/23/16 08:48; Admin Dose 20 MG; Start 10/23/16 at 09:00 Lorazepam (Ativan) 0.5 mg Q6H PRN IV AGITATION/ANXIETY; Start 10/23/16 at 02:30 PEE MONTEMAYOR MD Oct 23, 2016 10:29
[2016-10-23] MEDS: ATORVASTATIN 20 MG TAB PO SCH (20:01)
[2016-10-23] MEDS: INSULIN GLARGINE [LANtus] 3 ML PEN SC SCH (20:13)
--- NOTE | 2016-10-23 20:15 | PN ---
Date/Time of Note Date/Time of Note DATE: 10/23/16 TIME: 20:14 Assessment/Plan VTE Prophylaxis VTE Prophylaxis Intervention: SCD's Lines/Catheters IV Catheter Type (from Nrs): [place] Urinary Cath still in place: No Assessment/Plan Assessment/Plan 1. Right closed intratrochanteric femoral fracture, status post right hip cephalomedullary nailing. Continue physical therapy. Continue [place] p.r.[facility] for pain. 2. Seizure disorder. Continue Keppra. 3. Chronic hyponatremia. Continue to monitor electrolytes. 4. Rheumatoid arthritis. Continue Plaquenil. 5. Hypertension. Continue Norvasc and Zestril. 6. Status post-acute kidney injury, dehydration and mild rhabdomyolysis. 7. Chronic pain. Continue Protonix for peptic ulcer disease prophylaxis and sequential compression device for deep venous thrombosis prophylaxis. Further recommendations based on clinical course. Plan of care discussed with Dr. Rangel. Subjective 24 Hr Interval Summary Eyes: no complaints ENT: no complaints Musculoskeletal: bone/joint pain Exam/Review of Systems Vital Signs Vitals Vital Signs Date Time Temp Pulse Resp B/P Pulse Ox O2 Delivery O2 Flow Rate FiO2 10/23/16 20:06 79 10/23/16 17:40 2.0 10/23/16 16:00 97.9 20 154/67 94 10/23/16 08:15 Nasal Cannula Intake and Output 10/22/16 10/22/16 10/23/16 15:00 23:00 07:00 Intake Total 500 ml 950 ml 400 ml Output Total 3500 ml Balance -3000 ml 950 ml 400 ml Exam Constitutional: alert, well developed Psych: no complaints Head: normocephalic Eyes: PERRL, nl sclera ENMT: nl external ears & nose Neck: non-tender Respiratory: clear to auscultation Cardiovascular: nl pulses Gastrointestinal: non-tender, soft Musculoskeletal: other Extremities: normal pulses Neurological: nl speech Lymph: nontender Results Result Diagram: 10/23/16 0625 10/23/16 0625 Results 24 hrs Laboratory Tests Test 10/23/16 06:25 10/23/16 07:50 10/23/16 12:24 10/23/16 17:17 Alanine Aminotransferase (ALT/SGPT) 23 Albumin 3.8 Albumin/Globulin Ratio 0.97 Alkaline Phosphatase 113 Anion Gap 23 H Aspartate Amino Transf (AST/SGOT) 20 Basophils # 0.0 Basophils % 0.0 Blood Morphology Comment Blood Urea Nitrogen 74 #H Calcium Level 8.5 Carbon Dioxide Level 24 Chloride Level 93 L Creatinine 5.00 H Direct Bilirubin 0.00 Eosinophils # 0.0 Eosinophils % 0.0 Globulin 3.90 H Glucose Level 90 # Hematocrit 40.2 L Hemoglobin 13.3 L Indirect Bilirubin 0.0 Lymphocytes # 0.2 L Lymphocytes % 2.3 L Mean Corpuscular Hemoglobin 27.0 L Mean Corpuscular Hemoglobin Concent 33.1 Mean Corpuscular Volume 81.6 L Mean Platelet Volume 11.3 H Monocytes # 1.5 H Monocytes % 14.5 H Neutrophils # 8.8 H Neutrophils % 83.2 H Nucleated Red Blood Cells # 0.0 Nucleated Red Blood Cells % 0.0 Platelet Count 128 L Potassium Level 4.9 Red Blood Count 4.93 Red Cell Distribution Width 19.3 H Sodium Level 135 Total Bilirubin 0.0 L Total Protein 7.7 White Blood Count 10.6 # Bedside Glucose 90 125 252 H Test 10/23/16 19:59 Bedside Glucose 191 Medications Medications Current Medications Heparin Sodium (Porcine) (Heparin (5000 Units/0.5 ml)) 5,000 unit BID SC Last administered on 10/23/16 08:49; Admin Dose 5,000 UNIT; Start 10/14/16 at 21:00 Famotidine (Pepcid) 20 mg DAILY PO Last administered on 10/23/16 08:46; Admin Dose 20 MG; Start 10/15/16 at 09:00 Ondansetron HCl (Zofran Inj) 4 mg Q6H PRN IV NAUSEA AND/OR VOMITING; Start at 16:30 Nitroglycerin (Nitroglycerin (Sl Tab) 0.4 Mg) 1 tab Q5M PRN SL CHEST PAIN; Start 10/14/16 at 16:30 Acetaminophen (Tylenol Tab) 650 mg Q6H PRN PO PAIN LEVEL 1-3 OR FEVER Last administered on 10/23/16 20:01; Admin Dose 650 MG; Start 10/14/16 at 16:30 Morphine Sulfate (morphine) 2 mg Q4H PRN IV PAIN LEVEL 7-10; Start 10/14/16 at 16:30 Docusate Sodium (Colace) 100 mg Q12H PRN PO CONSTIPATION; Start 10/14/16 at 16: 30 Guaifenesin/ Dextromethorphan (Robitussin Dm Liquid Cup) 10 ml Q4H PRN PO COUGH Last administered on 10/14/16 21:56; Admin Dose 10 ML; Start 10/14/16 at 16:30 Atorvastatin Calcium (Lipitor) 20 mg DAILY@21 PO Last administered on 20:01; Admin Dose 20 MG; Start 10/14/16 at 21:00 Miscellaneous Information 1 ea NOTE XX ; Start 10/14/16 at 17:30 Glucose (Glutose) 15 gm Q15M PRN PO DECREASED GLUCOSE; Start 10/14/16 at 17:30 Glucose (Glutose) 22.5 gm Q15M PRN PO DECREASED GLUCOSE; Start 10/14/16 at 17: 30 Dextrose (D50w Syringe) 25 ml Q15M PRN IV DECREASED GLUCOSE; Start 10/14/16 at 17:30 Dextrose (D50w Syringe) 50 ml Q15M PRN IV DECREASED GLUCOSE; Start 10/14/16 at 17:30 Glucagon (Glucagen) 1 mg Q15M PRN IM DECREASED GLUCOSE; Start 10/14/16 at 17:30 Glucose (Glutose) 15 gm Q15M PRN BUCCAL DECREASED GLUCOSE; Start 10/14/16 at 17 :30 Amlodipine Besylate (Norvasc) 5 mg BID PO Last administered on 10/23/16 20:00 ; Admin Dose 5 MG; Start 10/15/16 at 21:00 Clonidine (Catapres) 0.1 mg Q4 PRN PO ELEVATED SYSTOLIC BP Last administered on 10/18/16 09:05; Admin Dose 0.1 MG; Start 10/15/16 at 17:00 Isosorbide Dinitrate (Isordil) 20 mg TID PO Last administered on 10/23/16 20: 04; Admin Dose 20 MG; Start 10/15/16 at 21:00 Aspirin (Halfprin) 81 mg DAILY PO Last administered on 10/23/16 08:46; Admin Dose 81 MG; Start 10/18/16 at 09:00 Hydralazine HCl (Apresoline) 100 mg Q8H PO Last administered on 10/23/16 20:01 ; Admin Dose 100 MG; Start 10/21/16 at 20:30 Diagnostic Test (Pha) (Accucheck) 1 ea 02 XX ; Start 10/23/16 at 02:00 Methylprednisolone Sodium Succinate (Solu-Medrol) 20 mg QAM IV Last administered on 10/23/16 08:48; Admin Dose 20 MG; Start 10/23/16 at 09:00 Lorazepam (Ativan) 0.5 mg Q6H PRN IV AGITATION/ANXIETY; Start 10/23/16 at 02:30 Insulin Glargine (Lantus) 20 unit HS SC Last administered on 10/23/16 20:13; Admin Dose 20 UNIT; Start 10/23/16 at 21:00 SADAF VAZQUEZ Oct 23, 2016 20:15
[2016-10-23] MEDS: LORAZEPAM 2 MG INJ IV PRN (20:55)
[2016-10-24] VITALS (19 sets, daily range): BP systolic 96–174; BP diastolic 48–79; PULSE 68–85; RESP 18–21
[2016-10-24] MEDS: LORAZEPAM 2 MG INJ IV PRN (02:12)
[2016-10-24] MEDS: ACCUCHECK XX SCH (02:17)
[2016-10-24 06:35] LABS: CREATININE 6.64 mg/dl (0.61-1.24)
[2016-10-24 06:36] LABS: CALCIUM 8.4 mg/dl (8.4-10.2)
[2016-10-24 06:39] LABS: POTASSIUM 5.6 mmol/L (3.5-5.1)
[2016-10-24 06:47] LABS: HEMATOCRIT 37.7 % (42.0-52.0); HEMOGLOBIN 12.5 g/dl (14.0-18.0); MEAN CORPUSCULAR HGB CONC 33.2 g/dl (32.0-37.0); MEAN CORPUSCULAR VOLUME 81.6 fl (82.0-101.0); MEAN PLATELET VOLUME 11.7 fl (7.4-10.4); PLATELET COUNT 120 10^3/UL (140-440); RED BLOOD COUNT 4.62 10^6/ul (4.70-6.10); UNCORRECTED WBC 5.7 10^3/ul (4.8-10.8); WHITE BLOOD COUNT 5.7 10^3/ul (4.8-10.8)
[2016-10-24 07:08] LABS: CONDITION 1; LH ANALYZER COMMENTS 1
[2016-10-24] MEDS: SEVELAMER 800 MG TAB PO SCH ×3 (08:00→17:25)
[2016-10-24] MEDS: INSULIN ASPART [NOVOLOG] 3 ML PEN SC SCH ×7 (08:00→20:39)
[2016-10-24] MEDS: GLUCOSE GEL 15 GRAM TUBE BUCCAL PRN (08:34)
[2016-10-24] MEDS: ISOSORBIDE DINITRATE 20 MG TAB PO SCH ×3 (09:00→20:38)
[2016-10-24] MEDS: FAMOTIDINE 20 MG TAB PO SCH (09:00)
[2016-10-24] MEDS: HEPARIN 5,000 UNIT/0.5 ML SYG SC SCH ×2 (09:00→20:35)
[2016-10-24] MEDS: ASPIRIN (EC) 81 MG TAB PO SCH (09:00)
[2016-10-24] MEDS: AMLODIPINE 5 MG TAB PO SCH ×2 (09:00→20:21)
[2016-10-24] MEDS: DEXTROSE 50% 50 ML SYRINGE IV PRN (09:37)
[2016-10-24] MEDS: METHYLPREDNISOLONE 40 MG INJ IV SCH (09:49)
--- NOTE | 2016-10-24 09:59 | CONS ---
Date/Time of Note Date/Time of Note DATE: 10/24/16 TIME: 09:56 Assessment/Plan Assessment/Plan Additional Assessment/Plan 1. Chest pain, assess for acute coronary syndrome-with a 4th trop minimally positive in the setting of renal failure. Now s/p lexiscan with no sig ischemia/ NL EF and no recurrent chest pain - BETTER now 2. Abnormal electrocardiogram, assess for acute coronary syndrome- R/o [place] - doubt ischemia. 3. 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 History of permanent pacemaker implant- good function now. 5. History of symptomatic bradycardia. 6. Diabetes mellitus- con't to keep euglycemic 7. Hypertensive emergency-improved on oral anti-hypertensives- con't to fololw - HD now. 8. End-stage renal disease on hemodialysis- Rx as needed 9. AMS - pt with increased lethargy now - very coarse on exanm ? aspiration - will discuss with primary team. HD today - will order CXR / ABG now. Consultation Date/Type/Reason Admit Date/Time Oct 14, 2016 at 13:43 Initial Consult Date 10/17/16 Type of Consultation: Nephrology Referring Provider: YUNIER KIRBY MD 24 HR Interval Summary Free Text/Dictation Now more lethargic - will adjust therapy as needed. CXR/ABG now. Medications reviewed. ROS: MOre alterd. No fever, no chills, no nausea, no vomiting, no diarrhea/ constipation No recent weight changes No chest pain, no PND, no orthopnea No dizziness, blurred vision No thirst, no heat or cold intolerance Exam/Review of Systems Vital Signs Vitals Vital Signs Date Time Temp Pulse Resp B/P Pulse Ox O2 Delivery O2 Flow Rate FiO2 10/24/16 08:06 98.2 69 19 137/63 97 10/23/16 21:27 2.0 10/23/16 08:15 Nasal Cannula Intake and Output 10/23/16 10/23/16 10/24/16 15:00 23:00 07:00 Intake Total 550 ml Balance 550 ml Exam General: WN/WD/NAD, AOx 0 - lethrgic HEENT: Unicetric/atraumatic/EOMI (does not follow commands) NECK: JVD elevated, no thyromegaly Lymph: no lymphadenopathy HEART: regular with no S3, II/ systolic murmur at apex LUNGS: Coarse sounds, increased ABD: soft, NT, ND, +BS : Intact Neuro: non focal SKIN: chronic changes EXT: trace edema Results Result Diagram: 10/24/16 0540 10/24/16 0540 Results 24 hrs Laboratory Tests Test 10/23/16 12:24 10/23/16 17:17 10/23/16 19:59 10/24/16 02:17 Bedside Glucose 125 252 H 191 127 Test 10/24/16 05:40 10/24/16 08:13 Anion Gap 24 H Blood Morphology Comment Blood Urea Nitrogen 106 #H Calcium Level 8.4 Carbon Dioxide Level 23 Chloride Level 94 L Creatinine 6.64 H Glucose Level 76 Hematocrit 37.7 L Hemoglobin 12.5 L Mean Corpuscular Hemoglobin 27.0 L Mean Corpuscular Hemoglobin Concent 33.2 Mean Corpuscular Volume 81.6 L Mean Platelet Volume 11.7 H Platelet Count 120 L Potassium Level 5.6 H Red Blood Count 4.62 L Red Cell Distribution Width 19.0 H Sodium Level 135 White Blood Count 5.7 # Bedside Glucose 65 L Medications Medications Current Medications Heparin Sodium (Porcine) (Heparin (5000 Units/0.5 ml)) 5,000 unit BID SC Last administered on 10/23/16 20:12; Admin Dose 5,000 UNIT; Start 10/14/16 at 21:00 Famotidine (Pepcid) 20 mg DAILY PO Last administered on 10/23/16 08:46; Admin Dose 20 MG; Start 10/15/16 at 09:00 Ondansetron HCl (Zofran Inj) 4 mg Q6H PRN IV NAUSEA AND/OR VOMITING; Start at 16:30 Nitroglycerin (Nitroglycerin (Sl Tab) 0.4 Mg) 1 tab Q5M PRN SL CHEST PAIN; Start 10/14/16 at 16:30 Acetaminophen (Tylenol Tab) 650 mg Q6H PRN PO PAIN LEVEL 1-3 OR FEVER Last administered on 10/23/16 20:01; Admin Dose 650 MG; Start 10/14/16 at 16:30 Morphine Sulfate (morphine) 2 mg Q4H PRN IV PAIN LEVEL 7-10; Start 10/14/16 at 16:30 Docusate Sodium (Colace) 100 mg Q12H PRN PO CONSTIPATION; Start 10/14/16 at 16: 30 Guaifenesin/ Dextromethorphan (Robitussin Dm Liquid Cup) 10 ml Q4H PRN PO COUGH Last administered on 10/14/16 21:56; Admin Dose 10 ML; Start 10/14/16 at 16:30 Atorvastatin Calcium (Lipitor) 20 mg DAILY@21 PO Last administered on 20:01; Admin Dose 20 MG; Start 10/14/16 at 21:00 Miscellaneous Information 1 ea NOTE XX ; Start 10/14/16 at 17:30 Glucose (Glutose) 15 gm Q15M PRN PO DECREASED GLUCOSE; Start 10/14/16 at 17:30 Glucose (Glutose) 22.5 gm Q15M PRN PO DECREASED GLUCOSE; Start 10/14/16 at 17: 30 Dextrose (D50w Syringe) 25 ml Q15M PRN IV DECREASED GLUCOSE Last administered on 10/24/16 09:37; Admin Dose 25 ML; Start 10/14/16 at 17:30 Dextrose (D50w Syringe) 50 ml Q15M PRN IV DECREASED GLUCOSE; Start 10/14/16 at 17:30 Glucagon (Glucagen) 1 mg Q15M PRN IM DECREASED GLUCOSE; Start 10/14/16 at 17:30 Glucose (Glutose) 15 gm Q15M PRN BUCCAL DECREASED GLUCOSE Last administered on 10/24/16 08:34; Admin Dose 15 GM; Start 10/14/16 at 17:30 Amlodipine Besylate (Norvasc) 5 mg BID PO Last administered on 10/23/16 20:00 ; Admin Dose 5 MG; Start 10/15/16 at 21:00 Clonidine (Catapres) 0.1 mg Q4 PRN PO ELEVATED SYSTOLIC BP Last administered on 10/18/16 09:05; Admin Dose 0.1 MG; Start 10/15/16 at 17:00 Isosorbide Dinitrate (Isordil) 20 mg TID PO Last administered on 10/23/16 20: 04; Admin Dose 20 MG; Start 10/15/16 at 21:00 Aspirin (Halfprin) 81 mg DAILY PO Last administered on 10/23/16 08:46; Admin Dose 81 MG; Start 10/18/16 at 09:00 Hydralazine HCl (Apresoline) 100 mg Q8H PO Last administered on 10/24/16 04:26 ; Admin Dose 100 MG; Start 10/21/16 at 20:30 Diagnostic Test (Pha) (Accucheck) 1 ea 02 XX Last administered on 10/24/16 02: 17; Admin Dose 1 EA; Start 10/23/16 at 02:00 Methylprednisolone Sodium Succinate (Solu-Medrol) 20 mg QAM IV Last administered on 10/24/16 09:49; Admin Dose 20 MG; Start 10/23/16 at 09:00 Lorazepam (Ativan) 0.5 mg Q6H PRN IV AGITATION/ANXIETY Last administered on 02:12; Admin Dose 0.5 MG; Start 10/23/16 at 02:30 Insulin Glargine (Lantus) 20 unit HS SC Last administered on 10/23/16 20:13; Admin Dose 20 UNIT; Start 10/23/16 at 21:00 PEE MONTEMAYOR MD Oct 24, 2016 09:59
[2016-10-24] MEDS: ALBUTEROL/IPRATROPIUM (NEB) 3 ML AMP HHN PRN (10:05)
--- NOTE | 2016-10-24 10:25 | RADRPT ---
PROCEDURE: XR Chest. CLINICAL INDICATION: Congestion TECHNIQUE: Single frontal chest x-ray. COMPARISON: 10/22/2016 FINDINGS: There is stable mild cardiomegaly and mild pulmonary vascular congestion. Aortic atherosclerotic ca lcification is noted. No acute infiltrate, pneumothorax or significant pleural effusion is identifi ed. Right-sided single lead pacemaker remains in place. The osseous structures are unremarkable. IMPRESSION: 1. Stable mild cardiomegaly and pulmonary vascular congestion. 2. No significant interval change. RPTAT: TT .Selwyn Burrell MD, MD Date Time Electronically viewed and signed by .Selwyn Burrell MD, MD on 10/24/2016 10:24 .R/
--- NOTE | 2016-10-24 11:32 | PN ---
Date/Time of Note Date/Time of Note DATE: 10/24/16 TIME: 11:26 Assessment/Plan VTE Prophylaxis VTE Prophylaxis Intervention: SCD's Lines/Catheters IV Catheter Type (from Nrs): Saline Lock Urinary Cath still in place: No Assessment/Plan Chief Complaint/Hosp Course Assessment and plan: - ALOC- stat CT head, ammonia level is wnl. - Pulm congestion, Rhonhi, requiring frequent suctioning. CXR no infiltrates, pending ABG, restart on broad spectrum abx for possible aspiration. WQill obtain swallow eval when pt is more awake, start IVF, NPO. pulm eval. - Acute bronchitis, s/p treatment -. Status post chest pain with negative nuclear stress test. Continue nitrates. -. Hypertension and status post hypertensive emergency. Blood pressure better controlled. Continue Norvasc, hydralazine, Isordil. -. End-stage renal disease. Continue hemodialysis as per Dr. Nettles. The patient also remains on Renagel. - Meanwhile, the patient will be continued on IV Rocephin and Zithromax for acute bronchitis. Chest x-ray did not reveal any infiltrate. -. Thrombocytopenia. Will continue to monitor. Probably due to bronchitis, although patient did have history of mild thrombocytopenia on and off. -. Symptomatic bradycardia, status post permanent pacemaker placement. The patient is being followed by Dr. Esparza from cardiac standpoint, Dr. Nettles from nephrology standpoint. -. Hyperglycemia, Hgb A1C is 5.4. Further recommendations will depend on patient's hospital course. Further recommendations based on clinical course. Plan of care was discussed with Dr. Nettles who is covering for Dr. Rangel. Problems: Subjective 24 Hr Interval Summary Free Text/Dictation Patient is very lethargic but arousable, undergoing HD, congested, no fever. Exam/Review of Systems Vital Signs Vitals Vital Signs Date Time Temp Pulse Resp B/P Pulse Ox O2 Delivery O2 Flow Rate FiO2 10/24/16 08:06 98.2 69 19 137/63 97 10/24/16 07:35 Nasal Cannula 2.0 Intake and Output 10/23/16 10/23/16 10/24/16 15:00 23:00 07:00 Intake Total 550 ml Balance 550 ml Exam GENERAL: Well developed, well-nourished , lethargic, confused. HEENT: Head is atraumatic, normocephalic. Patient is legally blind. NECK: Supple, no cervical lymphadenopathy, no thyromegaly. CHEST: Rhonchi bilaterally CARDIOVASCULAR: Normal S1, S2. No murmurs, gallops, clicks, rubs noted. ABDOMEN: Round, soft, nondistended, nontender. Bowel sounds present. EXTREMITIES: No edema, clubbing, cyanosis. Left upper extremity AV fistula with audible bruit and palpable thrill. SKIN: There is no rash, petechiae noted. NEUROLOGIC: lethargic Results Result Diagram: 10/24/16 0540 10/24/16 0540 Results 24 hrs Laboratory Tests Test 10/23/16 12:24 10/23/16 17:17 10/23/16 19:59 10/24/16 02:17 Bedside Glucose 125 252 H 191 127 Test 10/24/16 05:40 10/24/16 08:13 10/24/16 09:33 10/24/16 09:52 Anion Gap 24 H Blood Morphology Comment Blood Urea Nitrogen 106 #H Calcium Level 8.4 Carbon Dioxide Level 23 Chloride Level 94 L Creatinine 6.64 H Glucose Level 76 Hematocrit 37.7 L Hemoglobin 12.5 L Mean Corpuscular Hemoglobin 27.0 L Mean Corpuscular Hemoglobin Concent 33.2 Mean Corpuscular Volume 81.6 L Mean Platelet Volume 11.7 H Platelet Count 120 L Potassium Level 5.6 H Red Blood Count 4.62 L Red Cell Distribution Width 19.0 H Sodium Level 135 White Blood Count 5.7 # Bedside Glucose 65 L 60 L 313 H Test 10/24/16 10:16 Bedside Glucose 97 Medications Medications Current Medications Heparin Sodium (Porcine) (Heparin (5000 Units/0.5 ml)) 5,000 unit BID SC Last administered on 10/23/16 20:12; Admin Dose 5,000 UNIT; Start 10/14/16 at 21:00 Famotidine (Pepcid) 20 mg DAILY PO Last administered on 10/23/16 08:46; Admin Dose 20 MG; Start 10/15/16 at 09:00 Ondansetron HCl (Zofran Inj) 4 mg Q6H PRN IV NAUSEA AND/OR VOMITING; Start at 16:30 Nitroglycerin (Nitroglycerin (Sl Tab) 0.4 Mg) 1 tab Q5M PRN SL CHEST PAIN; Start 10/14/16 at 16:30 Acetaminophen (Tylenol Tab) 650 mg Q6H PRN PO PAIN LEVEL 1-3 OR FEVER Last administered on 10/23/16 20:01; Admin Dose 650 MG; Start 10/14/16 at 16:30 Morphine Sulfate (morphine) 2 mg Q4H PRN IV PAIN LEVEL 7-10; Start 10/14/16 at 16:30 Docusate Sodium (Colace) 100 mg Q12H PRN PO CONSTIPATION; Start 10/14/16 at 16: 30 Guaifenesin/ Dextromethorphan (Robitussin Dm Liquid Cup) 10 ml Q4H PRN PO COUGH Last administered on 10/14/16 21:56; Admin Dose 10 ML; Start 10/14/16 at 16:30 Atorvastatin Calcium (Lipitor) 20 mg DAILY@21 PO Last administered on 20:01; Admin Dose 20 MG; Start 10/14/16 at 21:00 Miscellaneous Information 1 ea NOTE XX ; Start 10/14/16 at 17:30 Glucose (Glutose) 15 gm Q15M PRN PO DECREASED GLUCOSE; Start 10/14/16 at 17:30 Glucose (Glutose) 22.5 gm Q15M PRN PO DECREASED GLUCOSE; Start 10/14/16 at 17: 30 Dextrose (D50w Syringe) 25 ml Q15M PRN IV DECREASED GLUCOSE Last administered on 10/24/16 09:37; Admin Dose 25 ML; Start 10/14/16 at 17:30 Dextrose (D50w Syringe) 50 ml Q15M PRN IV DECREASED GLUCOSE; Start 10/14/16 at 17:30 Glucagon (Glucagen) 1 mg Q15M PRN IM DECREASED GLUCOSE; Start 10/14/16 at 17:30 Glucose (Glutose) 15 gm Q15M PRN BUCCAL DECREASED GLUCOSE Last administered on 10/24/16 08:34; Admin Dose 15 GM; Start 10/14/16 at 17:30 Amlodipine Besylate (Norvasc) 5 mg BID PO Last administered on 10/23/16 20:00 ; Admin Dose 5 MG; Start 10/15/16 at 21:00 Clonidine (Catapres) 0.1 mg Q4 PRN PO ELEVATED SYSTOLIC BP Last administered on 10/18/16 09:05; Admin Dose 0.1 MG; Start 10/15/16 at 17:00 Isosorbide Dinitrate (Isordil) 20 mg TID PO Last administered on 10/23/16 20: 04; Admin Dose 20 MG; Start 10/15/16 at 21:00 Aspirin (Halfprin) 81 mg DAILY PO Last administered on 10/23/16 08:46; Admin Dose 81 MG; Start 10/18/16 at 09:00 Hydralazine HCl (Apresoline) 100 mg Q8H PO Last administered on 10/24/16 04:26 ; Admin Dose 100 MG; Start 10/21/16 at 20:30 Diagnostic Test (Pha) (Accucheck) 1 ea 02 XX Last administered on 10/24/16 02: 17; Admin Dose 1 EA; Start 10/23/16 at 02:00 Methylprednisolone Sodium Succinate (Solu-Medrol) 20 mg QAM IV Last administered on 10/24/16 09:49; Admin Dose 20 MG; Start 10/23/16 at 09:00 Lorazepam (Ativan) 0.5 mg Q6H PRN IV AGITATION/ANXIETY Last administered on 02:12; Admin Dose 0.5 MG; Start 10/23/16 at 02:30 Insulin Glargine (Lantus) 20 unit HS SC Last administered on 10/23/16 20:13; Admin Dose 20 UNIT; Start 10/23/16 at 21:00 CONTRERAS HUERTA Oct 24, 2016 11:32
[2016-10-24 11:47] LABS: LYMPHOCYTES # 0.2 10^3/ul (0.8-2.9); MONOCYTE # 0.6 10^3/ul (0.3-0.9); NEUTROPHIL # 4.8 10^3/ul (1.6-7.5)
[2016-10-24] MEDS ORDERED: VANCOMYCIN IV PER PHARMACY XX SCH (12:00)
[2016-10-24] MEDS: ALBUMIN HUMAN 25% 100 ML IV SCH ×2 (12:01→12:45)
--- NOTE | 2016-10-24 13:02 | CONS ---
Date/Time of Note Date/Time of Note DATE: 10/24/16 TIME: 13:01 Assessment/Plan Assessment/Plan Additional Assessment/Plan 76 yo Male with 1. URI/Bronchitis 2. Hypertensive, Uncontrolled 3. End-stage renal disease. HD MWF 4. Diabetes mellitus type 2. 5. Hx of Permanent pacemaker. 6. Anemia, Chronic Disease 7. Mineral Bone Disease, ESRD 8. Mild Hyperkalemia ON HD,Stable, Cont current treatment HD will order for tomorrow. Electrolytes abnormality with correct with HD Cont current Rx for HTN, low dose COTY with HD Cont Phophate binder, Renal/ADA diet. Consultation Date/Type/Reason Admit Date/Time Oct 14, 2016 at 13:43 Initial Consult Date 10/17/16 Type of Consultation: Nephrology Referring Provider: YUNIER KIRBY MD 24 HR Interval Summary Free Text/Dictation Seen and examined on HD, Stable. Constitutional: requiring O2 Exam/Review of Systems Vital Signs Vitals Vital Signs Date Time Temp Pulse Resp B/P Pulse Ox O2 Delivery O2 Flow Rate FiO2 10/24/16 12:30 76 10/24/16 12:00 97.9 19 109/51 97 10/24/16 07:35 Nasal Cannula 2.0 Intake and Output 10/23/16 10/23/16 10/24/16 15:00 23:00 07:00 Intake Total 550 ml Balance 550 ml Exam Constitutional: No distress ENMT: mucosa pink and moist Respiratory: No labored breathing Cardiovascular: regular rate and rhythm, No edema Gastrointestinal: non-tender, soft Neurological: No lethargic Skin: No diaphoresis Results Result Diagram: 10/24/16 0540 10/24/16 0540 Results 24 hrs Laboratory Tests Test 10/23/16 17:17 10/23/16 19:59 10/24/16 02:17 10/24/16 05:40 Bedside Glucose 252 H 191 127 Anion Gap 24 H Band Neutrophils % 1.0 Blood Morphology Comment Blood Urea Nitrogen 106 #H Calcium Level 8.4 Carbon Dioxide Level 23 Chloride Level 94 L Creatinine 6.64 H Glucose Level 76 Hematocrit 37.7 L Hemoglobin 12.5 L Lymphocytes # 0.2 L Lymphocytes % 4.0 L Mean Corpuscular Hemoglobin 27.0 L Mean Corpuscular Hemoglobin Concent 33.2 Mean Corpuscular Volume 81.6 L Mean Platelet Volume 11.7 H Monocytes # 0.6 Monocytes % 10.0 Neutrophils # 4.8 Neutrophils % 85.0 H Platelet Count 120 L Potassium Level 5.6 H Red Blood Count 4.62 L Red Cell Distribution Width 19.0 H Sodium Level 135 White Blood Count 5.7 # Test 10/24/16 08:13 10/24/16 09:33 10/24/16 09:52 10/24/16 10:16 Bedside Glucose 65 L 60 L 313 H 97 Test 10/24/16 12:09 10/24/16 12:12 10/24/16 12:16 Bedside Glucose 309 H 122 125 Medications Medications Current Medications Heparin Sodium (Porcine) (Heparin (5000 Units/0.5 ml)) 5,000 unit BID SC Last administered on 10/23/16 20:12; Admin Dose 5,000 UNIT; Start 10/14/16 at 21:00 Famotidine (Pepcid) 20 mg DAILY PO Last administered on 10/23/16 08:46; Admin Dose 20 MG; Start 10/15/16 at 09:00 Ondansetron HCl (Zofran Inj) 4 mg Q6H PRN IV NAUSEA AND/OR VOMITING; Start at 16:30 Nitroglycerin (Nitroglycerin (Sl Tab) 0.4 Mg) 1 tab Q5M PRN SL CHEST PAIN; Start 10/14/16 at 16:30 Acetaminophen (Tylenol Tab) 650 mg Q6H PRN PO PAIN LEVEL 1-3 OR FEVER Last administered on 10/23/16 20:01; Admin Dose 650 MG; Start 10/14/16 at 16:30 Morphine Sulfate (morphine) 2 mg Q4H PRN IV PAIN LEVEL 7-10; Start 10/14/16 at 16:30 Docusate Sodium (Colace) 100 mg Q12H PRN PO CONSTIPATION; Start 10/14/16 at 16: 30 Guaifenesin/ Dextromethorphan (Robitussin Dm Liquid Cup) 10 ml Q4H PRN PO COUGH Last administered on 10/14/16 21:56; Admin Dose 10 ML; Start 10/14/16 at 16:30 Atorvastatin Calcium (Lipitor) 20 mg DAILY@21 PO Last administered on 20:01; Admin Dose 20 MG; Start 10/14/16 at 21:00 Miscellaneous Information 1 ea NOTE XX ; Start 10/14/16 at 17:30 Glucose (Glutose) 15 gm Q15M PRN PO DECREASED GLUCOSE; Start 10/14/16 at 17:30 Glucose (Glutose) 22.5 gm Q15M PRN PO DECREASED GLUCOSE; Start 10/14/16 at 17: 30 Dextrose (D50w Syringe) 25 ml Q15M PRN IV DECREASED GLUCOSE Last administered on 10/24/16 09:37; Admin Dose 25 ML; Start 10/14/16 at 17:30 Dextrose (D50w Syringe) 50 ml Q15M PRN IV DECREASED GLUCOSE; Start 10/14/16 at 17:30 Glucagon (Glucagen) 1 mg Q15M PRN IM DECREASED GLUCOSE; Start 10/14/16 at 17:30 Glucose (Glutose) 15 gm Q15M PRN BUCCAL DECREASED GLUCOSE Last administered on 10/24/16 08:34; Admin Dose 15 GM; Start 10/14/16 at 17:30 Amlodipine Besylate (Norvasc) 5 mg BID PO Last administered on 10/23/16 20:00 ; Admin Dose 5 MG; Start 10/15/16 at 21:00 Clonidine (Catapres) 0.1 mg Q4 PRN PO ELEVATED SYSTOLIC BP Last administered on 10/18/16 09:05; Admin Dose 0.1 MG; Start 10/15/16 at 17:00 Isosorbide Dinitrate (Isordil) 20 mg TID PO Last administered on 10/23/16 20: 04; Admin Dose 20 MG; Start 10/15/16 at 21:00 Aspirin (Halfprin) 81 mg DAILY PO Last administered on 10/23/16 08:46; Admin Dose 81 MG; Start 10/18/16 at 09:00 Hydralazine HCl (Apresoline) 100 mg Q8H PO Last administered on 10/24/16 04:26 ; Admin Dose 100 MG; Start 10/21/16 at 20:30 Diagnostic Test (Pha) (Accucheck) 1 ea 02 XX Last administered on 10/24/16 02: 17; Admin Dose 1 EA; Start 10/23/16 at 02:00 Methylprednisolone Sodium Succinate (Solu-Medrol) 20 mg QAM IV Last administered on 10/24/16 09:49; Admin Dose 20 MG; Start 10/23/16 at 09:00 Lorazepam (Ativan) 0.5 mg Q6H PRN IV AGITATION/ANXIETY Last administered on 02:12; Admin Dose 0.5 MG; Start 10/23/16 at 02:30 Insulin Glargine 20 unit 20 unit HS SC Last administered on 10/23/16 20:13; Admin Dose 20 UNIT; Start 10/23/16 at 21:00 Piperacillin Sod/ Tazobactam Sod 50 ml @ 100 mls/hr Q8 IVPB ; Start 10/24/16 at 12:45 Dextrose/Sodium Chloride 1,000 ml @ 50 mls/hr Q20H IV ; Start 10/24/16 at 12:00 Albumin Human 100 ml @ 100 mls/hr Q1H IV Last administered on 10/24/16 12:45 ; Admin Dose 100 MLS/HR; Start 10/24/16 at 12:00; Stop 10/24/16 at 13:59 Vancomycin HCl/ Sodium Chloride (Vancocin/NS) 250 ml @ 83.333 mls/ hr NOW IVPB ; Start 10/24/16 at 13:30; Stop 10/24/16 at 16:29 MARIANNA ZENDEJAS MD Oct 24, 2016 13:02
[2016-10-24] MEDS ORDERED: VANCOMYCIN 1.5 GM in SOD CHLORIDE 0.9% 250 ML IVPB SCH (13:30)
[2016-10-24] MEDS: PIPER-TAZO 2.25 GM (PMX) 50 ML IVPB SCH ×2 (15:03→21:42)
[2016-10-24] MEDS: DEXTROSE 5%-0.9% NACL 1,000 ML IV SCH (15:04)
--- NOTE | 2016-10-24 18:37 | CONS ---
DATE OF ADMISSION: 10/14/2016 DATE OF CONSULTATION: PULMONARY CONSULTATION REASON FOR CONSULTATION: Shortness of breath. Thank you, Dr. Rangel, for this consultation. HISTORY OF PRESENT ILLNESS: This is a 76-year-old gentleman with multiple medical problems who came in originally on 10/14/2015 with increasing productive cough, chest discomfort, found to be negativ e for rapid influenza testing, treated for community-acquired pneumonia. PAST MEDICAL HISTORY: Includes end-stage renal failure on hemodialysis, hypertension, hyperlipidemi a, history of pacemaker. MEDICATIONS: Per chart. ALLERGIES: NONE. SOCIAL HISTORY: Nonsmoker, no alcohol, no history of drug use. FAMILY HISTORY: Noncontributory. SYSTEMS REVIEW: A 12-point review of systems was negative other than that mentioned above. PHYSICAL EXAMINATION: GENERAL: Elderly-appearing gentleman, comfortable at rest, no acute distress. VITAL SIGNS: Temperature 98, pulse is 86, blood pressure 150/68, O2 saturation 96% on room air. NECK: Supple. No JVD or lymphadenopathy. CARDIAC: S1, S2, no added sounds or murmurs. CHEST: Diminished air entry bilaterally. ABDOMEN: Soft, nontender. No guarding or rebound. EXTREMITIES: No cyanosis, clubbing, or edema. NEUROLOGIC: Grossly intact. LABORATORIES: White count 5.7, hemoglobin 12.5, platelets 112. Chemistry: BUN 106, creatinine 6.6 4. INR 1.45. DIAGNOSTIC DATA: Chest x-ray was reviewed and shows mild vascular congestion. IMPRESSION AND PLAN: 1. Congestive cardiac failure. 2. End-stage renal failure on hemodialysis. 3. History of pacemaker. 4. Negative cardiac stress test. The patient's dyspnea likely secondary to volume overload from en d-stage renal failure. He should have more fluid removed during dialysis. Other than that, discharge planning is appropriate. Dictated By: MOIRS DAVIS/JERAMY Conf#: [id number] DID#: [id number]
--- NOTE | 2016-10-24 18:50 | RADRPT ---
PROCEDURE: CT Brain without contrast. CLINICAL INDICATION: Altered level of consciousness. TECHNIQUE: A multiplanar CT of the brain was performed on a CT scanner utilizing axial imaging fro m the skull base through the vertex without IV contrast. The CTDIvol is 45.01 mGy and the DLP is 72 0.23 mGycm. One or more of the following dose reduction techniques were utilized: Automated exposu re control, adjustment of the mA and/or kV according to patient size, use of iterative reconstructio n technique. COMPARISON: 05/29/2016 CT brain. FINDINGS: No evidence of intracranial hemorrhage or abnormal extra-axial fluid collection. Minimal low attenuation in the periventricular white matter compatible with sequelae of chronic micr ovascular ischemic injury. The ventricles and subarachnoid spaces are age-appropriate in size. The brain parenchyma is otherwise unremarkable with preservation of rain white differentiation. 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 The posterior fossa contents, brainstem, craniocervical junction, orbits, pituitary axis, paranasal sinuses, mastoid air cells, and calvarium are unremarkable. IMPRESSION: 1. No intracranial hemorrhage or acute intracranial. 2. Mild senescent changes and age-related atrophy. RPTAT:AAJJ Physician Jose Luis Date Time Electronically viewed and signed by Physician Jose Luis on 10/24/2016 18:50 NEEL/
[2016-10-24] MEDS: ATORVASTATIN 20 MG TAB PO SCH (20:21)
[2016-10-24] MEDS: INSULIN GLARGINE [LANtus] 3 ML PEN SC SCH (20:35)
[2016-10-25] VITALS (18 sets, daily range): BP systolic 145–174; BP diastolic 64–76; PULSE 66–86; RESP 18–20
[2016-10-25] MEDS: ACCUCHECK XX SCH (02:15)
[2016-10-25] MEDS: DEXTROSE 50% 50 ML SYRINGE IV PRN (04:27)
[2016-10-25 06:34] LABS: HEMATOCRIT 36.8 % (42.0-52.0); HEMOGLOBIN 12.2 g/dl (14.0-18.0); MEAN CORPUSCULAR HEMOGLOBIN 26.8 pg (29.0-33.0); MEAN CORPUSCULAR HGB CONC 33.1 g/dl (32.0-37.0); MEAN CORPUSCULAR VOLUME 80.9 fl (82.0-101.0); MEAN PLATELET VOLUME 11.5 fl (7.4-10.4); PLATELET COUNT 96 10^3/UL (140-440); RED BLOOD COUNT 4.55 10^6/ul (4.70-6.10); RED CELL DISTRIBUTION WIDTH 19.7 % (11.5-14.5); UNCORRECTED WBC 8.3 10^3/ul (4.8-10.8); WHITE BLOOD COUNT 8.3 10^3/ul (4.8-10.8)
[2016-10-25] MEDS: PIPER-TAZO 2.25 GM (PMX) 50 ML IVPB SCH ×3 (06:43→21:01)
[2016-10-25 06:46] LABS: CONDITION 1; LH ANALYZER COMMENTS 1
[2016-10-25 06:59] LABS: POTASSIUM 4.3 mmol/L (3.5-5.1)
[2016-10-25 07:01] LABS: CREATININE 4.81 mg/dl (0.61-1.24)
[2016-10-25 07:02] LABS: CALCIUM 8.5 mg/dl (8.4-10.2)
[2016-10-25] MEDS: DEXTROSE 5%-0.9% NACL 1,000 ML IV SCH ×2 (08:00→14:08)
[2016-10-25] MEDS: INSULIN ASPART [NOVOLOG] 3 ML PEN SC SCH ×5 (08:00→20:52)
[2016-10-25] MEDS: ASPIRIN (EC) 81 MG TAB PO SCH (08:50)
[2016-10-25] MEDS: SEVELAMER 800 MG TAB PO SCH ×3 (08:50→17:13)
[2016-10-25] MEDS: FAMOTIDINE 20 MG TAB PO SCH (08:50)
[2016-10-25] MEDS: HEPARIN 5,000 UNIT/0.5 ML SYG SC SCH ×2 (08:52→20:42)
[2016-10-25] MEDS: METHYLPREDNISOLONE 40 MG INJ IV SCH (08:54)
[2016-10-25] MEDS: AMLODIPINE 5 MG TAB PO SCH ×2 (09:00→20:38)
[2016-10-25] MEDS: ISOSORBIDE DINITRATE 20 MG TAB PO SCH ×3 (09:00→20:37)
--- NOTE | 2016-10-25 10:42 | CONS ---
Date/Time of Note Date/Time of Note DATE: 10/25/16 TIME: 10:39 Assessment/Plan Assessment/Plan Additional Assessment/Plan 1. CAD s/p lexiscan with no sig ischemia/NL EF and no recurrent chest pain - BETTER now 2. Abnormal electrocardiogram, assess for acute coronary syndrome- R/o [place] - doubt ischemia. 3. 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 History of permanent pacemaker implant- good function now. 5. History of symptomatic bradycardia - now with pacer. 6. Diabetes mellitus- con't to keep euglycemic 7. Hypertensive emergency-improved on oral anti-hypertensives- con't to fololw - HD now. 8. End-stage renal disease on hemodialysis- Rx as needed 9. AMS -MUCH BETTER TODAy - HD now - primary team and pulmonary follows. Consultation Date/Type/Reason Admit Date/Time Oct 14, 2016 at 13:43 Initial Consult Date 10/17/16 Type of Consultation: Nephrology Referring Provider: YUNIER KIRBY MD 24 HR Interval Summary Free Text/Dictation No acute change - more alert today - no CP - doubt ischemia. ROS: No fever, no chills, no nausea, no vomiting, no diarrhea/constipation No recent weight changes No chest pain, no PND, no orthopnea - MUCH BETTER, HD now No dizziness, blurred vision No thirst, no heat or cold intolerance Exam/Review of Systems Vital Signs Vitals Vital Signs Date Time Temp Pulse Resp B/P Pulse Ox O2 Delivery O2 Flow Rate FiO2 10/25/16 10:15 74 10/25/16 08:08 97.9 18 174/72 95 10/25/16 01:10 2.0 10/24/16 07:35 Nasal Cannula Intake and Output 10/24/16 10/24/16 10/25/16 15:00 23:00 07:00 Intake Total 700 ml 250 ml 200 ml Output Total 4200 ml Balance -3500 ml 250 ml 200 ml Exam General: WN/WD/NAD, AO x 2-3 HEENT: Unicetric/atraumatic/EOMI (follow commands) NECK: JVD elevated, no thyromegaly Lymph: no lymphadenopathy HEART: regular with no S3, II/ systolic murmur at apex LUNGS: Coarse sounds ABD: soft, NT, ND, +BS : Intact Neuro: non focal SKIN: chronic changes EXT: trace edema Results Result Diagram: 10/25/16 0535 10/25/16 0535 Results 24 hrs Laboratory Tests Test 10/24/16 12:09 10/24/16 12:12 10/24/16 12:16 10/24/16 17:21 Bedside Glucose 309 H 122 125 138 Test 10/24/16 20:26 10/25/16 01:42 10/25/16 04:24 10/25/16 04:47 Bedside Glucose 130 64 L 56 L 155 Test 10/25/16 05:35 10/25/16 08:48 Anion Gap 20 H Blood Morphology Comment Blood Urea Nitrogen 60 #H Calcium Level 8.5 Carbon Dioxide Level 26 Chloride Level 101 Creatinine 4.81 #H Glucose Level 112 Hematocrit 36.8 L Hemoglobin 12.2 L Mean Corpuscular Hemoglobin 26.8 L Mean Corpuscular Hemoglobin Concent 33.1 Mean Corpuscular Volume 80.9 L Mean Platelet Volume 11.5 H Platelet Count 96 L Potassium Level 4.3 Red Blood Count 4.55 L Red Cell Distribution Width 19.7 H Sodium Level 143 White Blood Count 8.3 # Bedside Glucose 76 Medications Medications Current Medications Heparin Sodium (Porcine) (Heparin (5000 Units/0.5 ml)) 5,000 unit BID SC Last administered on 10/25/16 08:52; Admin Dose 5,000 UNIT; Start 10/14/16 at 21:00 Famotidine (Pepcid) 20 mg DAILY PO Last administered on 10/25/16 08:50; Admin Dose 20 MG; Start 10/15/16 at 09:00 Ondansetron HCl (Zofran Inj) 4 mg Q6H PRN IV NAUSEA AND/OR VOMITING; Start at 16:30 Nitroglycerin (Nitroglycerin (Sl Tab) 0.4 Mg) 1 tab Q5M PRN SL CHEST PAIN; Start 10/14/16 at 16:30 Acetaminophen (Tylenol Tab) 650 mg Q6H PRN PO PAIN LEVEL 1-3 OR FEVER Last administered on 10/23/16 20:01; Admin Dose 650 MG; Start 10/14/16 at 16:30 Morphine Sulfate (morphine) 2 mg Q4H PRN IV PAIN LEVEL 7-10 Last administered on 10/24/16 20:21; Admin Dose 2 MG; Start 10/14/16 at 16:30 Docusate Sodium (Colace) 100 mg Q12H PRN PO CONSTIPATION; Start 10/14/16 at 16: 30 Guaifenesin/ Dextromethorphan (Robitussin Dm Liquid Cup) 10 ml Q4H PRN PO COUGH Last administered on 10/14/16 21:56; Admin Dose 10 ML; Start 10/14/16 at 16:30 Atorvastatin Calcium (Lipitor) 20 mg DAILY@21 PO Last administered on 20:21; Admin Dose 20 MG; Start 10/14/16 at 21:00 Miscellaneous Information 1 ea NOTE XX ; Start 10/14/16 at 17:30 Glucose (Glutose) 15 gm Q15M PRN PO DECREASED GLUCOSE; Start 10/14/16 at 17:30 Glucose (Glutose) 22.5 gm Q15M PRN PO DECREASED GLUCOSE; Start 10/14/16 at 17: 30 Dextrose (D50w Syringe) 25 ml Q15M PRN IV DECREASED GLUCOSE Last administered on 10/25/16 04:27; Admin Dose 25 ML; Start 10/14/16 at 17:30 Dextrose (D50w Syringe) 50 ml Q15M PRN IV DECREASED GLUCOSE; Start 10/14/16 at 17:30 Glucagon (Glucagen) 1 mg Q15M PRN IM DECREASED GLUCOSE; Start 10/14/16 at 17:30 Glucose (Glutose) 15 gm Q15M PRN BUCCAL DECREASED GLUCOSE Last administered on 10/24/16 08:34; Admin Dose 15 GM; Start 10/14/16 at 17:30 Amlodipine Besylate (Norvasc) 5 mg BID PO Last administered on 10/24/16 20:21 ; Admin Dose 5 MG; Start 10/15/16 at 21:00 Clonidine (Catapres) 0.1 mg Q4 PRN PO ELEVATED SYSTOLIC BP Last administered on 10/24/16 23:47; Admin Dose 0.1 MG; Start 10/15/16 at 17:00 Isosorbide Dinitrate (Isordil) 20 mg TID PO Last administered on 10/24/16 20: 38; Admin Dose 20 MG; Start 10/15/16 at 21:00 Aspirin (Halfprin) 81 mg DAILY PO Last administered on 10/25/16 08:50; Admin Dose 81 MG; Start 10/18/16 at 09:00 Hydralazine HCl (Apresoline) 100 mg Q8H PO Last administered on 10/25/16 04:50 ; Admin Dose 100 MG; Start 10/21/16 at 20:30 Diagnostic Test (Pha) (Accucheck) 1 ea 02 XX Last administered on 10/25/16 02: 15; Admin Dose 1 EA; Start 10/23/16 at 02:00 Methylprednisolone Sodium Succinate (Solu-Medrol) 20 mg QAM IV Last administered on 10/25/16 08:54; Admin Dose 20 MG; Start 10/23/16 at 09:00 Lorazepam (Ativan) 0.5 mg Q6H PRN IV AGITATION/ANXIETY Last administered on 02:12; Admin Dose 0.5 MG; Start 10/23/16 at 02:30 Insulin Glargine 20 unit 20 unit HS SC Last administered on 10/24/16 20:35; Admin Dose 20 UNIT; Start 10/23/16 at 21:00 Piperacillin Sod/ Tazobactam Sod 50 ml @ 100 mls/hr Q8 IVPB Last administered on 10/25/16 06:43; Admin Dose 100 MLS/HR; Start 10/24/16 at 12:45 Dextrose/Sodium Chloride (D5-NS) 1,000 ml @ 50 mls/hr Q20H IV Last administered on 10/24/16 15:04; Admin Dose 50 MLS/HR; Start 10/24/16 at 12:00 Miscellaneous Information (*Rx Drug Level Order Reminder*) RANDOM VANCOMYCIN LEVEL 1... ONCE ONCE XX ; Start 10/26/16 at 05:00; Stop 10/26/16 at 05:01 PEE MONTEMAYOR MD Oct 25, 2016 10:42
--- NOTE | 2016-10-25 11:03 | PN ---
Date/Time of Note Date/Time of Note DATE: 10/25/16 TIME: 11:01 Assessment/Plan VTE Prophylaxis VTE Prophylaxis Intervention: SCD's Assessment/Plan Assessment/Plan 1. URI/Bronchitis 2. Hypertensive, Uncontrolled 3. End-stage renal disease. HD MWF 4. Diabetes mellitus type 2. 5. Hx of Permanent pacemaker. 6. Anemia, Chronic Disease 7. Mineral Bone Disease, ESRD 8. Mild Hyperkalemia [id number] on hd tolerating well Exam/Review of Systems Vital Signs Vitals Vital Signs Date Time Temp Pulse Resp B/P Pulse Ox O2 Delivery O2 Flow Rate FiO2 10/25/16 10:30 72 10/25/16 08:08 97.9 18 174/72 95 10/25/16 01:10 2.0 10/24/16 07:35 Nasal Cannula Intake and Output 10/24/16 10/24/16 10/25/16 15:00 23:00 07:00 Intake Total 700 ml 250 ml 200 ml Output Total 4200 ml Balance -3500 ml 250 ml 200 ml Exam Constitutional: alert, oriented, other Head: normocephalic Eyes: nl conjunctiva Neck: supple Respiratory: clear to auscultation Cardiovascular: regular rate and rhythm Gastrointestinal: soft Musculoskeletal: nl extremities to inspection Results Result Diagram: 10/25/16 0535 10/25/16 0535 Results 24 hrs Laboratory Tests Test 10/24/16 12:09 10/24/16 12:12 10/24/16 12:16 10/24/16 17:21 Bedside Glucose 309 H 122 125 138 Test 10/24/16 20:26 10/25/16 01:42 10/25/16 04:24 10/25/16 04:47 Bedside Glucose 130 64 L 56 L 155 Test 10/25/16 05:35 10/25/16 08:48 Anion Gap 20 H Blood Morphology Comment Blood Urea Nitrogen 60 #H Calcium Level 8.5 Carbon Dioxide Level 26 Chloride Level 101 Creatinine 4.81 #H Glucose Level 112 Hematocrit 36.8 L Hemoglobin 12.2 L Mean Corpuscular Hemoglobin 26.8 L Mean Corpuscular Hemoglobin Concent 33.1 Mean Corpuscular Volume 80.9 L Mean Platelet Volume 11.5 H Platelet Count 96 L Potassium Level 4.3 Red Blood Count 4.55 L Red Cell Distribution Width 19.7 H Sodium Level 143 White Blood Count 8.3 # Bedside Glucose 76 Medications Medications Current Medications Heparin Sodium (Porcine) (Heparin (5000 Units/0.5 ml)) 5,000 unit BID SC Last administered on 10/25/16 08:52; Admin Dose 5,000 UNIT; Start 10/14/16 at 21:00 Famotidine (Pepcid) 20 mg DAILY PO Last administered on 10/25/16 08:50; Admin Dose 20 MG; Start 10/15/16 at 09:00 Ondansetron HCl (Zofran Inj) 4 mg Q6H PRN IV NAUSEA AND/OR VOMITING; Start at 16:30 Nitroglycerin (Nitroglycerin (Sl Tab) 0.4 Mg) 1 tab Q5M PRN SL CHEST PAIN; Start 10/14/16 at 16:30 Acetaminophen (Tylenol Tab) 650 mg Q6H PRN PO PAIN LEVEL 1-3 OR FEVER Last administered on 10/23/16 20:01; Admin Dose 650 MG; Start 10/14/16 at 16:30 Morphine Sulfate (morphine) 2 mg Q4H PRN IV PAIN LEVEL 7-10 Last administered on 10/24/16 20:21; Admin Dose 2 MG; Start 10/14/16 at 16:30 Docusate Sodium (Colace) 100 mg Q12H PRN PO CONSTIPATION; Start 10/14/16 at 16: 30 Guaifenesin/ Dextromethorphan (Robitussin Dm Liquid Cup) 10 ml Q4H PRN PO COUGH Last administered on 10/14/16 21:56; Admin Dose 10 ML; Start 10/14/16 at 16:30 Atorvastatin Calcium (Lipitor) 20 mg DAILY@21 PO Last administered on 20:21; Admin Dose 20 MG; Start 10/14/16 at 21:00 Miscellaneous Information 1 ea NOTE XX ; Start 10/14/16 at 17:30 Glucose (Glutose) 15 gm Q15M PRN PO DECREASED GLUCOSE; Start 10/14/16 at 17:30 Glucose (Glutose) 22.5 gm Q15M PRN PO DECREASED GLUCOSE; Start 10/14/16 at 17: 30 Dextrose (D50w Syringe) 25 ml Q15M PRN IV DECREASED GLUCOSE Last administered on 10/25/16 04:27; Admin Dose 25 ML; Start 10/14/16 at 17:30 Dextrose (D50w Syringe) 50 ml Q15M PRN IV DECREASED GLUCOSE; Start 10/14/16 at 17:30 Glucagon (Glucagen) 1 mg Q15M PRN IM DECREASED GLUCOSE; Start 10/14/16 at 17:30 Glucose (Glutose) 15 gm Q15M PRN BUCCAL DECREASED GLUCOSE Last administered on 10/24/16 08:34; Admin Dose 15 GM; Start 10/14/16 at 17:30 Amlodipine Besylate (Norvasc) 5 mg BID PO Last administered on 10/24/16 20:21 ; Admin Dose 5 MG; Start 10/15/16 at 21:00 Clonidine (Catapres) 0.1 mg Q4 PRN PO ELEVATED SYSTOLIC BP Last administered on 10/24/16 23:47; Admin Dose 0.1 MG; Start 10/15/16 at 17:00 Isosorbide Dinitrate (Isordil) 20 mg TID PO Last administered on 10/24/16 20: 38; Admin Dose 20 MG; Start 10/15/16 at 21:00 Aspirin (Halfprin) 81 mg DAILY PO Last administered on 10/25/16 08:50; Admin Dose 81 MG; Start 10/18/16 at 09:00 Hydralazine HCl (Apresoline) 100 mg Q8H PO Last administered on 10/25/16 04:50 ; Admin Dose 100 MG; Start 10/21/16 at 20:30 Diagnostic Test (Pha) (Accucheck) 1 ea 02 XX Last administered on 10/25/16 02: 15; Admin Dose 1 EA; Start 10/23/16 at 02:00 Methylprednisolone Sodium Succinate (Solu-Medrol) 20 mg QAM IV Last administered on 10/25/16 08:54; Admin Dose 20 MG; Start 10/23/16 at 09:00 Lorazepam (Ativan) 0.5 mg Q6H PRN IV AGITATION/ANXIETY Last administered on 02:12; Admin Dose 0.5 MG; Start 10/23/16 at 02:30 Insulin Glargine 20 unit 20 unit HS SC Last administered on 10/24/16 20:35; Admin Dose 20 UNIT; Start 10/23/16 at 21:00 Piperacillin Sod/ Tazobactam Sod 50 ml @ 100 mls/hr Q8 IVPB Last administered on 10/25/16 06:43; Admin Dose 100 MLS/HR; Start 10/24/16 at 12:45 Dextrose/Sodium Chloride (D5-NS) 1,000 ml @ 50 mls/hr Q20H IV Last administered on 10/24/16 15:04; Admin Dose 50 MLS/HR; Start 10/24/16 at 12:00 Miscellaneous Information (*Rx Drug Level Order Reminder*) RANDOM VANCOMYCIN LEVEL 1... ONCE ONCE XX ; Start 10/26/16 at 05:00; Stop 10/26/16 at 05:01 ELSA AYALA MD Oct 25, 2016 11:02
[2016-10-25 11:06] LABS: ANISOCYTOSIS 2+; HYPOCHROMASIA 1+; LYMPHOCYTES # 0.1 10^3/ul (0.8-2.9); MONOCYTE # 0.4 10^3/ul (0.3-0.9); MYELOCYTES # 0.1; NEUTROPHIL # 7.7 10^3/ul (1.6-7.5)
[2016-10-25 11:07] LABS: MICROCYTOSIS 1+
[2016-10-25 11:08] LABS: OVALOCYTES FEW; PLATELET ESTIMATE PLT APPEAR DECREASED; POIKILOCYTOSIS 1+; TARGET CELLS OCCASIONAL
--- NOTE | 2016-10-25 16:53 | PN ---
Date/Time of Note Date/Time of Note DATE: 10/25/16 TIME: 16:51 Assessment/Plan VTE Prophylaxis VTE Prophylaxis Intervention: SCD's Assessment/Plan Assessment/Plan Right closed intratrochanteric femoral fracture, status post right hip cephalomedullary nailing. Continue physical therapy. Continue [place] [facility] for pain. 2. Seizure disorder. Continue Keppra. 3. Chronic hyponatremia. Continue to monitor electrolytes. 4. Rheumatoid arthritis. Continue Plaquenil. 5. Hypertension. Continue Norvasc and Zestril. 6. Status post-acute kidney injury, dehydration and mild rhabdomyolysis. 7. Chronic pain. Continue Protonix for peptic ulcer disease prophylaxis and sequential compression device for deep venous thrombosis prophylaxis. Further recommendations based on clinical course. Plan of care discussed with Dr. Rangel. Subjective 24 Hr Interval Summary Free Text/Dictation NAD, family at bed side- all Qs answered. no new issues reported. dw staff. Constitutional: no complaints Eyes: no complaints ENT: no complaints Respiratory: no complaints Cardiovascular: no complaints Gastrointestinal: no complaints Genitourinary: no complaints Musculoskeletal: no complaints Skin: no complaints Neurologic: no complaints Endocrine: no complaints Lymphatic: no complaints Psychological: no complaints Immunologic: no complaints Exam/Review of Systems Vital Signs Vitals Vital Signs Date Time Temp Pulse Resp B/P Pulse Ox O2 Delivery O2 Flow Rate FiO2 10/25/16 16:16 98.3 79 18 145/64 95 10/25/16 01:10 2.0 10/24/16 07:35 Nasal Cannula Intake and Output 10/24/16 10/24/16 10/25/16 15:00 23:00 07:00 Intake Total 700 ml 250 ml 200 ml Output Total 4200 ml Balance -3500 ml 250 ml 200 ml Exam Constitutional: alert, well developed Psych: nl mood/affect Eyes: EOMI, PERRL, nl sclera ENMT: nl external ears & nose Neck: non-tender Respiratory: diminished breath sounds Cardiovascular: nl pulses Gastrointestinal: non-tender, soft Musculoskeletal: nl extremities to inspection Extremities: normal pulses Neurological: nl speech, other Skin: other Lymph: nontender Results Result Diagram: 10/25/16 0535 10/25/16 0535 Results 24 hrs Laboratory Tests Test 10/24/16 17:21 10/24/16 20:26 10/25/16 01:42 10/25/16 04:24 Bedside Glucose 138 130 64 L 56 L Test 10/25/16 04:47 10/25/16 05:35 10/25/16 08:48 10/25/16 13:05 Bedside Glucose 155 76 134 Anion Gap 20 H Anisocytosis 2+ Blood Morphology Comment Blood Urea Nitrogen 60 #H Calcium Level 8.5 Carbon Dioxide Level 26 Chloride Level 101 Creatinine 4.81 #H Glucose Level 112 Hematocrit 36.8 L Hemoglobin 12.2 L Hypochromasia 1+ Large Platelets OCCASIONAL Lymphocytes # 0.1 L Lymphocytes % 1.0 L Mean Corpuscular Hemoglobin 26.8 L Mean Corpuscular Hemoglobin Concent 33.1 Mean Corpuscular Volume 80.9 L Mean Platelet Volume 11.5 H Microcytosis 1+ Monocytes # 0.4 Monocytes % 5.0 Myelocytes # 0.1 Myelocytes % 1.0 H Neutrophils # 7.7 H Neutrophils % 93.0 H Ovalocytes FEW Platelet Count 96 L Platelet Estimate PLT APPEAR DECREASED Potassium Level 4.3 Red Blood Count 4.55 L Red Cell Distribution Width 19.7 H Sodium Level 143 Target Cells OCCASIONAL White Blood Count 8.3 # Medications Medications Current Medications Heparin Sodium (Porcine) (Heparin (5000 Units/0.5 ml)) 5,000 unit BID SC Last administered on 10/25/16 08:52; Admin Dose 5,000 UNIT; Start 10/14/16 at 21:00 Famotidine (Pepcid) 20 mg DAILY PO Last administered on 10/25/16 08:50; Admin Dose 20 MG; Start 10/15/16 at 09:00 Ondansetron HCl (Zofran Inj) 4 mg Q6H PRN IV NAUSEA AND/OR VOMITING; Start at 16:30 Nitroglycerin (Nitroglycerin (Sl Tab) 0.4 Mg) 1 tab Q5M PRN SL CHEST PAIN; Start 10/14/16 at 16:30 Acetaminophen (Tylenol Tab) 650 mg Q6H PRN PO PAIN LEVEL 1-3 OR FEVER Last administered on 10/23/16 20:01; Admin Dose 650 MG; Start 10/14/16 at 16:30 Morphine Sulfate (morphine) 2 mg Q4H PRN IV PAIN LEVEL 7-10 Last administered on 10/24/16 20:21; Admin Dose 2 MG; Start 10/14/16 at 16:30 Docusate Sodium (Colace) 100 mg Q12H PRN PO CONSTIPATION; Start 10/14/16 at 16: 30 Guaifenesin/ Dextromethorphan (Robitussin Dm Liquid Cup) 10 ml Q4H PRN PO COUGH Last administered on 10/14/16 21:56; Admin Dose 10 ML; Start 10/14/16 at 16:30 Atorvastatin Calcium (Lipitor) 20 mg DAILY@21 PO Last administered on 20:21; Admin Dose 20 MG; Start 10/14/16 at 21:00 Miscellaneous Information 1 ea NOTE XX ; Start 10/14/16 at 17:30 Glucose (Glutose) 15 gm Q15M PRN PO DECREASED GLUCOSE; Start 10/14/16 at 17:30 Glucose (Glutose) 22.5 gm Q15M PRN PO DECREASED GLUCOSE; Start 10/14/16 at 17: 30 Dextrose (D50w Syringe) 25 ml Q15M PRN IV DECREASED GLUCOSE Last administered on 10/25/16 04:27; Admin Dose 25 ML; Start 10/14/16 at 17:30 Dextrose (D50w Syringe) 50 ml Q15M PRN IV DECREASED GLUCOSE; Start 10/14/16 at 17:30 Glucagon (Glucagen) 1 mg Q15M PRN IM DECREASED GLUCOSE; Start 10/14/16 at 17:30 Glucose (Glutose) 15 gm Q15M PRN BUCCAL DECREASED GLUCOSE Last administered on 10/24/16 08:34; Admin Dose 15 GM; Start 10/14/16 at 17:30 Amlodipine Besylate (Norvasc) 5 mg BID PO Last administered on 10/24/16 20:21 ; Admin Dose 5 MG; Start 10/15/16 at 21:00 Clonidine (Catapres) 0.1 mg Q4 PRN PO ELEVATED SYSTOLIC BP Last administered on 10/24/16 23:47; Admin Dose 0.1 MG; Start 10/15/16 at 17:00 Isosorbide Dinitrate (Isordil) 20 mg TID PO Last administered on 10/25/16 13: 29; Admin Dose 20 MG; Start 10/15/16 at 21:00 Aspirin (Halfprin) 81 mg DAILY PO Last administered on 10/25/16 08:50; Admin Dose 81 MG; Start 10/18/16 at 09:00 Hydralazine HCl (Apresoline) 100 mg Q8H PO Last administered on 10/25/16 13:30 ; Admin Dose 100 MG; Start 10/21/16 at 20:30 Diagnostic Test (Pha) (Accucheck) 1 ea 02 XX Last administered on 10/25/16 02: 15; Admin Dose 1 EA; Start 10/23/16 at 02:00 Methylprednisolone Sodium Succinate (Solu-Medrol) 20 mg QAM IV Last administered on 10/25/16 08:54; Admin Dose 20 MG; Start 10/23/16 at 09:00 Lorazepam (Ativan) 0.5 mg Q6H PRN IV AGITATION/ANXIETY Last administered on 02:12; Admin Dose 0.5 MG; Start 10/23/16 at 02:30 Insulin Glargine 20 unit 20 unit HS SC Last administered on 10/24/16 20:35; Admin Dose 20 UNIT; Start 10/23/16 at 21:00 Piperacillin Sod/ Tazobactam Sod 50 ml @ 100 mls/hr Q8 IVPB Last administered on 10/25/16 13:30; Admin Dose 100 MLS/HR; Start 10/24/16 at 12:45 Dextrose/Sodium Chloride (D5-NS) 1,000 ml @ 50 mls/hr Q20H IV Last administered on 10/25/16 14:08; Admin Dose 50 MLS/HR; Start 10/24/16 at 12:00 Miscellaneous Information (*Rx Drug Level Order Reminder*) RANDOM VANCOMYCIN LEVEL 1... ONCE ONCE XX ; Start 10/26/16 at 05:00; Stop 10/26/16 at 05:01 SADAF VAZQUEZ Oct 25, 2016 16:53
--- NOTE | 2016-10-25 17:08 | PN ---
DATE: 10/25/2016 ATTENDING PHYSICIAN: Norbert Rangel MD SUBJECTIVE: Chart reviewed. Events noted. Currently, the patient is on 2 liters O2 nasal cannula, saturating 97%. PHYSICAL EXAMINATION: VITAL SIGNS: Blood pressure 155/69, pulse 71, respirations 18, temperature afebrile. HEENT: Pupils are equal and reactive to light. NECK: Supple. No JVD noted. No cervical adenopathy. No carotid bruits heard. LUNGS: Fair breath sounds bilaterally. CARDIOVASCULAR: S1, S2 normal. ABDOMEN: Soft, nontender. No organomegaly or masses noted. EXTREMITIES: No clubbing or cyanosis noted. NEUROLOGICAL: Awake. LABORATORY DATA: Sodium 143, potassium 4.3, chloride 101, CO2 26, BUN 60, creatinine 4.8, glucose 1 12. WBC 8.3, hemoglobin 12.2, hematocrit 36.8, platelets 96,000. IMPRESSION: 1. Congestive heart failure. 2. End-stage renal disease on hemodialysis. 3. History of pacemaker. 4. Volume overload. RECOMMENDATIONS: 1. Continue hemodialysis and ultrafiltration per nephrology. 2. Followup chest x-ray. Dictated By: ZACK GUERRERO MD, MA/JERAMY Conf#: [id number] DID#: [id number]
[2016-10-25] MEDS: ATORVASTATIN 20 MG TAB PO SCH (20:37)
[2016-10-25] MEDS: INSULIN GLARGINE [LANtus] 3 ML PEN SC SCH (20:51)
[2016-10-26] VITALS (12 sets, daily range): BP systolic 142–163; BP diastolic 61–74; PULSE 66–76; RESP 17–20
[2016-10-26] MEDS: ACCUCHECK XX SCH (02:00)
[2016-10-26] MEDS: PIPER-TAZO 2.25 GM (PMX) 50 ML IVPB SCH ×3 (06:37→21:31)
[2016-10-26 07:45] LABS: POTASSIUM 4.4 mmol/L (3.5-5.1)
[2016-10-26 07:47] LABS: CREATININE 4.57 mg/dl (0.61-1.24)
[2016-10-26 07:48] LABS: CALCIUM 8.4 mg/dl (8.4-10.2)
[2016-10-26] MEDS: INSULIN ASPART [NOVOLOG] 3 ML PEN SC SCH ×4 (08:05→21:31)
[2016-10-26 08:35] LABS: HEMATOCRIT 35.6 % (42.0-52.0); HEMOGLOBIN 11.9 g/dl (14.0-18.0); LYMPHOCYTES # 0.5 10^3/ul (0.8-2.9); LYMPHOCYTES % 4.7 % (15.0-51.0); MEAN CORPUSCULAR HGB CONC 33.6 g/dl (32.0-37.0); MEAN CORPUSCULAR VOLUME 80.5 fl (82.0-101.0); MEAN PLATELET VOLUME 12.4 fl (7.4-10.4); MONOCYTE # 1.2 10^3/ul (0.3-0.9); MONOCYTES % 11.6 % (0.0-11.0); NEUTROPHIL # 8.7 10^3/ul (1.6-7.5); NEUTROPHILS % 83.7 % (39.0-77.0); RED BLOOD COUNT 4.42 10^6/ul (4.70-6.10); RED CELL DISTRIBUTION WIDTH 19.2 % (11.5-14.5); UNCORRECTED WBC 10.4 10^3/ul (4.8-10.8); WHITE BLOOD COUNT 10.4 10^3/ul (4.8-10.8)
[2016-10-26 08:39] LABS: CONDITION 1; LH ANALYZER COMMENTS 1; PLATELET COUNT 103 10^3/UL (140-440)
[2016-10-26] MEDS: FAMOTIDINE 20 MG TAB PO SCH (09:44)
[2016-10-26] MEDS: SEVELAMER 800 MG TAB PO SCH ×3 (09:44→17:16)
[2016-10-26] MEDS: METHYLPREDNISOLONE 40 MG INJ IV SCH (09:44)
[2016-10-26] MEDS: ISOSORBIDE DINITRATE 20 MG TAB PO SCH ×3 (09:44→21:26)
[2016-10-26] MEDS: AMLODIPINE 5 MG TAB PO SCH ×2 (09:44→21:26)
[2016-10-26] MEDS: ASPIRIN (EC) 81 MG TAB PO SCH (09:44)
[2016-10-26] MEDS: HEPARIN 5,000 UNIT/0.5 ML SYG SC SCH ×2 (09:45→21:29)
--- NOTE | 2016-10-26 11:39 | PN ---
Date/Time of Note Date/Time of Note DATE: 10/26/16 TIME: 11:38 Assessment/Plan VTE Prophylaxis VTE Prophylaxis Intervention: other Lines/Catheters Urinary Cath still in place: No Assessment/Plan Chief Complaint/Hosp Course 1. URI/Bronchitis 2. Hypertensive, Uncontrolled 3. End-stage renal disease. HD MWF 4. Diabetes mellitus type 2. 5. Hx of Permanent pacemaker. 6. Anemia, Chronic Disease 7. Mineral Bone Disease, ESRD 8. Mild Hyperkalemia [id number] on hd tolerating well [id number] cont plan Problems: Exam/Review of Systems Vital Signs Vitals Vital Signs Date Time Temp Pulse Resp B/P Pulse Ox O2 Delivery O2 Flow Rate FiO2 10/26/16 08:06 98.0 78 17 150/65 94 10/26/16 08:00 Nasal Cannula 2.0 10/25/16 21:31 21 Intake and Output 10/25/16 10/25/16 10/26/16 15:00 23:00 07:00 Intake Total 500 ml 750 ml Output Total 500 ml Balance 0 ml 750 ml Exam Constitutional: alert Psych: no complaints Head: normocephalic Eyes: nl conjunctiva ENMT: nl external ears & nose Neck: supple Respiratory: clear to auscultation Cardiovascular: regular rate and rhythm Gastrointestinal: soft Musculoskeletal: nl extremities to inspection Results Result Diagram: 10/26/16 0640 10/26/16 0640 Results 24 hrs Laboratory Tests Test 10/25/16 13:05 10/25/16 17:08 10/25/16 20:35 10/25/16 23:52 Bedside Glucose 134 328 H 268 H 224 H Test 10/26/16 06:40 10/26/16 06:50 10/26/16 08:00 Anion Gap 19 H Basophils # 0.0 Basophils % 0.0 Blood Morphology Comment Blood Urea Nitrogen 60 H Calcium Level 8.4 Carbon Dioxide Level 25 Chloride Level 99 Creatinine 4.57 H Eosinophils # 0.0 Eosinophils % 0.0 Glucose Level 142 Hematocrit 35.6 L Hemoglobin 11.9 L Lymphocytes # 0.5 L Lymphocytes % 4.7 L Mean Corpuscular Hemoglobin 27.0 L Mean Corpuscular Hemoglobin Concent 33.6 Mean Corpuscular Volume 80.5 L Mean Platelet Volume 12.4 H Monocytes # 1.2 H Monocytes % 11.6 H Neutrophils # 8.7 H Neutrophils % 83.7 H Nucleated Red Blood Cells # 0.0 Nucleated Red Blood Cells % 0.0 Platelet Count 103 L Potassium Level 4.4 Red Blood Count 4.42 L Red Cell Distribution Width 19.2 H Sodium Level 139 White Blood Count 10.4 # Random Vancomycin Level 12.6 Bedside Glucose 153 Medications Medications Current Medications Heparin Sodium (Porcine) (Heparin (5000 Units/0.5 ml)) 5,000 unit BID SC Last administered on 10/26/16 09:45; Admin Dose 5,000 UNIT; Start 10/14/16 at 21:00 Famotidine (Pepcid) 20 mg DAILY PO Last administered on 10/26/16 09:44; Admin Dose 20 MG; Start 10/15/16 at 09:00 Ondansetron HCl (Zofran Inj) 4 mg Q6H PRN IV NAUSEA AND/OR VOMITING; Start at 16:30 Nitroglycerin (Nitroglycerin (Sl Tab) 0.4 Mg) 1 tab Q5M PRN SL CHEST PAIN; Start 10/14/16 at 16:30 Acetaminophen (Tylenol Tab) 650 mg Q6H PRN PO PAIN LEVEL 1-3 OR FEVER Last administered on 10/23/16 20:01; Admin Dose 650 MG; Start 10/14/16 at 16:30 Morphine Sulfate (morphine) 2 mg Q4H PRN IV PAIN LEVEL 7-10 Last administered on 10/24/16 20:21; Admin Dose 2 MG; Start 10/14/16 at 16:30 Docusate Sodium (Colace) 100 mg Q12H PRN PO CONSTIPATION; Start 10/14/16 at 16: 30 Guaifenesin/ Dextromethorphan (Robitussin Dm Liquid Cup) 10 ml Q4H PRN PO COUGH Last administered on 10/14/16 21:56; Admin Dose 10 ML; Start 10/14/16 at 16:30 Atorvastatin Calcium (Lipitor) 20 mg DAILY@21 PO Last administered on 20:37; Admin Dose 20 MG; Start 10/14/16 at 21:00 Miscellaneous Information 1 ea NOTE XX ; Start 10/14/16 at 17:30 Glucose (Glutose) 15 gm Q15M PRN PO DECREASED GLUCOSE; Start 10/14/16 at 17:30 Glucose (Glutose) 22.5 gm Q15M PRN PO DECREASED GLUCOSE; Start 10/14/16 at 17: 30 Dextrose (D50w Syringe) 25 ml Q15M PRN IV DECREASED GLUCOSE Last administered on 10/25/16 04:27; Admin Dose 25 ML; Start 10/14/16 at 17:30 Dextrose (D50w Syringe) 50 ml Q15M PRN IV DECREASED GLUCOSE; Start 10/14/16 at 17:30 Glucagon (Glucagen) 1 mg Q15M PRN IM DECREASED GLUCOSE; Start 10/14/16 at 17:30 Glucose (Glutose) 15 gm Q15M PRN BUCCAL DECREASED GLUCOSE Last administered on 10/24/16 08:34; Admin Dose 15 GM; Start 10/14/16 at 17:30 Amlodipine Besylate (Norvasc) 5 mg BID PO Last administered on 10/26/16 09:44 ; Admin Dose 5 MG; Start 10/15/16 at 21:00 Clonidine (Catapres) 0.1 mg Q4 PRN PO ELEVATED SYSTOLIC BP Last administered on 10/24/16 23:47; Admin Dose 0.1 MG; Start 10/15/16 at 17:00 Isosorbide Dinitrate (Isordil) 20 mg TID PO Last administered on 10/26/16 09: 44; Admin Dose 20 MG; Start 10/15/16 at 21:00 Aspirin (Halfprin) 81 mg DAILY PO Last administered on 10/26/16 09:44; Admin Dose 81 MG; Start 10/18/16 at 09:00 Hydralazine HCl (Apresoline) 100 mg Q8H PO Last administered on 10/26/16 04:30 ; Admin Dose 100 MG; Start 10/21/16 at 20:30 Diagnostic Test (Pha) (Accucheck) 1 ea 02 XX Last administered on 10/25/16 02: 15; Admin Dose 1 EA; Start 10/23/16 at 02:00 Methylprednisolone Sodium Succinate (Solu-Medrol) 20 mg QAM IV Last administered on 10/26/16 09:44; Admin Dose 20 MG; Start 10/23/16 at 09:00 Lorazepam (Ativan) 0.5 mg Q6H PRN IV AGITATION/ANXIETY Last administered on 02:12; Admin Dose 0.5 MG; Start 10/23/16 at 02:30 Insulin Glargine 20 unit 20 unit HS SC Last administered on 10/25/16 20:51; Admin Dose 20 UNIT; Start 10/23/16 at 21:00 Piperacillin Sod/ Tazobactam Sod 50 ml @ 100 mls/hr Q8 IVPB Last administered on 10/26/16 06:37; Admin Dose 100 MLS/HR; Start 10/24/16 at 12:45 Vancomycin HCl (Vancocin) 250 ml @ 125 mls/hr 12 IVPB ; Start 10/26/16 at 12:00 ; Stop 10/26/16 at 23:00 ELSA AYALA MD Oct 26, 2016 11:39
[2016-10-26] MEDS ORDERED: VANCOMYCIN 1 GM in NS 250 ML IVPB SCH (12:00)
--- NOTE | 2016-10-26 12:39 | PN ---
Date/Time of Note Date/Time of Note DATE: 10/26/16 TIME: 12:39 Assessment/Plan VTE Prophylaxis VTE Prophylaxis Intervention: other Lines/Catheters Urinary Cath still in place: No Assessment/Plan Assessment/Plan 1. Right closed intratrochanteric femoral fracture, status post right hip cephalomedullary nailing. Continue physical therapy. Continue [facility] p.r.n. for pain. 2. Seizure disorder. Continue Keppra. 3. Chronic hyponatremia. Continue to monitor electrolytes. 4. Rheumatoid arthritis. Continue Plaquenil. 5. Hypertension. Continue Norvasc and Zestril. 6. Status post-acute kidney injury, dehydration and mild rhabdomyolysis. 7. Chronic pain. Continue Protonix for peptic ulcer disease prophylaxis and sequential compression device for deep venous thrombosis prophylaxis. Further recommendations based on clinical course. Plan of care discussed with Dr. Rangel. Exam/Review of Systems Vital Signs Vitals Vital Signs Date Time Temp Pulse Resp B/P Pulse Ox O2 Delivery O2 Flow Rate FiO2 10/26/16 12:27 67 10/26/16 11:51 98.3 18 142/65 94 10/26/16 08:00 Nasal Cannula 2.0 10/25/16 21:31 21 Intake and Output 10/25/16 10/25/16 10/26/16 15:00 23:00 07:00 Intake Total 500 ml 750 ml Output Total 500 ml Balance 0 ml 750 ml Exam Constitutional: alert, well developed Psych: nl mood/affect Head: normocephalic Eyes: EOMI, PERRL, nl sclera ENMT: nl external ears & nose Respiratory: clear to auscultation Cardiovascular: regular rate and rhythm Gastrointestinal: non-tender, soft Musculoskeletal: other Extremities: normal pulses Neurological: nl mental status, nl speech Skin: nl turgor Lymph: nontender Results Result Diagram: 10/26/16 0640 10/26/16 0640 Results 24 hrs Laboratory Tests Test 10/25/16 13:05 10/25/16 17:08 10/25/16 20:35 10/25/16 23:52 Bedside Glucose 134 328 H 268 H 224 H Test 10/26/16 06:40 10/26/16 06:50 10/26/16 08:00 10/26/16 11:49 Anion Gap 19 H Basophils # 0.0 Basophils % 0.0 Blood Morphology Comment Blood Urea Nitrogen 60 H Calcium Level 8.4 Carbon Dioxide Level 25 Chloride Level 99 Creatinine 4.57 H Eosinophils # 0.0 Eosinophils % 0.0 Glucose Level 142 Hematocrit 35.6 L Hemoglobin 11.9 L Lymphocytes # 0.5 L Lymphocytes % 4.7 L Mean Corpuscular Hemoglobin 27.0 L Mean Corpuscular Hemoglobin Concent 33.6 Mean Corpuscular Volume 80.5 L Mean Platelet Volume 12.4 H Monocytes # 1.2 H Monocytes % 11.6 H Neutrophils # 8.7 H Neutrophils % 83.7 H Nucleated Red Blood Cells # 0.0 Nucleated Red Blood Cells % 0.0 Platelet Count 103 L Potassium Level 4.4 Red Blood Count 4.42 L Red Cell Distribution Width 19.2 H Sodium Level 139 White Blood Count 10.4 # Random Vancomycin Level 12.6 Bedside Glucose 153 190 Medications Medications Current Medications Heparin Sodium (Porcine) (Heparin (5000 Units/0.5 ml)) 5,000 unit BID SC Last administered on 10/26/16 09:45; Admin Dose 5,000 UNIT; Start 10/14/16 at 21:00 Famotidine (Pepcid) 20 mg DAILY PO Last administered on 10/26/16 09:44; Admin Dose 20 MG; Start 10/15/16 at 09:00 Ondansetron HCl (Zofran Inj) 4 mg Q6H PRN IV NAUSEA AND/OR VOMITING; Start at 16:30 Nitroglycerin (Nitroglycerin (Sl Tab) 0.4 Mg) 1 tab Q5M PRN SL CHEST PAIN; Start 10/14/16 at 16:30 Acetaminophen (Tylenol Tab) 650 mg Q6H PRN PO PAIN LEVEL 1-3 OR FEVER Last administered on 10/23/16 20:01; Admin Dose 650 MG; Start 10/14/16 at 16:30 Morphine Sulfate (morphine) 2 mg Q4H PRN IV PAIN LEVEL 7-10 Last administered on 10/24/16 20:21; Admin Dose 2 MG; Start 10/14/16 at 16:30 Docusate Sodium (Colace) 100 mg Q12H PRN PO CONSTIPATION; Start 10/14/16 at 16: 30 Guaifenesin/ Dextromethorphan (Robitussin Dm Liquid Cup) 10 ml Q4H PRN PO COUGH Last administered on 10/14/16 21:56; Admin Dose 10 ML; Start 10/14/16 at 16:30 Atorvastatin Calcium (Lipitor) 20 mg DAILY@21 PO Last administered on 20:37; Admin Dose 20 MG; Start 10/14/16 at 21:00 Miscellaneous Information 1 ea NOTE XX ; Start 10/14/16 at 17:30 Glucose (Glutose) 15 gm Q15M PRN PO DECREASED GLUCOSE; Start 10/14/16 at 17:30 Glucose (Glutose) 22.5 gm Q15M PRN PO DECREASED GLUCOSE; Start 10/14/16 at 17: 30 Dextrose (D50w Syringe) 25 ml Q15M PRN IV DECREASED GLUCOSE Last administered on 10/25/16 04:27; Admin Dose 25 ML; Start 10/14/16 at 17:30 Dextrose (D50w Syringe) 50 ml Q15M PRN IV DECREASED GLUCOSE; Start 10/14/16 at 17:30 Glucagon (Glucagen) 1 mg Q15M PRN IM DECREASED GLUCOSE; Start 10/14/16 at 17:30 Glucose (Glutose) 15 gm Q15M PRN BUCCAL DECREASED GLUCOSE Last administered on 10/24/16 08:34; Admin Dose 15 GM; Start 10/14/16 at 17:30 Amlodipine Besylate (Norvasc) 5 mg BID PO Last administered on 10/26/16 09:44 ; Admin Dose 5 MG; Start 10/15/16 at 21:00 Clonidine (Catapres) 0.1 mg Q4 PRN PO ELEVATED SYSTOLIC BP Last administered on 10/24/16 23:47; Admin Dose 0.1 MG; Start 10/15/16 at 17:00 Isosorbide Dinitrate (Isordil) 20 mg TID PO Last administered on 10/26/16 12: 29; Admin Dose 20 MG; Start 10/15/16 at 21:00 Aspirin (Halfprin) 81 mg DAILY PO Last administered on 10/26/16 09:44; Admin Dose 81 MG; Start 10/18/16 at 09:00 Hydralazine HCl (Apresoline) 100 mg Q8H PO Last administered on 10/26/16 12:29 ; Admin Dose 100 MG; Start 10/21/16 at 20:30 Diagnostic Test (Pha) (Accucheck) 1 ea 02 XX Last administered on 10/25/16 02: 15; Admin Dose 1 EA; Start 10/23/16 at 02:00 Methylprednisolone Sodium Succinate (Solu-Medrol) 20 mg QAM IV Last administered on 10/26/16 09:44; Admin Dose 20 MG; Start 10/23/16 at 09:00 Lorazepam (Ativan) 0.5 mg Q6H PRN IV AGITATION/ANXIETY Last administered on 02:12; Admin Dose 0.5 MG; Start 10/23/16 at 02:30 Insulin Glargine 20 unit 20 unit HS SC Last administered on 10/25/16 20:51; Admin Dose 20 UNIT; Start 10/23/16 at 21:00 Piperacillin Sod/ Tazobactam Sod 50 ml @ 100 mls/hr Q8 IVPB Last administered on 10/26/16 06:37; Admin Dose 100 MLS/HR; Start 10/24/16 at 12:45 Vancomycin HCl (Vancocin) 250 ml @ 125 mls/hr 12 IVPB Last administered on 12:29; Admin Dose 125 MLS/HR; Start 10/26/16 at 12:00; Stop 10/26/16 at 23:00 SADAF VAZQUEZ Oct 26, 2016 12:39
--- NOTE | 2016-10-26 13:36 | CONS ---
Date/Time of Note Date/Time of Note DATE: 10/26/16 TIME: 13:31 Assessment/Plan Assessment/Plan Additional Assessment/Plan 1. CAD s/p lexiscan with no sig ischemia/NL EF and no recurrent chest pain - BETTER now 2. Abnormal electrocardiogram, assess for acute coronary syndrome- R/o DC - doubt ischemia. 3. Right bundle branch block by EKG- chronic - stable by tele 4. History of permanent pacemaker implant- good function now. 5. History of symptomatic bradycardia - now with pacer. 6. Diabetes mellitus- con't to keep euglycemic 7. Hypertensive emergency-improved on oral anti-hypertensives- con't to fololw - HD now. Much better now. 8. End-stage renal disease on hemodialysis- Rx as needed 9. AMS -MUCH BETTER TODAY - HD now - primary team and pulmonary follows - will monitor Consultation Date/Type/Reason Admit Date/Time Oct 14, 2016 at 13:43 Initial Consult Date 10/17/16 Type of Consultation: Nephrology Referring Provider: YUNIER KIRBY MD 24 HR Interval Summary Free Text/Dictation No acute change - much better fluid status - no SOB now ROS: No fever, no chills, no nausea, no vomiting, no diarrhea/constipation No recent weight changes No chest pain, no PND, no orthopnea No dizziness, blurred vision No thirst, no heat or cold intolerance Exam/Review of Systems Vital Signs Vitals Vital Signs Date Time Temp Pulse Resp B/P Pulse Ox O2 Delivery O2 Flow Rate FiO2 10/26/16 12:27 67 10/26/16 11:51 98.3 18 142/65 94 10/26/16 08:00 Nasal Cannula 2.0 10/25/16 21:31 21 Intake and Output 10/25/16 10/25/16 10/26/16 15:00 23:00 07:00 Intake Total 500 ml 750 ml Output Total 500 ml Balance 0 ml 750 ml Exam General: WN/WD/NAD, AOx 0-1 HEENT: Unicetric/atraumatic/EOMI (follow commands) NECK: JVD elevated, no thyromegaly Lymph: no lymphadenopathy HEART: regular with no S3, II/ systolic murmur at apex LUNGS: Coarse sounds ABD: soft, NT, ND, +BS : Intact Neuro: non focal SKIN: chronic changes EXT: trace edema Results Result Diagram: 10/26/16 0640 10/26/16 0640 Results 24 hrs Laboratory Tests Test 10/25/16 17:08 10/25/16 20:35 10/25/16 23:52 10/26/16 06:40 Bedside Glucose 328 H 268 H 224 H Anion Gap 19 H Basophils # 0.0 Basophils % 0.0 Blood Morphology Comment Blood Urea Nitrogen 60 H Calcium Level 8.4 Carbon Dioxide Level 25 Chloride Level 99 Creatinine 4.57 H Eosinophils # 0.0 Eosinophils % 0.0 Glucose Level 142 Hematocrit 35.6 L Hemoglobin 11.9 L Lymphocytes # 0.5 L Lymphocytes % 4.7 L Mean Corpuscular Hemoglobin 27.0 L Mean Corpuscular Hemoglobin Concent 33.6 Mean Corpuscular Volume 80.5 L Mean Platelet Volume 12.4 H Monocytes # 1.2 H Monocytes % 11.6 H Neutrophils # 8.7 H Neutrophils % 83.7 H Nucleated Red Blood Cells # 0.0 Nucleated Red Blood Cells % 0.0 Platelet Count 103 L Potassium Level 4.4 Red Blood Count 4.42 L Red Cell Distribution Width 19.2 H Sodium Level 139 White Blood Count 10.4 # Test 10/26/16 06:50 10/26/16 08:00 10/26/16 11:49 Random Vancomycin Level 12.6 Bedside Glucose 153 190 Medications Medications Current Medications Heparin Sodium (Porcine) (Heparin (5000 Units/0.5 ml)) 5,000 unit BID SC Last administered on 10/26/16 09:45; Admin Dose 5,000 UNIT; Start 10/14/16 at 21:00 Famotidine (Pepcid) 20 mg DAILY PO Last administered on 10/26/16 09:44; Admin Dose 20 MG; Start 10/15/16 at 09:00 Ondansetron HCl (Zofran Inj) 4 mg Q6H PRN IV NAUSEA AND/OR VOMITING; Start at 16:30 Nitroglycerin (Nitroglycerin (Sl Tab) 0.4 Mg) 1 tab Q5M PRN SL CHEST PAIN; Start 10/14/16 at 16:30 Acetaminophen (Tylenol Tab) 650 mg Q6H PRN PO PAIN LEVEL 1-3 OR FEVER Last administered on 10/23/16 20:01; Admin Dose 650 MG; Start 10/14/16 at 16:30 Morphine Sulfate (morphine) 2 mg Q4H PRN IV PAIN LEVEL 7-10 Last administered on 10/24/16 20:21; Admin Dose 2 MG; Start 10/14/16 at 16:30 Docusate Sodium (Colace) 100 mg Q12H PRN PO CONSTIPATION; Start 10/14/16 at 16: 30 Guaifenesin/ Dextromethorphan (Robitussin Dm Liquid Cup) 10 ml Q4H PRN PO COUGH Last administered on 10/14/16 21:56; Admin Dose 10 ML; Start 10/14/16 at 16:30 Atorvastatin Calcium (Lipitor) 20 mg DAILY@21 PO Last administered on 20:37; Admin Dose 20 MG; Start 10/14/16 at 21:00 Miscellaneous Information 1 ea NOTE XX ; Start 10/14/16 at 17:30 Glucose (Glutose) 15 gm Q15M PRN PO DECREASED GLUCOSE; Start 10/14/16 at 17:30 Glucose (Glutose) 22.5 gm Q15M PRN PO DECREASED GLUCOSE; Start 10/14/16 at 17: 30 Dextrose (D50w Syringe) 25 ml Q15M PRN IV DECREASED GLUCOSE Last administered on 10/25/16 04:27; Admin Dose 25 ML; Start 10/14/16 at 17:30 Dextrose (D50w Syringe) 50 ml Q15M PRN IV DECREASED GLUCOSE; Start 10/14/16 at 17:30 Glucagon (Glucagen) 1 mg Q15M PRN IM DECREASED GLUCOSE; Start 10/14/16 at 17:30 Glucose (Glutose) 15 gm Q15M PRN BUCCAL DECREASED GLUCOSE Last administered on 10/24/16 08:34; Admin Dose 15 GM; Start 10/14/16 at 17:30 Amlodipine Besylate (Norvasc) 5 mg BID PO Last administered on 10/26/16 09:44 ; Admin Dose 5 MG; Start 10/15/16 at 21:00 Clonidine (Catapres) 0.1 mg Q4 PRN PO ELEVATED SYSTOLIC BP Last administered on 10/24/16 23:47; Admin Dose 0.1 MG; Start 10/15/16 at 17:00 Isosorbide Dinitrate (Isordil) 20 mg TID PO Last administered on 10/26/16 12: 29; Admin Dose 20 MG; Start 10/15/16 at 21:00 Aspirin (Halfprin) 81 mg DAILY PO Last administered on 10/26/16 09:44; Admin Dose 81 MG; Start 10/18/16 at 09:00 Hydralazine HCl (Apresoline) 100 mg Q8H PO Last administered on 10/26/16 12:29 ; Admin Dose 100 MG; Start 10/21/16 at 20:30 Diagnostic Test (Pha) (Accucheck) 1 ea 02 XX Last administered on 10/25/16 02: 15; Admin Dose 1 EA; Start 10/23/16 at 02:00 Methylprednisolone Sodium Succinate (Solu-Medrol) 20 mg QAM IV Last administered on 10/26/16 09:44; Admin Dose 20 MG; Start 10/23/16 at 09:00 Lorazepam (Ativan) 0.5 mg Q6H PRN IV AGITATION/ANXIETY Last administered on 02:12; Admin Dose 0.5 MG; Start 10/23/16 at 02:30 Insulin Glargine 20 unit 20 unit HS SC Last administered on 10/25/16 20:51; Admin Dose 20 UNIT; Start 10/23/16 at 21:00 Piperacillin Sod/ Tazobactam Sod 50 ml @ 100 mls/hr Q8 IVPB Last administered on 10/26/16 06:37; Admin Dose 100 MLS/HR; Start 10/24/16 at 12:45 Vancomycin HCl (Vancocin) 250 ml @ 125 mls/hr 12 IVPB Last administered on 12:29; Admin Dose 125 MLS/HR; Start 10/26/16 at 12:00; Stop 10/26/16 at 23:00 PEE MONTEMAYOR MD Oct 26, 2016 13:36
--- NOTE | 2016-10-26 18:06 | PN ---
DATE: 10/26/2016 SUBJECTIVE: Chart reviewed. Events noted. The patient on 2 liters O2 nasal cannula saturating 94% and does not appear in acute distress. PHYSICAL EXAMINATION: VITAL SIGNS: Blood pressure 142/65, pulse 60, respiration 18, temperature 98.3. HEENT: Pupils are equal and reactive to light. NECK: Supple. No JVD noted, no cervical adenopathy, no carotid bruits heard. LUNGS: Fair breath sounds bilaterally. CARDIOVASCULAR: S1, S2 normal. ABDOMEN: Soft, nontender. No organomegaly or masses noted. EXTREMITIES: No clubbing or cyanosis noted. NEUROLOGICAL: Awake. LABORATORY DATA: Sodium 139, potassium 4.4, chloride 99, CO2 of 25, BUN 60, creatinine 4.57, glucos e 142. WBC 10.4, hemoglobin 11.9, hematocrit 35.6, platelets 103. IMPRESSION: 1. Congestive heart failure. 2. End-stage renal disease on hemodialysis. 3. History of pacemaker. 4. Volume overload, overall better. RECOMMENDATIONS: 1. Continue hemodialysis and ultrafiltration per nephrology. 2. Followup labs and x-ray. Dictated By: ZACK GUERRERO MD, MA/JERAMY Conf#: [id number] DID#: [id number]
[2016-10-26] MEDS: ATORVASTATIN 20 MG TAB PO SCH (21:26)
[2016-10-26] MEDS: INSULIN GLARGINE [LANtus] 3 ML PEN SC SCH (21:30)
[2016-10-27] VITALS (20 sets, daily range): BP systolic 109–164; BP diastolic 55–72; PULSE 60–71; RESP 17–20
[2016-10-27] MEDS: ACCUCHECK XX SCH (02:31)
[2016-10-27] MEDS: PIPER-TAZO 2.25 GM (PMX) 50 ML IVPB SCH ×3 (05:15→20:25)
[2016-10-27 07:30] LABS: AADO2 Arterial 62.1 mmHg (7.0-24.0); Arterial Base Excess -2.8 mmol/L (-3.0-3); Arterial COHb 0.5 % (0.0-3.0); Arterial Fraction of Oxyhgb 94.1 % (93.0-99.0); Arterial MetHb 0.1 % (0.0-1.5); Arterial Total Hemglobin 13.6 g/dl (12.0-18.0); MODE NASAL CANNULA
[2016-10-27] MEDS: INSULIN ASPART [NOVOLOG] 3 ML PEN SC SCH ×8 (07:54→20:12)
[2016-10-27 08:17] LABS: EOSINOPHILS % 0.1 % (0.0-7.0); HEMATOCRIT 33.2 % (42.0-52.0); HEMOGLOBIN 11.2 g/dl (14.0-18.0); LYMPHOCYTES # 0.6 10^3/ul (0.8-2.9); LYMPHOCYTES % 5.5 % (15.0-51.0); MEAN CORPUSCULAR HGB CONC 33.6 g/dl (32.0-37.0); MEAN CORPUSCULAR VOLUME 80.4 fl (82.0-101.0); MEAN PLATELET VOLUME 11.6 fl (7.4-10.4); MONOCYTE # 1.2 10^3/ul (0.3-0.9); MONOCYTES % 11.1 % (0.0-11.0); NEUTROPHILS % 83.3 % (39.0-77.0); PLATELET COUNT 91 10^3/UL (140-440); RED BLOOD COUNT 4.13 10^6/ul (4.70-6.10); RED CELL DISTRIBUTION WIDTH 19.2 % (11.5-14.5); UNCORRECTED WBC 10.8 10^3/ul (4.8-10.8); WHITE BLOOD COUNT 10.8 10^3/ul (4.8-10.8)
[2016-10-27 08:24] LABS: CONDITION 1; LH ANALYZER COMMENTS 1
[2016-10-27] MEDS: ASPIRIN (EC) 81 MG TAB PO SCH (08:38)
[2016-10-27] MEDS: FAMOTIDINE 20 MG TAB PO SCH (08:38)
[2016-10-27] MEDS: SEVELAMER 800 MG TAB PO SCH ×4 (08:38→17:12)
[2016-10-27] MEDS: METHYLPREDNISOLONE 40 MG INJ IV SCH (08:42)
[2016-10-27] MEDS: ISOSORBIDE DINITRATE 20 MG TAB PO SCH ×4 (08:42→20:21)
[2016-10-27] MEDS: HEPARIN 5,000 UNIT/0.5 ML SYG SC SCH ×2 (08:43→20:22)
[2016-10-27] MEDS: AMLODIPINE 5 MG TAB PO SCH ×2 (08:43→20:19)
[2016-10-27 08:44] LABS: POTASSIUM 4.7 mmol/L (3.5-5.1)
[2016-10-27 08:46] LABS: CREATININE 5.86 mg/dl (0.61-1.24)
[2016-10-27] MEDS ORDERED: ALBUMIN HUMAN 25% 100 ML IV PRN (09:30)
--- NOTE | 2016-10-27 12:00 | CONS ---
Date/Time of Note Date/Time of Note DATE: 10/27/16 TIME: 11:58 Assessment/Plan Assessment/Plan Chief Complaint/Hosp Course IMPRESSION: 1. Chest pain, assess for acute coronary syndrome-with a 4th trop minimally positive in the setting of renal failure. Now s/p lexiscan with no sig ischemia/ NL EF and no recurrent chest pain at thie time 2. Abnormal electrocardiogram, assess for acute coronary syndrome. 3. Right bundle branch block by EKG. 4. History of permanent pacemaker implant. 5. History of symptomatic bradycardia. 6. Diabetes mellitus. 7. Hypertensive emergency-improved on oral anti-hypertensives 8. End-stage renal disease on hemodialysis. 9. Possible bronchitis. Recc: -Tele -serial ecg's -Continue norvasc/isordil/hydralazine and follow-up BP after receiving -Continue abx's/bronchodilators -Continue asa -HD for volume removal Problems: Consultation Date/Type/Reason Admit Date/Time Oct 14, 2016 at 13:43 Initial Consult Date 10/16/2016 Type of Consultation: Cardiology Reason for Consultation Chest pain Referring Provider: YUNIER KIRBY MD Exam/Review of Systems Vital Signs Vitals Vital Signs Date Time Temp Pulse Resp B/P Pulse Ox O2 Delivery O2 Flow Rate FiO2 10/27/16 11:30 62 10/27/16 09:20 17 10/27/16 08:21 98.0 160/72 97 10/27/16 07:56 Nasal Cannula 2.0 10/25/16 21:31 21 Intake and Output 10/26/16 10/26/16 10/27/16 15:00 23:00 07:00 Intake Total 300 ml 750 ml 200 ml Balance 300 ml 750 ml 200 ml Exam Review of Systems: CONSTITUTIONAL: No fevers, chills. PULMONARY: No sob CARDIOVASCULAR: No chest pain/palpitations GASTROINTESTINAL: No nausea/vomiting. GENITOURINARY: No hematuria/dysuria. MUSCULOSKELETAL: No myagias/arthalgias. PSYCHIATRIC: The patient denies depression. NEUROLOGIC: Generalized weakness Constitutional: alert, oriented Psych: no complaints Head: normocephalic ENMT: mucosa pink and moist Neck: jvd, supple Respiratory: diminished breath sounds Cardiovascular: regular rate and rhythm Gastrointestinal: non-tender, soft Musculoskeletal: muscle tone (normal) Extremities: edema (none) Neurological: other (No focal deficits) Results Result Diagram: 10/27/16 0710 10/27/16 0718 Results 24 hrs Laboratory Tests Test 10/26/16 17:10 10/26/16 21:24 10/27/16 02:29 10/27/16 07:10 Bedside Glucose 233 H 305 H 207 Basophils # 0.0 Basophils % 0.0 Blood Morphology Comment Eosinophils # 0.0 Eosinophils % 0.1 Hematocrit 33.2 L Hemoglobin 11.2 L Lymphocytes # 0.6 L Lymphocytes % 5.5 L Mean Corpuscular Hemoglobin 27.0 L Mean Corpuscular Hemoglobin Concent 33.6 Mean Corpuscular Volume 80.4 L Mean Platelet Volume 11.6 H Monocytes # 1.2 H Monocytes % 11.1 H Neutrophils # 9.0 H Neutrophils % 83.3 H Nucleated Red Blood Cells # 0.0 Nucleated Red Blood Cells % 0.0 Platelet Count 91 L Red Blood Count 4.13 L Red Cell Distribution Width 19.2 H White Blood Count 10.8 Test 10/27/16 07:18 10/27/16 07:51 Anion Gap 20 H Blood Urea Nitrogen 88 H Calcium Level 8.0 L Carbon Dioxide Level 21 Chloride Level 99 Creatinine 5.86 H Glucose Level 106 Potassium Level 4.7 Sodium Level 135 Bedside Glucose 96 Medications Medications Current Medications Heparin Sodium (Porcine) (Heparin (5000 Units/0.5 ml)) 5,000 unit BID SC Last administered on 10/26/16 21:29; Admin Dose 5,000 UNIT; Start 10/14/16 at 21:00 Famotidine (Pepcid) 20 mg DAILY PO Last administered on 10/27/16 08:38; Admin Dose 20 MG; Start 10/15/16 at 09:00 Ondansetron HCl (Zofran Inj) 4 mg Q6H PRN IV NAUSEA AND/OR VOMITING; Start at 16:30 Nitroglycerin (Nitroglycerin (Sl Tab) 0.4 Mg) 1 tab Q5M PRN SL CHEST PAIN; Start 10/14/16 at 16:30 Acetaminophen (Tylenol Tab) 650 mg Q6H PRN PO PAIN LEVEL 1-3 OR FEVER Last administered on 10/23/16 20:01; Admin Dose 650 MG; Start 10/14/16 at 16:30 Morphine Sulfate (morphine) 2 mg Q4H PRN IV PAIN LEVEL 7-10 Last administered on 10/24/16 20:21; Admin Dose 2 MG; Start 10/14/16 at 16:30 Docusate Sodium (Colace) 100 mg Q12H PRN PO CONSTIPATION; Start 10/14/16 at 16: 30 Guaifenesin/ Dextromethorphan (Robitussin Dm Liquid Cup) 10 ml Q4H PRN PO COUGH Last administered on 10/14/16 21:56; Admin Dose 10 ML; Start 10/14/16 at 16:30 Atorvastatin Calcium (Lipitor) 20 mg DAILY@21 PO Last administered on 21:26; Admin Dose 20 MG; Start 10/14/16 at 21:00 Miscellaneous Information 1 ea NOTE XX ; Start 10/14/16 at 17:30 Glucose (Glutose) 15 gm Q15M PRN PO DECREASED GLUCOSE; Start 10/14/16 at 17:30 Glucose (Glutose) 22.5 gm Q15M PRN PO DECREASED GLUCOSE; Start 10/14/16 at 17: 30 Dextrose (D50w Syringe) 25 ml Q15M PRN IV DECREASED GLUCOSE Last administered on 10/25/16 04:27; Admin Dose 25 ML; Start 10/14/16 at 17:30 Dextrose (D50w Syringe) 50 ml Q15M PRN IV DECREASED GLUCOSE; Start 10/14/16 at 17:30 Glucagon (Glucagen) 1 mg Q15M PRN IM DECREASED GLUCOSE; Start 10/14/16 at 17:30 Glucose (Glutose) 15 gm Q15M PRN BUCCAL DECREASED GLUCOSE Last administered on 10/24/16 08:34; Admin Dose 15 GM; Start 10/14/16 at 17:30 Amlodipine Besylate (Norvasc) 5 mg BID PO Last administered on 10/26/16 21:26 ; Admin Dose 5 MG; Start 10/15/16 at 21:00 Clonidine (Catapres) 0.1 mg Q4 PRN PO ELEVATED SYSTOLIC BP Last administered on 10/24/16 23:47; Admin Dose 0.1 MG; Start 10/15/16 at 17:00 Isosorbide Dinitrate (Isordil) 20 mg TID PO Last administered on 10/26/16 21: 26; Admin Dose 20 MG; Start 10/15/16 at 21:00 Aspirin (Halfprin) 81 mg DAILY PO Last administered on 10/27/16 08:38; Admin Dose 81 MG; Start 10/18/16 at 09:00 Hydralazine HCl (Apresoline) 100 mg Q8H PO Last administered on 10/27/16 05:15 ; Admin Dose 100 MG; Start 10/21/16 at 20:30 Diagnostic Test (Pha) (Accucheck) 1 ea 02 XX Last administered on 10/27/16 02: 31; Admin Dose 1 EA; Start 10/23/16 at 02:00 Methylprednisolone Sodium Succinate (Solu-Medrol) 20 mg QAM IV Last administered on 10/26/16 09:44; Admin Dose 20 MG; Start 10/23/16 at 09:00 Lorazepam (Ativan) 0.5 mg Q6H PRN IV AGITATION/ANXIETY Last administered on 02:12; Admin Dose 0.5 MG; Start 10/23/16 at 02:30 Insulin Glargine 20 unit 20 unit HS SC Last administered on 10/26/16 21:30; Admin Dose 20 UNIT; Start 10/23/16 at 21:00 Piperacillin Sod/ Tazobactam Sod (Zosyn 2.25gm/ 50ml (Pmx)) 50 ml @ 100 mls/hr Q8 IVPB Last administered on 10/27/16 05:15; Admin Dose 100 MLS/HR; Start at 12:45 WILLA GARSIA Oct 27, 2016 12:00
--- NOTE | 2016-10-27 12:38 | PN ---
Date/Time of Note Date/Time of Note DATE: 10/27/16 TIME: 12:37 Assessment/Plan VTE Prophylaxis VTE Prophylaxis Intervention: SCD's Lines/Catheters [facility] Urinary Cath still in place: No Assessment/Plan Chief Complaint/Hosp Course Assessment and plan: - Acute bronchitis, s/p treatment - Status post chest pain with negative nuclear stress test. Continue nitrates. - Hypertension and status post hypertensive emergency. Blood pressure better controlled. Continue Norvasc, hydralazine, Isordil. -. End-stage renal disease. Continue hemodialysis as per Dr. Nettles. The patient also remains on Renagel. - Meanwhile, the patient will be continued on IV Rocephin and Zithromax for acute bronchitis. Chest x-ray did not reveal any infiltrate. - Thrombocytopenia. Will continue to monitor. Probably due to bronchitis, although patient did have history of mild thrombocytopenia on and off. - Symptomatic bradycardia, status post permanent pacemaker placement. The patient is being followed by Dr. Esparza from cardiac standpoint, Dr. Nettles from nephrology standpoint. - Hyperglycemia, Hgb A1C is 5.4. Further recommendations will depend on patient's hospital course. Further recommendations based on clinical course. Plan of care was discussed with Dr. Nettles who is covering for Dr. Rangel. Problems: Exam/Review of Systems Vital Signs Vitals Vital Signs Date Time Temp Pulse Resp B/P Pulse Ox O2 Delivery O2 Flow Rate FiO2 10/27/16 12:08 97.8 61 18 146/65 95 Nasal Cannula 2.0 10/25/16 21:31 21 Intake and Output 10/26/16 10/26/16 10/27/16 15:00 23:00 07:00 Intake Total 300 ml 750 ml 200 ml Balance 300 ml 750 ml 200 ml Results Result Diagram: 10/27/16 0710 10/27/16 0718 Results 24 hrs Laboratory Tests Test 10/26/16 17:10 10/26/16 21:24 10/27/16 02:29 10/27/16 07:10 Bedside Glucose 233 H 305 H 207 Basophils # 0.0 Basophils % 0.0 Blood Morphology Comment Eosinophils # 0.0 Eosinophils % 0.1 Hematocrit 33.2 L Hemoglobin 11.2 L Lymphocytes # 0.6 L Lymphocytes % 5.5 L Mean Corpuscular Hemoglobin 27.0 L Mean Corpuscular Hemoglobin Concent 33.6 Mean Corpuscular Volume 80.4 L Mean Platelet Volume 11.6 H Monocytes # 1.2 H Monocytes % 11.1 H Neutrophils # 9.0 H Neutrophils % 83.3 H Nucleated Red Blood Cells # 0.0 Nucleated Red Blood Cells % 0.0 Platelet Count 91 L Red Blood Count 4.13 L Red Cell Distribution Width 19.2 H White Blood Count 10.8 Test 10/27/16 07:18 10/27/16 07:51 10/27/16 12:16 Anion Gap 20 H Blood Urea Nitrogen 88 H Calcium Level 8.0 L Carbon Dioxide Level 21 Chloride Level 99 Creatinine 5.86 H Glucose Level 106 Potassium Level 4.7 Sodium Level 135 Bedside Glucose 96 114 Medications Medications Current Medications Heparin Sodium (Porcine) (Heparin (5000 Units/0.5 ml)) 5,000 unit BID SC Last administered on 10/26/16 21:29; Admin Dose 5,000 UNIT; Start 10/14/16 at 21:00 Famotidine (Pepcid) 20 mg DAILY PO Last administered on 10/27/16 08:38; Admin Dose 20 MG; Start 10/15/16 at 09:00 Ondansetron HCl (Zofran Inj) 4 mg Q6H PRN IV NAUSEA AND/OR VOMITING; Start at 16:30 Nitroglycerin (Nitroglycerin (Sl Tab) 0.4 Mg) 1 tab Q5M PRN SL CHEST PAIN; Start 10/14/16 at 16:30 Acetaminophen (Tylenol Tab) 650 mg Q6H PRN PO PAIN LEVEL 1-3 OR FEVER Last administered on 10/23/16 20:01; Admin Dose 650 MG; Start 10/14/16 at 16:30 Morphine Sulfate (morphine) 2 mg Q4H PRN IV PAIN LEVEL 7-10 Last administered on 10/24/16 20:21; Admin Dose 2 MG; Start 10/14/16 at 16:30 Docusate Sodium (Colace) 100 mg Q12H PRN PO CONSTIPATION; Start 10/14/16 at 16: 30 Guaifenesin/ Dextromethorphan (Robitussin Dm Liquid Cup) 10 ml Q4H PRN PO COUGH Last administered on 10/14/16 21:56; Admin Dose 10 ML; Start 10/14/16 at 16:30 Atorvastatin Calcium (Lipitor) 20 mg DAILY@21 PO Last administered on 21:26; Admin Dose 20 MG; Start 10/14/16 at 21:00 Miscellaneous Information 1 ea NOTE XX ; Start 10/14/16 at 17:30 Glucose (Glutose) 15 gm Q15M PRN PO DECREASED GLUCOSE; Start 10/14/16 at 17:30 Glucose (Glutose) 22.5 gm Q15M PRN PO DECREASED GLUCOSE; Start 10/14/16 at 17: 30 Dextrose (D50w Syringe) 25 ml Q15M PRN IV DECREASED GLUCOSE Last administered on 10/25/16 04:27; Admin Dose 25 ML; Start 10/14/16 at 17:30 Dextrose (D50w Syringe) 50 ml Q15M PRN IV DECREASED GLUCOSE; Start 10/14/16 at 17:30 Glucagon (Glucagen) 1 mg Q15M PRN IM DECREASED GLUCOSE; Start 10/14/16 at 17:30 Glucose (Glutose) 15 gm Q15M PRN BUCCAL DECREASED GLUCOSE Last administered on 10/24/16 08:34; Admin Dose 15 GM; Start 10/14/16 at 17:30 Amlodipine Besylate (Norvasc) 5 mg BID PO Last administered on 10/26/16 21:26 ; Admin Dose 5 MG; Start 10/15/16 at 21:00 Clonidine (Catapres) 0.1 mg Q4 PRN PO ELEVATED SYSTOLIC BP Last administered on 10/24/16 23:47; Admin Dose 0.1 MG; Start 10/15/16 at 17:00 Isosorbide Dinitrate (Isordil) 20 mg TID PO Last administered on 10/26/16 21: 26; Admin Dose 20 MG; Start 10/15/16 at 21:00 Aspirin (Halfprin) 81 mg DAILY PO Last administered on 10/27/16 08:38; Admin Dose 81 MG; Start 10/18/16 at 09:00 Hydralazine HCl (Apresoline) 100 mg Q8H PO Last administered on 10/27/16 05:15 ; Admin Dose 100 MG; Start 10/21/16 at 20:30 Diagnostic Test (Pha) (Accucheck) 1 ea 02 XX Last administered on 10/27/16 02: 31; Admin Dose 1 EA; Start 10/23/16 at 02:00 Methylprednisolone Sodium Succinate (Solu-Medrol) 20 mg QAM IV Last administered on 10/26/16 09:44; Admin Dose 20 MG; Start 10/23/16 at 09:00 Lorazepam (Ativan) 0.5 mg Q6H PRN IV AGITATION/ANXIETY Last administered on 02:12; Admin Dose 0.5 MG; Start 10/23/16 at 02:30 Insulin Glargine 20 unit 20 unit HS SC Last administered on 10/26/16 21:30; Admin Dose 20 UNIT; Start 10/23/16 at 21:00 Piperacillin Sod/ Tazobactam Sod (Zosyn 2.25gm/ 50ml (Pmx)) 50 ml @ 100 mls/hr Q8 IVPB Last administered on 10/27/16 05:15; Admin Dose 100 MLS/HR; Start at 12:45 CONTRERAS HUERTA Oct 27, 2016 12:38
--- NOTE | 2016-10-27 13:47 | CONS ---
Date/Time of Note Date/Time of Note DATE: 10/27/16 TIME: 13:44 Consult Date/Type/Reason Admit Date/Time Oct 14, 2016 at 13:43 Initial Consult Date 10/17/16 Type of Consultation: pulmonary Ordering Provider: YUNIER KIRBY MD Subjective Patient is awake alert oriented comfortable at rest no acute distress Continues hemodialysis per nephrology Objective Vital Signs Date Time Temp Pulse Resp B/P Pulse Ox O2 Delivery O2 Flow Rate FiO2 10/27/16 12:20 65 10/27/16 12:20 18 10/27/16 12:08 97.8 146/65 95 Nasal Cannula 2.0 10/25/16 21:31 21 Intake and Output 10/26/16 10/26/16 10/27/16 15:00 23:00 07:00 Intake Total 300 ml 750 ml 200 ml Balance 300 ml 750 ml 200 ml PHYSICAL EXAMINATION: VITAL SIGNS: as above HEENT: Pupils are equal and reactive to light. NECK: Supple. No JVD noted, no cervical adenopathy, no carotid bruits heard. LUNGS: Fair breath sounds bilaterally. CARDIOVASCULAR: S1, S2 normal. ABDOMEN: Soft, nontender. No organomegaly or masses noted. EXTREMITIES: No clubbing or cyanosis noted. NEUROLOGICAL: Awake. Results/Medications Result Diagram: 10/27/16 0710 10/27/16 0718 Results 24 hrs Laboratory Tests Test 10/26/16 17:10 10/26/16 21:24 10/27/16 02:29 10/27/16 07:10 Bedside Glucose 233 H 305 H 207 Basophils # 0.0 Basophils % 0.0 Blood Morphology Comment Eosinophils # 0.0 Eosinophils % 0.1 Hematocrit 33.2 L Hemoglobin 11.2 L Lymphocytes # 0.6 L Lymphocytes % 5.5 L Mean Corpuscular Hemoglobin 27.0 L Mean Corpuscular Hemoglobin Concent 33.6 Mean Corpuscular Volume 80.4 L Mean Platelet Volume 11.6 H Monocytes # 1.2 H Monocytes % 11.1 H Neutrophils # 9.0 H Neutrophils % 83.3 H Nucleated Red Blood Cells # 0.0 Nucleated Red Blood Cells % 0.0 Platelet Count 91 L Red Blood Count 4.13 L Red Cell Distribution Width 19.2 H White Blood Count 10.8 Test 10/27/16 07:18 10/27/16 07:51 10/27/16 12:16 Anion Gap 20 H Blood Urea Nitrogen 88 H Calcium Level 8.0 L Carbon Dioxide Level 21 Chloride Level 99 Creatinine 5.86 H Glucose Level 106 Potassium Level 4.7 Sodium Level 135 Bedside Glucose 96 114 Medications Current Medications Heparin Sodium (Porcine) (Heparin (5000 Units/0.5 ml)) 5,000 unit BID SC Last administered on 10/26/16 21:29; Admin Dose 5,000 UNIT; Start 10/14/16 at 21:00 Famotidine (Pepcid) 20 mg DAILY PO Last administered on 10/27/16 08:38; Admin Dose 20 MG; Start 10/15/16 at 09:00 Ondansetron HCl (Zofran Inj) 4 mg Q6H PRN IV NAUSEA AND/OR VOMITING; Start at 16:30 Nitroglycerin (Nitroglycerin (Sl Tab) 0.4 Mg) 1 tab Q5M PRN SL CHEST PAIN; Start 10/14/16 at 16:30 Acetaminophen (Tylenol Tab) 650 mg Q6H PRN PO PAIN LEVEL 1-3 OR FEVER Last administered on 10/23/16 20:01; Admin Dose 650 MG; Start 10/14/16 at 16:30 Morphine Sulfate (morphine) 2 mg Q4H PRN IV PAIN LEVEL 7-10 Last administered on 10/24/16 20:21; Admin Dose 2 MG; Start 10/14/16 at 16:30 Docusate Sodium (Colace) 100 mg Q12H PRN PO CONSTIPATION; Start 10/14/16 at 16: 30 Guaifenesin/ Dextromethorphan (Robitussin Dm Liquid Cup) 10 ml Q4H PRN PO COUGH Last administered on 10/14/16 21:56; Admin Dose 10 ML; Start 10/14/16 at 16:30 Atorvastatin Calcium (Lipitor) 20 mg DAILY@21 PO Last administered on 21:26; Admin Dose 20 MG; Start 10/14/16 at 21:00 Miscellaneous Information 1 ea NOTE XX ; Start 10/14/16 at 17:30 Glucose (Glutose) 15 gm Q15M PRN PO DECREASED GLUCOSE; Start 10/14/16 at 17:30 Glucose (Glutose) 22.5 gm Q15M PRN PO DECREASED GLUCOSE; Start 10/14/16 at 17: 30 Dextrose (D50w Syringe) 25 ml Q15M PRN IV DECREASED GLUCOSE Last administered on 10/25/16 04:27; Admin Dose 25 ML; Start 10/14/16 at 17:30 Dextrose (D50w Syringe) 50 ml Q15M PRN IV DECREASED GLUCOSE; Start 10/14/16 at 17:30 Glucagon (Glucagen) 1 mg Q15M PRN IM DECREASED GLUCOSE; Start 10/14/16 at 17:30 Glucose (Glutose) 15 gm Q15M PRN BUCCAL DECREASED GLUCOSE Last administered on 10/24/16 08:34; Admin Dose 15 GM; Start 10/14/16 at 17:30 Amlodipine Besylate (Norvasc) 5 mg BID PO Last administered on 10/26/16 21:26 ; Admin Dose 5 MG; Start 10/15/16 at 21:00 Clonidine (Catapres) 0.1 mg Q4 PRN PO ELEVATED SYSTOLIC BP Last administered on 10/24/16 23:47; Admin Dose 0.1 MG; Start 10/15/16 at 17:00 Isosorbide Dinitrate (Isordil) 20 mg TID PO Last administered on 10/27/16 13: 42; Admin Dose 20 MG; Start 10/15/16 at 21:00 Aspirin (Halfprin) 81 mg DAILY PO Last administered on 10/27/16 08:38; Admin Dose 81 MG; Start 10/18/16 at 09:00 Hydralazine HCl (Apresoline) 100 mg Q8H PO Last administered on 10/27/16 13:42 ; Admin Dose 100 MG; Start 10/21/16 at 20:30 Diagnostic Test (Pha) (Accucheck) 1 ea 02 XX Last administered on 10/27/16 02: 31; Admin Dose 1 EA; Start 10/23/16 at 02:00 Methylprednisolone Sodium Succinate (Solu-Medrol) 20 mg QAM IV Last administered on 10/26/16 09:44; Admin Dose 20 MG; Start 10/23/16 at 09:00 Lorazepam (Ativan) 0.5 mg Q6H PRN IV AGITATION/ANXIETY Last administered on 02:12; Admin Dose 0.5 MG; Start 10/23/16 at 02:30 Insulin Glargine 20 unit 20 unit HS SC Last administered on 10/26/16 21:30; Admin Dose 20 UNIT; Start 10/23/16 at 21:00 Piperacillin Sod/ Tazobactam Sod (Zosyn 2.25gm/ 50ml (Pmx)) 50 ml @ 100 mls/hr Q8 IVPB Last administered on 10/27/16 13:42; Admin Dose 100 MLS/HR; Start at 12:45 Assessment/Plan Chief Complaint/Hosp Course IMPRESSION: 1. Congestive heart failure. 2. End-stage renal disease on hemodialysis. 3. History of pacemaker. 4. Volume overload, overall better. RECOMMENDATIONS: 1. Continue hemodialysis and ultrafiltration per nephrology. 2. Followup labs Discharge planning okay from pulmonary standpoint Problems: MORIS PONCE MD, [facility] Oct 27, 2016 13:47
--- NOTE | 2016-10-27 17:50 | CONS ---
Date/Time of Note Date/Time of Note DATE: 10/27/16 TIME: 17:47 Assessment/Plan Assessment/Plan Additional Assessment/Plan 76 yo Male with 1. URI/Bronchitis 2. Hypertensive, Uncontrolled 3. End-stage renal disease. HD MWF 4. Diabetes mellitus type 2. 5. Hx of Permanent pacemaker. 6. Anemia, Chronic Disease 7. Mineral Bone Disease, ESRD 8. Mild Hyperkalemia-Resolved Cont Maintenance HD Cont current Rx for HTN, low dose COTY with HD Cont Phophate binder, Renal/ADA diet. Consultation Date/Type/Reason Admit Date/Time Oct 14, 2016 at 13:43 Initial Consult Date 10/17/16 Type of Consultation: Nephrology Reason for Consultation ESRD Referring Provider: YUNIER KIRBY MD Exam/Review of Systems Vital Signs Vitals Vital Signs Date Time Temp Pulse Resp B/P Pulse Ox O2 Delivery O2 Flow Rate FiO2 10/27/16 16:27 63 10/27/16 16:05 97.8 17 142/66 98 10/27/16 12:08 Nasal Cannula 2.0 10/25/16 21:31 21 Intake and Output 10/26/16 10/26/16 10/27/16 15:00 23:00 07:00 Intake Total 300 ml 750 ml 200 ml Balance 300 ml 750 ml 200 ml Exam Constitutional: No distress ENMT: mucosa pink and moist Respiratory: clear to auscultation Cardiovascular: regular rate and rhythm, No edema Gastrointestinal: soft Results Result Diagram: 10/27/16 0710 10/27/16 0718 Results 24 hrs Laboratory Tests Test 10/26/16 21:24 10/27/16 02:29 10/27/16 07:10 10/27/16 07:18 Bedside Glucose 305 H 207 Basophils # 0.0 Basophils % 0.0 Blood Morphology Comment Eosinophils # 0.0 Eosinophils % 0.1 Hematocrit 33.2 L Hemoglobin 11.2 L Lymphocytes # 0.6 L Lymphocytes % 5.5 L Mean Corpuscular Hemoglobin 27.0 L Mean Corpuscular Hemoglobin Concent 33.6 Mean Corpuscular Volume 80.4 L Mean Platelet Volume 11.6 H Monocytes # 1.2 H Monocytes % 11.1 H Neutrophils # 9.0 H Neutrophils % 83.3 H Nucleated Red Blood Cells # 0.0 Nucleated Red Blood Cells % 0.0 Platelet Count 91 L Red Blood Count 4.13 L Red Cell Distribution Width 19.2 H White Blood Count 10.8 Anion Gap 20 H Blood Urea Nitrogen 88 H Calcium Level 8.0 L Carbon Dioxide Level 21 Chloride Level 99 Creatinine 5.86 H Glucose Level 106 Potassium Level 4.7 Sodium Level 135 Test 10/27/16 07:51 10/27/16 12:16 10/27/16 17:10 Bedside Glucose 96 114 83 Medications Medications Current Medications Heparin Sodium (Porcine) (Heparin (5000 Units/0.5 ml)) 5,000 unit BID SC Last administered on 10/26/16 21:29; Admin Dose 5,000 UNIT; Start 10/14/16 at 21:00 Famotidine (Pepcid) 20 mg DAILY PO Last administered on 10/27/16 08:38; Admin Dose 20 MG; Start 10/15/16 at 09:00 Ondansetron HCl (Zofran Inj) 4 mg Q6H PRN IV NAUSEA AND/OR VOMITING; Start at 16:30 Nitroglycerin (Nitroglycerin (Sl Tab) 0.4 Mg) 1 tab Q5M PRN SL CHEST PAIN; Start 10/14/16 at 16:30 Acetaminophen (Tylenol Tab) 650 mg Q6H PRN PO PAIN LEVEL 1-3 OR FEVER Last administered on 10/23/16 20:01; Admin Dose 650 MG; Start 10/14/16 at 16:30 Morphine Sulfate (morphine) 2 mg Q4H PRN IV PAIN LEVEL 7-10 Last administered on 10/24/16 20:21; Admin Dose 2 MG; Start 10/14/16 at 16:30 Docusate Sodium (Colace) 100 mg Q12H PRN PO CONSTIPATION; Start 10/14/16 at 16: 30 Guaifenesin/ Dextromethorphan (Robitussin Dm Liquid Cup) 10 ml Q4H PRN PO COUGH Last administered on 10/14/16 21:56; Admin Dose 10 ML; Start 10/14/16 at 16:30 Atorvastatin Calcium (Lipitor) 20 mg DAILY@21 PO Last administered on 21:26; Admin Dose 20 MG; Start 10/14/16 at 21:00 Miscellaneous Information 1 ea NOTE XX ; Start 10/14/16 at 17:30 Glucose (Glutose) 15 gm Q15M PRN PO DECREASED GLUCOSE; Start 10/14/16 at 17:30 Glucose (Glutose) 22.5 gm Q15M PRN PO DECREASED GLUCOSE; Start 10/14/16 at 17: 30 Dextrose (D50w Syringe) 25 ml Q15M PRN IV DECREASED GLUCOSE Last administered on 10/25/16 04:27; Admin Dose 25 ML; Start 10/14/16 at 17:30 Dextrose (D50w Syringe) 50 ml Q15M PRN IV DECREASED GLUCOSE; Start 10/14/16 at 17:30 Glucagon (Glucagen) 1 mg Q15M PRN IM DECREASED GLUCOSE; Start 10/14/16 at 17:30 Glucose (Glutose) 15 gm Q15M PRN BUCCAL DECREASED GLUCOSE Last administered on 10/24/16 08:34; Admin Dose 15 GM; Start 10/14/16 at 17:30 Amlodipine Besylate (Norvasc) 5 mg BID PO Last administered on 10/26/16 21:26 ; Admin Dose 5 MG; Start 10/15/16 at 21:00 Clonidine (Catapres) 0.1 mg Q4 PRN PO ELEVATED SYSTOLIC BP Last administered on 10/24/16 23:47; Admin Dose 0.1 MG; Start 10/15/16 at 17:00 Isosorbide Dinitrate (Isordil) 20 mg TID PO Last administered on 10/27/16 13: 42; Admin Dose 20 MG; Start 10/15/16 at 21:00 Aspirin (Halfprin) 81 mg DAILY PO Last administered on 10/27/16 08:38; Admin Dose 81 MG; Start 10/18/16 at 09:00 Hydralazine HCl (Apresoline) 100 mg Q8H PO Last administered on 10/27/16 13:42 ; Admin Dose 100 MG; Start 10/21/16 at 20:30 Diagnostic Test (Pha) (Accucheck) 1 ea 02 XX Last administered on 10/27/16 02: 31; Admin Dose 1 EA; Start 10/23/16 at 02:00 Methylprednisolone Sodium Succinate (Solu-Medrol) 20 mg QAM IV Last administered on 10/26/16 09:44; Admin Dose 20 MG; Start 10/23/16 at 09:00 Lorazepam (Ativan) 0.5 mg Q6H PRN IV AGITATION/ANXIETY Last administered on 02:12; Admin Dose 0.5 MG; Start 10/23/16 at 02:30 Insulin Glargine 20 unit 20 unit HS SC Last administered on 10/26/16 21:30; Admin Dose 20 UNIT; Start 10/23/16 at 21:00 Piperacillin Sod/ Tazobactam Sod (Zosyn 2.25gm/ 50ml (Pmx)) 50 ml @ 100 mls/hr Q8 IVPB Last administered on 10/27/16 13:42; Admin Dose 100 MLS/HR; Start at 12:45 MARIANNA ZENDEJAS MD Oct 27, 2016 17:50
[2016-10-27] MEDS: ATORVASTATIN 20 MG TAB PO SCH (20:13)
[2016-10-27] MEDS: INSULIN GLARGINE [LANtus] 3 ML PEN SC SCH (20:23)
[2016-10-28] MEDS: ACCUCHECK XX SCH (02:00)
[2016-10-28] MEDS: GLUCOSE GEL 15 GRAM TUBE BUCCAL PRN (04:48)
[2016-10-28] MEDS: DEXTROSE 50% 50 ML SYRINGE IV PRN (05:19)
[2016-10-28] MEDS: PIPER-TAZO 2.25 GM (PMX) 50 ML IVPB SCH ×3 (05:19→23:09)
[2016-10-28 07:13] LABS: EOSINOPHILS # 0.1 10^3/ul (0.0-0.5); EOSINOPHILS % 0.6 % (0.0-7.0); HEMATOCRIT 35.2 % (42.0-52.0); HEMOGLOBIN 11.6 g/dl (14.0-18.0); LYMPHOCYTES # 0.5 10^3/ul (0.8-2.9); LYMPHOCYTES % 5.9 % (15.0-51.0); MEAN CORPUSCULAR HEMOGLOBIN 27.1 pg (29.0-33.0); MEAN CORPUSCULAR HGB CONC 33.1 g/dl (32.0-37.0); MEAN CORPUSCULAR VOLUME 82.1 fl (82.0-101.0); MEAN PLATELET VOLUME 11.2 fl (7.4-10.4); MONOCYTE # 1.1 10^3/ul (0.3-0.9); NEUTROPHIL # 7.4 10^3/ul (1.6-7.5); NEUTROPHILS % 81.5 % (39.0-77.0); RED BLOOD COUNT 4.28 10^6/ul (4.70-6.10); RED CELL DISTRIBUTION WIDTH 19.1 % (11.5-14.5)
[2016-10-28 07:32] LABS: POTASSIUM 4.1 mmol/L (3.5-5.1)
[2016-10-28 07:34] LABS: CREATININE 4.15 mg/dl (0.61-1.24)
[2016-10-28 07:35] LABS: CALCIUM 7.9 mg/dl (8.4-10.2)
[2016-10-28 07:45] LABS: CONDITION 1; LH ANALYZER COMMENTS 1; PLATELET COUNT 86 10^3/UL (140-440)
[2016-10-28 08:00] VITALS: BP 157/71; PULSE 63; RESP 20
[2016-10-28] MEDS: INSULIN ASPART [NOVOLOG] 3 ML PEN SC SCH ×7 (08:00→21:00)
[2016-10-28] MEDS: SEVELAMER 800 MG TAB PO SCH ×3 (08:57→17:31)
[2016-10-28] MEDS: ASPIRIN (EC) 81 MG TAB PO SCH (09:00)
[2016-10-28] MEDS: FAMOTIDINE 20 MG TAB PO SCH (09:00)
[2016-10-28] MEDS: ISOSORBIDE DINITRATE 20 MG TAB PO SCH ×2 (09:00→12:44)
[2016-10-28] MEDS: AMLODIPINE 5 MG TAB PO SCH ×2 (09:00→20:46)
[2016-10-28] MEDS: METHYLPREDNISOLONE 40 MG INJ IV SCH (09:01)
[2016-10-28] MEDS: HEPARIN 5,000 UNIT/0.5 ML SYG SC SCH ×2 (09:03→20:53)
--- NOTE | 2016-10-28 11:45 | CONS ---
Date/Time of Note Date/Time of Note DATE: 10/28/16 TIME: 11:45 Assessment/Plan Assessment/Plan Additional Assessment/Plan 76 yo Male with 1. URI/Bronchitis 2. Hypertensive, Uncontrolled 3. End-stage renal disease. HD MWF 4. Diabetes mellitus type 2. 5. Hx of Permanent pacemaker. 6. Anemia, Chronic Disease 7. Mineral Bone Disease, ESRD 8. Mild Hyperkalemia-Resolved Cont Maintenance HD HD MWF, Next HD tomorrow Cont current Rx for HTN, low dose COTY with HD Cont Phophate binder, Renal/ADA diet. DC Planning as per Primary team. Consultation Date/Type/Reason Admit Date/Time Oct 14, 2016 at 13:43 Initial Consult Date 10/17/16 Type of Consultation: Nephrology Referring Provider: YUNIER KIRBY MD 24 HR Interval Summary Free Text/Dictation No new complaints Constitutional: No requiring O2 Exam/Review of Systems Vital Signs Vitals Vital Signs Date Time Temp Pulse Resp B/P Pulse Ox O2 Delivery O2 Flow Rate FiO2 10/28/16 08:00 97.8 63 20 157/71 99 Room Air 10/27/16 23:14 21 10/27/16 20:25 2.0 Intake and Output 10/27/16 10/27/16 10/28/16 15:00 23:00 07:00 Intake Total 550 ml 720 ml Output Total 2430 ml Balance -1880 ml 720 ml Exam Constitutional: No distress ENMT: mucosa pink and moist Neck: No jvd Respiratory: clear to auscultation Cardiovascular: regular rate and rhythm, No edema Gastrointestinal: non-tender, soft Extremities: No edema Neurological: No lethargic Skin: No diaphoresis Results Result Diagram: 10/28/16 0555 10/28/16 0555 Results 24 hrs Laboratory Tests Test 10/27/16 12:16 10/27/16 17:10 10/27/16 20:10 10/28/16 04:34 Bedside Glucose 114 83 87 52 L Test 10/28/16 05:15 10/28/16 05:55 10/28/16 08:17 Bedside Glucose 66 L 150 138 Anion Gap 17 H Basophils # 0.0 Basophils % 0.0 Blood Morphology Comment Blood Urea Nitrogen 55 #H Calcium Level 7.9 L Carbon Dioxide Level 25 Chloride Level 96 L Creatinine 4.15 #H Eosinophils # 0.1 Eosinophils % 0.6 Glucose Level 150 Hematocrit 35.2 L Hemoglobin 11.6 L Lymphocytes # 0.5 L Lymphocytes % 5.9 L Mean Corpuscular Hemoglobin 27.1 L Mean Corpuscular Hemoglobin Concent 33.1 Mean Corpuscular Volume 82.1 Mean Platelet Volume 11.2 H Monocytes # 1.1 H Monocytes % 12.0 H Neutrophils # 7.4 Neutrophils % 81.5 H Nucleated Red Blood Cells # 0.0 Nucleated Red Blood Cells % 0.0 Platelet Count 86 L Potassium Level 4.1 Red Blood Count 4.28 L Red Cell Distribution Width 19.1 H Sodium Level 134 L White Blood Count 9.0 Medications Medications Current Medications Heparin Sodium (Porcine) (Heparin (5000 Units/0.5 ml)) 5,000 unit BID SC Last administered on 10/28/16 09:03; Admin Dose 5,000 UNIT; Start 10/14/16 at 21:00 Famotidine (Pepcid) 20 mg DAILY PO Last administered on 10/28/16 09:00; Admin Dose 20 MG; Start 10/15/16 at 09:00 Ondansetron HCl (Zofran Inj) 4 mg Q6H PRN IV NAUSEA AND/OR VOMITING; Start at 16:30 Nitroglycerin (Nitroglycerin (Sl Tab) 0.4 Mg) 1 tab Q5M PRN SL CHEST PAIN; Start 10/14/16 at 16:30 Acetaminophen (Tylenol Tab) 650 mg Q6H PRN PO PAIN LEVEL 1-3 OR FEVER Last administered on 10/23/16 20:01; Admin Dose 650 MG; Start 10/14/16 at 16:30 Morphine Sulfate (morphine) 2 mg Q4H PRN IV PAIN LEVEL 7-10 Last administered on 10/24/16 20:21; Admin Dose 2 MG; Start 10/14/16 at 16:30 Docusate Sodium (Colace) 100 mg Q12H PRN PO CONSTIPATION; Start 10/14/16 at 16: 30 Guaifenesin/ Dextromethorphan (Robitussin Dm Liquid Cup) 10 ml Q4H PRN PO COUGH Last administered on 10/14/16 21:56; Admin Dose 10 ML; Start 10/14/16 at 16:30 Atorvastatin Calcium (Lipitor) 20 mg DAILY@21 PO Last administered on 20:13; Admin Dose 20 MG; Start 10/14/16 at 21:00 Miscellaneous Information 1 ea NOTE XX ; Start 10/14/16 at 17:30 Glucose (Glutose) 15 gm Q15M PRN PO DECREASED GLUCOSE; Start 10/14/16 at 17:30 Glucose (Glutose) 22.5 gm Q15M PRN PO DECREASED GLUCOSE; Start 10/14/16 at 17: 30 Dextrose (D50w Syringe) 25 ml Q15M PRN IV DECREASED GLUCOSE Last administered on 10/28/16 05:19; Admin Dose 25 ML; Start 10/14/16 at 17:30 Dextrose (D50w Syringe) 50 ml Q15M PRN IV DECREASED GLUCOSE; Start 10/14/16 at 17:30 Glucagon (Glucagen) 1 mg Q15M PRN IM DECREASED GLUCOSE; Start 10/14/16 at 17:30 Glucose (Glutose) 15 gm Q15M PRN BUCCAL DECREASED GLUCOSE Last administered on 10/28/16 04:48; Admin Dose 15 GM; Start 10/14/16 at 17:30 Amlodipine Besylate (Norvasc) 5 mg BID PO Last administered on 10/28/16 09:00 ; Admin Dose 5 MG; Start 10/15/16 at 21:00 Clonidine (Catapres) 0.1 mg Q4 PRN PO ELEVATED SYSTOLIC BP Last administered on 10/24/16 23:47; Admin Dose 0.1 MG; Start 10/15/16 at 17:00 Isosorbide Dinitrate (Isordil) 20 mg TID PO Last administered on 10/28/16 09: 00; Admin Dose 20 MG; Start 10/15/16 at 21:00 Aspirin (Halfprin) 81 mg DAILY PO Last administered on 10/28/16 09:00; Admin Dose 81 MG; Start 10/18/16 at 09:00 Hydralazine HCl (Apresoline) 100 mg Q8H PO Last administered on 10/28/16 04:48 ; Admin Dose 100 MG; Start 10/21/16 at 20:30 Diagnostic Test (Pha) (Accucheck) 1 ea 02 XX Last administered on 10/27/16 02: 31; Admin Dose 1 EA; Start 10/23/16 at 02:00 Methylprednisolone Sodium Succinate (Solu-Medrol) 20 mg QAM IV Last administered on 10/28/16 09:01; Admin Dose 20 MG; Start 10/23/16 at 09:00 Lorazepam (Ativan) 0.5 mg Q6H PRN IV AGITATION/ANXIETY Last administered on 02:12; Admin Dose 0.5 MG; Start 10/23/16 at 02:30 Insulin Glargine 20 unit 20 unit HS SC Last administered on 10/27/16 20:23; Admin Dose 20 UNIT; Start 10/23/16 at 21:00 Piperacillin Sod/ Tazobactam Sod (Zosyn 2.25gm/ 50ml (Pmx)) 50 ml @ 100 mls/hr Q8 IVPB Last administered on 10/28/16 05:19; Admin Dose 100 MLS/HR; Start at 12:45 MARIANNA ZENDEJAS MD Oct 28, 2016 11:45
[2016-10-28 11:53] VITALS: BP 164/79; RESP 16
[2016-10-28] MEDS ORDERED: MAGNESIUM HYDROXIDE 30ML CUP PO PRN (13:00)
--- NOTE | 2016-10-28 13:03 | PN ---
Date/Time of Note Date/Time of Note DATE: 10/28/16 TIME: 12:55 Assessment/Plan VTE Prophylaxis VTE Prophylaxis Intervention: SCD's Lines/Catheters IV Catheter Type (from [facility]): [facility] Urinary Cath still in place: No Assessment/Plan Chief Complaint/Hosp Course Assessment and plan: - Acute encephalopathy secondary to healthcare health healthcare acquired bronchitis and fluid overload, continue antibiotics - Acute bronchitis, s/p treatment - Status post chest pain with negative nuclear stress test. Continue nitrates. - Hypertension and status post hypertensive emergency. Blood pressure better controlled. Continue Norvasc, hydralazine, Isordil. - End-stage renal disease. Continue hemodialysis as per Dr. Nettles. The patient also remains on Renagel. - Thrombocytopenia. Will continue to monitor. Probably due to bronchitis, although patient did have history of mild thrombocytopenia on and off. - Symptomatic bradycardia, status post permanent pacemaker placement. The patient is being followed by Dr. Esparza from cardiac standpoint, Dr. Nettles from nephrology standpoint. - Hyperglycemia, Hgb A1C is 5.4. Physical therapy evaluation. Acute rehab eval Further recommendations based on clinical course. Plan of care was discussed with Dr. Nettles who is covering for Dr. Rangel. Problems: Subjective 24 Hr Interval Summary Free Text/Dictation Patient is awake alert, no fever nausea vomiting per RN. Exam/Review of Systems Vital Signs Vitals Vital Signs Date Time Temp Pulse Resp B/P Pulse Ox O2 Delivery O2 Flow Rate FiO2 10/28/16 11:53 98.0 69 16 164/79 99 10/28/16 08:00 Room Air 10/27/16 23:14 21 10/27/16 20:25 2.0 Intake and Output 10/27/16 10/27/16 10/28/16 15:00 23:00 07:00 Intake Total 550 ml 720 ml Output Total 2430 ml Balance -1880 ml 720 ml Exam GENERAL: Well developed, well-nourished ,awake, alert. HEENT: Head is atraumatic, normocephalic. Patient is legally blind. NECK: Supple, no cervical lymphadenopathy, no thyromegaly. CHEST: Rhonchi bilaterally CARDIOVASCULAR: Normal S1, S2. No murmurs, gallops, clicks, rubs noted. ABDOMEN: Round, soft, nondistended, nontender. Bowel sounds present. EXTREMITIES: No edema, clubbing, cyanosis. Left upper extremity AV fistula with audible bruit and palpable thrill. SKIN: There is no rash, petechiae noted. NEUROLOGIC: awake, alert. Results Result Diagram: 10/28/16 0555 10/28/16 0555 Results 24 hrs Laboratory Tests Test 10/27/16 17:10 10/27/16 20:10 10/28/16 04:34 10/28/16 05:15 Bedside Glucose 83 87 52 L 66 L Test 10/28/16 05:55 10/28/16 08:17 Anion Gap 17 H Basophils # 0.0 Basophils % 0.0 Bedside Glucose 150 138 Blood Morphology Comment Blood Urea Nitrogen 55 #H Calcium Level 7.9 L Carbon Dioxide Level 25 Chloride Level 96 L Creatinine 4.15 #H Eosinophils # 0.1 Eosinophils % 0.6 Glucose Level 150 Hematocrit 35.2 L Hemoglobin 11.6 L Lymphocytes # 0.5 L Lymphocytes % 5.9 L Mean Corpuscular Hemoglobin 27.1 L Mean Corpuscular Hemoglobin Concent 33.1 Mean Corpuscular Volume 82.1 Mean Platelet Volume 11.2 H Monocytes # 1.1 H Monocytes % 12.0 H Neutrophils # 7.4 Neutrophils % 81.5 H Nucleated Red Blood Cells # 0.0 Nucleated Red Blood Cells % 0.0 Platelet Count 86 L Potassium Level 4.1 Red Blood Count 4.28 L Red Cell Distribution Width 19.1 H Sodium Level 134 L White Blood Count 9.0 Medications Medications Current Medications Heparin Sodium (Porcine) (Heparin (5000 Units/0.5 ml)) 5,000 unit BID SC Last administered on 10/28/16 09:03; Admin Dose 5,000 UNIT; Start 10/14/16 at 21:00 Famotidine (Pepcid) 20 mg DAILY PO Last administered on 10/28/16 09:00; Admin Dose 20 MG; Start 10/15/16 at 09:00 Ondansetron HCl (Zofran Inj) 4 mg Q6H PRN IV NAUSEA AND/OR VOMITING; Start at 16:30 Nitroglycerin (Nitroglycerin (Sl Tab) 0.4 Mg) 1 tab Q5M PRN SL CHEST PAIN; Start 10/14/16 at 16:30 Acetaminophen (Tylenol Tab) 650 mg Q6H PRN PO PAIN LEVEL 1-3 OR FEVER Last administered on 10/23/16 20:01; Admin Dose 650 MG; Start 10/14/16 at 16:30 Morphine Sulfate (morphine) 2 mg Q4H PRN IV PAIN LEVEL 7-10 Last administered on 10/24/16 20:21; Admin Dose 2 MG; Start 10/14/16 at 16:30 Docusate Sodium (Colace) 100 mg Q12H PRN PO CONSTIPATION; Start 10/14/16 at 16: 30 Guaifenesin/ Dextromethorphan (Robitussin Dm Liquid Cup) 10 ml Q4H PRN PO COUGH Last administered on 10/14/16 21:56; Admin Dose 10 ML; Start 10/14/16 at 16:30 Atorvastatin Calcium (Lipitor) 20 mg DAILY@21 PO Last administered on 20:13; Admin Dose 20 MG; Start 10/14/16 at 21:00 Miscellaneous Information 1 ea NOTE XX ; Start 10/14/16 at 17:30 Glucose (Glutose) 15 gm Q15M PRN PO DECREASED GLUCOSE; Start 10/14/16 at 17:30 Glucose (Glutose) 22.5 gm Q15M PRN PO DECREASED GLUCOSE; Start 10/14/16 at 17: 30 Dextrose (D50w Syringe) 25 ml Q15M PRN IV DECREASED GLUCOSE Last administered on 10/28/16 05:19; Admin Dose 25 ML; Start 10/14/16 at 17:30 Dextrose (D50w Syringe) 50 ml Q15M PRN IV DECREASED GLUCOSE; Start 10/14/16 at 17:30 Glucagon (Glucagen) 1 mg Q15M PRN IM DECREASED GLUCOSE; Start 10/14/16 at 17:30 Glucose (Glutose) 15 gm Q15M PRN BUCCAL DECREASED GLUCOSE Last administered on 10/28/16 04:48; Admin Dose 15 GM; Start 10/14/16 at 17:30 Amlodipine Besylate (Norvasc) 5 mg BID PO Last administered on 10/28/16 09:00 ; Admin Dose 5 MG; Start 10/15/16 at 21:00 Clonidine (Catapres) 0.1 mg Q4 PRN PO ELEVATED SYSTOLIC BP Last administered on 10/24/16 23:47; Admin Dose 0.1 MG; Start 10/15/16 at 17:00 Isosorbide Dinitrate (Isordil) 20 mg TID PO Last administered on 10/28/16 12: 44; Admin Dose 20 MG; Start 10/15/16 at 21:00 Aspirin (Halfprin) 81 mg DAILY PO Last administered on 10/28/16 09:00; Admin Dose 81 MG; Start 10/18/16 at 09:00 Hydralazine HCl (Apresoline) 100 mg Q8H PO Last administered on 10/28/16 12:44 ; Admin Dose 100 MG; Start 10/21/16 at 20:30 Diagnostic Test (Pha) (Accucheck) 1 ea 02 XX Last administered on 10/27/16 02: 31; Admin Dose 1 EA; Start 10/23/16 at 02:00 Methylprednisolone Sodium Succinate (Solu-Medrol) 20 mg QAM IV Last administered on 10/28/16 09:01; Admin Dose 20 MG; Start 10/23/16 at 09:00 Lorazepam (Ativan) 0.5 mg Q6H PRN IV AGITATION/ANXIETY Last administered on 02:12; Admin Dose 0.5 MG; Start 10/23/16 at 02:30 Insulin Glargine 20 unit 20 unit HS SC Last administered on 10/27/16 20:23; Admin Dose 20 UNIT; Start 10/23/16 at 21:00 Piperacillin Sod/ Tazobactam Sod (Zosyn 2.25gm/ 50ml (Pmx)) 50 ml @ 100 mls/hr Q8 IVPB Last administered on 10/28/16 05:19; Admin Dose 100 MLS/HR; Start at 12:45 Miscellaneous Information (*Rx Drug Level Order Reminder*) 1 ONCE ONCE XX ; Start 10/29/16 at 05:00; Stop 10/29/16 at 05:01 CONTRERAS HUERTA Oct 28, 2016 13:03
[2016-10-28] MEDS: DOCUSATE SODIUM 100 MG CAP PO SCH ×2 (13:07→20:44)
--- NOTE | 2016-10-28 15:50 | CONS ---
Date/Time of Note Date/Time of Note DATE: 10/28/16 TIME: 15:50 Consult Date/Type/Reason Admit Date/Time Oct 14, 2016 at 13:43 Initial Consult Date 10/17/16 Type of Consultation: pulmonary Ordering Provider: YUNIER KIRBY MD Subjective Patient remains stable denies any shortness of breath or chest pain. Objective Vital Signs Date Time Temp Pulse Resp B/P Pulse Ox O2 Delivery O2 Flow Rate FiO2 10/28/16 11:53 98.0 69 16 164/79 99 10/28/16 08:00 Room Air 10/27/16 23:14 21 10/27/16 20:25 2.0 Intake and Output 10/27/16 10/27/16 10/28/16 15:00 23:00 07:00 Intake Total 550 ml 720 ml Output Total 2430 ml Balance -1880 ml 720 ml PHYSICAL EXAMINATION: VITAL SIGNS: as above HEENT: Bilateral cataracts patient is legally blind NECK: Supple. No JVD noted, no cervical adenopathy, no carotid bruits heard. LUNGS: Fair breath sounds bilaterally. CARDIOVASCULAR: S1, S2 normal. ABDOMEN: Soft, nontender. No organomegaly or masses noted. EXTREMITIES: No clubbing or cyanosis noted. NEUROLOGICAL: Awake. Results/Medications Result Diagram: 10/28/16 0555 10/28/16 0555 Results 24 hrs Laboratory Tests Test 10/27/16 17:10 10/27/16 20:10 10/28/16 04:34 10/28/16 05:15 Bedside Glucose 83 87 52 L 66 L Test 10/28/16 05:55 10/28/16 08:17 10/28/16 12:42 Anion Gap 17 H Basophils # 0.0 Basophils % 0.0 Bedside Glucose 150 138 88 Blood Morphology Comment Blood Urea Nitrogen 55 #H Calcium Level 7.9 L Carbon Dioxide Level 25 Chloride Level 96 L Creatinine 4.15 #H Eosinophils # 0.1 Eosinophils % 0.6 Glucose Level 150 Hematocrit 35.2 L Hemoglobin 11.6 L Lymphocytes # 0.5 L Lymphocytes % 5.9 L Mean Corpuscular Hemoglobin 27.1 L Mean Corpuscular Hemoglobin Concent 33.1 Mean Corpuscular Volume 82.1 Mean Platelet Volume 11.2 H Monocytes # 1.1 H Monocytes % 12.0 H Neutrophils # 7.4 Neutrophils % 81.5 H Nucleated Red Blood Cells # 0.0 Nucleated Red Blood Cells % 0.0 Platelet Count 86 L Potassium Level 4.1 Red Blood Count 4.28 L Red Cell Distribution Width 19.1 H Sodium Level 134 L White Blood Count 9.0 Medications Current Medications Heparin Sodium (Porcine) (Heparin (5000 Units/0.5 ml)) 5,000 unit BID SC Last administered on 10/28/16 09:03; Admin Dose 5,000 UNIT; Start 10/14/16 at 21:00 Famotidine (Pepcid) 20 mg DAILY PO Last administered on 10/28/16 09:00; Admin Dose 20 MG; Start 10/15/16 at 09:00 Ondansetron HCl (Zofran Inj) 4 mg Q6H PRN IV NAUSEA AND/OR VOMITING; Start at 16:30 Nitroglycerin (Nitroglycerin (Sl Tab) 0.4 Mg) 1 tab Q5M PRN SL CHEST PAIN; Start 10/14/16 at 16:30 Acetaminophen (Tylenol Tab) 650 mg Q6H PRN PO PAIN LEVEL 1-3 OR FEVER Last administered on 10/23/16 20:01; Admin Dose 650 MG; Start 10/14/16 at 16:30 Morphine Sulfate (morphine) 2 mg Q4H PRN IV PAIN LEVEL 7-10 Last administered on 10/24/16 20:21; Admin Dose 2 MG; Start 10/14/16 at 16:30 Docusate Sodium (Colace) 100 mg Q12H PRN PO CONSTIPATION; Start 10/14/16 at 16: 30 Guaifenesin/ Dextromethorphan (Robitussin Dm Liquid Cup) 10 ml Q4H PRN PO COUGH Last administered on 10/14/16 21:56; Admin Dose 10 ML; Start 10/14/16 at 16:30 Atorvastatin Calcium (Lipitor) 20 mg DAILY@21 PO Last administered on 20:13; Admin Dose 20 MG; Start 10/14/16 at 21:00 Miscellaneous Information 1 ea NOTE XX ; Start 10/14/16 at 17:30 Glucose (Glutose) 15 gm Q15M PRN PO DECREASED GLUCOSE; Start 10/14/16 at 17:30 Glucose (Glutose) 22.5 gm Q15M PRN PO DECREASED GLUCOSE; Start 10/14/16 at 17: 30 Dextrose (D50w Syringe) 25 ml Q15M PRN IV DECREASED GLUCOSE Last administered on 10/28/16 05:19; Admin Dose 25 ML; Start 10/14/16 at 17:30 Dextrose (D50w Syringe) 50 ml Q15M PRN IV DECREASED GLUCOSE; Start 10/14/16 at 17:30 Glucagon (Glucagen) 1 mg Q15M PRN IM DECREASED GLUCOSE; Start 10/14/16 at 17:30 Glucose (Glutose) 15 gm Q15M PRN BUCCAL DECREASED GLUCOSE Last administered on 10/28/16 04:48; Admin Dose 15 GM; Start 10/14/16 at 17:30 Amlodipine Besylate (Norvasc) 5 mg BID PO Last administered on 10/28/16 09:00 ; Admin Dose 5 MG; Start 10/15/16 at 21:00 Clonidine (Catapres) 0.1 mg Q4 PRN PO ELEVATED SYSTOLIC BP Last administered on 10/24/16 23:47; Admin Dose 0.1 MG; Start 10/15/16 at 17:00 Isosorbide Dinitrate (Isordil) 20 mg TID PO Last administered on 10/28/16 12: 44; Admin Dose 20 MG; Start 10/15/16 at 21:00 Aspirin (Halfprin) 81 mg DAILY PO Last administered on 10/28/16 09:00; Admin Dose 81 MG; Start 10/18/16 at 09:00 Hydralazine HCl (Apresoline) 100 mg Q8H PO Last administered on 10/28/16 12:44 ; Admin Dose 100 MG; Start 10/21/16 at 20:30 Diagnostic Test (Pha) (Accucheck) 1 ea 02 XX Last administered on 10/27/16 02: 31; Admin Dose 1 EA; Start 10/23/16 at 02:00 Methylprednisolone Sodium Succinate (Solu-Medrol) 20 mg QAM IV Last administered on 10/28/16 09:01; Admin Dose 20 MG; Start 10/23/16 at 09:00 Lorazepam (Ativan) 0.5 mg Q6H PRN IV AGITATION/ANXIETY Last administered on 02:12; Admin Dose 0.5 MG; Start 10/23/16 at 02:30 Insulin Glargine 20 unit 20 unit HS SC Last administered on 10/27/16 20:23; Admin Dose 20 UNIT; Start 10/23/16 at 21:00 Piperacillin Sod/ Tazobactam Sod (Zosyn 2.25gm/ 50ml (Pmx)) 50 ml @ 100 mls/hr Q8 IVPB Last administered on 10/28/16 13:58; Admin Dose 100 MLS/HR; Start at 12:45 Miscellaneous Information (*Rx Drug Level Order Reminder*) 1 ONCE ONCE XX ; Start 10/29/16 at 05:00; Stop 10/29/16 at 05:01 Docusate Sodium (Colace) 100 mg BID PO Last administered on 10/28/16 13:07; Admin Dose 100 MG; Start 10/28/16 at 13:00 Magnesium Hydroxide (Milk Of Mag) 30 ml DAILY PRN PO constipation Last administered on 10/28/16 13:07; Admin Dose 30 ML; Start 10/28/16 at 13:00 Assessment/Plan Chief Complaint/Hosp Course IMPRESSION: 1. Congestive heart failure. 2. End-stage renal disease on hemodialysis. 3. History of pacemaker. 4. Volume overload, overall better. RECOMMENDATIONS: 1. Continue hemodialysis and ultrafiltration per nephrology. 2. Followup labs Discharge planning okay from pulmonary standpoint We'll follow as needed Problems: M[facility]IS PONCE [facility], [facility] Oct 28, 2016 15:50
[2016-10-28 16:07] VITALS: BP 134/63; RESP 18
--- NOTE | 2016-10-28 17:24 | CONS ---
Date/Time of Note Date/Time of Note DATE: 10/28/16 TIME: 17:21 Assessment/Plan Assessment/Plan Chief Complaint/Hosp Course IMPRESSION: 1. Chest pain, assess for acute coronary syndrome-with a 4th trop minimally positive in the setting of renal failure. Now s/p lexiscan with no sig ischemia/ NL EF and no recurrent chest pain at thie time 2. Abnormal electrocardiogram, assess for acute coronary syndrome. 3. Right bundle branch block by EKG. 4. History of permanent pacemaker implant. 5. History of symptomatic bradycardia. 6. Diabetes mellitus. 7. Hypertensive emergency-improved on oral anti-hypertensives 8. End-stage renal disease on hemodialysis. 9. Possible bronchitis. Recc: -Tele -serial ecg's -Continue norvasc/hydralazine -Incxrease isordil and follow-up BP -Continue abx's/bronchodilators -Continue asa -HD for volume removal Problems: Consultation Date/Type/Reason Admit Date/Time Oct 14, 2016 at 13:43 Initial Consult Date 10/16/2016 Type of Consultation: cardiology Reason for Consultation chest pain Referring Provider: YUNIER KIRBY MD Exam/Review of Systems Vital Signs Vitals Vital Signs Date Time Temp Pulse Resp B/P Pulse Ox O2 Delivery O2 Flow Rate FiO2 10/28/16 16:07 97.6 68 18 134/63 98 10/28/16 08:00 Room Air 10/27/16 23:14 21 10/27/16 20:25 2.0 Intake and Output 10/27/16 10/27/16 10/28/16 15:00 23:00 07:00 Intake Total 550 ml 720 ml Output Total 2430 ml Balance -1880 ml 720 ml Exam Review of Systems: CONSTITUTIONAL: No fevers, chills. PULMONARY: No sob CARDIOVASCULAR: No chest pain/palpitations GASTROINTESTINAL: No nausea/vomiting. GENITOURINARY: No hematuria/dysuria. MUSCULOSKELETAL: No myagias/arthalgias. PSYCHIATRIC: The patient denies depression. NEUROLOGIC: lethargy Constitutional: alert, oriented Psych: no complaints Head: normocephalic ENMT: mucosa pink and moist Neck: jvd (9 cm water), supple Respiratory: diminished breath sounds Cardiovascular: regular rate and rhythm Gastrointestinal: non-tender, soft Musculoskeletal: muscle tone Extremities: edema (none) Neurological: other (none) Results Result Diagram: 10/28/16 0555 10/28/16 0555 Results 24 hrs Laboratory Tests Test 10/27/16 20:10 10/28/16 04:34 10/28/16 05:15 10/28/16 05:55 Bedside Glucose 87 52 L 66 L 150 Anion Gap 17 H Basophils # 0.0 Basophils % 0.0 Blood Morphology Comment Blood Urea Nitrogen 55 #H Calcium Level 7.9 L Carbon Dioxide Level 25 Chloride Level 96 L Creatinine 4.15 #H Eosinophils # 0.1 Eosinophils % 0.6 Glucose Level 150 Hematocrit 35.2 L Hemoglobin 11.6 L Lymphocytes # 0.5 L Lymphocytes % 5.9 L Mean Corpuscular Hemoglobin 27.1 L Mean Corpuscular Hemoglobin Concent 33.1 Mean Corpuscular Volume 82.1 Mean Platelet Volume 11.2 H Monocytes # 1.1 H Monocytes % 12.0 H Neutrophils # 7.4 Neutrophils % 81.5 H Nucleated Red Blood Cells # 0.0 Nucleated Red Blood Cells % 0.0 Platelet Count 86 L Potassium Level 4.1 Red Blood Count 4.28 L Red Cell Distribution Width 19.1 H Sodium Level 134 L White Blood Count 9.0 Test 10/28/16 08:17 10/28/16 12:42 Bedside Glucose 138 88 Medications Medications Current Medications Heparin Sodium (Porcine) (Heparin (5000 Units/0.5 ml)) 5,000 unit BID SC Last administered on 10/28/16 09:03; Admin Dose 5,000 UNIT; Start 10/14/16 at 21:00 Famotidine (Pepcid) 20 mg DAILY PO Last administered on 10/28/16 09:00; Admin Dose 20 MG; Start 10/15/16 at 09:00 Ondansetron HCl (Zofran Inj) 4 mg Q6H PRN IV NAUSEA AND/OR VOMITING; Start at 16:30 Nitroglycerin (Nitroglycerin (Sl Tab) 0.4 Mg) 1 tab Q5M PRN SL CHEST PAIN; Start 10/14/16 at 16:30 Acetaminophen (Tylenol Tab) 650 mg Q6H PRN PO PAIN LEVEL 1-3 OR FEVER Last administered on 10/23/16 20:01; Admin Dose 650 MG; Start 10/14/16 at 16:30 Morphine Sulfate (morphine) 2 mg Q4H PRN IV PAIN LEVEL 7-10 Last administered on 10/24/16 20:21; Admin Dose 2 MG; Start 10/14/16 at 16:30 Docusate Sodium (Colace) 100 mg Q12H PRN PO CONSTIPATION; Start 10/14/16 at 16: 30 Guaifenesin/ Dextromethorphan (Robitussin Dm Liquid Cup) 10 ml Q4H PRN PO COUGH Last administered on 10/14/16 21:56; Admin Dose 10 ML; Start 10/14/16 at 16:30 Atorvastatin Calcium (Lipitor) 20 mg DAILY@21 PO Last administered on 20:13; Admin Dose 20 MG; Start 10/14/16 at 21:00 Miscellaneous Information 1 ea NOTE XX ; Start 10/14/16 at 17:30 Glucose (Glutose) 15 gm Q15M PRN PO DECREASED GLUCOSE; Start 10/14/16 at 17:30 Glucose (Glutose) 22.5 gm Q15M PRN PO DECREASED GLUCOSE; Start 10/14/16 at 17: 30 Dextrose (D50w Syringe) 25 ml Q15M PRN IV DECREASED GLUCOSE Last administered on 10/28/16 05:19; Admin Dose 25 ML; Start 10/14/16 at 17:30 Dextrose (D50w Syringe) 50 ml Q15M PRN IV DECREASED GLUCOSE; Start 10/14/16 at 17:30 Glucagon (Glucagen) 1 mg Q15M PRN IM DECREASED GLUCOSE; Start 10/14/16 at 17:30 Glucose (Glutose) 15 gm Q15M PRN BUCCAL DECREASED GLUCOSE Last administered on 10/28/16 04:48; Admin Dose 15 GM; Start 10/14/16 at 17:30 Amlodipine Besylate (Norvasc) 5 mg BID PO Last administered on 10/28/16 09:00 ; Admin Dose 5 MG; Start 10/15/16 at 21:00 Clonidine (Catapres) 0.1 mg Q4 PRN PO ELEVATED SYSTOLIC BP Last administered on 10/24/16 23:47; Admin Dose 0.1 MG; Start 10/15/16 at 17:00 Isosorbide Dinitrate (Isordil) 20 mg TID PO Last administered on 10/28/16 12: 44; Admin Dose 20 MG; Start 10/15/16 at 21:00 Aspirin (Halfprin) 81 mg DAILY PO Last administered on 10/28/16 09:00; Admin Dose 81 MG; Start 10/18/16 at 09:00 Hydralazine HCl (Apresoline) 100 mg Q8H PO Last administered on 10/28/16 12:44 ; Admin Dose 100 MG; Start 10/21/16 at 20:30 Diagnostic Test (Pha) (Accucheck) 1 ea 02 XX Last administered on 10/27/16 02: 31; Admin Dose 1 EA; Start 10/23/16 at 02:00 Methylprednisolone Sodium Succinate (Solu-Medrol) 20 mg QAM IV Last administered on 10/28/16 09:01; Admin Dose 20 MG; Start 10/23/16 at 09:00 Lorazepam (Ativan) 0.5 mg Q6H PRN IV AGITATION/ANXIETY Last administered on 02:12; Admin Dose 0.5 MG; Start 10/23/16 at 02:30 Insulin Glargine 20 unit 20 unit HS SC Last administered on 10/27/16 20:23; Admin Dose 20 UNIT; Start 10/23/16 at 21:00 Piperacillin Sod/ Tazobactam Sod (Zosyn 2.25gm/ 50ml (Pmx)) 50 ml @ 100 mls/hr Q8 IVPB Last administered on 10/28/16 13:58; Admin Dose 100 MLS/HR; Start at 12:45 Miscellaneous Information (*Rx Drug Level Order Reminder*) 1 ONCE ONCE XX ; Start 10/29/16 at 05:00; Stop 10/29/16 at 05:01 Docusate Sodium (Colace) 100 mg BID PO Last administered on 10/28/16 13:07; Admin Dose 100 MG; Start 10/28/16 at 13:00 Magnesium Hydroxide (Milk Of Mag) 30 ml DAILY PRN PO constipation Last administered on 10/28/16 13:07; Admin Dose 30 ML; Start 10/28/16 at 13:00 WILLA GARSIA Oct 28, 2016 17:24
[2016-10-28 19:51] VITALS: BP 155/71; RESP 18
[2016-10-28] MEDS: ATORVASTATIN 20 MG TAB PO SCH (20:44)
[2016-10-28] MEDS: ISOSORBIDE DINITRATE 10 MG TAB PO SCH (20:45)
[2016-10-28] MEDS: INSULIN GLARGINE [LANtus] 3 ML PEN SC SCH (21:08)
[2016-10-29] VITALS (17 sets, daily range): BP systolic 132–180; BP diastolic 57–79; PULSE 75–89; RESP 18–20
[2016-10-29] MEDS ORDERED: BISACODYL 10 MG SUPP PR ONE (01:30)
[2016-10-29] MEDS: ACCUCHECK XX SCH (02:00)
[2016-10-29 05:34] LABS: HEMATOCRIT 32.8 % (42.0-52.0); HEMOGLOBIN 10.8 g/dl (14.0-18.0); LYMPHOCYTES # 0.2 10^3/ul (0.8-2.9); LYMPHOCYTES % 1.4 % (15.0-51.0); MEAN CORPUSCULAR HEMOGLOBIN 27.2 pg (29.0-33.0); MEAN CORPUSCULAR VOLUME 82.3 fl (82.0-101.0); MEAN PLATELET VOLUME 11.9 fl (7.4-10.4); MONOCYTE # 0.7 10^3/ul (0.3-0.9); MONOCYTES % 6.3 % (0.0-11.0); NEUTROPHILS % 92.3 % (39.0-77.0); PLATELET COUNT 84 10^3/UL (140-440); RED BLOOD COUNT 3.99 10^6/ul (4.70-6.10); RED CELL DISTRIBUTION WIDTH 19.2 % (11.5-14.5); UNCORRECTED WBC 10.8 10^3/ul (4.8-10.8); WHITE BLOOD COUNT 10.8 10^3/ul (4.8-10.8)
[2016-10-29] MEDS: PIPER-TAZO 2.25 GM (PMX) 50 ML IVPB SCH ×2 (05:37→14:48)
[2016-10-29 05:50] LABS: CONDITION 1; LH ANALYZER COMMENTS 1
[2016-10-29 06:00] LABS: POTASSIUM 4.9 mmol/L (3.5-5.1)
[2016-10-29 06:02] LABS: CREATININE 5.32 mg/dl (0.61-1.24)
[2016-10-29 06:03] LABS: CALCIUM 7.9 mg/dl (8.4-10.2)
[2016-10-29] MEDS: INSULIN ASPART [NOVOLOG] 3 ML PEN SC SCH ×7 (08:09→20:38)
[2016-10-29] MEDS: DEXTROSE 50% 50 ML SYRINGE IV PRN (08:10)
[2016-10-29] MEDS: FAMOTIDINE 20 MG TAB PO SCH (08:13)
[2016-10-29] MEDS: DOCUSATE SODIUM 100 MG CAP PO SCH ×2 (08:13→20:30)
[2016-10-29] MEDS: SEVELAMER 800 MG TAB PO SCH ×3 (08:13→17:16)
[2016-10-29] MEDS: ASPIRIN (EC) 81 MG TAB PO SCH (08:13)
[2016-10-29] MEDS: METHYLPREDNISOLONE 40 MG INJ IV SCH (08:14)
[2016-10-29] MEDS: AMLODIPINE 5 MG TAB PO SCH ×2 (08:14→20:31)
[2016-10-29] MEDS: ISOSORBIDE DINITRATE 10 MG TAB PO SCH ×3 (08:14→20:31)
[2016-10-29] MEDS: HEPARIN 5,000 UNIT/0.5 ML SYG SC SCH ×2 (08:29→20:37)
--- NOTE | 2016-10-29 10:27 | CONS ---
Date/Time of Note Date/Time of Note DATE: 10/29/16 TIME: 10:25 Assessment/Plan Assessment/Plan Chief Complaint/Hosp Course IMPRESSION: 1. Chest pain, assess for acute coronary syndrome-with a 4th trop minimally positive in the setting of renal failure. Now s/p lexiscan with no sig ischemia/ NL EF and no recurrent chest pain at thie time 2. Abnormal electrocardiogram, assess for acute coronary syndrome. 3. Right bundle branch block by EKG. 4. History of permanent pacemaker implant. 5. History of symptomatic bradycardia. 6. Diabetes mellitus. 7. Hypertensive emergency-improved on oral anti-hypertensives 8. End-stage renal disease on hemodialysis. 9. Possible bronchitis. Recc: -Now on med-surg -Continue norvasc/hydralazine/isordil and follow BP closely -Continue abx's/bronchodilators -Continue asa -HD for volume removal Problems: Consultation Date/Type/Reason Admit Date/Time Oct 14, 2016 at 13:43 Initial Consult Date 10/16/2016 Type of Consultation: cardiology Reason for Consultation Chest pain Referring Provider: YUNIER KIRBY MD Exam/Review of Systems Vital Signs Vitals Vital Signs Date Time Temp Pulse Resp B/P Pulse Ox O2 Delivery O2 Flow Rate FiO2 10/29/16 08:24 97.6 80 18 144/63 99 10/28/16 08:00 Room Air 10/27/16 23:14 21 10/27/16 20:25 2.0 Intake and Output 10/28/16 10/28/16 10/29/16 14:59 22:59 06:59 Intake Total 480 ml 100 ml Balance 480 ml 100 ml Exam Review of Systems: CONSTITUTIONAL: No fevers, chills. PULMONARY: No sob CARDIOVASCULAR: No chest pain/palpitations GASTROINTESTINAL: No nausea/vomiting. GENITOURINARY: No hematuria/dysuria. MUSCULOSKELETAL: No myagias/arthalgias. PSYCHIATRIC: The patient denies depression. NEUROLOGIC: lethargic Constitutional: other (sleeping but easily arousable) Psych: no complaints Head: normocephalic ENMT: mucosa pink and moist Neck: jvd (9 cm water), supple Respiratory: diminished breath sounds (at bases/B) Cardiovascular: regular rate and rhythm Gastrointestinal: non-tender, soft Musculoskeletal: muscle tone (normal) Extremities: edema (none) Neurological: lethargic Results Result Diagram: 10/29/16 0515 10/29/16 0515 Results 24 hrs Laboratory Tests Test 10/28/16 12:42 10/28/16 17:30 10/28/16 20:47 10/29/16 05:15 Bedside Glucose 88 109 140 Anion Gap 21 H Basophils # 0.0 Basophils % 0.0 Blood Morphology Comment Blood Urea Nitrogen 78 H Calcium Level 7.9 L Carbon Dioxide Level 23 Chloride Level 95 L Creatinine 5.32 H Eosinophils # 0.0 Eosinophils % 0.0 Glucose Level 98 # Hematocrit 32.8 L Hemoglobin 10.8 L Lymphocytes # 0.2 L Lymphocytes % 1.4 L Mean Corpuscular Hemoglobin 27.2 L Mean Corpuscular Hemoglobin Concent 33.0 Mean Corpuscular Volume 82.3 Mean Platelet Volume 11.9 H Monocytes # 0.7 Monocytes % 6.3 Neutrophils # 10.0 H Neutrophils % 92.3 H Nucleated Red Blood Cells # 0.0 Nucleated Red Blood Cells % 0.0 Platelet Count 84 L Potassium Level 4.9 Random Vancomycin Level 14.6 Red Blood Count 3.99 L Red Cell Distribution Width 19.2 H Sodium Level 134 L White Blood Count 10.8 Test 10/29/16 08:05 10/29/16 08:26 Bedside Glucose 35 *L 99 Medications Medications Current Medications Heparin Sodium (Porcine) (Heparin (5000 Units/0.5 ml)) 5,000 unit BID SC Last administered on 10/29/16 08:29; Admin Dose 5,000 UNIT; Start 10/14/16 at 21:00 Famotidine (Pepcid) 20 mg DAILY PO Last administered on 10/29/16 08:13; Admin Dose 20 MG; Start 10/15/16 at 09:00 Ondansetron HCl (Zofran Inj) 4 mg Q6H PRN IV NAUSEA AND/OR VOMITING; Start at 16:30 Nitroglycerin (Nitroglycerin (Sl Tab) 0.4 Mg) 1 tab Q5M PRN SL CHEST PAIN; Start 10/14/16 at 16:30 Acetaminophen (Tylenol Tab) 650 mg Q6H PRN PO PAIN LEVEL 1-3 OR FEVER Last administered on 10/23/16 20:01; Admin Dose 650 MG; Start 10/14/16 at 16:30 Morphine Sulfate (morphine) 2 mg Q4H PRN IV PAIN LEVEL 7-10 Last administered on 10/24/16 20:21; Admin Dose 2 MG; Start 10/14/16 at 16:30 Docusate Sodium (Colace) 100 mg Q12H PRN PO CONSTIPATION; Start 10/14/16 at 16: 30 Guaifenesin/ Dextromethorphan (Robitussin Dm Liquid Cup) 10 ml Q4H PRN PO COUGH Last administered on 10/14/16 21:56; Admin Dose 10 ML; Start 10/14/16 at 16:30 Atorvastatin Calcium (Lipitor) 20 mg DAILY@21 PO Last administered on 20:44; Admin Dose 20 MG; Start 10/14/16 at 21:00 Miscellaneous Information 1 ea NOTE XX ; Start 10/14/16 at 17:30 Glucose (Glutose) 15 gm Q15M PRN PO DECREASED GLUCOSE; Start 10/14/16 at 17:30 Glucose (Glutose) 22.5 gm Q15M PRN PO DECREASED GLUCOSE; Start 10/14/16 at 17: 30 Dextrose (D50w Syringe) 25 ml Q15M PRN IV DECREASED GLUCOSE Last administered on 10/29/16 08:10; Admin Dose 25 ML; Start 10/14/16 at 17:30 Dextrose (D50w Syringe) 50 ml Q15M PRN IV DECREASED GLUCOSE; Start 10/14/16 at 17:30 Glucagon (Glucagen) 1 mg Q15M PRN IM DECREASED GLUCOSE; Start 10/14/16 at 17:30 Glucose (Glutose) 15 gm Q15M PRN BUCCAL DECREASED GLUCOSE Last administered on 10/28/16 04:48; Admin Dose 15 GM; Start 10/14/16 at 17:30 Amlodipine Besylate (Norvasc) 5 mg BID PO Last administered on 10/28/16 20:46 ; Admin Dose 5 MG; Start 10/15/16 at 21:00 Clonidine (Catapres) 0.1 mg Q4 PRN PO ELEVATED SYSTOLIC BP Last administered on 10/24/16 23:47; Admin Dose 0.1 MG; Start 10/15/16 at 17:00 Aspirin (Halfprin) 81 mg DAILY PO Last administered on 10/29/16 08:13; Admin Dose 81 MG; Start 10/18/16 at 09:00 Hydralazine HCl (Apresoline) 100 mg Q8H PO Last administered on 10/29/16 05:31 ; Admin Dose 100 MG; Start 10/21/16 at 20:30 Diagnostic Test (Pha) (Accucheck) 1 ea 02 XX Last administered on 10/27/16 02: 31; Admin Dose 1 EA; Start 10/23/16 at 02:00 Methylprednisolone Sodium Succinate (Solu-Medrol) 20 mg QAM IV Last administered on 10/29/16 08:14; Admin Dose 20 MG; Start 10/23/16 at 09:00 Lorazepam (Ativan) 0.5 mg Q6H PRN IV AGITATION/ANXIETY Last administered on 02:12; Admin Dose 0.5 MG; Start 10/23/16 at 02:30 Insulin Glargine 20 unit 20 unit HS SC Last administered on 10/28/16 21:08; Admin Dose 20 UNIT; Start 10/23/16 at 21:00 Piperacillin Sod/ Tazobactam Sod (Zosyn 2.25gm/ 50ml (Pmx)) 50 ml @ 100 mls/hr Q8 IVPB Last administered on 10/29/16 05:37; Admin Dose 100 MLS/HR; Start 10/24 at 12:45 Docusate Sodium (Colace) 100 mg BID PO Last administered on 10/29/16 08:13; Admin Dose 100 MG; Start 10/28/16 at 13:00 Magnesium Hydroxide (Milk Of Mag) 30 ml DAILY PRN PO constipation Last administered on 10/28/16 13:07; Admin Dose 30 ML; Start 10/28/16 at 13:00 Isosorbide Dinitrate 30 mg 30 mg TID PO Last administered on 10/28/16 20:45; Admin Dose 30 MG; Start 10/28/16 at 21:00 Vancomycin HCl (Vancocin) 250 ml @ 125 mls/hr Q72H IVPB ; Start 10/29/16 at 12: 00 WILLA GARSIA Oct 29, 2016 10:27
[2016-10-29] MEDS ORDERED: VANCOMYCIN 1 GM in NS 250 ML IVPB SCH (12:00)
--- NOTE | 2016-10-29 13:26 | PN ---
Date/Time of Note Date/Time of Note DATE: 10/29/16 TIME: 13:25 Assessment/Plan VTE Prophylaxis VTE Prophylaxis Intervention: SCD's Lines/Catheters IV C[facility]ter Type (from [email or web address] Urinary Cath still in place: No Assessment/Plan Chief Complaint/Hosp Course Assessment and plan: - Acute encephalopathy secondary to healthcare health healthcare acquired bronchitis and fluid overload, continue antibiotics - Acute bronchitis, s/p treatment - Status post chest pain with negative nuclear stress test. Continue nitrates. - Hypertension and status post hypertensive emergency. Blood pressure better controlled. Continue Norvasc, hydralazine, Isordil. - End-stage renal disease. Continue hemodialysis as per Dr. Nettles. The patient also remains on Renagel. - Thrombocytopenia. Will continue to monitor. Probably due to bronchitis, although patient did have history of mild thrombocytopenia on and off. - Symptomatic bradycardia, status post permanent pacemaker placement. The patient is being followed by Dr. Esparza from cardiac standpoint, Dr. Nettles from nephrology standpoint. - Hyperglycemia, Hgb A1C is 5.4. Physical therapy evaluation. Acute rehab eval Further recommendations based on clinical course. Plan of care was discussed with Dr. Nettles who is covering for Dr. Rangel. Problems: Subjective 24 Hr Interval Summary Free Text/Dictation Patient was hypoglycemic episode in in a.m., currently stable blood sugar, no nausea vomiting per RN. Exam/Review of Systems Vital Signs Vitals Vital Signs Date Time Temp Pulse Resp B/P Pulse Ox O2 Delivery O2 Flow Rate FiO2 10/29/16 08:24 97.6 80 18 144/63 99 10/28/16 08:00 Room Air 10/27/16 23:14 21 10/27/16 20:25 2.0 Intake and Output 10/28/16 10/28/16 10/29/16 14:59 22:59 06:59 Intake Total 480 ml 100 ml Balance 480 ml 100 ml Exam GENERAL: Well developed, well-nourished ,awake, alert. HEENT: Head is atraumatic, normocephalic. Patient is legally blind. NECK: Supple, no cervical lymphadenopathy, no thyromegaly. CHEST: Rhonchi bilaterally CARDIOVASCULAR: Normal S1, S2. No murmurs, gallops, clicks, rubs noted. ABDOMEN: Round, soft, nondistended, nontender. Bowel sounds present. EXTREMITIES: No edema, clubbing, cyanosis. Left upper extremity AV fistula with audible bruit and palpable thrill. SKIN: There is no rash, petechiae noted. NEUROLOGIC: awake, alert. Results Result Diagram: 10/29/16 0515 10/29/16 0515 Results 24 hrs Laboratory Tests Test 10/28/16 17:30 10/28/16 20:47 10/29/16 05:15 10/29/16 08:05 Bedside Glucose 109 140 35 *L Anion Gap 21 H Basophils # 0.0 Basophils % 0.0 Blood Morphology Comment Blood Urea Nitrogen 78 H Calcium Level 7.9 L Carbon Dioxide Level 23 Chloride Level 95 L Creatinine 5.32 H Eosinophils # 0.0 Eosinophils % 0.0 Glucose Level 98 # Hematocrit 32.8 L Hemoglobin 10.8 L Lymphocytes # 0.2 L Lymphocytes % 1.4 L Mean Corpuscular Hemoglobin 27.2 L Mean Corpuscular Hemoglobin Concent 33.0 Mean Corpuscular Volume 82.3 Mean Platelet Volume 11.9 H Monocytes # 0.7 Monocytes % 6.3 Neutrophils # 10.0 H Neutrophils % 92.3 H Nucleated Red Blood Cells # 0.0 Nucleated Red Blood Cells % 0.0 Platelet Count 84 L Potassium Level 4.9 Random Vancomycin Level 14.6 Red Blood Count 3.99 L Red Cell Distribution Width 19.2 H Sodium Level 134 L White Blood Count 10.8 Test 10/29/16 08:26 10/29/16 12:04 Bedside Glucose 99 118 Medications Medications Current Medications Heparin Sodium (Porcine) (Heparin (5000 Units/0.5 ml)) 5,000 unit BID SC Last administered on 10/29/16 08:29; Admin Dose 5,000 UNIT; Start 10/14/16 at 21:00 Famotidine (Pepcid) 20 mg DAILY PO Last administered on 10/29/16 08:13; Admin Dose 20 MG; Start 10/15/16 at 09:00 Ondansetron HCl (Zofran Inj) 4 mg Q6H PRN IV NAUSEA AND/OR VOMITING; Start at 16:30 Nitroglycerin (Nitroglycerin (Sl Tab) 0.4 Mg) 1 tab Q5M PRN SL CHEST PAIN; Start 10/14/16 at 16:30 Acetaminophen (Tylenol Tab) 650 mg Q6H PRN PO PAIN LEVEL 1-3 OR FEVER Last administered on 10/23/16 20:01; Admin Dose 650 MG; Start 10/14/16 at 16:30 Morphine Sulfate (morphine) 2 mg Q4H PRN IV PAIN LEVEL 7-10 Last administered on 10/24/16 20:21; Admin Dose 2 MG; Start 10/14/16 at 16:30 Docusate Sodium (Colace) 100 mg Q12H PRN PO CONSTIPATION; Start 10/14/16 at 16: 30 Guaifenesin/ Dextromethorphan (Robitussin Dm Liquid Cup) 10 ml Q4H PRN PO COUGH Last administered on 10/14/16 21:56; Admin Dose 10 ML; Start 10/14/16 at 16:30 Atorvastatin Calcium (Lipitor) 20 mg DAILY@21 PO Last administered on 20:44; Admin Dose 20 MG; Start 10/14/16 at 21:00 Miscellaneous Information 1 ea NOTE XX ; Start 10/14/16 at 17:30 Glucose (Glutose) 15 gm Q15M PRN PO DECREASED GLUCOSE; Start 10/14/16 at 17:30 Glucose (Glutose) 22.5 gm Q15M PRN PO DECREASED GLUCOSE; Start 10/14/16 at 17: 30 Dextrose (D50w Syringe) 25 ml Q15M PRN IV DECREASED GLUCOSE Last administered on 10/29/16 08:10; Admin Dose 25 ML; Start 10/14/16 at 17:30 Dextrose (D50w Syringe) 50 ml Q15M PRN IV DECREASED GLUCOSE; Start 10/14/16 at 17:30 Glucagon (Glucagen) 1 mg Q15M PRN IM DECREASED GLUCOSE; Start 10/14/16 at 17:30 Glucose (Glutose) 15 gm Q15M PRN BUCCAL DECREASED GLUCOSE Last administered on 10/28/16 04:48; Admin Dose 15 GM; Start 10/14/16 at 17:30 Amlodipine Besylate (Norvasc) 5 mg BID PO Last administered on 10/28/16 20:46 ; Admin Dose 5 MG; Start 10/15/16 at 21:00 Clonidine (Catapres) 0.1 mg Q4 PRN PO ELEVATED SYSTOLIC BP Last administered on 10/24/16 23:47; Admin Dose 0.1 MG; Start 10/15/16 at 17:00 Aspirin (Halfprin) 81 mg DAILY PO Last administered on 10/29/16 08:13; Admin Dose 81 MG; Start 10/18/16 at 09:00 Hydralazine HCl (Apresoline) 100 mg Q8H PO Last administered on 10/29/16 05:31 ; Admin Dose 100 MG; Start 10/21/16 at 20:30 Diagnostic Test (Pha) (Accucheck) 1 ea 02 XX Last administered on 10/27/16 02: 31; Admin Dose 1 EA; Start 10/23/16 at 02:00 Methylprednisolone Sodium Succinate (Solu-Medrol) 20 mg QAM IV Last administered on 10/29/16 08:14; Admin Dose 20 MG; Start 10/23/16 at 09:00 Lorazepam (Ativan) 0.5 mg Q6H PRN IV AGITATION/ANXIETY Last administered on 02:12; Admin Dose 0.5 MG; Start 10/23/16 at 02:30 Insulin Glargine 20 unit 20 unit HS SC Last administered on 10/28/16 21:08; Admin Dose 20 UNIT; Start 10/23/16 at 21:00 Piperacillin Sod/ Tazobactam Sod (Zosyn 2.25gm/ 50ml (Pmx)) 50 ml @ 100 mls/hr Q8 IVPB Last administered on 10/29/16 05:37; Admin Dose 100 MLS/HR; Start 10/24 at 12:45 Docusate Sodium (Colace) 100 mg BID PO Last administered on 10/29/16 08:13; Admin Dose 100 MG; Start 10/28/16 at 13:00 Magnesium Hydroxide (Milk Of Mag) 30 ml DAILY PRN PO constipation Last administered on 10/28/16 13:07; Admin Dose 30 ML; Start 10/28/16 at 13:00 Isosorbide Dinitrate 30 mg 30 mg TID PO Last administered on 10/28/16 20:45; Admin Dose 30 MG; Start 10/28/16 at 21:00 Vancomycin HCl (Vancocin) 250 ml @ 125 mls/hr Q72H IVPB Last administered on 12:06; Admin Dose 125 MLS/HR; Start 10/29/16 at 12:00 Benazepril HCl (Lotensin) 10 mg BID PO ; Start 10/29/16 at 21:00 CONTRERAS HUERTA Oct 29, 2016 13:26
--- NOTE | 2016-10-29 17:22 | CONS ---
Date/Time of Note Date/Time of Note DATE: 10/29/16 TIME: 17:21 Assessment/Plan Assessment/Plan Additional Assessment/Plan 76 yo Male with 1. URI/Bronchitis 2. Hypertensive, Uncontrolled 3. End-stage renal disease. HD MWF 4. Diabetes mellitus type 2. 5. Hx of Permanent pacemaker. 6. Anemia, Chronic Disease 7. Mineral Bone Disease, ESRD 8. Mild Hyperkalemia-Resolved On HD, Stable, cont current treatment Cont Maintenance HD HD MWF Cont current Rx for HTN, low dose COTY with HD Cont Phophate binder, Renal/ADA diet. DC Planning as per Primary team. Consultation Date/Type/Reason Admit Date/Time Oct 14, 2016 at 13:43 Initial Consult Date 10/17/16 Type of Consultation: Nephrology Referring Provider: YUNIER KIRBY MD 24 HR Interval Summary Free Text/Dictation Seen and examined on HD, no new complaints Exam/Review of Systems Vital Signs Vitals Vital Signs Date Time Temp Pulse Resp B/P Pulse Ox O2 Delivery O2 Flow Rate FiO2 10/29/16 17:00 77 10/29/16 16:00 18 10/29/16 08:24 97.6 144/63 99 10/28/16 08:00 Room Air 10/27/16 23:14 21 10/27/16 20:25 2.0 Intake and Output 10/28/16 10/28/16 10/29/16 15:00 23:00 07:00 Intake Total 480 ml 100 ml Balance 480 ml 100 ml Exam Constitutional: No distress ENMT: mucosa pink and moist Respiratory: No labored breathing Cardiovascular: regular rate and rhythm, No edema Results Result Diagram: 10/29/16 0515 10/29/16 0515 Results 24 hrs Laboratory Tests Test 10/28/16 17:30 10/28/16 20:47 10/29/16 05:15 10/29/16 08:05 Bedside Glucose 109 140 35 *L Anion Gap 21 H Basophils # 0.0 Basophils % 0.0 Blood Morphology Comment Blood Urea Nitrogen 78 H Calcium Level 7.9 L Carbon Dioxide Level 23 Chloride Level 95 L Creatinine 5.32 H Eosinophils # 0.0 Eosinophils % 0.0 Glucose Level 98 # Hematocrit 32.8 L Hemoglobin 10.8 L Lymphocytes # 0.2 L Lymphocytes % 1.4 L Mean Corpuscular Hemoglobin 27.2 L Mean Corpuscular Hemoglobin Concent 33.0 Mean Corpuscular Volume 82.3 Mean Platelet Volume 11.9 H Monocytes # 0.7 Monocytes % 6.3 Neutrophils # 10.0 H Neutrophils % 92.3 H Nucleated Red Blood Cells # 0.0 Nucleated Red Blood Cells % 0.0 Platelet Count 84 L Potassium Level 4.9 Random Vancomycin Level 14.6 Red Blood Count 3.99 L Red Cell Distribution Width 19.2 H Sodium Level 134 L White Blood Count 10.8 Test 10/29/16 08:26 10/29/16 12:04 Bedside Glucose 99 118 Medications Medications Current Medications Heparin Sodium (Porcine) (Heparin (5000 Units/0.5 ml)) 5,000 unit BID SC Last administered on 10/29/16 08:29; Admin Dose 5,000 UNIT; Start 10/14/16 at 21:00 Famotidine (Pepcid) 20 mg DAILY PO Last administered on 10/29/16 08:13; Admin Dose 20 MG; Start 10/15/16 at 09:00 Ondansetron HCl (Zofran Inj) 4 mg Q6H PRN IV NAUSEA AND/OR VOMITING; Start at 16:30 Nitroglycerin (Nitroglycerin (Sl Tab) 0.4 Mg) 1 tab Q5M PRN SL CHEST PAIN; Start 10/14/16 at 16:30 Acetaminophen (Tylenol Tab) 650 mg Q6H PRN PO PAIN LEVEL 1-3 OR FEVER Last administered on 10/23/16 20:01; Admin Dose 650 MG; Start 10/14/16 at 16:30 Morphine Sulfate (morphine) 2 mg Q4H PRN IV PAIN LEVEL 7-10 Last administered on 10/24/16 20:21; Admin Dose 2 MG; Start 10/14/16 at 16:30 Docusate Sodium (Colace) 100 mg Q12H PRN PO CONSTIPATION; Start 10/14/16 at 16: 30 Guaifenesin/ Dextromethorphan (Robitussin Dm Liquid Cup) 10 ml Q4H PRN PO COUGH Last administered on 10/14/16 21:56; Admin Dose 10 ML; Start 10/14/16 at 16:30 Atorvastatin Calcium (Lipitor) 20 mg DAILY@21 PO Last administered on 1/31/ 17at 20:44; Admin Dose 20 MG; Start 10/14/16 at 21:00 Miscellaneous Information 1 ea NOTE XX ; Start 10/14/16 at 17:30 Glucose (Glutose) 15 gm Q15M PRN PO DECREASED GLUCOSE; Start 10/14/16 at 17:30 Glucose (Glutose) 22.5 gm Q15M PRN PO DECREASED GLUCOSE; Start 10/14/16 at 17: 30 Dextrose (D50w Syringe) 25 ml Q15M PRN IV DECREASED GLUCOSE Last administered on 10/29/16 08:10; Admin Dose 25 ML; Start 10/14/16 at 17:30 Dextrose (D50w Syringe) 50 ml Q15M PRN IV DECREASED GLUCOSE; Start 10/14/16 at 17:30 Glucagon (Glucagen) 1 mg Q15M PRN IM DECREASED GLUCOSE; Start 10/14/16 at 17:30 Glucose (Glutose) 15 gm Q15M PRN BUCCAL DECREASED GLUCOSE Last administered on 10/28/16 04:48; Admin Dose 15 GM; Start 10/14/16 at 17:30 Amlodipine Besylate (Norvasc) 5 mg BID PO Last administered on 10/28/16 20:46 ; Admin Dose 5 MG; Start 10/15/16 at 21:00 Clonidine (Catapres) 0.1 mg Q4 PRN PO ELEVATED SYSTOLIC BP Last administered on 10/24/16 23:47; Admin Dose 0.1 MG; Start 10/15/16 at 17:00 Aspirin (Halfprin) 81 mg DAILY PO Last administered on 10/29/16 08:13; Admin Dose 81 MG; Start 10/18/16 at 09:00 Hydralazine HCl (Apresoline) 100 mg Q8H PO Last administered on 10/29/16 05:31 ; Admin Dose 100 MG; Start 10/21/16 at 20:30 Diagnostic Test (Pha) (Accucheck) 1 ea 02 XX Last administered on 10/27/16 02: 31; Admin Dose 1 EA; Start 10/23/16 at 02:00 Methylprednisolone Sodium Succinate (Solu-Medrol) 20 mg QAM IV Last administered on 10/29/16 08:14; Admin Dose 20 MG; Start 10/23/16 at 09:00 Lorazepam (Ativan) 0.5 mg Q6H PRN IV AGITATION/ANXIETY Last administered on 02:12; Admin Dose 0.5 MG; Start 10/23/16 at 02:30 Insulin Glargine 20 unit 20 unit HS SC Last administered on 10/28/16 21:08; Admin Dose 20 UNIT; Start 10/23/16 at 21:00 Piperacillin Sod/ Tazobactam Sod (Zosyn 2.25gm/ 50ml (Pmx)) 50 ml @ 100 mls/hr Q8 IVPB Last administered on 10/29/16 14:48; Admin Dose 100 MLS/HR; Start 10/24 at 12:45 Docusate Sodium (Colace) 100 mg BID PO Last administered on 10/29/16 08:13; Admin Dose 100 MG; Start 10/28/16 at 13:00 Magnesium Hydroxide (Milk Of Mag) 30 ml DAILY PRN PO constipation Last administered on 10/28/16 13:07; Admin Dose 30 ML; Start 10/28/16 at 13:00 Isosorbide Dinitrate 30 mg 30 mg TID PO Last administered on 10/28/16 20:45; Admin Dose 30 MG; Start 10/28/16 at 21:00 Vancomycin HCl (Vancocin) 250 ml @ 125 mls/hr Q72H IVPB Last administered on 12:06; Admin Dose 125 MLS/HR; Start 10/29/16 at 12:00 Benazepril HCl (Lotensin) 10 mg BID PO ; Start 10/29/16 at 21:00 MARIANNA ZENDEJAS MD Oct 29, 2016 17:22
[2016-10-29] MEDS: ATORVASTATIN 20 MG TAB PO SCH (20:31)
[2016-10-29] MEDS: BENAZEPRIL 10 MG TAB PO SCH (20:32)
[2016-10-29] MEDS: INSULIN GLARGINE [LANtus] 3 ML PEN SC SCH (20:38)
[2016-10-30] VITALS (12 sets, daily range): BP systolic 95–160; BP diastolic 59–70; PULSE 70–81; RESP 18–20
[2016-10-30] MEDS: PIPER-TAZO 2.25 GM (PMX) 50 ML IVPB SCH ×4 (00:48→21:32)
[2016-10-30] MEDS: ACCUCHECK XX SCH (02:00)
[2016-10-30] MEDS: INSULIN ASPART [NOVOLOG] 3 ML PEN SC SCH ×7 (08:15→20:45)
[2016-10-30] MEDS: SEVELAMER 800 MG TAB PO SCH ×3 (08:40→17:50)
[2016-10-30] MEDS: DOCUSATE SODIUM 100 MG CAP PO SCH ×2 (08:41→20:41)
[2016-10-30] MEDS: METHYLPREDNISOLONE 40 MG INJ IV SCH (08:41)
[2016-10-30] MEDS: BENAZEPRIL 10 MG TAB PO SCH (08:42)
[2016-10-30] MEDS: AMLODIPINE 5 MG TAB PO SCH ×2 (08:43→20:42)
[2016-10-30] MEDS: ISOSORBIDE DINITRATE 10 MG TAB PO SCH ×3 (08:44→20:43)
[2016-10-30] MEDS: FAMOTIDINE 20 MG TAB PO SCH (08:44)
[2016-10-30] MEDS: ASPIRIN (EC) 81 MG TAB PO SCH (08:47)
[2016-10-30] MEDS: HEPARIN 5,000 UNIT/0.5 ML SYG SC SCH ×2 (09:09→20:49)
--- NOTE | 2016-10-30 09:48 | PN ---
Date/Time of Note Date/Time of Note DATE: 10/30/16 TIME: 09:45 Assessment/Plan VTE Prophylaxis VTE Prophylaxis Intervention: SCD's Lines/Catheters IV [facility]ter [facility]from [facility] Urinary Cath still in place: No Assessment/Plan Assessment/Plan - Acute encephalopathy secondary to healthcare health healthcare acquired bronchitis and fluid overload, continue antibiotics - Acute bronchitis, s/p treatment - Status post chest pain with negative nuclear stress test. Continue nitrates. - Hypertension and status post hypertensive emergency. Blood pressure better controlled. Continue Norvasc, hydralazine, Isordil. - End-stage renal disease. Continue hemodialysis as per Dr. Nettles. The patient also remains on Renagel. - Thrombocytopenia. Will continue to monitor. Probably due to bronchitis, although patient did have history of mild thrombocytopenia on and off. - Symptomatic bradycardia, status post permanent pacemaker placement. The patient is being followed by Dr. Esparza from cardiac standpoint, Dr. Nettles from nephrology standpoint. - Hyperglycemia, Hgb A1C is 5.4. Physical therapy evaluation. Acute rehab eval Further recommendations based on clinical course. Plan of care was discussed with Dr. Nettles who is covering for Dr. Rangel. Subjective 24 Hr Interval Summary Free Text/Dictation NAD, aler/awake. PT at bed side. No new issues reported. dw staff, Eyes: no complaints ENT: no complaints Respiratory: no complaints Cardiovascular: no complaints Gastrointestinal: no complaints Genitourinary: no complaints Musculoskeletal: no complaints Skin: no complaints Neurologic: no complaints Lymphatic: no complaints Psychological: no complaints Exam/Review of Systems Vital Signs Vitals Vital Signs Date Time Temp Pulse Resp B/P Pulse Ox O2 Delivery O2 Flow Rate FiO2 10/30/16 08:20 98.2 70 20 151/70 96 10/30/16 05:30 Room Air 10/29/16 17:30 21 10/27/16 20:25 2.0 Intake and Output 10/29/16 10/29/16 10/30/16 15:00 23:00 07:00 Intake Total 720 ml 800 ml 220 ml Output Total 2500 ml Balance 720 ml -1700 ml 220 ml Exam Constitutional: alert Psych: nl mood/affect Eyes: EOMI, other ENMT: nl external ears & nose Neck: non-tender Respiratory: clear to auscultation Cardiovascular: nl pulses Gastrointestinal: non-tender, soft Musculoskeletal: nl extremities to inspection Extremities: normal pulses Neurological: nl speech, other (answers simple quesions. follows simple commands.) Lymph: nontender Results Result Diagram: 10/29/16 0515 10/29/16 0515 Results 24 hrs Laboratory Tests Test 10/29/16 12:04 10/29/16 17:13 10/29/16 20:34 10/30/16 08:09 Bedside Glucose 118 145 171 109 Medications Medications Current Medications Heparin Sodium (Porcine) (Heparin (5000 Units/0.5 ml)) 5,000 unit BID SC Last administered on 10/30/16 09:09; Admin Dose 5,000 UNIT; Start 10/14/16 at 21:00 Famotidine (Pepcid) 20 mg DAILY PO Last administered on 10/30/16 08:44; Admin Dose 20 MG; Start 10/15/16 at 09:00 Ondansetron HCl (Zofran Inj) 4 mg Q6H PRN IV NAUSEA AND/OR VOMITING; Start at 16:30 Nitroglycerin (Nitroglycerin (Sl Tab) 0.4 Mg) 1 tab Q5M PRN SL CHEST PAIN; Start 10/14/16 at 16:30 Acetaminophen (Tylenol Tab) 650 mg Q6H PRN PO PAIN LEVEL 1-3 OR FEVER Last administered on 10/23/16 20:01; Admin Dose 650 MG; Start 10/14/16 at 16:30 Morphine Sulfate (morphine) 2 mg Q4H PRN IV PAIN LEVEL 7-10 Last administered on 10/24/16 20:21; Admin Dose 2 MG; Start 10/14/16 at 16:30 Docusate Sodium (Colace) 100 mg Q12H PRN PO CONSTIPATION; Start 10/14/16 at 16: 30 Guaifenesin/ Dextromethorphan (Robitussin Dm Liquid Cup) 10 ml Q4H PRN PO COUGH Last administered on 10/14/16 21:56; Admin Dose 10 ML; Start 10/14/16 at 16:30 Atorvastatin Calcium (Lipitor) 20 mg DAILY@21 PO Last administered on 10/29/16 20:31; Admin Dose 20 MG; Start 10/14/16 at 21:00 Miscellaneous Information 1 ea NOTE XX ; Start 10/14/16 at 17:30 Glucose (Glutose) 15 gm Q15M PRN PO DECREASED GLUCOSE; Start 10/14/16 at 17:30 Glucose (Glutose) 22.5 gm Q15M PRN PO DECREASED GLUCOSE; Start 10/14/16 at 17: 30 Dextrose (D50w Syringe) 25 ml Q15M PRN IV DECREASED GLUCOSE Last administered on 10/29/16 08:10; Admin Dose 25 ML; Start 10/14/16 at 17:30 Dextrose (D50w Syringe) 50 ml Q15M PRN IV DECREASED GLUCOSE; Start 10/14/16 at 17:30 Glucagon (Glucagen) 1 mg Q15M PRN IM DECREASED GLUCOSE; Start 10/14/16 at 17:30 Glucose (Glutose) 15 gm Q15M PRN BUCCAL DECREASED GLUCOSE Last administered on 10/28/16 04:48; Admin Dose 15 GM; Start 10/14/16 at 17:30 Amlodipine Besylate (Norvasc) 5 mg BID PO Last administered on 10/30/16 08:43; Admin Dose 5 MG; Start 10/15/16 at 21:00 Clonidine (Catapres) 0.1 mg Q4 PRN PO ELEVATED SYSTOLIC BP Last administered on 10/24/16 23:47; Admin Dose 0.1 MG; Start 10/15/16 at 17:00 Aspirin (Halfprin) 81 mg DAILY PO Last administered on 10/30/16 08:47; Admin Dose 81 MG; Start 10/18/16 at 09:00 Hydralazine HCl (Apresoline) 100 mg Q8H PO Last administered on 10/30/16 05:34 ; Admin Dose 100 MG; Start 10/21/16 at 20:30 Diagnostic Test (Pha) (Accucheck) 1 ea 02 XX Last administered on 10/27/16 02: 31; Admin Dose 1 EA; Start 10/23/16 at 02:00 Methylprednisolone Sodium Succinate (Solu-Medrol) 20 mg QAM IV Last administered on 10/30/16 08:41; Admin Dose 20 MG; Start 10/23/16 at 09:00 Lorazepam (Ativan) 0.5 mg Q6H PRN IV AGITATION/ANXIETY Last administered on 02:12; Admin Dose 0.5 MG; Start 10/23/16 at 02:30 Insulin Glargine 20 unit 20 unit HS SC Last administered on 10/29/16 20:38; Admin Dose 20 UNIT; Start 10/23/16 at 21:00 Piperacillin Sod/ Tazobactam Sod (Zosyn 2.25gm/ 50ml (Pmx)) 50 ml @ 100 mls/hr Q8 IVPB Last administered on 10/30/16 05:33; Admin Dose 100 MLS/HR; Start 10/24 at 12:45 Docusate Sodium (Colace) 100 mg BID PO Last administered on 10/30/16 08:41; Admin Dose 100 MG; Start 10/28/16 at 13:00 Magnesium Hydroxide (Milk Of Mag) 30 ml DAILY PRN PO constipation Last administered on 10/28/16 13:07; Admin Dose 30 ML; Start 10/28/16 at 13:00 Isosorbide Dinitrate 30 mg 30 mg TID PO Last administered on 10/30/16 08:44; Admin Dose 30 MG; Start 10/28/16 at 21:00 Vancomycin HCl (Vancocin) 250 ml @ 125 mls/hr Q72H IVPB Last administered on 12:06; Admin Dose 125 MLS/HR; Start 10/29/16 at 12:00 Benazepril HCl (Lotensin) 10 mg BID PO Last administered on 10/30/16 08:42; Admin Dose 10 MG; Start 10/29/16 at 21:00 SADAF VAZQUEZ Oct 30, 2016 09:48
--- NOTE | 2016-10-30 12:09 | CONS ---
Date/Time of Note Date/Time of Note DATE: 10/30/16 TIME: 12:07 Assessment/Plan Assessment/Plan Chief Complaint/Hosp Course IMPRESSION: 1. Chest pain, assess for acute coronary syndrome-with a 4th trop minimally positive in the setting of renal failure. Now s/p lexiscan with no sig ischemia/ NL EF and no recurrent chest pain at thie time 2. Abnormal electrocardiogram, assess for acute coronary syndrome. 3. Right bundle branch block by EKG. 4. History of permanent pacemaker implant. 5. History of symptomatic bradycardia. 6. Diabetes mellitus. 7. Hypertensive emergency-improved on oral anti-hypertensives 8. End-stage renal disease on hemodialysis. 9. Possible bronchitis. Recc: -Continue norvasc/hydralazine/isordil and follow BP closely -Increase benazepril to improve BP control -Continue abx's/bronchodilators -Continue asa -HD for volume removal Problems: Consultation Date/Type/Reason Admit Date/Time Oct 14, 2016 at 13:43 Initial Consult Date 10/16/2016 Type of Consultation: Cardiology Reason for Consultation chest pain Referring Provider: YUNIER KIRBY MD Exam/Review of Systems Vital Signs Vitals Vital Signs Date Time Temp Pulse Resp B/P Pulse Ox O2 Delivery O2 Flow Rate FiO2 10/30/16 08:30 98.2 20 151/70 96 10/30/16 05:30 73 Room Air 10/29/16 17:30 21 10/27/16 20:25 2.0 Intake and Output 10/29/16 10/29/16 10/30/16 15:00 23:00 07:00 Intake Total 720 ml 800 ml 220 ml Output Total 2500 ml Balance 720 ml -1700 ml 220 ml Exam Review of Systems: CONSTITUTIONAL: No fevers, chills. PULMONARY: No sob CARDIOVASCULAR: No chest pain/palpitations GASTROINTESTINAL: No nausea/vomiting. GENITOURINARY: No hematuria/dysuria. MUSCULOSKELETAL: No myagias/arthalgias. PSYCHIATRIC: The patient denies depression. NEUROLOGIC: No weakness Constitutional: alert, oriented Psych: no complaints Head: normocephalic ENMT: mucosa pink and moist Neck: jvd (8-9 cm water), supple Respiratory: diminished breath sounds (at bases/B) Cardiovascular: regular rate and rhythm Gastrointestinal: non-tender, soft Musculoskeletal: muscle tone (normal) Extremities: edema (none) Neurological: other (No focal deficits) Results Result Diagram: 10/29/16 0515 10/29/16 0515 Results 24 hrs Laboratory Tests Test 10/29/16 17:13 10/29/16 20:34 10/30/16 08:09 Bedside Glucose 145 171 109 Medications Medications Current Medications Heparin Sodium (Porcine) (Heparin (5000 Units/0.5 ml)) 5,000 unit BID SC Last administered on 10/30/16 09:09; Admin Dose 5,000 UNIT; Start 10/14/16 at 21:00 Famotidine (Pepcid) 20 mg DAILY PO Last administered on 10/30/16 08:44; Admin Dose 20 MG; Start 10/15/16 at 09:00 Ondansetron HCl (Zofran Inj) 4 mg Q6H PRN IV NAUSEA AND/OR VOMITING; Start at 16:30 Nitroglycerin (Nitroglycerin (Sl Tab) 0.4 Mg) 1 tab Q5M PRN SL CHEST PAIN; Start 10/14/16 at 16:30 Acetaminophen (Tylenol Tab) 650 mg Q6H PRN PO PAIN LEVEL 1-3 OR FEVER Last administered on 10/23/16 20:01; Admin Dose 650 MG; Start 10/14/16 at 16:30 Morphine Sulfate (morphine) 2 mg Q4H PRN IV PAIN LEVEL 7-10 Last administered on 10/24/16 20:21; Admin Dose 2 MG; Start 10/14/16 at 16:30 Docusate Sodium (Colace) 100 mg Q12H PRN PO CONSTIPATION; Start 10/14/16 at 16: 30 Guaifenesin/ Dextromethorphan (Robitussin Dm Liquid Cup) 10 ml Q4H PRN PO COUGH Last administered on 10/14/16 21:56; Admin Dose 10 ML; Start 10/14/16 at 16:30 Atorvastatin Calcium (Lipitor) 20 mg DAILY@21 PO Last administered on 10/29/16 20:31; Admin Dose 20 MG; Start 10/14/16 at 21:00 Miscellaneous Information 1 ea NOTE XX ; Start 10/14/16 at 17:30 Glucose (Glutose) 15 gm Q15M PRN PO DECREASED GLUCOSE; Start 10/14/16 at 17:30 Glucose (Glutose) 22.5 gm Q15M PRN PO DECREASED GLUCOSE; Start 10/14/16 at 17: 30 Dextrose (D50w Syringe) 25 ml Q15M PRN IV DECREASED GLUCOSE Last administered on 10/29/16 08:10; Admin Dose 25 ML; Start 10/14/16 at 17:30 Dextrose (D50w Syringe) 50 ml Q15M PRN IV DECREASED GLUCOSE; Start 10/14/16 at 17:30 Glucagon (Glucagen) 1 mg Q15M PRN IM DECREASED GLUCOSE; Start 10/14/16 at 17:30 Glucose (Glutose) 15 gm Q15M PRN BUCCAL DECREASED GLUCOSE Last administered on 10/28/16 04:48; Admin Dose 15 GM; Start 10/14/16 at 17:30 Amlodipine Besylate (Norvasc) 5 mg BID PO Last administered on 10/30/16 08:43; Admin Dose 5 MG; Start 10/15/16 at 21:00 Clonidine (Catapres) 0.1 mg Q4 PRN PO ELEVATED SYSTOLIC BP Last administered on 10/24/16 23:47; Admin Dose 0.1 MG; Start 10/15/16 at 17:00 Aspirin (Halfprin) 81 mg DAILY PO Last administered on 10/30/16 08:47; Admin Dose 81 MG; Start 10/18/16 at 09:00 Hydralazine HCl (Apresoline) 100 mg Q8H PO Last administered on 10/30/16 05:34 ; Admin Dose 100 MG; Start 10/21/16 at 20:30 Diagnostic Test (Pha) (Accucheck) 1 ea 02 XX Last administered on 10/27/16 02: 31; Admin Dose 1 EA; Start 10/23/16 at 02:00 Methylprednisolone Sodium Succinate (Solu-Medrol) 20 mg QAM IV Last administered on 10/30/16 08:41; Admin Dose 20 MG; Start 10/23/16 at 09:00 Lorazepam (Ativan) 0.5 mg Q6H PRN IV AGITATION/ANXIETY Last administered on 02:12; Admin Dose 0.5 MG; Start 10/23/16 at 02:30 Insulin Glargine 20 unit 20 unit HS SC Last administered on 10/29/16 20:38; Admin Dose 20 UNIT; Start 10/23/16 at 21:00 Piperacillin Sod/ Tazobactam Sod (Zosyn 2.25gm/ 50ml (Pmx)) 50 ml @ 100 mls/hr Q8 IVPB Last administered on 10/30/16 05:33; Admin Dose 100 MLS/HR; Start 10/24 at 12:45 Docusate Sodium (Colace) 100 mg BID PO Last administered on 10/30/16 08:41; Admin Dose 100 MG; Start 10/28/16 at 13:00 Magnesium Hydroxide (Milk Of Mag) 30 ml DAILY PRN PO constipation Last administered on 10/28/16 13:07; Admin Dose 30 ML; Start 10/28/16 at 13:00 Isosorbide Dinitrate 30 mg 30 mg TID PO Last administered on 10/30/16 08:44; Admin Dose 30 MG; Start 10/28/16 at 21:00 Vancomycin HCl (Vancocin) 250 ml @ 125 mls/hr Q72H IVPB Last administered on 12:06; Admin Dose 125 MLS/HR; Start 10/29/16 at 12:00 Benazepril HCl (Lotensin) 10 mg BID PO Last administered on 10/30/16 08:42; Admin Dose 10 MG; Start 10/29/16 at 21:00 WILLA GARSIA Oct 30, 2016 12:09
--- NOTE | 2016-10-30 20:24 | CONS ---
Date/Time of Note Date/Time of Note DATE: 10/30/16 TIME: 20:21 Assessment/Plan Assessment/Plan Additional Assessment/Plan HD per schedule Consultation Date/Type/Reason Admit Date/Time Oct 14, 2016 at 13:43 Initial Consult Date This note is from 10/15/2016, pt seen at 1100AM Type of Consultation: renal Referring Provider: YUNIER KIRBY MD 24 HR Interval Summary Constitutional: improved, no complaints Exam/Review of Systems Vital Signs Vitals Vital Signs Date Time Temp Pulse Resp B/P Pulse Ox O2 Delivery O2 Flow Rate FiO2 10/30/16 20:00 97.9 71 20 154/68 96 10/30/16 05:30 Room Air 10/29/16 17:30 21 10/27/16 20:25 2.0 Intake and Output 10/29/16 10/29/16 10/30/16 15:00 23:00 07:00 Intake Total 720 ml 800 ml 220 ml Output Total 2500 ml Balance 720 ml -1700 ml 220 ml Exam Constitutional: alert Head: normocephalic Eyes: nl conjunctiva ENMT: other (blind) Cardiovascular: regular rate and rhythm Gastrointestinal: soft Extremities: normal pulses Neurological: FREIGHT TALLIER II-XII intact Results Result Diagram: 10/29/1615 10/29/1615 Results 24 hrs Laboratory Tests Test 10/29/16 20:34 10/30/16 08:09 10/30/16 12:20 10/30/16 17:36 Bedside Glucose 171 109 194 257 H Medications Medications Current Medications Heparin Sodium (Porcine) (Heparin (5000 Units/0.5 ml)) 5,000 unit BID SC Last administered on 10/30/16 09:09; Admin Dose 5,000 UNIT; Start 10/14/16 at 21:00 Famotidine (Pepcid) 20 mg DAILY PO Last administered on 10/30/16 08:44; Admin Dose 20 MG; Start 10/15/16 at 09:00 Ondansetron HCl (Zofran Inj) 4 mg Q6H PRN IV NAUSEA AND/OR VOMITING; Start at 16:30 Nitroglycerin (Nitroglycerin (Sl Tab) 0.4 Mg) 1 tab Q5M PRN SL CHEST PAIN; Start 10/14/16 at 16:30 Acetaminophen (Tylenol Tab) 650 mg Q6H PRN PO PAIN LEVEL 1-3 OR FEVER Last administered on 10/23/16 20:01; Admin Dose 650 MG; Start 10/14/16 at 16:30 Morphine Sulfate (morphine) 2 mg Q4H PRN IV PAIN LEVEL 7-10 Last administered on 10/24/16 20:21; Admin Dose 2 MG; Start 10/14/16 at 16:30 Docusate Sodium (Colace) 100 mg Q12H PRN PO CONSTIPATION; Start 10/14/16 at 16: 30 Guaifenesin/ Dextromethorphan (Robitussin Dm Liquid Cup) 10 ml Q4H PRN PO COUGH Last administered on 10/14/16 21:56; Admin Dose 10 ML; Start 10/14/16 at 16:30 Atorvastatin Calcium (Lipitor) 20 mg DAILY@21 PO Last administered on 10/29/16 20:31; Admin Dose 20 MG; Start 10/14/16 at 21:00 Miscellaneous Information 1 ea NOTE XX ; Start 10/14/16 at 17:30 Glucose (Glutose) 15 gm Q15M PRN PO DECREASED GLUCOSE; Start 10/14/16 at 17:30 Glucose (Glutose) 22.5 gm Q15M PRN PO DECREASED GLUCOSE; Start 10/14/16 at 17: 30 Dextrose (D50w Syringe) 25 ml Q15M PRN IV DECREASED GLUCOSE Last administered on 10/29/16 08:10; Admin Dose 25 ML; Start 10/14/16 at 17:30 Dextrose (D50w Syringe) 50 ml Q15M PRN IV DECREASED GLUCOSE; Start 10/14/16 at 17:30 Glucagon (Glucagen) 1 mg Q15M PRN IM DECREASED GLUCOSE; Start 10/14/16 at 17:30 Glucose (Glutose) 15 gm Q15M PRN BUCCAL DECREASED GLUCOSE Last administered on 10/28/16 04:48; Admin Dose 15 GM; Start 10/14/16 at 17:30 Amlodipine Besylate (Norvasc) 5 mg BID PO Last administered on 10/30/16 08:43; Admin Dose 5 MG; Start 10/15/16 at 21:00 Clonidine (Catapres) 0.1 mg Q4 PRN PO ELEVATED SYSTOLIC BP Last administered on 10/24/16 23:47; Admin Dose 0.1 MG; Start 10/15/16 at 17:00 Aspirin (Halfprin) 81 mg DAILY PO Last administered on 10/30/16 08:47; Admin Dose 81 MG; Start 10/18/16 at 09:00 Hydralazine HCl (Apresoline) 100 mg Q8H PO Last administered on 10/30/16 13:04 ; Admin Dose 100 MG; Start 10/21/16 at 20:30 Diagnostic Test (Pha) (Accucheck) 1 ea 02 XX Last administered on 10/27/16 02: 31; Admin Dose 1 EA; Start 10/23/16 at 02:00 Methylprednisolone Sodium Succinate (Solu-Medrol) 20 mg QAM IV Last administered on 10/30/16 08:41; Admin Dose 20 MG; Start 10/23/16 at 09:00 Lorazepam (Ativan) 0.5 mg Q6H PRN IV AGITATION/ANXIETY Last administered on 02:12; Admin Dose 0.5 MG; Start 10/23/16 at 02:30 Insulin Glargine 20 unit 20 unit HS SC Last administered on 10/29/16 20:38; Admin Dose 20 UNIT; Start 10/23/16 at 21:00 Piperacillin Sod/ Tazobactam Sod (Zosyn 2.25gm/ 50ml (Pmx)) 50 ml @ 100 mls/hr Q8 IVPB Last administered on 10/30/16 14:44; Admin Dose 100 MLS/HR; Start 10/24 at 12:45 Docusate Sodium (Colace) 100 mg BID PO Last administered on 10/30/16 08:41; Admin Dose 100 MG; Start 10/28/16 at 13:00 Magnesium Hydroxide (Milk Of Mag) 30 ml DAILY PRN PO constipation Last administered on 10/28/16 13:07; Admin Dose 30 ML; Start 10/28/16 at 13:00 Isosorbide Dinitrate 30 mg 30 mg TID PO Last administered on 10/30/16 13:05; Admin Dose 30 MG; Start 10/28/16 at 21:00 Vancomycin HCl (Vancocin) 250 ml @ 125 mls/hr Q72H IVPB Last administered on 12:06; Admin Dose 125 MLS/HR; Start 10/29/16 at 12:00 Benazepril HCl (Lotensin) 20 mg BID PO ; Start 10/30/16 at 21:00 RACHEL NIEVES MD Oct 30, 2016 20:24
[2016-10-30] MEDS: ATORVASTATIN 20 MG TAB PO SCH (20:41)
[2016-10-30] MEDS: BENAZEPRIL 20 MG TAB PO SCH (20:42)
[2016-10-30] MEDS: INSULIN GLARGINE [LANtus] 3 ML PEN SC SCH (20:49)
[2016-10-31] VITALS (12 sets, daily range): BP systolic 96–142; BP diastolic 52–77; PULSE 60–74; RESP 18
[2016-10-31] MEDS: ACCUCHECK XX SCH (02:00)
[2016-10-31] MEDS: PIPER-TAZO 2.25 GM (PMX) 50 ML IVPB SCH ×2 (05:13→14:20)
[2016-10-31 06:08] LABS: HEMATOCRIT 28.8 % (42.0-52.0); HEMOGLOBIN 9.7 g/dl (14.0-18.0); LYMPHOCYTES # 1.4 10^3/ul (0.8-2.9); LYMPHOCYTES % 17.4 % (15.0-51.0); MEAN CORPUSCULAR HEMOGLOBIN 27.4 pg (29.0-33.0); MEAN CORPUSCULAR HGB CONC 33.6 g/dl (32.0-37.0); MEAN CORPUSCULAR VOLUME 81.7 fl (82.0-101.0); MEAN PLATELET VOLUME 10.3 fl (7.4-10.4); MONOCYTE # 0.6 10^3/ul (0.3-0.9); MONOCYTES % 6.7 % (0.0-11.0); NEUTROPHIL # 6.3 10^3/ul (1.6-7.5); NEUTROPHILS % 75.9 % (39.0-77.0); PLATELET COUNT 68 10^3/UL (140-440); RED BLOOD COUNT 3.53 10^6/ul (4.70-6.10); RED CELL DISTRIBUTION WIDTH 18.9 % (11.5-14.5); UNCORRECTED WBC 8.3 10^3/ul (4.8-10.8); WHITE BLOOD COUNT 8.3 10^3/ul (4.8-10.8)
[2016-10-31 06:16] LABS: POTASSIUM 5.2 mmol/L (3.5-5.1)
[2016-10-31 06:19] LABS: CREATININE 5.14 mg/dl (0.61-1.24)
[2016-10-31 06:20] LABS: CALCIUM 7.8 mg/dl (8.4-10.2)
[2016-10-31 06:45] LABS: CONDITION 1; LH ANALYZER COMMENTS 1
[2016-10-31] MEDS: SEVELAMER 800 MG TAB PO SCH ×2 (08:05→14:17)
[2016-10-31] MEDS: INSULIN ASPART [NOVOLOG] 3 ML PEN SC SCH ×4 (08:07→17:46)
[2016-10-31] MEDS ORDERED: ALBUMIN HUMAN 25% 100 ML IV PRN (09:00)
--- NOTE | 2016-10-31 11:55 | CONS ---
Date/Time of Note Date/Time of Note DATE: 10/31/16 TIME: 11:54 Assessment/Plan Assessment/Plan Chief Complaint/Hosp Course IMPRESSION: 1. Chest pain, assess for acute coronary syndrome-with a 4th trop minimally positive in the setting of renal failure. Now s/p lexiscan with no sig ischemia/ NL EF and no recurrent chest pain at this time 2. Abnormal electrocardiogram, assess for acute coronary syndrome. 3. Right bundle branch block by EKG. 4. History of permanent pacemaker implant. 5. History of symptomatic bradycardia. 6. Diabetes mellitus. 7. Hypertensive emergency-improved on oral anti-hypertensives 8. End-stage renal disease on hemodialysis. 9. Possible bronchitis. Recc: -Continue norvasc/hydralazine/isordil/benazepril and follow BP closely -Continue abx's/bronchodilators -Continue asa -HD for volume removal Problems: Consultation Date/Type/Reason Admit Date/Time Oct 14, 2016 at 13:43 Initial Consult Date 10/16/2016 Type of Consultation: Cardiology Reason for Consultation Chest pain Referring Provider: YUNIER KIRBY MD Exam/Review of Systems Vital Signs Vitals Vital Signs Date Time Temp Pulse Resp B/P Pulse Ox O2 Delivery O2 Flow Rate FiO2 10/31/16 11:30 61 10/31/16 08:04 97.8 18 133/59 96 10/31/16 05:15 Room Air 10/29/16 17:30 21 10/27/16 20:25 2.0 Intake and Output 10/30/16 10/30/16 10/31/16 15:00 23:00 07:00 Intake Total 580 ml 600 ml Output Total 2500 ml Balance 580 ml -1900 ml Exam Review of Systems: CONSTITUTIONAL: No fevers, chills. PULMONARY: No sob CARDIOVASCULAR: No chest pain/palpitations GASTROINTESTINAL: No nausea/vomiting. GENITOURINARY: No hematuria/dysuria. MUSCULOSKELETAL: No myagias/arthalgias. PSYCHIATRIC: The patient denies depression. NEUROLOGIC: No weakness Constitutional: alert Psych: no complaints Head: normocephalic ENMT: mucosa pink and moist Neck: jvd (9 cm water), supple Respiratory: diminished breath sounds (at bases/B) Cardiovascular: regular rate and rhythm Gastrointestinal: non-tender, soft Musculoskeletal: muscle tone (normal) Extremities: edema (none) Neurological: other (No focal deficits) Results Result Diagram: 10/31/16 0515 10/31/16 0515 Results 24 hrs Laboratory Tests Test 10/30/16 12:20 10/30/16 17:36 10/30/16 20:40 10/31/16 05:15 Bedside Glucose 194 257 H 176 Anion Gap 19 H Basophils # 0.0 Basophils % 0.0 Blood Morphology Comment Blood Urea Nitrogen 68 H Calcium Level 7.8 L Carbon Dioxide Level 23 Chloride Level 98 Creatinine 5.14 H Differential Comment AUTO w/SCAN Eosinophils # 0.0 Eosinophils % 0.0 Glucose Level 84 Hematocrit 28.8 L Hemoglobin 9.7 L Lymphocytes # 1.4 Lymphocytes % 17.4 Mean Corpuscular Hemoglobin 27.4 L Mean Corpuscular Hemoglobin Concent 33.6 Mean Corpuscular Volume 81.7 L Mean Platelet Volume 10.3 Monocytes # 0.6 Monocytes % 6.7 Neutrophils # 6.3 Neutrophils % 75.9 Nucleated Red Blood Cells # 0.0 Nucleated Red Blood Cells % 0.0 Platelet Count 68 L Potassium Level 5.2 H Red Blood Count 3.53 L Red Cell Distribution Width 18.9 H Sodium Level 135 White Blood Count 8.3 # Test 10/31/16 07:55 10/31/16 08:24 10/31/16 08:47 Bedside Glucose 49 *L 63 L 95 Medications Medications Current Medications Heparin Sodium (Porcine) (Heparin (5000 Units/0.5 ml)) 5,000 unit BID SC Last administered on 10/30/16 20:49; Admin Dose 5,000 UNIT; Start 10/14/16 at 21:00 Famotidine (Pepcid) 20 mg DAILY PO Last administered on 10/30/16 08:44; Admin Dose 20 MG; Start 10/15/16 at 09:00 Ondansetron HCl (Zofran Inj) 4 mg Q6H PRN IV NAUSEA AND/OR VOMITING; Start at 16:30 Nitroglycerin (Nitroglycerin (Sl Tab) 0.4 Mg) 1 tab Q5M PRN SL CHEST PAIN; Start 10/14/16 at 16:30 Acetaminophen (Tylenol Tab) 650 mg Q6H PRN PO PAIN LEVEL 1-3 OR FEVER Last administered on 10/23/16 20:01; Admin Dose 650 MG; Start 10/14/16 at 16:30 Morphine Sulfate (morphine) 2 mg Q4H PRN IV PAIN LEVEL 7-10 Last administered on 10/24/16 20:21; Admin Dose 2 MG; Start 10/14/16 at 16:30 Docusate Sodium (Colace) 100 mg Q12H PRN PO CONSTIPATION; Start 10/14/16 at 16: 30 Guaifenesin/ Dextromethorphan (Robitussin Dm Liquid Cup) 10 ml Q4H PRN PO COUGH Last administered on 10/14/16 21:56; Admin Dose 10 ML; Start 10/14/16 at 16:30 Atorvastatin Calcium (Lipitor) 20 mg DAILY@21 PO Last administered on 10/30/16 20:41; Admin Dose 20 MG; Start 10/14/16 at 21:00 Miscellaneous Information 1 ea NOTE XX ; Start 10/14/16 at 17:30 Glucose (Glutose) 15 gm Q15M PRN PO DECREASED GLUCOSE; Start 10/14/16 at 17:30 Glucose (Glutose) 22.5 gm Q15M PRN PO DECREASED GLUCOSE; Start 10/14/16 at 17: 30 Dextrose (D50w Syringe) 25 ml Q15M PRN IV DECREASED GLUCOSE Last administered on 10/29/16 08:10; Admin Dose 25 ML; Start 10/14/16 at 17:30 Dextrose (D50w Syringe) 50 ml Q15M PRN IV DECREASED GLUCOSE; Start 10/14/16 at 17:30 Glucagon (Glucagen) 1 mg Q15M PRN IM DECREASED GLUCOSE; Start 10/14/16 at 17:30 Glucose (Glutose) 15 gm Q15M PRN BUCCAL DECREASED GLUCOSE Last administered on 10/28/16 04:48; Admin Dose 15 GM; Start 10/14/16 at 17:30 Amlodipine Besylate (Norvasc) 5 mg BID PO Last administered on 10/30/16 20:42; Admin Dose 5 MG; Start 10/15/16 at 21:00 Clonidine (Catapres) 0.1 mg Q4 PRN PO ELEVATED SYSTOLIC BP Last administered on 10/24/16 23:47; Admin Dose 0.1 MG; Start 10/15/16 at 17:00 Aspirin (Halfprin) 81 mg DAILY PO Last administered on 10/30/16 08:47; Admin Dose 81 MG; Start 10/18/16 at 09:00 Hydralazine HCl (Apresoline) 100 mg Q8H PO Last administered on 10/31/16 05:16 ; Admin Dose 100 MG; Start 10/21/16 at 20:30 Diagnostic Test (Pha) (Accucheck) 1 ea 02 XX Last administered on 10/27/16 02: 31; Admin Dose 1 EA; Start 10/23/16 at 02:00 Methylprednisolone Sodium Succinate (Solu-Medrol) 20 mg QAM IV Last administered on 10/30/16 08:41; Admin Dose 20 MG; Start 10/23/16 at 09:00 Lorazepam 0.5 mg 0.5 mg Q6H PRN IV AGITATION/ANXIETY Last administered on 02:12; Admin Dose 0.5 MG; Start 10/23/16 at 02:30 Piperacillin Sod/ Tazobactam Sod (Zosyn 2.25gm/ 50ml (Pmx)) 50 ml @ 100 mls/hr Q8 IVPB Last administered on 10/31/16 05:13; Admin Dose 100 MLS/HR; Start 10/24 at 12:45 Docusate Sodium (Colace) 100 mg BID PO Last administered on 10/30/16 20:41; Admin Dose 100 MG; Start 10/28/16 at 13:00 Magnesium Hydroxide (Milk Of Mag) 30 ml DAILY PRN PO constipation Last administered on 10/28/16 13:07; Admin Dose 30 ML; Start 10/28/16 at 13:00 Isosorbide Dinitrate 30 mg 30 mg TID PO Last administered on 10/30/16 20:43; Admin Dose 30 MG; Start 10/28/16 at 21:00 Vancomycin HCl (Vancocin) 250 ml @ 125 mls/hr Q72H IVPB Last administered on 12:06; Admin Dose 125 MLS/HR; Start 10/29/16 at 12:00 Benazepril HCl (Lotensin) 20 mg BID PO Last administered on 10/30/16 20:42; Admin Dose 20 MG; Start 10/30/16 at 21:00 Insulin Glargine (Lantus) 16 unit HS SC ; Start 10/31/16 at 21:00 WILLA GARSIA Oct 31, 2016 11:55
[2016-10-31] MEDS: METHYLPREDNISOLONE 40 MG INJ IV SCH (14:14)
[2016-10-31] MEDS: AMLODIPINE 5 MG TAB PO SCH (14:15)
[2016-10-31] MEDS: ASPIRIN (EC) 81 MG TAB PO SCH (14:15)
[2016-10-31] MEDS: ISOSORBIDE DINITRATE 10 MG TAB PO SCH (14:15)
[2016-10-31] MEDS: DOCUSATE SODIUM 100 MG CAP PO SCH (14:16)
[2016-10-31] MEDS: FAMOTIDINE 20 MG TAB PO SCH (14:16)
[2016-10-31] MEDS: BENAZEPRIL 20 MG TAB PO SCH (14:16)
[2016-10-31] MEDS: HEPARIN 5,000 UNIT/0.5 ML SYG SC SCH (14:34)
[2016-10-31] MEDS ORDERED: ASPI-664 PO (15:12)
[2016-10-31] MEDS ORDERED: APR50 PO (15:12)
[2016-10-31] MEDS ORDERED: AMLO-145 PO (15:12)
[2016-10-31] MEDS ORDERED: BENA20TA48 PO (15:12)
[2016-10-31] MEDS ORDERED: IPRA3AMP INHALATION (17:16)
--- NOTE | 2016-10-31 19:39 | CONS ---
Date/Time of Note Date/Time of Note DATE: 10/31/16 TIME: 19:36 Assessment/Plan Assessment/Plan Additional Assessment/Plan COntinue present Rx, pt dialyzed without problems Consultation Date/Type/Reason Admit Date/Time Oct 14, 2016 at 13:43 Initial Consult Date This note is from 10/15/2016, pt seen at 1100AM Type of Consultation: Cardiology Referring Provider: YUNIER KIRBY MD Exam/Review of Systems Vital Signs Vitals Vital Signs Date Time Temp Pulse Resp B/P Pulse Ox O2 Delivery O2 Flow Rate FiO2 10/31/16 18:13 98.0 64 18 126/77 98 10/31/16 05:15 Room Air 10/29/16 17:30 21 10/27/16 20:25 2.0 Intake and Output 10/30/16 10/30/16 10/31/16 15:00 23:00 07:00 Intake Total 580 ml 600 ml Output Total 2500 ml Balance 580 ml -1900 ml Exam Pt is lying comfortably in bed Constitutional: alert, oriented, well developed Psych: nl mood/affect, no complaints Head: atraumatic, normocephalic Eyes: other (Pt unable to see either eye) ENMT: nl external ears & nose, nl lips & teeth, nl nasal mucosa & septum Neck: non-tender, supple Respiratory: clear to auscultation, normal air movement Cardiovascular: nl pulses, regular rate and rhythm Gastrointestinal: nl liver, spleen, non-tender, soft Musculoskeletal: nl extremities to inspection, nl gait and stance Extremities: other (Lt arm avf bruit is present) 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, nl mental status, nl speech, nl strength Additional Comments Hbg, chemistry is stable Results Result Diagram: 10/31/1615 10/31/1615 Results 24 hrs Laboratory Tests Test 10/30/16 20:40 10/31/16 05:15 10/31/16 07:55 10/31/16 08:24 Bedside Glucose 176 49 *L 63 L Anion Gap 19 H Basophils # 0.0 Basophils % 0.0 Blood Morphology Comment Blood Urea Nitrogen 68 H Calcium Level 7.8 L Carbon Dioxide Level 23 Chloride Level 98 Creatinine 5.14 H Differential Comment AUTO w/SCAN Eosinophils # 0.0 Eosinophils % 0.0 Glucose Level 84 Hematocrit 28.8 L Hemoglobin 9.7 L Lymphocytes # 1.4 Lymphocytes % 17.4 Mean Corpuscular Hemoglobin 27.4 L Mean Corpuscular Hemoglobin Concent 33.6 Mean Corpuscular Volume 81.7 L Mean Platelet Volume 10.3 Monocytes # 0.6 Monocytes % 6.7 Neutrophils # 6.3 Neutrophils % 75.9 Nucleated Red Blood Cells # 0.0 Nucleated Red Blood Cells % 0.0 Platelet Count 68 L Potassium Level 5.2 H Red Blood Count 3.53 L Red Cell Distribution Width 18.9 H Sodium Level 135 White Blood Count 8.3 # Test 10/31/16 08:47 10/31/16 11:52 10/31/16 14:00 10/31/16 17:36 Bedside Glucose 95 155 112 120 Medications Medications Current Medications Heparin Sodium (Porcine) (Heparin (5000 Units/0.5 ml)) 5,000 unit BID SC Last administered on 10/31/16 14:34; Admin Dose 5,000 UNIT; Start 10/14/16 at 21:00 Famotidine (Pepcid) 20 mg DAILY PO Last administered on 10/31/16 14:16; Admin Dose 20 MG; Start 10/15/16 at 09:00 Ondansetron HCl (Zofran Inj) 4 mg Q6H PRN IV NAUSEA AND/OR VOMITING; Start at 16:30 Nitroglycerin (Nitroglycerin (Sl Tab) 0.4 Mg) 1 tab Q5M PRN SL CHEST PAIN; Start 10/14/16 at 16:30 Acetaminophen (Tylenol Tab) 650 mg Q6H PRN PO PAIN LEVEL 1-3 OR FEVER Last administered on 10/23/16 20:01; Admin Dose 650 MG; Start 10/14/16 at 16:30 Morphine Sulfate (morphine) 2 mg Q4H PRN IV PAIN LEVEL 7-10 Last administered on 10/24/16 20:21; Admin Dose 2 MG; Start 10/14/16 at 16:30 Docusate Sodium (Colace) 100 mg Q12H PRN PO CONSTIPATION; Start 10/14/16 at 16: 30 Guaifenesin/ Dextromethorphan (Robitussin Dm Liquid Cup) 10 ml Q4H PRN PO COUGH Last administered on 10/14/16 21:56; Admin Dose 10 ML; Start 10/14/16 at 16:30 Atorvastatin Calcium (Lipitor) 20 mg DAILY@21 PO Last administered on 10/30/16 20:41; Admin Dose 20 MG; Start 10/14/16 at 21:00 Miscellaneous Information 1 ea NOTE XX ; Start 10/14/16 at 17:30 Glucose (Glutose) 15 gm Q15M PRN PO DECREASED GLUCOSE; Start 10/14/16 at 17:30 Glucose (Glutose) 22.5 gm Q15M PRN PO DECREASED GLUCOSE; Start 10/14/16 at 17: 30 Dextrose (D50w Syringe) 25 ml Q15M PRN IV DECREASED GLUCOSE Last administered on 10/29/16 08:10; Admin Dose 25 ML; Start 10/14/16 at 17:30 Dextrose (D50w Syringe) 50 ml Q15M PRN IV DECREASED GLUCOSE; Start 10/14/16 at 17:30 Glucagon (Glucagen) 1 mg Q15M PRN IM DECREASED GLUCOSE; Start 10/14/16 at 17:30 Glucose (Glutose) 15 gm Q15M PRN BUCCAL DECREASED GLUCOSE Last administered on 10/28/16 04:48; Admin Dose 15 GM; Start 10/14/16 at 17:30 Amlodipine Besylate (Norvasc) 5 mg BID PO Last administered on 10/31/16 14:15; Admin Dose 5 MG; Start 10/15/16 at 21:00 Clonidine (Catapres) 0.1 mg Q4 PRN PO ELEVATED SYSTOLIC BP Last administered on 10/24/16 23:47; Admin Dose 0.1 MG; Start 10/15/16 at 17:00 Aspirin (Halfprin) 81 mg DAILY PO Last administered on 10/31/16 14:15; Admin Dose 81 MG; Start 10/18/16 at 09:00 Hydralazine HCl (Apresoline) 100 mg Q8H PO Last administered on 10/31/16 05:16 ; Admin Dose 100 MG; Start 10/21/16 at 20:30 Diagnostic Test (Pha) (Accucheck) 1 ea 02 XX Last administered on 10/27/16 02: 31; Admin Dose 1 EA; Start 10/23/16 at 02:00 Methylprednisolone Sodium Succinate (Solu-Medrol) 20 mg QAM IV Last administered on 10/31/16 14:14; Admin Dose 20 MG; Start 10/23/16 at 09:00 Lorazepam 0.5 mg 0.5 mg Q6H PRN IV AGITATION/ANXIETY Last administered on 02:12; Admin Dose 0.5 MG; Start 10/23/16 at 02:30 Piperacillin Sod/ Tazobactam Sod (Zosyn 2.25gm/ 50ml (Pmx)) 50 ml @ 100 mls/hr Q8 IVPB Last administered on 10/31/16 14:20; Admin Dose 100 MLS/HR; Start 10/24 at 12:45 Docusate Sodium (Colace) 100 mg BID PO Last administered on 10/31/16 14:16; Admin Dose 100 MG; Start 10/28/16 at 13:00 Magnesium Hydroxide (Milk Of Mag) 30 ml DAILY PRN PO constipation Last administered on 10/28/16 13:07; Admin Dose 30 ML; Start 10/28/16 at 13:00 Isosorbide Dinitrate 30 mg 30 mg TID PO Last administered on 10/31/16 14:15; Admin Dose 30 MG; Start 10/28/16 at 21:00 Vancomycin HCl (Vancocin) 250 ml @ 125 mls/hr Q72H IVPB Last administered on 12:06; Admin Dose 125 MLS/HR; Start 10/29/16 at 12:00 Benazepril HCl (Lotensin) 20 mg BID PO Last administered on 10/31/16 14:16; Admin Dose 20 MG; Start 10/30/16 at 21:00 Insulin Glargine (Lantus) 16 unit HS SC ; Start 10/31/16 at 21:00 RACHEL NIEVES MD Oct 31, 2016 19:39
[2016-10-31] MEDS ORDERED: INSULIN GLARGINE [LANtus] 3 ML PEN SC SCH (21:00)
--- NOTE | 2016-11-01 09:25 | DS ---
DATE OF ADMISSION: 10/14/2016 DATE OF DISCHARGE: 10/31/2016 FINAL DIAGNOSES: 1. Acute encephalopathy, secondary to healthcare-acquired bronchitis and fluid overload. 2. Acute bronchitis, status post treatment. 3. Status post chest pain, with negative nuclear tests. 4. Hypertension, status post hypertensive emergency. 5. End-stage renal disease, on hemodialysis. 6. Thrombocytopenia. 7. Symptomatic bradycardia, status post permanent pacemaker placement. 8. Hyperglycemia with history of diabetes with HbA1c being 5.4. 9. Legal blindness. BRIEF HISTORY: The patient is a 76-year-old gentleman with end-stage renal disease, on hemodialysis 3 times a week. The patient is also legally blind and has a history of diabetes and hypertension. The patient developed a productive cough and had generalized weakness and presented to the emergenc y room. The patient was diagnosed with bronchitis and was started on Rocephin and Zithromax and adm itted for further evaluation and management. The patient also had hypertensive emergency noted in [facility] emergency room with blood pressure elevated to 185/83. The patient was admitted for further eval uation and management. HOSPITAL COURSE: The patient was evaluated by Dr. Esparza, in cardiologic consultation. The patien t's cardiac enzymes were negative on admission, and slightly elevated to 0.16. The patient also und erwent a stress test which was negative for any ischemia. The patient was evaluated and followed by Dr. Esparza in cardiologic consultation. The patient also developed acute encephalopathy with agit ation and altered level of consciousness. During the admission, the patient underwent a brain CT, w hich was negative for any intracranial hemorrhage or acute intracranial pathology, some mild senesce nt changes and age-related atrophy noted. The patient's ammonia level was in the normal limits. Th e patient was started on vancomycin and Zosyn. The patient was also evaluated by Dr. Samaniego in pulmonologic consultation. He continued to remove fluids with hemodialysis. The patient's neurological status returned to baseline. The patient was also given some steroids and breathing treatments during the hospital stay. The patient was also evaluated by Dr. Bazan and Dr. Nettles in nephrologic consultation. The patient continued with hemodialysis throughout the hospital stay. The patient's blood pressure medication was optimized by Cardiology, and was adequately controlled. Overall, the patient's condition is improved. The patient was offered to continue care at a [facility] or [facility], since the patient is blind and with multiple comorbidities; however, the patient and the family r efused. The patient will be discharged home with Home Health Care services. CONDITION ON DISCHARGE: Hemodynamically stable. ACTIVITIES: As the patient tolerates. DIET: Renal diet. MEDICATIONS ON DISCHARGE: The patient is given prescriptions for 1. Norvasc 5 mg p.o. b.i.d. 2. Aspirin 81 mg p.o. daily. 3. Benazepril 20 mg p.o. b.i.d. 4. Hydralazine 100 mg p.o. q.8 hours. 5. The patient is to continue on Glipizide. 6. Imdur. 7. Renagel. 8. Zocor. PLAN: The patient is instructed to follow up with his primary care physician in 1-2 weeks and to fo llow up with Hemodialysis Center for hemodialysis. Dictated By: DIANA SULLIVAN/JERAMY Conf#: [id number] DID#: [id number]
== END 2016-10-31 19:15 | disposition home health service (06) | DRG 682 ==
LOC: E/R 11:18 → MS4 13:43 → MS2 10-28 19:00
PROVIDERS: ADMIT Internal Medicine; ATTEND Internal Medicine
PROC: 5A1D60Z (ICD-10-PCS; principal; 2016-10-15)
DX: I12.0 Hypertensive chronic kidney disease with stage 5 chronic kidney disease or end stage renal disease (principal); G93.40 Encephalopathy, unspecified; E11.65 Type 2 diabetes mellitus with hyperglycemia; D69.6 Thrombocytopenia, unspecified; E87.5 Hyperkalemia; N18.6 End stage renal disease; J20.9 Acute bronchitis, unspecified; I16.0 Hypertensive urgency; Z99.2 Dependence on renal dialysis; Z95.0 Presence of cardiac pacemaker; H54.8 Legal blindness, as defined in USA; I45.10 Unspecified right bundle-branch block; Z87.891 Personal history of nicotine dependence; D63.8 Anemia in other chronic diseases classified elsewhere; R07.9 Chest pain, unspecified
CPT/HCPCS: 36415; 36600; 70450; 71010; 78452; 80048; 80053; 80061; 80202; 82140; 82550; 82553; 82803; 82962; 83036; 83735; 84484; 85025; 85610; 85730; 87081; 87400; 90935; 93005; 93017; 94664; 96365; 96375; 97162; A9500; A9505; J0360; J0456; J0696; J0885; J1815; J2060; J2270; J2405; J2543; J2785; J2920; J3370; J7042; J7050; P9047

== ENCOUNTER → 2018-06-23 | Outpatient (CLI) | END | disposition home or self-care (01) ==